=== PATIENT | female | born 1965 | race Two or more races ===

== ENCOUNTER → 2016-12-06 | Outpatient (REF) | payer MEDICARE | LOC: M SFHCWAGY 14:06 | PROVIDERS: ATTEND Family Medicine | DX: Z11.3 Encounter for screening for infections with a predominantly sexual mode of transmission (principal); Z12.4 Encounter for screening for malignant neoplasm of cervix; N95.2 Postmenopausal atrophic vaginitis; Z72.51 High risk heterosexual behavior | CPT/HCPCS: 87491; 87591; G0101; G0123 ==

== ENCOUNTER → 2017-01-07 | Outpatient (REF) | payer MEDICARE ==
[2017-01-07 13:41] LABS: BASO % 0.8 % (0.0-1.0); EOS # 0.1 K/mm3 (0.0-0.50); EOS % 1.8 % (0.0-3.0); LARGE UNSTAINED CELL # 0.1 K/mm3 (0.0-0.4); LARGE UNSTAINED CELL % 1.4 % (0.0-4.0); LYMPH # 2.5 K/mm3 (1.5-4.5); LYMPH % 32.9 % (24.0-44.0); MEAN CORPUSCULAR HEMOGLOBIN 32.2 pg (27.0-33.0); MEAN CORPUSCULAR HGB CONC 34.1 g/dl (32.0-36.5); MEAN CORPUSCULAR VOLUME 94.6 fl (80.0-96.0); MONO # 0.3 K/mm3 (0.0-0.8); NEUTROPHILS # 4.3 K/mm3 (1.8-7.7); NEUTROPHILS % 59.2 % (36.0-66.0); PLATELET COUNT, AUTOMATED 247 k/mm3 (150-450); RED CELL DISTRIBUTION WIDTH 12.6 % (11.5-14.5); WHITE BLOOD COUNT 7.2 K/mm3 (4.0-10.0)
[2017-01-07 14:07] LABS: ALBUMIN 3.6 GM/DL (3.2-5.2); ALBUMIN/GLOBULIN RATIO 1.06 (1.00-1.93); ALKALINE PHOSPHATASE 184 U/L (45-117); ALT/SGPT 26 U/L (12-78); ANION GAP 5 MEQ/L (8-16); AST/SGOT 14 U/L (15-37); BILIRUBIN,TOTAL 0.8 MG/DL (0.2-1.0); BLOOD UREA NITROGEN 21 MG/DL (7-18); CALCIUM LEVEL 9.4 MG/DL (8.5-10.1); CARBON DIOXIDE LEVEL 31 MEQ/L (21-32); CHLORIDE LEVEL 106 MEQ/L (98-107); CREATININE FOR GFR 0.89 MG/DL (0.55-1.02); GLOMERULAR FILTRATION RATE > 60.0 (>51); GLUCOSE, FASTING 102 MG/DL (70-105); POTASSIUM SERUM 4.2 MEQ/L (3.5-5.1); SODIUM LEVEL 142 MEQ/L (136-145)
== END ==
LOC: M LABNEURO 13:34
PROVIDERS: ATTEND Psychiatry & Neurology Neurology
DX: G40.909 Epilepsy, unspecified, not intractable, without status epilepticus (principal)

== ENCOUNTER → 2017-02-10 | Outpatient (REF) | payer MEDICARE, MEDICAID ==
[~2017-02-10] MED LIST: CELE1CAP7 PO; ESCI20TA PO; KEPP1TAB PO; LEVO25TA5 PO; VALT500T PO; VENL150C43 PO
[2017-02-10 16:25] LABS: FREE T4 1.16 NG/DL (0.76-1.46)
== END ==
LOC: M SFHCPLAZ 13:50
PROVIDERS: ATTEND Family Medicine
DX: E04.9 Nontoxic goiter, unspecified (principal)
CPT/HCPCS: 36415; 84439; 84443; G0463

== ENCOUNTER 2017-03-06 16:42 | Emergency (ER) | payer MEDICARE, MEDICAID ==
[~2017-03-06] VITALS: Ht 160 cm; Wt 85.5 kg
[2017-03-06] MEDS ORDERED: KEPP1TAB PO (16:54)
[2017-03-06] MEDS ORDERED: ESCI20TA PO (16:54)
[2017-03-06] MEDS ORDERED: CELE1CAP7 PO (16:54)
[2017-03-06] MEDS ORDERED: LEVO25TA5 PO (16:54)
[2017-03-06] MEDS ORDERED: VENL150C43 PO (16:54)
[2017-03-06] MEDS ORDERED: VALT500T PO (16:54)
[2017-03-06 18:10] LABS: BASO # 0.1 K/mm3 (0.0-0.2); BASO % 1.2 % (0.0-1.0); EOS # 0.2 K/mm3 (0.0-0.50); EOS % 2.4 % (0.0-3.0); LARGE UNSTAINED CELL # 0.1 K/mm3 (0.0-0.4); LARGE UNSTAINED CELL % 1.4 % (0.0-4.0); LYMPH # 2.6 K/mm3 (1.5-4.5); LYMPH % 34.1 % (24.0-44.0); MEAN CORPUSCULAR HEMOGLOBIN 32.9 pg (27.0-33.0); MEAN CORPUSCULAR HGB CONC 35.1 g/dl (32.0-36.5); MEAN CORPUSCULAR VOLUME 93.7 fl (80.0-96.0); MONO # 0.3 K/mm3 (0.0-0.8); MONO % 4.3 % (0.0-5.0); NEUTROPHILS # 4.1 K/mm3 (1.8-7.7); NEUTROPHILS % 56.5 % (36.0-66.0); PLATELET COUNT, AUTOMATED 233 k/mm3 (150-450); RED CELL DISTRIBUTION WIDTH 12.4 % (11.5-14.5); WHITE BLOOD COUNT 7.2 K/mm3 (4.0-10.0)
[2017-03-06 18:31] LABS: ALBUMIN 3.5 GM/DL (3.2-5.2); ALBUMIN/GLOBULIN RATIO 1.03 (1.00-1.93); ALKALINE PHOSPHATASE 223 U/L (45-117); ALT/SGPT 23 U/L (12-78); ANION GAP 9 MEQ/L (8-16); AST/SGOT 16 U/L (15-37); BILIRUBIN,DIRECT < 0.1 MG/DL (0.0-0.2); BILIRUBIN,TOTAL 0.4 MG/DL (0.2-1.0); BLOOD UREA NITROGEN 18 MG/DL (7-18); CARBON DIOXIDE LEVEL 28 MEQ/L (21-32); CHLORIDE LEVEL 108 MEQ/L (98-107); CREATININE FOR GFR 0.98 MG/DL (0.55-1.02); GLOMERULAR FILTRATION RATE > 60.0 (>51); GLUCOSE, FASTING 90 MG/DL (70-105); SODIUM LEVEL 145 MEQ/L (136-145); TOTAL PROTEIN 6.9 GM/DL (6.4-8.2)
[2017-03-06 18:45] VITALS: BP 148/107
== END 2017-03-06 19:01 | disposition home or self-care (01) ==
LOC: M ED 16:42
DX: R53.1 Weakness (principal); R19.7 Diarrhea, unspecified; Z88.8 Allergy status to other drugs, medicaments and biological substances; Z79.899 Other long term (current) drug therapy

== ENCOUNTER → 2017-03-07 | Outpatient (CLI) | payer MEDICARE, MEDICAID ==
--- NOTE | 2017-03-07 16:52 | REP ---
Chest two views HISTORY: Cough Comparison: None There is elevation of the right hemidiaphragm. The lungs are clear. The heart is normal in size. The pulmonary vasculature is normal in appearance. There are old right rib fractures. The bony structure is intact. IMPRESSION: No acute disease. Signed by Freddy Armendariz MD 03/07/2017 04:44 P
== END ==
LOC: M RAD 15:09
PROVIDERS: ATTEND Family Medicine
DX: R05 Cough (principal)
CPT/HCPCS: 71020; 94010; G0463

== ENCOUNTER → 2017-04-08 | Outpatient (CLI) | payer MEDICARE ==
--- NOTE | 2017-04-10 15:51 | REPMRS ---
Patient History The patient states she had a clinical breast exam in 12/18 Patient is postmenopausal. Family history of colorectal cancer in father under age 50, prostate cancer in father under age 50, breast cancer in mother at age 50 or over, and breast cancer in maternal cousin under age 50. Digital Woman Screen Mammo: April 08, 2017 - Exam #: [id number] Bilateral CC and MLO view(s) were taken. Technologist: Vero Ambriz, Technologist Prior study comparison: 2015, bilateral digital mammo screening bilat, performed at [facility] [place]. January 18, 2015, digital bilateral screening mammo, performed at [facility]. FINDINGS: There are scattered fibroglandular densities. There has been no change in the appearance of the mammogram from the prior studies. There is a mild amount of scattered fibroglandular density which is fairly symmetric. There is no interval development of dominant mass, architectural distortion, or clustered microcalcification suggestive of malignancy. ASSESSMENT: BI-RADS/ACR category 1 mammogram. Negative. Recommendation Routine screening mammogram in 1 year (for women over age 40). This mammogram was interpreted with the aid of an FDA-approved computer-aided dectection system. Electronically Signed By: Cory Gann MD 04/10/17 2624
== END ==
LOC: M WHC 13:35
PROVIDERS: ATTEND Family Medicine
DX: Z12.31 Encounter for screening mammogram for malignant neoplasm of breast (principal)

== ENCOUNTER → 2017-04-24 | Outpatient (CLI) | payer MEDICARE, MEDICAID ==
--- NOTE | 2017-04-24 19:31 | REP ---
RIGHT KNEE SERIES: Five views of the right knee are performed. There is no acute fracture or dislocation. There is mild medial joint spaces narrowing and subchondral sclerosis. There is mild spurring of the lateral patellar facet with slight patellofemoral compartment narrowing and subchondral sclerosis. IMPRESSION: Mild degenerative changes. Signed by Korey Hernandez MD 04/25/2017 02:20 P
== END ==
LOC: M RAD 16:02
PROVIDERS: ATTEND Nurse Practitioner Family
DX: M25.561 Pain in right knee (principal); M17.11 Unilateral primary osteoarthritis, right knee
CPT/HCPCS: 73564; G0463

== ENCOUNTER → 2017-06-30 | Outpatient (CLI) | payer MEDICARE ==
[2017-06-30 14:10] LABS: BLOOD UREA NITROGEN 13 MG/DL (7-18); CREATININE FOR GFR 0.82 MG/DL (0.55-1.02); GLOMERULAR FILTRATION RATE > 60.0 (>51)
== END ==
LOC: M LAB 12:52
PROVIDERS: ATTEND Nurse Practitioner Adult Health
DX: R05 Cough (principal)

== ENCOUNTER → 2017-07-02 | Outpatient (CLI) | payer MEDICARE ==
[~2017-07-02] MED LIST changes: +ISOVUE-370 76% 100ML VIAL (Q9967) As Ordered ONE
== END ==
LOC: M RAD 14:34
PROVIDERS: ATTEND Nurse Practitioner Adult Health
DX: R05 Cough (principal)
CPT/HCPCS: 71260; Q9967

== ENCOUNTER → 2017-09-25 | Outpatient (CLI) | payer MEDICARE | LOC: M SLEEP 12:51 | DX: G47.30 Sleep apnea, unspecified (principal) | CPT/HCPCS: G0399 ==

== ENCOUNTER → 2017-12-12 | Outpatient (REF) | payer MEDICARE | LOC: M SFHCWAGY 13:31 | DX: Z01.419 Encounter for gynecological examination (general) (routine) without abnormal findings (principal); N95.2 Postmenopausal atrophic vaginitis | CPT/HCPCS: G0123 ==

== ENCOUNTER → 2017-12-12 | Outpatient (REF) | payer MEDICARE ==
[2017-12-12 17:31] LABS: CHLAMYDIA DNA AMPLIFICATION NEGATIVE (NEGATIVE); GC DNA AMPLIFICATION NEGATIVE (NEGATIVE)
== END ==
LOC: M SFHCWAGY 15:40
DX: Z01.419 Encounter for gynecological examination (general) (routine) without abnormal findings (principal); A64 Unspecified sexually transmitted disease; B37.89 Other sites of candidiasis
CPT/HCPCS: 87591

== ENCOUNTER → 2018-01-05 | Outpatient (REF) | payer MEDICARE ==
[2018-01-05 16:12] LABS: TOTAL 25(OH) VITAMIN D 14.3 NG/ML (30.0-100.0)
[2018-01-05 16:16] LABS: FREE T4 1.18 NG/DL (0.76-1.46)
== END ==
LOC: M SFHCPLAZ 13:52
DX: R53.82 Chronic fatigue, unspecified (principal); F41.8 Other specified anxiety disorders; Z68.34 Body mass index [BMI] 34.0-34.9, adult
CPT/HCPCS: 84443

== ENCOUNTER → 2018-02-03 | Outpatient (REF) | LOC: M SMT 15:05 | DX: Z00.00 Encounter for general adult medical examination without abnormal findings (principal) ==

== ENCOUNTER → 2018-02-11 | Outpatient (REF) | payer MEDICARE, MEDICAID ==
[2018-02-11 15:45] LABS: ANION GAP 8 MEQ/L (8-16); BLOOD UREA NITROGEN 24 MG/DL (7-18); C REACTIVE PROTEIN QUANTITATIV 1.41 MG/DL (0.00-0.30); CALCIUM LEVEL 8.7 MG/DL (8.5-10.1); CARBON DIOXIDE LEVEL 24 MEQ/L (21-32); CHLORIDE LEVEL 111 MEQ/L (98-107); CREATININE FOR GFR 0.79 MG/DL (0.55-1.30); GLOMERULAR FILTRATION RATE > 60.0 (>51); GLUCOSE, FASTING 99 MG/DL (70-100); MAGNESIUM LEVEL 1.8 MG/DL (1.8-2.4); POTASSIUM SERUM 4.1 MEQ/L (3.5-5.1); SODIUM LEVEL 143 MEQ/L (136-145)
== END ==
LOC: M SFHCPLAZ 13:47
DX: R53.82 Chronic fatigue, unspecified (principal)
CPT/HCPCS: 83735

== ENCOUNTER → 2018-02-25 | Outpatient (CLI) | payer MEDICARE, MEDICAID ==
[2018-02-27 09:34] LABS: RUBELLA IgG QUALITATIVE IMMUNE (IMMUNE)
[2018-02-27 09:39] LABS: MUMPS VIRUS IgG ANTIBODY >300.0 AU/mL (Immune >10.9)
[2018-02-27 09:39] LABS: RUBEOLA IgG ANTIBODY 49.1 AU/mL (Immune >29.9)
== END ==
LOC: M WUC 13:53
DX: Z02.1 Encounter for pre-employment examination (principal)
CPT/HCPCS: 86762

== ENCOUNTER → 2018-06-16 | Outpatient (CLI) | payer MEDICARE, MEDICAID ==
[~2018-06-16] MED LIST changes: -CELE1CAP7 PO; -ESCI20TA PO; -ISOVUE-370 76% 100ML VIAL (Q9967) As Ordered ONE; -KEPP1TAB PO; -LEVO25TA5 PO; +METHACHOLINE KIT (J7674) INH; -VALT500T PO; -VENL150C43 PO
== END ==
LOC: M CARPUL 13:40
DX: R05 Cough (principal)
CPT/HCPCS: J7674

== ENCOUNTER → 2018-12-18 | Outpatient (CLI) | payer MEDICARE, MEDICAID ==
[~2018-12-18] MED LIST changes: +CELE1CAP7 PO; +ESCI20TA PO; +KEPP1TAB PO; +LEVO25TA5 PO; -METHACHOLINE KIT (J7674) INH; +VALT500T PO; +VENL150C43 PO
--- NOTE | 2018-12-18 16:34 | REPMRS ---
Patient History The patient states she has not had a clinical breast exam in over a year. Patient is postmenopausal. Family history of colorectal cancer under age 50 and prostate cancer under age 50 in father, breast cancer under age 50 in maternal cousin, breast cancer at age 50 or over in mother. No Hormone Replacement Therapy Digital Woman Screen Mammo: December 18, 2018 - Exam #: [id number] Bilateral CC and MLO view(s) were taken. Technologist: Bree Lane, Technologist Prior study comparison: April 08, 2017, digital woman screen mammo performed at [facility]. 2015, bilateral digital mammo screening bilat, performed at [facility], [facility] [place]. January 18, 2015, digital bilateral screening mammo, performed at [facility]. FINDINGS: There are scattered fibroglandular densities. The needle biopsy marker clip again noted in the right breast. There has been no change in the appearance of the mammogram from the prior studies. There is a mild amount of scattered fibroglandular density which is fairly symmetric. There is no interval development of dominant mass, architectural distortion, or clustered microcalcification suggestive of malignancy. 3-D tomosynthesis shows no additional findings. Assessment: BI-RADS/ACR category 2 mammogram. Benign Findings. Recommendation Routine screening mammogram of both breasts in 1 year (for women over age 40). This patient's Lifetime Breast Cancer RIsk is estimated at 11.9 %. This mammogram was interpreted with the aid of an FDA-approved computer-aided dectection system. Electronically Signed By: Cory Gann MD 12/18/18 0735
== END ==
LOC: M WHC 13:12
PROVIDERS: ATTEND Family Medicine
DX: Z01.411 Encounter for gynecological examination (general) (routine) with abnormal findings (principal); Z12.31 Encounter for screening mammogram for malignant neoplasm of breast; Z78.0 Asymptomatic menopausal state; Z80.3 Family history of malignant neoplasm of breast
CPT/HCPCS: 77063; 77067; G0123; G0463

== ENCOUNTER → 2018-12-18 | Outpatient (REF) | payer MEDICARE, MEDICAID | LOC: M SFHCWAGY 14:33 | PROVIDERS: ATTEND Family Medicine | DX: Z12.4 Encounter for screening for malignant neoplasm of cervix (principal) ==

== ENCOUNTER 2019-06-01 14:27 | Outpatient (RCR) | payer MEDICARE, MEDICAID | END 2019-06-03 | LOC: M PT 14:27 | PROVIDERS: ATTEND Family Medicine | DX: M72.2 Plantar fascial fibromatosis (principal) ==

== ENCOUNTER 2019-06-24 13:43 | Outpatient (RCR) | payer MEDICARE, MEDICAID | END 2019-07-03 | LOC: M PT 13:43 | PROVIDERS: ATTEND Family Medicine | DX: M72.2 Plantar fascial fibromatosis (principal); Z47.89 Encounter for other orthopedic aftercare ==

== ENCOUNTER 2019-07-22 14:23 | Outpatient (RCR) | payer MEDICARE, MEDICAID ==
[2019-07-26] MEDS ORDERED: SUMA50TA2 PO (14:20)
[2019-07-26] MEDS ORDERED: NAPR-885 PO (14:20)
[2019-07-26] MEDS ORDERED: LEVO50TA5 PO (14:20)
[2019-07-26] MEDS ORDERED: LEVE10003 PO (14:20)
[2019-07-26] MEDS ORDERED: SERT-138 PO (14:20)
== END 2019-08-03 ==
LOC: M PT 14:23
PROVIDERS: ATTEND Family Medicine
DX: S29.012D Strain of muscle and tendon of back wall of thorax, subsequent encounter (principal); X58.XXXD Exposure to other specified factors, subsequent encounter; M72.2 Plantar fascial fibromatosis

== ENCOUNTER 2019-08-30 13:25 | Outpatient (RCR) | payer OTHER, MEDICAID ==
[~2019-08-30 13:25] MED LIST changes: +LEVE10003 PO; +LEVO50TA5 PO; +NAPR-885 PO; +SERT-138 PO; +SUMA50TA2 PO
== END 2019-09-03 ==
LOC: M PT 13:25
PROVIDERS: ATTEND Family Medicine
DX: S29.012D Strain of muscle and tendon of back wall of thorax, subsequent encounter (principal); X58.XXXD Exposure to other specified factors, subsequent encounter

== ENCOUNTER 2019-09-16 14:14 | Outpatient (RCR) | payer OTHER, MEDICAID ==
[2019-10-07] MEDS ORDERED: INDE80CA9 PO (13:09)
== END 2019-10-02 ==
LOC: M PT 14:14
PROVIDERS: ATTEND Family Medicine
DX: S29.012D Strain of muscle and tendon of back wall of thorax, subsequent encounter (principal); X58.XXXD Exposure to other specified factors, subsequent encounter

== ENCOUNTER → 2019-09-21 | Outpatient (REF) | payer OTHER, MEDICAID ==
[2019-09-21 18:35] LABS: APPEARANCE, URINE HAZY (CLEAR); BACTERIA, URINE AUTO NEGATIVE (NEGATIVE); BILIRUBIN, URINE AUTO NEGATIVE (NEGATIVE); BLOOD, URINE BLOOD NEGATIVE (NEGATIVE); COLOR, URINE YELLOW (YELLOW); GLUCOSE, URINE (UA) AUTO NEGATIVE (NEGATIVE); KETONE, URINE AUTO NEGATIVE (NEGATIVE); LEUKOCYTE ESTERASE, URINE AUTO NEGATIVE (NEGATIVE); MUCUS, URINE SMALL (NEGATIVE); NITRITE, URINE AUTO NEGATIVE (NEGATIVE); PROTEIN, URINE AUTO NEGATIVE (NEGATIVE); RBC, URINE AUTO 1 /HPF (0-3); SPECIFIC GRAVITY URINE AUTO 1.027 (1.002-1.035); SQUAMOUS EPITHELIAL CELL UR AU 2 /HPF (0-6); UROBILINOGEN, URINE AUTO 0.2 mg/dL (0.0-2.0); WBC, URINE AUTO 2 /HPF (0-3)
== END ==
LOC: M SFHCPLAZ 16:43
PROVIDERS: ATTEND Physician Assistant
DX: R39.11 Hesitancy of micturition (principal)

== ENCOUNTER 2019-09-23 20:22 | Emergency (ER) | payer OTHER, MEDICAID ==
[~2019-09-23] VITALS: Ht 160 cm; Wt 113.6 kg
[2019-09-23 22:54] VITALS: BP 160/86
== END 2019-09-23 22:56 | disposition home or self-care (01) ==
LOC: M ED 20:22
DX: G89.29 Other chronic pain (principal); R51 Headache; R56.9 Unspecified convulsions; F33.9 Major depressive disorder, recurrent, unspecified; F41.9 Anxiety disorder, unspecified; Z88.8 Allergy status to other drugs, medicaments and biological substances; Z79.1 Long term (current) use of non-steroidal anti-inflammatories (NSAID); Z79.899 Other long term (current) drug therapy

== ENCOUNTER 2019-10-12 06:42 | Day surgery (SDC) | payer OTHER, MEDICAID ==
[~2019-10-12] VITALS: Ht 160 cm; Wt 95.7 kg
[~2019-10-12 06:42] MED LIST changes: +INDE80CA9 PO
[2019-10-12] MEDS ORDERED: NS 1,000 ML IV ONE (07:00)
[2019-10-12] MEDS ORDERED: LIDOCAINE 2% INJ 100 MG/5 ML SDV (FOR ANES.) As Ordered ONE (07:08)
[2019-10-12] MEDS ORDERED: propofoL 200 MG/20 ML VIAL As Ordered ONE (07:08)
--- NOTE | 2019-10-12 08:30 | ROOR ---
Patient Name: Francy Dempsey Procedure Date: 10/12/2019 7:51 AM Date of : 1965 Age: 54 Room: [facility] Gender: Female Note Status: Finalized Procedure: Colonoscopy Indications: Screening in patient at increased risk: Family history of 1st-degree relative with colorectal cancer before age 60 years Providers: Jonnie Keita MD Referring MD: Charlee Sullivan Requesting Provider: Medicines: Monitored Anesthesia Care Complications: No immediate complications. Procedure: Pre-Anesthesia Assessment: - Prior to the procedure, a History and Physical was performed, and patient medications and allergies were reviewed. The patient is competent. The risks and benefits of the procedure and the sedation options and risks were discussed with the patient. All questions were answered and informed consent was obtained. Patient identification and proposed procedure were verified by the physician, the nurse and the anesthesiologist in the procedure room. Mental Status Examination: alert and oriented. Airway Examination: normal oropharyngeal airway and neck mobility. Respiratory Examination: clear to auscultation. CV Examination: normal. Prophylactic Antibiotics: The patient does not require prophylactic antibiotics. Prior Anticoagulants: The patient has taken no previous anticoagulant or antiplatelet agents. ASA Grade Assessment: II - A patient with mild systemic disease. After reviewing the risks and benefits, the patient was deemed in satisfactory condition to undergo the procedure. The anesthesia plan was to use monitored anesthesia care (MAC). Immediately prior to administration of medications, the patient was re-assessed for adequacy to receive sedatives. The heart rate, respiratory rate, oxygen saturations, blood pressure, adequacy of pulmonary ventilation, and response to care were monitored throughout the procedure. The physical status of the patient was re-assessed after the procedure. The Colonoscope was introduced through the anus and advanced to the terminal ileum, with identification of the appendiceal orifice and IC valve. The colonoscopy was performed without difficulty. The patient tolerated the procedure well. The quality of the bowel preparation was good. The terminal ileum, ileocecal valve, appendiceal orifice, and rectum were photographed. Scope insertion time was 2 minutes. Scope withdrawal time was 10 minutes. The total duration of the procedure was 12 minutes. Findings: The perianal and digital rectal examinations were normal. The terminal ileum appeared normal. Non-bleeding external and internal hemorrhoids were found during retroflexion. The hemorrhoids were small. The exam was otherwise normal throughout the examined colon. Impression: - The examined portion of the ileum was normal. - Non-bleeding external and internal hemorrhoids. - No specimens collected. Recommendation: - Patient has a contact number available for emergencies. The signs and symptoms of potential delayed complications were discussed with the patient. Return to normal activities tomorrow. Written discharge instructions were provided to the patient. - High fiber diet. - Continue present medications. - Repeat colonoscopy in 5 years for screening purposes and due to family history of colon cancer. - Return to GI clinic in 5 years. - Return to primary care physician. Jonnie Keita MD Jonnie Keita MD 10/12/2019 8:30:46 AM Electronically signed by Jonnie Keita MD Number of Addenda: 0 Note Initiated On: 10/12/2019 7:51 AM Estimated Blood Loss: Estimated blood loss: none.
[2019-10-12 08:40] VITALS: BP 125/66
== END 2019-10-12 08:52 | disposition home or self-care (01) ==
LOC: M OPP 06:42
PROVIDERS: ATTEND Internal Medicine Gastroenterology
DX: Z12.11 Encounter for screening for malignant neoplasm of colon (principal); Z80.0 Family history of malignant neoplasm of digestive organs; K64.8 Other hemorrhoids; G47.30 Sleep apnea, unspecified; Z79.899 Other long term (current) drug therapy; Z88.8 Allergy status to other drugs, medicaments and biological substances; Z91.040 Latex allergy status; Z91.048 Other nonmedicinal substance allergy status

== ENCOUNTER 2019-11-01 13:48 | Emergency (ER) | payer OTHER, MEDICAID ==
[~2019-11-01] VITALS: Ht 157.5 cm; Wt 97.0 kg
[2019-11-01] MEDS ORDERED: PROA1AER2 (13:58)
[2019-11-01] MEDS ORDERED: ARNU1INH (13:58)
[2019-11-01] MEDS ORDERED: ALBU8.5H (13:58)
[2019-11-01] MEDS ORDERED: ARIP1TAB4 PO (14:21)
[2019-11-01 15:13] VITALS: BP 138/60
--- NOTE | 2019-11-01 16:31 | REP ---
Left foot: Four views. History: Fourth and fifth toe pain. Findings: Four views of the left foot demonstrate overall normal mineralization. There is an intra-articular fracture of the base of the proximal phalanx of the fifth toe. The fracture fragment appears to be rotated. The fifth DIP joint is developmentally fused. No fourth toe fracture is appreciated. No other fracture is seen. Impression: Fifth proximal phalangeal fracture, intra-articular with rotated fragment. Electronically Signed by Freddy Gann MD 11/01/2019 05:00 P
== END 2019-11-01 15:34 | disposition home or self-care (01) ==
LOC: M ED 13:48
DX: S92.512A Displaced fracture of proximal phalanx of left lesser toe(s), initial encounter for closed fracture (principal); X58.XXXA Exposure to other specified factors, initial encounter; Y92.099 Unspecified place in other non-institutional residence as the place of occurrence of the external cause; Y93.9 Activity, unspecified; Y99.9 Unspecified external cause status; Z79.899 Other long term (current) drug therapy; Z88.8 Allergy status to other drugs, medicaments and biological substances; Z91.040 Latex allergy status; Z91.89 Other specified personal risk factors, not elsewhere classified

== ENCOUNTER 2019-11-03 14:23 | Outpatient (RCR) | payer OTHER, MEDICAID ==
[~2019-11-03 14:23] MED LIST changes: +ALBU8.5H; +ARIP1TAB4 PO; +ARNU1INH; +PROA1AER2
== END 2019-12-02 ==
LOC: M PT 14:23
PROVIDERS: ATTEND Orthopaedic Surgery
DX: M72.2 Plantar fascial fibromatosis (principal)

== ENCOUNTER → 2019-11-04 | Outpatient (REF) | payer OTHER, MEDICAID ==
[2019-11-04 14:52] LABS: HEMATOCRIT 45.8 % (36.0-47.0); MEAN CORPUSCULAR HEMOGLOBIN 30.8 pg (27.0-33.0); MEAN CORPUSCULAR HGB CONC 32.8 g/dl (32.0-36.5); PLATELET COUNT, AUTOMATED 280 10^3/uL (150-450); RED BLOOD COUNT 4.87 10^6/uL (4.00-5.40); WHITE BLOOD COUNT 6.9 10^3/uL (4.0-10.0)
[2019-11-04 15:02] LABS: ALBUMIN 3.6 GM/DL (3.2-5.2); ALT/SGPT 27 U/L (12-78); BILIRUBIN,TOTAL 0.6 MG/DL (0.2-1.0); BLOOD UREA NITROGEN 22 MG/DL (7-18); CALCIUM LEVEL 9.1 MG/DL (8.5-10.1); CARBON DIOXIDE LEVEL 30 MEQ/L (21-32); CHLORIDE LEVEL 108 MEQ/L (98-107); CHOLESTEROL LEVEL 221 MG/DL (<200); CHOLESTEROL RISK RATIO 6.696 (<5); CREATININE FOR GFR 0.91 MG/DL (0.55-1.30); FREE T4 1.12 NG/DL (0.76-1.46); GLOMERULAR FILTRATION RATE > 60.0 (>51); GLUCOSE, FASTING 103 MG/DL (70-100); HDL CHOLESTEROL 33 MG/DL (>40); NON-HDL-C 188 MG/DL; POTASSIUM SERUM 4.6 MEQ/L (3.5-5.1); SODIUM LEVEL 140 MEQ/L (136-145); TOTAL PROTEIN 7.2 GM/DL (6.4-8.2); TRIGLYCERIDES LEVEL 403 MG/DL (<150)
[2019-11-04 15:05] LABS: TOTAL 25(OH) VITAMIN D 22.5 NG/ML (30.0-100.0)
[2019-11-04 15:20] LABS: HEMOGLOBIN A1c 6.2 %
== END ==
LOC: M SFHCPLAZ 09:40
PROVIDERS: ATTEND Physician Assistant
DX: G47.33 Obstructive sleep apnea (adult) (pediatric) (principal); E04.9 Nontoxic goiter, unspecified; E55.9 Vitamin D deficiency, unspecified; Z13.1 Encounter for screening for diabetes mellitus; Z13.220 Encounter for screening for lipoid disorders; Z79.899 Other long term (current) drug therapy

== ENCOUNTER → 2020-03-09 | Outpatient (CLI) | payer OTHER, MEDICAID ==
--- NOTE | 2020-03-29 10:46 | REPMRS ---
Patient History The patient states she had a clinical breast exam in March 2020.Patient is postmenopausal. Family history of colorectal cancer under age 50 and prostate cancer under age 50 in father, breast cancer under age 50 in maternal cousin, breast cancer at age 50 or over in mother. No Hormone Replacement Therapy Digital Woman Screen Mammo: March 09, 2020 - Exam #: [id number] Bilateral CC and MLO view(s) were taken. Technologist: Beba Magallanes, Technologist Prior study comparison: December 18, 2018, bilateral digital woman screen mammo performed at [facility]. April 08, 2017, digital woman screen mammo performed at [facility]. 2015, bilateral digital mammo screening bilat, performed at [facility], [facility]. FINDINGS: The breast tissue is almost entirely fat. The Volpara volumetric breast density category is: A. There is a needle biopsy marker clip in the right breast. There has been no change in the appearance of the mammogram from the prior studies. There is no interval development of dominant mass, architectural distortion, or grouped microcalcification typical of malignancy. 3-D tomosynthesis shows no additional findings. Report was delayed due to a protracted computer network disruption experienced by this facility. Assessment: BI-RADS/ACR category 2 mammogram. Benign Findings. Recommendation Routine screening mammogram of both breasts in 1 year (for women over age 40). This patient's Lifetime Breast Cancer RIsk is estimated at 11.7 %. This mammogram was interpreted with the aid of an FDA-approved computer-aided dectection system. Electronically Signed By: Cory Gann MD 03/29/20 2295
== END ==
LOC: M WHC 15:01
PROVIDERS: ATTEND Nurse Practitioner Women's Health
DX: Z01.419 Encounter for gynecological examination (general) (routine) without abnormal findings (principal); Z12.31 Encounter for screening mammogram for malignant neoplasm of breast; Z78.0 Asymptomatic menopausal state; Z80.0 Family history of malignant neoplasm of digestive organs; Z80.42 Family history of malignant neoplasm of prostate; Z80.3 Family history of malignant neoplasm of breast
CPT/HCPCS: 77063; 77067; G0123; G0463

== ENCOUNTER → 2020-03-09 | Outpatient (REF) | payer OTHER, MEDICAID | LOC: M SFHCWAGY 10:47 | PROVIDERS: ATTEND Nurse Practitioner Women's Health | DX: Z12.4 Encounter for screening for malignant neoplasm of cervix (principal); N85.8 Other specified noninflammatory disorders of uterus ==

== ENCOUNTER → 2020-04-19 | Outpatient (REF) | payer OTHER, MEDICAID ==
[2020-05-01 14:08] LABS: CALPROTECTIN STOOL 39 ug/g (0-120); FATS NEUTRAL Normal (.); FATS TOTAL Normal (.); PANCREATIC ELASTASE STOOL 243 (>200)
== END ==
LOC: M LAB REF 15:10
PROVIDERS: ATTEND Physician Assistant Medical
DX: R19.7 Diarrhea, unspecified (principal)

== ENCOUNTER → 2020-05-24 | Outpatient (CLI) | payer SELFPAY | LOC: M LABSMTC 13:37 | PROVIDERS: ATTEND Pediatrics | DX: Z20.828 Contact with and (suspected) exposure to other viral communicable diseases (principal) ==

== ENCOUNTER → 2020-06-17 | Outpatient (CLI) | payer SELFPAY | LOC: M LABSMTC 11:00 | PROVIDERS: ATTEND Pediatrics | DX: Z20.828 Contact with and (suspected) exposure to other viral communicable diseases (principal) ==

== ENCOUNTER → 2020-07-07 | Outpatient (CLI) | payer OTHER, MEDICAID ==
--- NOTE | 2020-07-07 14:54 | REP ---
INDICATION: [facility]. COMPARISON: None. FINDINGS: Supine and upright views of the abdomen show the intestinal gas pattern to be nonspecific. Gas and stool is seen throughout the colon within the rectosigmoid region. The organ silhouettes insofar as delineated appear unremarkable. No abdominal calcific densities are seen within the abdomen or pelvis. The accompanying single frontal view of the chest shows no free subdiaphragmatic air, cardiomegaly, infiltrates or effusions. IMPRESSION: Nonspecific intestinal gas pattern. <Electronically signed by Sukhwinder Welch > 07/07/20 1897
[2020-07-07 15:31] LABS: FREE T4 1.2 NG/DL (0.76-1.46); THYROID STIMULATING HORMONE 2.13 uIU/ML (0.358-3.740)
== END ==
LOC: M LAB 14:03
PROVIDERS: ATTEND Physician Assistant Medical
DX: R19.7 Diarrhea, unspecified (principal)

== ENCOUNTER → 2021-04-25 | Outpatient (CLI) | payer OTHER, MEDICAID ==
[~2021-04-25] MED LIST changes: +AIMO70IN2 SQ; -ESCI20TA PO; +ESCI20TA16 PO; +SERT-141 PO
== END ==
LOC: M LABSMTC 10:50
PROVIDERS: ATTEND Anesthesiology
DX: Z01.812 Encounter for preprocedural laboratory examination (principal); Z20.822 Contact with and (suspected) exposure to COVID-19

== ENCOUNTER 2021-04-27 11:27 | Day surgery (SDC) | payer OTHER, MEDICAID ==
[~2021-04-27] VITALS: Ht 160 cm; Wt 110.2 kg
[~2021-04-27 11:27] MED LIST changes: +NS 1,000 ML IV ONE
[2021-04-27] MEDS ORDERED: propofoL 200 MG/20 ML VIAL As Ordered ONE (12:17)
[2021-04-27] MEDS ORDERED: LIDOCAINE 2% 100MG/5ML SDV (FOR ANES.) As Ordered ONE (12:17)
--- NOTE | 2021-04-27 14:41 | ROOR ---
Patient Name: Francy Dempsey Procedure Date: 04/27/2021 2:12 PM Date of : 1965 Age: 55 Room: [facility] Gender: Female Note Status: Finalized Procedure: Upper GI endoscopy Indications: Positive celiac serologies Providers: Jonnie Keita MD Referring MD: Charlee Sullivan Requesting Provider: Medicines: Monitored Anesthesia Care Complications: No immediate complications. Procedure: Pre-Anesthesia Assessment: - Prior to the procedure, a History and Physical was performed, and patient medications and allergies were reviewed. The patient is competent. The risks and benefits of the procedure and the sedation options and risks were discussed with the patient. All questions were answered and informed consent was obtained. Patient identification and proposed procedure were verified by the physician, the nurse and the anesthesiologist in the procedure room. Mental Status Examination: alert and oriented. Airway Examination: normal oropharyngeal airway and neck mobility. Respiratory Examination: clear to auscultation. CV Examination: normal. Prophylactic Antibiotics: The patient does not require prophylactic antibiotics. Prior Anticoagulants: The patient has taken no previous anticoagulant or antiplatelet agents. ASA Grade Assessment: II - A patient with mild systemic disease. After reviewing the risks and benefits, the patient was deemed in satisfactory condition to undergo the procedure. The anesthesia plan was to use monitored anesthesia care (MAC). Immediately prior to administration of medications, the patient was re-assessed for adequacy to receive sedatives. The heart rate, respiratory rate, oxygen saturations, blood pressure, adequacy of pulmonary ventilation, and response to care were monitored throughout the procedure. The physical status of the patient was re-assessed after the procedure. The Endoscope was introduced through the mouth, and advanced to the second part of duodenum. The upper GI endoscopy was accomplished without difficulty. The patient tolerated the procedure well. Findings: LA Grade A (one or more mucosal breaks less than 5 mm, not extending between tops of 2 mucosal folds) esophagitis with no bleeding was found in the distal esophagus. The Z-line was regular and was found 38 cm from the incisors. Patchy mild inflammation characterized by erosions, friability and granularity was found in the gastric body and in the gastric antrum. Biopsies were taken with a cold forceps for Helicobacter pylori testing. Verification of patient identification for the specimen was done by the physician and nurse using the patient's name, date and medical record number. Estimated blood loss was minimal. Thickened folds were found in the first portion of the duodenum. Biopsies for histology were taken with a cold forceps for evaluation of celiac disease. Impression: - LA Grade A reflux esophagitis. - Z-line regular, 38 cm from the incisors. - Gastritis. Biopsied. - Duodenal mucosal changes seen, suspicious for celiac disease. Biopsied. Recommendation: - Patient has a contact number available for emergencies. The signs and symptoms of potential delayed complications were discussed with the patient. Return to normal activities tomorrow. Written discharge instructions were provided to the patient. - High fiber diet and gluten free diet. - Continue present medications. - Await pathology results. - Telephone GI clinic for pathology results in 2 weeks. - Return to GI clinic if persistent symptoms or new symptoms. - Return to primary care physician. Procedure Code(s): --- Professional --- 96935, Esophagogastroduodenoscopy, flexible, transoral; with biopsy, single or multiple Diagnosis Code(s): --- Professional --- K21.0, Gastro-esophageal reflux disease with esophagitis K29.70, Gastritis, unspecified, without bleeding K31.89, Other diseases of stomach and duodenum R76.8, Other specified abnormal immunological findings in serum CPT copyright 2019 [employer]. All rights reserved. The codes documented in this report are preliminary and upon radio aerial installer review may be revised to meet current compliance requirements. Jonnie Keita MD Jonnie Keita MD 04/27/2021 2:40:41 PM Electronically signed by Jonnie Keita MD Number of Addenda: 0 Note Initiated On: 04/27/2021 2:12 PM Estimated Blood Loss: Estimated blood loss was minimal.
[2021-04-27 14:53] VITALS: BP 135/69
== END 2021-04-27 18:33 | disposition home or self-care (01) ==
LOC: M OPP 11:27
PROVIDERS: ATTEND Internal Medicine Gastroenterology
DX: K21.00 Gastro-esophageal reflux disease with esophagitis, without bleeding (principal); K29.70 Gastritis, unspecified, without bleeding; K31.89 Other diseases of stomach and duodenum; Z80.0 Family history of malignant neoplasm of digestive organs; G47.30 Sleep apnea, unspecified; R19.7 Diarrhea, unspecified; Z79.899 Other long term (current) drug therapy; Z88.8 Allergy status to other drugs, medicaments and biological substances; Z91.040 Latex allergy status; Z91.048 Other nonmedicinal substance allergy status

== ENCOUNTER 2021-05-13 22:34 | Emergency (ER) | payer OTHER, MEDICAID ==
[~2021-05-13 22:34] MED LIST changes: -NS 1,000 ML IV ONE
[2021-05-13 23:55] LABS: VENOUS HCO3 28.1 MEQ/L (23.0-27.0); VENOUS O2 SATURATION 78.9 % (60.0-80.0); VENOUS PARTIAL PRESSURE CO2 44.9 mmHg (38.0-50.0); VENOUS PARTIAL PRESSURE O2 39.4 mmHg (30.0-50.0); VENOUS PH 7.415 UNITS (7.330-7.430); VENOUS STANDARD HCO3 26.6 MEQ/L; VENOUS TOTAL CO2 29.5 MEQ/L (24.0-28.0)
[2021-05-14 00:17] LABS: BASO # 0.1 10^3/uL (0.0-0.2); BASO % 0.7 % (0.0-1.0); EOS # 0.1 10^3/uL (0.0-0.5); HEMATOCRIT 46.2 % (36.0-47.0); HEMOGLOBIN 15.1 g/dl (12.0-15.5); MEAN CORPUSCULAR HEMOGLOBIN 30.2 pg (27.0-33.0); MEAN CORPUSCULAR HGB CONC 32.7 g/dl (32.0-36.5); MEAN CORPUSCULAR VOLUME 92.4 fl (80.0-96.0); MONO # 0.7 10^3/uL (0.0-0.8); MONO % 7.7 % (2.0-8.0); NEUTROPHILS # 7.7 10^3/uL (1.5-8.5); NEUTROPHILS % 80.2 % (36.0-66.0); PLATELET COUNT, AUTOMATED 210 10^3/uL (150-450); WHITE BLOOD COUNT 9.6 10^3/uL (4.0-10.0)
[2021-05-14 00:32] LABS: ALBUMIN 3.3 GM/DL (3.2-5.2); ALT/SGPT 28 U/L (12-78); BILIRUBIN,DIRECT 0.3 MG/DL (0.0-0.2); BILIRUBIN,TOTAL 1.8 MG/DL (0.2-1.0); BLOOD UREA NITROGEN 12 MG/DL (7-18); CALCIUM LEVEL 8.2 MG/DL (8.5-10.1); CARBON DIOXIDE LEVEL 29 MEQ/L (21-32); CHLORIDE LEVEL 104 MEQ/L (98-107); CK-MB VALUE MASS < 1.0 NG/ML (<3.6); CPK CREATINE PHOSPHOKINASE 84 U/L (26-192); CREATININE FOR GFR 1.12 MG/DL (0.55-1.30); GLOMERULAR FILTRATION RATE 53.6 (>51); GLUCOSE, FASTING 124 MG/DL (70-100); MB/CK RELATIVE INDEX 1.19 (< OR =4); POTASSIUM SERUM 4.1 MEQ/L (3.5-5.1); SODIUM LEVEL 139 MEQ/L (136-145); TOTAL PROTEIN 7.4 GM/DL (6.4-8.2); TROPONIN I < 0.02 NG/ML (< 0.10)
[2021-05-14] MEDS ORDERED: ONDANSETRON 4MG/2ML VIAL IV ONE (01:20)
--- NOTE | 2021-05-14 02:00 | REPVR ---
PROCEDURE INFORMATION: Exam: XR Chest Exam date and time: 05/13/2021 11:31 PM Age: 55 years old Clinical indication: Cough and dyspnea; Additional info: Dyspnea/cough TECHNIQUE: Imaging protocol: XR of the chest. Views: 1 view. COMPARISON: CR Abdomen,Flat Upright,PA CHEST 07/07/2020 2:36 PM FINDINGS: Lungs: Clear. No consolidation. Pleural spaces: No pleural effusion. No pneumothorax. Heart/Mediastinum: Unremarkable. No cardiomegaly. Bones/joints: Unremarkable. IMPRESSION: No acute findings. Electronically signed by: Terence Arroyo On 05/14/2021 01:59:41 AM
[2021-05-14] MEDS ORDERED: IPRATROPIUM 0.5MG/ALBUTEROL 2.5MG INH SOL UD 3ML (DUONEB) NEB ONE (02:10)
[2021-05-14] MEDS ORDERED: IBUPROFEN 800 MG TAB PO ONE (03:35)
[2021-05-14] MEDS ORDERED: ACETAMINOPHEN TAB 650MG DOSE (2X325MG) PO ONE (03:35)
[2021-05-14] MEDS ORDERED: PRED20TA PO (03:47)
[2021-05-14 04:50] VITALS: BP 166/88
--- NOTE | 2021-05-14 19:15 | ECGEPIP ---
[facility] - ED Test Date: 2021-05-14 Pat Name: CHARY JEROME Department: Room: - Gender: Female Digital Campaign Specialist: ROMA : 1965 Requested By: WILLIS ONOFRE Order Number: [id number] Reading MD: Marbin Steward Measurements Intervals [place] Rate: 92 P: 66 MS: 140 QRS: 68 QRSD: 74 T: 46 QT: 336 QTc: 415 Interpretive Statements Normal sinus rhythm Nonspecific ST T wave changes No prior ECG for comparison Electronically Signed on 05-14-2021 19:14:30 EDT by Marbin Steward
== END 2021-05-14 04:50 | disposition home or self-care (01) ==
LOC: M ED 22:34
DX: J21.0 Acute bronchiolitis due to respiratory syncytial virus (principal); J45.909 Unspecified asthma, uncomplicated; E03.9 Hypothyroidism, unspecified; R56.9 Unspecified convulsions; F32.9 Major depressive disorder, single episode, unspecified; F41.9 Anxiety disorder, unspecified; Z91.040 Latex allergy status; Z91.048 Other nonmedicinal substance allergy status; Z79.899 Other long term (current) drug therapy; Z79.890 Hormone replacement therapy
CPT/HCPCS: 71045; 80048; 80076; 82550; 82553; 82803; 83605; 84484; 85025; 87040; 87798; 93005; 93041; 94640; 94760; 96374; 99285; J2405

== ENCOUNTER 2021-05-16 21:15 | Inpatient (IN) | payer OTHER, MEDICAID ==
[~2021-05-16] VITALS: Ht 162.6 cm; Wt 110.0 kg
[~2021-05-16 21:15] MED LIST changes: +PRED20TA PO
--- OUTSIDE RECORDS SUMMARY | 2021-05-16 21:19 | CCD | Continuity of Care Document ---
Author Author Francy BEAUCHAMP Organization Unknown Address [address] [address] Phone [phone] Care Team Providers Care V/[place] Signal Officer Name Role Phone Charlee Sullivan P.A.-C AUTM [phone] Problems Active Problems Provider Date Obstructive sleep apnea syndrome MEÑO Yanez Onset: 06/21/2020 Uncomplicated moderate persistent asthma MEÑO Yanez Onset: 06/21/2020 Mild persistent asthma MEÑO Yanez Onset: 09/20/2020 Social History Type Date Description Comments Sex Unknown ETOH Use Denies alcohol use Tobacco Use Start: Unknown Non Smoker Tobacco Use Start: Unknown Patient has never smoked Smoking Status Reviewed: 09/20/20 Patient has never smoked Allergies, Adverse Reactions, Alerts Active Allergies Criticality Reaction | Severity Comments Date Antihistamines Unable to assess criticality 05/27/2019 Latex Unable to assess criticality 09/02/2019 Medications Active Medications SIG Qnty Indications Ordering Provide r Date Aerochamber Plus Chriss-Vu Misc use with inhaler as needed 1units MEÑO Yanez 06/21/2020 Autopap Device 4-20cm lcw MEÑO Yanez 03/13/2020 Arnuity Ellipta 100mcg/Act Aerosol 1 puff every day 30units MEÑO Yanez 02/16/2020 Ventolin HFA 108(90Base) mcg/Act A erosol 2 puffs four times a day as needed 18gm MEÑO Yanez 02/16/2020 Levothyroxine Sodium 50mcg Tablets 1 by mouth daily, first thing in the morning Unknown Levetiracetam 1000mg Tablets 1 by mouth daily Unknown Sumatriptan Succinate 50mg Tablets 1 by mouth as needed Unknown Zoloft 100mg Tablets 1 by angela th daily Unknown Propranolol HCL 80mg Tablets take 1 by mouth twice a day Unknown Aripiprazole 2mg Tablets Unknown Buspirone HCL 7.5mg Tablets Charlee Sullivan A, P.A.-C Nystatin 235023Nagf/GM Cream Beba Cates A.R.NRashadPRashad Immunizations CPT Code Status Date Vaccine Lot # 75061 Given 06/07/2020 Afluria, Quadrivalent, 0.5ml , [facility]# 43792-404-84 Vital Signs Date Vital Result Comment 03/21/2021 1:03pm BP Systolic 130 mmHg BP Diastolic 68 mmHg Heart Rate 58 /min O2 % BldC Oximetry 96 % Height 63 inches 5'3" Weight 243.00 lb BMI (Body Mass Index) 43.0 kg/m2 [place] Body Weight 115 lb Weight 110.225 kg BSA (Body Surface Area) 2.10 m2 11/29/2020 2:40pm BP Systolic 128 mmHg BP Diastolic 76 mmHg Height 63 inches 5'3" Weight 236.00 lb BMI (Body Mass Index) 41.8 kg/m2 [place] Body Weight 115 lb Weight 107.050 kg BSA (Body Surface Area) 2.07 m2 Results Test Acquired Date Facility Test Result H/L Range Note FVL/[place] 03/21/2021 [facility] SEE IMAGE FVC-Pred 3.29 L FVC-Pre 2.01 L FVC-%Pred-Pre 61 L FVC-LLN 2.61 L Fev1-Pred 2.57 L Fev1-Pre 1.71 L Fev1-%Pred-Pre 66 L Fev1-LLN 2.00 L Fev6-Pred 3.18 L Fev6-Pre 1.99 L Fev6-%Pred-Pre 62 L Fev6-LLN 2.52 L Eaj6dsy-Kbxt 79 % Ktl6cjd-Gvw 85 % Ynd2yhc-%Pred-Pre 107 % Fuw3ybx-MYZ 69 % Ade7rrz-Fxgu 97 % Upt5xcg-Bnf 99 % Glp4vou-%Pred-Pre 102 % FEFMax-Pred 6.34 L/E/sec FEFMax-Pre 3.50 L/E/sec FEFMax-%Pred-Pre 55 L/E/sec FEFMax-LLN 4.68 L/E/sec Ktz4448-Bhsq 2.46 L/E/sec Nbe0006-Ljo 2.25 L/E/sec Hsj7267-%Pred-Pre 91 L/E/sec Atc7315-EKI 1.26 L/E/sec ExpTime-Pre 8.41 sec Pug9dgq8-Mkei 81 % Jgm3pyd4-Quh 86 % Fzj9mig1-%Pred-Pre 105 % Gnv8uqw9-UFS 73 % Laboratory test finding 11/29/2020 [facility] [address] [place] [address] [phone] Tissue Transglutaminase IgA 4 U/mL High 0-3 1, 2 CBC With Differential 11/29/2020 [facility] [address] [place] [address] [phone] White Blood Count 7.8 10 Normal 4.0-10.0 Red Blood Count 4.88 10 Normal 4.00-5.40 Hemoglobin 14.8 g/dL Normal 12.0-15.5 Hematocrit 46.5 % Normal 36.0-47.0 Mean Corpuscular Volume 95.3 fl Normal 80.0-96.0 Mean Corpuscular Hemoglobin 30.3 pg Normal 27.0-33.0 Mean Corpuscular HGB Conc 31.8 g/dL Low 32.0-36.5 Red Cell Distribution Width 12.5 % Normal 11.5-14.5 Platelet Count, Automated 245 10 Normal 150-450 Neutrophils % 53.0 % Normal 36.0-66.0 Lymph % 35.0 % Normal 24.0-44.0 [place] % 7.8 % Normal 2.0-8.0 Eos % 2.7 % Normal 0.0-3.0 Baso % 1.1 % High 0.0-1.0 Immature Granulocyte % 0.4 % Normal 0-3.0 Nucleated Red Blood Cell % 0.0 % Normal 0-0 Neutrophils # 4.2 10 Normal 1.5-8.5 Lymph # 2.7 10 Normal 1.5-5.0 [place] # 0.6 10 Normal 0.0-0.8 Eos # 0.2 10 Normal 0.0-0.5 Baso # 0.1 10 Normal 0.0-0.2 3 1 Negative 0 - 3 Weak Positive 4 - 10 Positive >10 . Tissue Transglutaminase (tTG) has been identified as the endomysial antigen. Studies have demonstr- ated that endomysial IgA antibodies have over 99% specificity for gluten sensitive enteropathy. Performed at: RN - [facility] [address] [id number] [employer] Administrator: Caryn Frank MD, Phone: [phone] 2 12/21/20 (December 21) 08:57 AM BIJU CHARLAURABOIS Still mildly elevated. Will inform patient. See triage. 3 12/21/20 (December 21) 08:57 AM BIJUMARISA TRIPATHIBOIS No significant abnormalities. Procedures Date Code Description Status 03/21/2021 58358 Office/Outpatient Established Lo w MDM 20-29 Min Completed 03/21/2021 90749 Spirometry Completed 11/29/2020 51620 Office/Outpatient Established Lo w MDM 20-29 Min Completed Medical Devices Description No Information Available Encounters Type Date Location Provider Dx Diagnosis Office Visit 03/21/2021 1:00p [facility] Pulmonary/Thoracic MEÑO Maguire G47.33 Obstructive sleep apnea (adult) (pediatr ic) J45.30 Mild persistent asthma, unco mplicated Office Visit 11/29/2020 2:30p [facility] NAHEED Dozier R19.7 Diarrhea, unspecified Assessments Date Code Description Provider 03/21/2021 G47.33 Obstructive sleep apnea (adult) (pediatric) MEÑO Yanez 03/21/2021 J45.30 Mild persistent asthma, uncompli cated MEÑO Yanez 11/29/2020 R19.7 Diarrhea, unspecified NAHEED Dozier Plan of Treatment Future Appointment(s):* 09/24/2021 1:00 pm - MEÑO Yanez at [facility] Pulmonary/Thoracic * 04/27/2021 2:00 am - Jonnie Keita M.D. at [facility] 03/21/2021 - MEÑO Yanez* G47.33 Obstructive sleep apnea (adult) (pediatric) * J45.30 Mild persistent asthma, uncomplicated * * Follow up:* 1. Follow up visit in 6 months with fvl/spirometry and DL Functional Status Description No Information Available Mental Status Description No Information Available Referrals Description No Information Available
--- OUTSIDE RECORDS SUMMARY | 2021-05-16 21:19 | CCD ---
Author Author [facility] Organization [facility] Address Unknown Phone Unavailable Care Team Providers Care Professional Development Director Name Role Phone Chalree Sullivan Unavailable PROBLEMS Type Condition ICD9-CM Code FQJ79-LY Code Onset Dates Condition S tatus W/U Status Risk SNOMED Code Notes Problem Multinodular goiter E04.2 Active confirmed 562593906 Problem Mild intermittent asthma without complication J45. 20 Active confirmed 992237747 Problem Moderate episode of recurrent major depressive disorder F33.1 Active confirmed 82716803 Problem Depression with anxiety F41.8 Active confirmed 776678625 Problem Goiter E04.9 Active confirmed 1525065 Problem Seizure disorder G40.909 Active confirmed 12 7216184 Problem Psychophysiological insomnia F51.04 Active confirme d 749246357 Problem Daytime somnolence R40.0 Active confirmed 1 00409914750 Problem Vitamin D deficiency E55.9 Active confirmed 68604991 Problem Dependence on other enabling machines and devices Z99.89 Active confirmed 843449243 Problem Obstructive sleep apnea (adult) (pediatric) G47.33 Active confirmed 54284420 Problem Intractable migraine without aura and without st atus migrainosus G43.019 Active confirmed 405878539 Problem Chronic fatigue R53.82 Active confirmed 8422 9001 Problem Mixed hyperlipidemia E78.2 Active confirmed 119175612 Problem Chronic allergic rhinitis, unspecified s easonality, unspecified trigger J30.9 Active confirmed 65016480 Problem Adjustment disorder with mixed anxiety and depressed mood F43.23 Active confirmed 08209393 Problem Major depressive disorder, single episode, mild F3 2.0 Active confirmed 79284732 Problem Generalized anxiety disorder F41.1 Active confirme d 17006943 Problem Urinary hesitancy R39.11 Active confirmed 59 27207 ALLERGIES Allergen (clinical drug ingredient) Drug/Non Drug Allergy do cumented on EMR Reaction Allergy Type Onset Date Status Sulfa (for allergy use only) medication interaction Drug A llergy Active Effexor Red itchy eyes Drug Allergy Active Adhesive Bandages itching Drug Allergy Activ e diphenhydramine Antihistamine medication interaction Drug Allergy Active Latex (for allergy use only) itching Drug Allergy Active ENCOUNTERS from 1965 to 2021-04-27 Encounter Location Date Provider Diagnosis [facility] Arlin [address] [facility] [phone] [place] [address] Mar, Charlee Nate Skin rash R21 and Left foot pain M79.672 IMMUNIZATIONS Vaccine Route Administration Date Status COVID-19 dose #1 given elsewhere Unspecified Unknown Apr 2020 Administered Influenza 18 yrs & older Flublok IM Intramuscular May 14, 2018 Administered Influenza 6mo & up Fluzone IM Intramuscular Apr 14, 2017 Admi nistered SOCIAL HISTORY Tobacco Use: Social History Observation Description Date Details (start date - stop date) Never Smoker Sex Assigned At : Social History Observation Description Sex Assigned At Unknown Education: Question Answer Notes Level of Education: High School Audit Question Answer Notes Total Score: 0 Interpretation: Alcohol Education Language: Question Answer Notes Languages spoken: Bangladeshi Jain: Question Answer Notes Jain No scientology beliefs that would impact health care. Sexual Hx: Question Answer Notes Had sex in the last 12 months (vaginal, oral, or anal)? Yes LMP: 11/02/2010 Have you ever had an STD? No Prevention Strategies discussed: Other with Men only Use protection? No Drug and Alcohol Question Answer Notes Total Score: 0 Interpretation: No problems reported Alcohol Screening: Question Answer Notes Did you have a drink containing alcohol in the past year? No Points 0 Interpretation Negative BMI Care Goal Follow-Up Question Answer Notes Above Normal BMI Follow-Up Lifestyle education regarding t Tobacco Use: Question Answer Notes Are you a: never smoker never smoker REASON FOR REFERRAL from 1965 to 2021-04-27 Reason 55y/o female with aging skin spots, she is requesting a dermatologic eval and a full body skin exam|patient would like to be seen at the [facility] office if possible Diagnosis 1 Skin rash (R21) Referral Organization [facility] rAlin Referring Provider First Name Charlee Referring Provider Last Name Nate Referring Provider Specialty Family Medicine Referred Provider Stephen Adkins Referred Provider Specialty Dermatology Referral Priority Routine General Notes Starr Isaacs 04/23/2021 1:20:11 PM > referral faxed Reason 55y/o female with calcaneal pain with walking, ? calcaneus spur vs plantar fasciitis. please eval and treat Diagnosis 1 Left foot pain (M79.672) Referral Organization [facility] Arlin Referring Provider First Name Charlee Referring Provider Last Name Nate Referring Provider Specialty Family Medicine Referred Provider Slick Cano Referred Provider Specialty Podiatry Referral Priority Routine General Notes Starr Isaacs 04/23/2021 1:19:51 PM > referral faxed VITAL SIGNS Weight 242 lbs Mar, Weight-kg 109.77 kg Mar, Height 64 in Mar, BMI 41.53 kg/m2 Mar, Heart Rate 73 /min Mar, Respiratory Rate 18 /min Mar, Temperature 97.1 degrees Fahrenheit Mar, Oximetry 97 Mar, Blood pressure systolic 124 mm Hg Mar, Blood pressure diastolic 80 mm Hg Mar, MEDICATIONS Medication SIG (Take, Route, Frequency, Duration) Notes Start Da te End Date Status Valtrex 500 2 tablet Orally Daily for 5 Not-Taking Azelastine HCl 137 MCG/SPRAY 1 puff in each nostril Na loni Twice a day for 30 days May, Active Valtrex 500 MG 2 tablet Orally Daily for 5 Active Flunisolide 25 MCG/ACT (0.025%) 2 sprays in each nostr il Nasally Daily at bedtime for 30 days May, Active Nortriptyline HCl 10 MG 1 capsule Orally Once a day at bedtime f or 30 day(s) May, Not-Taking Vitamin B12 1000 MCG 2 tablet Orally Once a day for 30 days Active Drisdol 08544 UNIT 1 capsule Orally weekly for 90 Active Albuterol Sulfate HFA 108 (90 Base) MCG/ACT 2 puffs as needed Inhalation every 6 hrs for 30 days May, Active Clotrimazole-Betamethasone 1-0.05 % 1 application to a ffected area Externally Twice a day for 28 days December, Active Cranberry 1000 MG 4 capsules Orally once aday with 200mg capsule for 30 days Active traZODone HCl 50 MG 1 tablet at bedtime as needed Orally Onc e a day for 30 days Not-Taking Zoloft 100 MG 1 tablet Orally twice daily for 30 Days Active busPIRone HCl 5 MG 1 tablet Orally Twice a day for 30 Days Feb, Active Propranolol HCl 40 MG 1 tablet Orally twice a day for 7 day(s) Sep, Not-Taking May Have - please dispense plantar fasc ia brace for r foot Use nightly for 9999 days May, Active Levothyroxine Sodium 50 MCG take 1 tablet by mouth onc e daily Orally Daily for 30 Active AeroChamber Plus Chriss-Vu - as directed Use with albuter ol inhaler As directed on medication for 99 months Please dispense any aerochamber/spacer a s covered by insurance May, Active Levocetirizine Dihydrochloride 5 MG 1 tablet in the ev ening Orally Once a day for 30 Not-Taking Sertraline HCl 50 MG 1 tablet Orally Once a day for 30 day(s ) Start with 1/2 tab for 7 days, then increase to a whole tab. Surrender nortriptyline to your pharmacy, as these medications cannot be combined. Jun, Not-Taking Propranolol HCl 80 MG 1 tablet twice a day Orally 28 Orally Twice a day for 30 Days Active CeleBREX 100 MG 1 capsule with food Orally twice a day Not-Taking busPIRone HCl 7.5 MG Take 1 tablet By Mouth twice a day for 28 Active Keppra 1000 MG 1/2 tablet in the morning, 1 tablet at night Orally twice daily for 90 day(s) Active Naproxen 500 MG 1 tablet with food or milk a s needed Orally every 12 hrs for 14 day(s) May, Active Excedrin Migraine 250-250-65 MG 2 tablets Orally Once a day for 30 da y(s) Active SUMAtriptan Succinate 50 MG 1 tablet as needed mdd 2 O rally 1 tab at onset and one tab in 30 min if headache persists. MDD 2 , MWD 2 , MMD 8 for 30 days Active Biotin Maximum Strength 66865 MCG 1 tablet Orally Once a day for 30 d ays Active PROCEDURES No Information RESULTS No Results REASON FOR VISIT follow up, referral to derm MEDICAL (GENERAL) HISTORY Type Description Date Medical History Seizure disorder, referred to Dr. Zavaleta to establish Medical History Depression with anxiety Medical History hypothyroidism Medical History Herpes labialis, recurrent, on valtrex Surgical History L knee arthroscopy 1999 Surgical History for 3rd trimester loss 1984 Surgical History R ankle ORIF 2006 Surgical History cholecystectomy ?? Surgical History Colonoscopy 2010 Surgical History tubal ligation Surgical History colposcopy 04/04/16 Hospitalization History Hospitalization for above surgeries Hospitalization History Hospitalization for seizures 2006 Goals Section No Information Health Concerns No Information MEDICAL EQUIPMENT No Information MENTAL STATUS No Information FUNCTIONAL STATUS No Information ASSESSMENTS Encounter Date Diagnosis Assessment Notes Treatment Notes Treatm ent Clinical Notes Mar, Skin rash (ICD-10 - R21) likely dry skin and sun spots to to prolonged exposure to the sun, patient requesting an evaluation by a revenue investigator Mar, Left foot pain (ICD-10 - M79.672) I recommended patient start stretching the foot prior to getting out of bed in the morning, we went over some basic stretches she could do will also refer her to a security sergeant for an evaluation Mar, Other Total time spen t with the patient on the day of the encounter: 20 minutes PLAN OF TREATMENT Treatment Notes Assessment Notes Clinical Notes Skin rash likely dry skin and sun spots to to prolonged exposure to the sun, patient requesting an evaluation by a revenue investigator Left foot pain I recommended patien t start stretching the foot prior to getting out of bed in the morning, we went over some basic stretches she could dowill also refer her to a security sergeant for an evaluation Referrals Referral Date Details 55y/o female with aging skin spots, she is requesting a dermatologic eval and a full body skin exam|patient would like to be seen at the [facility] office if possible, Stephen Adkins 55y/o female with calcaneal pain with walking, ? calcaneus spur vs plantar fasciitis. please eval and treat, Slick Cano Next Appt Details 3 Months Reason: Provider Name:Raven Boss, 2021-07-03 01:0 0:00 PM, [address] [facility], , [place], [address], Insurance Providers Payer Name Payer Address Payer Phone Insured Name Patient Relati onship to Insured Coverage Start Date Coverage End Date MEDICAID [employer] [address] [facility] [id number] CHARY JEROME self [facility] [address] [address] [facility] [id number] CHARY RING self"
--- OUTSIDE RECORDS SUMMARY | 2021-05-16 21:19 | CCD | Continuity of Care Document ---
Author Francy Reyes M.D. Organization Unknown Address [address] [place] [address], [address] [place] [address] Phone [phone] Care Team Providers Care Continuous Still Operator Name Role Phone Charlee Sullivan P.A.-C AUTM [phone] Problems Active Problems Provider Date Obstructive sleep [...] 2mg Tablets Unknown Buspirone HCL 7.5mg Tablets NateJohannaoe A, P.A.-C Nystatin 292148Mqzu/GM Cream Beba Cates A.R.N.PRashad Immunizations CPT Code Status Date Vaccine Lot # [id number] Given 06/07/2020 Flublock, Quadrivalent Vital Signs Date Vital Result Comment 03/21/2021 1:03pm BP Systolic 130 mmHg BP Diastolic 68 mmHg Heart Rate 58 /min O2 % BldC Oximetry 96 % Height 63 inches 5'3" Weight 243.00 lb BMI (Body Mass Index) 43.0 kg/m2 [place] Body Weight 115 lb Weight 110.225 kg BSA (Body Surface Area) 2.10 m2 11/29/2020 2:40pm BP Systolic 128 mmHg BP Diastolic 76 mmHg Height 63 inches 5'3" Weight 236.00 lb BMI (Body Mass Index) 41.8 kg/m2 [place] Body Weight 115 lb Weight 107.050 kg BSA (Body Surface Area) 2.07 m2 Results Test Acquired Date Facility Test Result H/L Range Note Laboratory test finding 04/27/2021 [facility] Main Lab [address] [place] [address] [phone] Pathology Request For Service (SEE NOTE) 1 FVL/[place] 03/21/2021 [employer] PDFReport SEE IMAGE FVC-Pred 3.29 L FVC-Pre 2.01 L FVC-%Pred-Pre 61 L FVC-LLN 2.61 L Fev1-Pred 2.57 L Fev1-Pre 1.71 L Fev1-%Pred-Pre 66 L Fev1-LLN 2.00 L Fev6-Pred 3.18 L Fev6-Pre 1.99 L Fev6-%Pred-Pre 62 L Fev6-LLN 2.52 L Uzz3bvs-Ekwk 79 % Ksk2uqp-Hef 85 % Iht2dnm-%Pred-Pre 107 % Mhp9als-GSC 69 % Xib6wfx-Kaae 97 % Fph7jos-Ojk 99 % Lqy4qst-%Pred-Pre 102 % FEFMax-Pred 6.34 L/E/sec FEFMax-Pre 3.50 L/E/sec FEFMax-%Pred-Pre 55 L/E/sec FEFMax-LLN 4.68 L/E/sec Uak9455-Frko 2.46 L/E/sec Wzl2592-Ezc 2.25 L/E/sec Mak4550-%Pred-Pre 91 L/E/sec Ztp8323-JMW 1.26 L/E/sec ExpTime-Pre 8.41 sec Bpf9fph2-Xozj 81 % Nce2sbl5-Hav 86 % Fno0nig4-%Pred-Pre 105 % Ltv7xdz7-ERD 73 % Laboratory test finding 11/29/2020 [facility] Main Lab [address] [place] [address] [phone] Tissue Transglutaminase IgA 4 U/mL High 0-3 2, 3 CBC With Differential 11/29/2020 [facility] Main Lab [address] [place] [address] [id number] [phone] White Blood Count 7.8 10 Normal 4.0-10.0 [...] 36.0-66.0 Lymph % 35.0 % Normal 24.0-44.0 [place] % 7.8 % Normal 2.0-8.0 Eos % 2.7 % Normal 0.0-3.0 Baso % 1.1 % High 0.0-1.0 Immature Granulocyte % 0.4 % Normal 0-3.0 Nucleated Red Blood Cell % 0.0 % Normal 0-0 Neutrophils # 4.2 10 Normal 1.5-8.5 Lymph # 2.7 10 Normal 1.5-5.0 [place] # 0.6 10 Normal 0.0-0.8 Eos # 0.2 10 Normal 0.0-0.5 Baso # 0.1 10 Normal 0.0-0.2 4 1 FINAL DIAGNOSIS A-Small bowel, biopsy: Scant bowel mucosa, insufficient for definitive diagnosis. B-Gastric biopsy: Gastric mucosa with mild chronic inflammation and reactive changes. No H.pylori is identified. 05/01/2021 - 1104 CLINICAL DIAGNOSIS Diarrhea, positive celiac markers 04/30/2021 - 1355 GROSS DIAGNOSIS A - Received in formalin labeled "small bowel biopsy R/O celiac" and consists of a fragment of tissue 0.1 x 0.1 x 0.1 cm. All in one. B - Received in formalin labeled "gastric biopsy R/O H. pylori" and consists of a fragment of tissue 0.1 x 0.1 x 0.1 cm. All in one. -OA 04/30/2021 - 1355 Signed SEVERIANO CHEN MD 05/01/2021 1105 2 Negative 0 - 3 Weak Positive 4 - 10 Positive >10 . Tissue Transglutaminase (tTG) has been identified as the endomysial antigen. Studies have demonstr- ated that endomysial IgA antibodies have over 99% specificity for gluten sensitive enteropathy. Performed at: RN - [facility] [address] [id number] Cattle Driver: Caryn Frank MD, Phone: [phone] 12/21/20 (December 21) 08:57 AM BIJU CHARLEBOIS Still mildly elevated. Will inform patient. See triage. 4 12/21/20 (December 21) 08:57 AM BIJU CHARLEBOIS No significant abnormalities. Procedures Date Code Description Status 04/27/2021 70819 Endoscopy Upper GI Biopsy Comple manoj 03/21/2021 84076 Office/Outpatient Established Lo w MDM 20-29 Min Completed 03/21/2021 40461 Spirometry Completed 11/29/2020 45670 Office/Outpatient Established Lo w MDM 20-29 Min Completed Medical Devices Description No Information Available Encounters Type Date Location Provider Dx Diagnosis Office Visit 03/21/2021 1:00p [facility] Pulmonary/Thoracic MEÑO Maguire G47.33 Obstructive sleep apnea (adult) (pediatr ic) J45.30 Mild persistent asthma, unco mplicated Office Visit 11/29/2020 2:30p [facility] Gastroenterology [facility] ctice NAHEED Dozier R19.7 Diarrhea, unspecified Assessments Date Code Description Provider 04/27/2021 R76.8 Other specified abnormal immunol ogical findings in serum Jonnie Keita M.D. 04/27/2021 K21.00 Gastro-esophageal re flux disease with esophagitis, without bleeding Jonnie Keita M.D. 04/27/2021 K29.70 Gastritis, unspecified, without bleeding Jonnie Keita M.D. 04/27/2021 K31.89 Other diseases of stomach and du odenum Jonnie Keita M.D. 03/21/2021 G47.33 Obstructive sleep apnea (adult) (pediatric) MEÑO Yanez 03/21/2021 J45.30 Mild persistent asthma, uncompli cated MEÑO Yanez 11/29/2020 R19.7 Diarrhea, unspecified NAHEED Dozier Plan of Treatment Future Appointment(s):* 05/11/2021 10:30 am - NAHEED Dozier at [facility] Gastroenterology Practice * 09/24/2021 1:00 pm - MEÑO Yanez at [facility] Pulmonary/Thoracic 03/21/2021 - MEÑO Yanez* G47.33 Obstructive sleep apnea (adult) (pediatric) * J45.30 Mild persistent asthma, uncomplicated * * Follow up:* 1. Follow up visit in 6 months with fvl/spirometry and DL Functional Status Description No Information Available Mental Status Description No Information Available Referrals Description No Information Available
--- OUTSIDE RECORDS SUMMARY | 2021-05-16 21:19 | CCD | Continuity of Care Document ---
Author Author [facility]ancy [facility] Organization Unknown Address [address] [place] [address], [address] [place] [address] Phone [phone] Care Team Providers Care Stamping Operator Name Role Phone NateCharlee P.A.-C AUTM [phone] Problems Active Problems Provider Date Obstructive sleep apnea syndrome MEÑO Yanez Onset: 06/21/2020 Uncomplicated moderate persistent asthma MEÑO Yanez Onset: 06/21/2020 Mild persistent asthma MEÑO Yanez Onset: 09/20/2020 Social History Type Date Description Comments Sex Unknown ETOH Use Denies alcohol use Tobacco Use Start: Unknown Non Smoker Tobacco Use Start: Unknown Patient has never smoked Smoking Status Reviewed: 09/20/20 Patient has never smoked Allergies and adverse reactions Active Allergies Criticality Reaction | Severity Comments [...] twice a day Unknown Aripiprazole 2mg Tablets Lotus y Unknown Buspirone HCL 7.5mg Tablets D Charlee Seaman A, P.A.-C Nystatin 028817Ozgi/GM Cream Beba Cates A.R.NRashadPRashad Immunizations CPT Code Status Date Vaccine Lot # [id number] Given 06/07/2020 Flublock, Quadrivalent Vital Signs Date Vital Result Comment 05/11/2021 10:32am BP Systolic 122 mmHg BP Diastolic 84 mmHg Height 63 inches 5'3" Weight 249.00 lb BMI (Body Mass Index) 44.1 kg/m2 [place] Body Weight 115 lb Weight 112.946 kg BSA (Body Surface Area) 2.12 m2 03/21/2021 1:03pm BP Systolic 130 mmHg BP Diastolic 68 mmHg Heart Rate 58 /min O2 % BldC Oximetry 96 % Height 63 inches 5'3" Weight 243.00 lb BMI (Body Mass Index) 43.0 kg/m2 [place] Body Weight 115 lb Weight 110.225 kg BSA (Body Surface Area) 2.10 m2 Results Test Acquired Date Facility Test Result H/L Range Note Laboratory test finding 04/27/2021 [facility] Main Lab [address] [place] [address] [phone] Pathology Request For Service (SEE NOTE) 1 FVL/[place] 03/21/2021 Medgraphics PDFReport SEE IMAGE FVC-Pred 3.29 L FVC-Pre 2.01 L FVC-%Pred-Pre 61 L FVC-LLN 2.61 L Fev1-Pred 2.57 L Fev1-Pre 1.71 L Fev1-%Pred-Pre 66 L Fev1-LLN 2.00 L Fev6-Pred 3.18 L Fev6-Pre 1.99 L Fev6-%Pred-Pre 62 L Fev6-LLN 2.52 L Kbz2fty-Vmbw 79 % Klq8xie-Yul 85 % Kke1lwn-%Pred-Pre 107 % Rjt1usi-DSM 69 % Plp1abq-Gghc 97 % Xsc9nuz-Kpj 99 % Oha1rwd-%Pred-Pre 102 % FEFMax-Pred 6.34 L/E/sec FEFMax-Pre 3.50 L/E/sec FEFMax-%Pred-Pre 55 L/E/sec FEFMax-LLN 4.68 L/E/sec Zrw4712-Oyhh 2.46 L/E/sec Crd1520-Nfx 2.25 L/E/sec Kwz9361-%Pred-Pre 91 L/E/sec Bhk2668-CZL 1.26 L/E/sec ExpTime-Pre 8.41 sec Vtp9tdr7-Kfon 81 % Exm0yti8-Ubq 86 % Mbv7gdu4-%Pred-Pre 105 % Hjy3fwk3-SKW 73 % Laboratory test finding 11/29/2020 [facility] Main Lab [address] [place] [address] [phone] Tissue Transglutaminase IgA 4 U/mL High 0-3 2, 3 CBC With Differential 11/29/2020 [facility] Main Lab [address] [place] [address] [phone] White Blood Count 7.8 10 Normal 4.0-10.0 [...] 36.0-66.0 Lymph % 35.0 % Normal 24.0-44.0 [place] % 7.8 % Normal 2.0-8.0 Eos % 2.7 % Normal 0.0-3.0 Baso % 1.1 % High 0.0-1.0 Immature Granulocyte % 0.4 % Normal 0-3.0 Nucleated Red Blood Cell % 0.0 % Normal 0-0 Neutrophils # 4.2 10 Normal 1.5-8.5 Lymph # 2.7 10 Normal 1.5-5.0 [place] # 0.6 10 Normal 0.0-0.8 Eos # [...] sensitive enteropathy. Performed at: RN - [facility] [address] [id number] Toby Maker: Caryn Frank MD, Phone: [phone] 3 12/21/20 (December 21) 08:57 AM BIJU CHARLEBOIS Still mildly elevated. Will inform patient. See triage. 4 12/21/20 (Thr December 21) 08:57 AM BIJU CHARLEBOIS No significant abnormalities. Procedures Date Code Description Status 04/27/2021 65208 Endoscopy Upper GI Biopsy Comple manoj 03/21/2021 43359 Office/Outpatient Established Lo w MDM 20-29 Min Completed 03/21/2021 20634 Spirometry Completed 11/29/2020 80425 Office/Outpatient Established Lo w MDM 20-29 Min Completed Medical Devices Description No Information Available Encounters Type Date Location Provider Dx Diagnosis Office Visit 03/21/2021 1:00p [facility] Pulmonary/Thoracic MEÑO Maguire G47.33 Obstructive sleep apnea (adult) (pediatr ic) J45.30 Mild persistent asthma, unco mplicated Office Visit 11/29/2020 2:30p [facility] Gastroenterology Pra ctice NAHEED Dozier R19.7 Diarrhea, unspecified Assessments Date Code Description Provider 05/11/2021 R19.7 Diarrhea, unspecified NAHEED Dozier 04/27/2021 R76.8 Other specified abnormal immunol ogical [...] 09/24/2021 1:00 pm - MEÑO Yanez at [facility] Pulmonary/Thoracic 05/11/2021 - NAHEED Dozier* R19.7 Diarrhea, unspecified * * Follow up:* Will call patient after response from Dr. Keita. Remove lactose from diet. Functional Status Description No Information Available Mental Status Description No Information Available Referrals Description No Information Available
--- OUTSIDE RECORDS SUMMARY | 2021-05-16 21:19 | CCD ---
Author Author [facility] Organization [facility] Address Unknown Phone Unavailable Care Team Providers [facility] Former Name Role Phone Charlee Sullivan Unavailable PROBLEMS Type Condition ICD9-CM Code [id number] Code Onset Dates Condition S tatus W/U Status Risk SNOMED Code Notes Problem Multinodular goiter E04.2 Active confirmed 018568614 Problem Mild intermittent asthma without complication J45. 20 Active confirmed 198672826 Problem Moderate episode of recurrent major depressive disorder F33.1 Active confirmed 02416642 Problem Depression with anxiety F41.8 Active confirmed 375292046 Problem Goiter E04.9 Active confirmed 6931199 Problem Seizure disorder G40.909 Active confirmed 12 4130956 Problem Psychophysiological insomnia F51.04 Active confirme d 624208466 Problem Daytime somnolence R40.0 Active confirmed 1 76412299793 Problem Vitamin D deficiency E55.9 Active confirmed 15296332 Problem Dependence on other enabling machines and devices Z99.89 Active confirmed 359554046 Problem Obstructive sleep apnea (adult) (pediatric) G47.33 Active confirmed 65765079 Problem Intractable migraine without aura and without st atus migrainosus G43.019 Active confirmed 216241600 Problem Chronic fatigue R53.82 Active confirmed 8422 9001 Problem Mixed hyperlipidemia E78.2 Active confirmed 676425209 Problem Chronic allergic rhinitis, unspecified s easonality, unspecified trigger J30.9 Active confirmed 87381354 Problem Adjustment disorder with mixed anxiety and depressed mood F43.23 Active confirmed 54510700 Problem Major depressive disorder, single episode, mild F3 2.0 Active confirmed 04987052 Problem Generalized anxiety disorder F41.1 Active confirme d 49368838 Problem Urinary hesitancy R39.11 Active confirmed 59 69148 ALLERGIES Allergen (clinical drug ingredient) Drug/Non Drug Allergy do cumented on EMR Reaction Allergy Type Onset Date Status Sulfa (for allergy use only) medication interaction Drug A llergy Active Effexor Red itchy eyes Drug Allergy Active Adhesive Bandages itching Drug Allergy Activ e diphenhydramine Antihistamine medication interaction Drug Allergy Active Latex (for allergy use only) itching Drug Allergy Active ENCOUNTERS from 1965 to 2021-03-21 Encounter Location Date Provider Diagnosis [facility] [phone] [place] [address] Mar, Charlee Nate IMMUNIZATIONS Vaccine Route Administration Date Status COVID-19 dose #1 given elsewhere Unspecified Unknown Nov Administered Influenza 18 yrs & older Flublok [...] Education Language: Question Answer Notes Languages spoken: Syriac Baptism: Question Answer Notes Baptism No sikhism beliefs that would impact health care. Sexual [...] never smoker never smoker REASON FOR REFERRAL No Information VITAL SIGNS No information MEDICATIONS Medication SIG (Take, Route, Frequency, Duration) Notes Start Da te End Date Status Biotin Maximum Strength 66996 MCG 1 tablet Orally Once a day for 30 d ays Active Azelastine HCl 137 MCG/SPRAY 1 puff in each nostril Na loni Twice a day for 30 days May, Active Excedrin Migraine 250-250-65 MG 2 tablets Orally Once a day for 30 da y(s) Active Flunisolide 25 MCG/ACT (0.025%) 2 sprays in each nostr il Nasally Daily at bedtime for 30 days May, Active Levothyroxine Sodium 50 MCG take 1 tablet by mouth onc e daily Orally Daily for 30 Active Sertraline HCl 50 MG 1 tablet Orally Once a day for 30 day(s ) Start with 1/2 tab for 7 days, then increase to a whole tab. Surrender nortriptyline to your pharmacy, as these medications cannot be combined. Jun, Not-Taking SUMAtriptan Succinate 50 MG 1 tablet as needed mdd 2 O rally 1 tab at onset and one tab in 30 min if headache persists. MDD 2 , MWD 2 , MMD 8 for 30 days Active Clotrimazole-Betamethasone 1-0.05 % 1 application to a ffected area Externally Twice a day for 28 days December, Active busPIRone HCl 7.5 MG Take 1 tablet By Mouth twice a day for 28 Active December Have - please dispense plantar fasc ia brace for r foot Use nightly for 9999 days May, Active traZODone HCl 50 MG 1 tablet at bedtime as needed Orally Onc e a day for 30 days Not-Taking Propranolol HCl 80 MG 1 tablet twice a day Orally 28 Orally Twice a day for 30 Days Active Zoloft 100 MG 1 tablet Orally twice daily Active busPIRone HCl 5 MG 1 tablet Orally Twice a day for 30 Days Feb, Active Albuterol Sulfate HFA 108 (90 Base) MCG/ACT 2 puffs as needed Inhalation every 6 hrs for 30 days May, Active Propranolol HCl 40 MG 1 tablet Orally twice a day for 7 day(s) Sep, Not-Taking Keppra 1000 MG 1/2 tablet in the morning, 1 tablet at night Orally twice daily for 90 day(s) Active Cranberry 1000 MG 4 capsules Orally once aday with 200mg capsule for 30 days Active Vitamin B12 1000 MCG 2 tablet Orally Once a day for 30 days Active Valtrex 500 2 tablet Orally Daily for 5 Not-Taking Naproxen 500 MG 1 tablet with food or milk a s needed Orally every 12 hrs for 14 day(s) May, Active AeroChamber Plus Chriss-Vu - as directed Use with albuter ol inhaler As directed on medication for 99 months Please dispense any aerochamber/spacer a s covered by insurance May, Active CeleBREX 100 MG 1 capsule with food Orally twice a day Not-Taking Drisdol 98727 UNIT 1 capsule Orally weekly for 90 Active Levocetirizine Dihydrochloride 5 MG 1 tablet in the ev ening Orally Once a day for 30 Not-Taking Nortriptyline HCl 10 MG 1 capsule Orally Once a day at bedtime f or 30 day(s) May, Not-Taking Valtrex 500 MG 2 tablet Orally Daily for 5 Active PROCEDURES No Information RESULTS No Results REASON FOR VISIT referral to derm MEDICAL (GENERAL) HISTORY Type [...] No Information FUNCTIONAL STATUS No Information ASSESSMENTS No Information PLAN OF TREATMENT Medication Medication Name Sig Start Date Stop Date busPIRone HCl 7.5 MG Take 1 tablet By Mouth twice a day for 28 Levothyroxine Sodium 50 MCG take 1 tablet by mouth onc e daily Orally Daily for 30 Next Appt Details Provider Name:Charlee Sullivan, 2021-03-30 01 :00:00 PM, [address], , [place], [address], Insurance Providers Payer Name Payer Address Payer Phone Insured Name Patient Relati onship to Insured Coverage Start Date Coverage End Date [employer] [address] [address] [facility] [address] CHARY RING self MEDICAID [employer] [address] [facility] [id number] CHARY JEROME self
--- OUTSIDE RECORDS SUMMARY | 2021-05-16 21:19 | CCD | Summary of Care ---
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, without status epilepticus P rocedures EEG Routine Study Electronically signed by Alis Daniel MD at * Diagnostic Radiology (Routine) Referred By Contact Referred To Contact Status Reason Specialty Diagnoses / Procedures Alis Daniel MD [address] [place] [phone] Email: [email or web address] Open Radiology Diagnoses 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, without status epilepticus P rocedures MR Brain with and without Contrast Electronically signed by Alis Daniel MD at * Medication Prior Authorization Referred By Contact Referred To Contact Status Reason Specialty Diagnoses / Procedures Alis Daniel MD [address] [place] [phone] Email: [email or web address] Pending Review Electronically signed by Alis Daniel MD at * Medication Prior Authorization Referred By Contact Referred To Contact Status Reason Specialty Diagnoses / Procedures Alis Daniel MD [address] [place] [address] [place] [phone] Email: [email or web address] Pending Review Electronically signed by Alis Daniel MD at Reason for Visit * Reason Comments New Patient * Consultation (Routine) Referred By Contact Referred To Contact Status Reason Specialty Diagnoses / Procedures Charlee Sullivan PA [address] [address] Neurology Provider-Based [address], [address] [place] [phone] Authorized Neurology Diagnoses Migraine without aura, intractable, without status migrainosus P rocedures REFERRAL TO [facility] Encounter Details Care Team Description Date Type Department Alis Daniel MD [address] [place] [address] [place] [phone] Migraine aura without headache (Primary Dx); 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, without status epilepticus; Ataxia 03/22/2021 Office Visit [address], [address] [place] [phone] Allergies Comments Active Allergy Reactions Severity Noted Date redness Adhesive Tape Itching, 05/01/2016 Other (See Comments) Brings the level of her medication down Antihistamines, 04/08/2014 Chlorpheniramine-Type Red itchy eyes Venlafaxine Itching 06/23/2019 Latex Rash Low 04/08/2014 Sulfa Antibiotics 06/23/2019 documented as of this encounter (statuses as of 03/22/2021) Medications End Date Status Medication Sig Dispensed Refills Start Date Active vitamin B-12 Take 2,500 0 (CYANOCOBALAMIN) 100 MCG mcg by mouth tablet daily Active melatonin 3 MG TABS Take 3 mg by 0 mouth nightly. Active levothyroxine (SYNTHROID, Take 50 mcg 0 LEVOTHROID) 50 MCG tablet by mouth daily. Active Cholecalciferol (VITAMIN Take 1,000 0 04/06 D) 1000 UNITS capsule Units by 3 mouth daily. Active CRANBERRY PO Take 4,200 mg 0 by mouth daily Active KEPPRA 1000 MG tablet Take by mouth 0 04/12/20 1 Two Times 5 Daily Takes 500 mg in AM and 1000 mg in PM Active valacyclovir (VALTREX) Take 1,000 mg 0 01/25/ 01 1000 MG tablet by mouth 5 daily As needed Active ALPRAZolam (XANAX PO) Take 0.25 mg 0 by mouth nightly as needed. Active celecoxib (CELEBREX) 100 Take 100 mg 0 01/30 MG capsule by mouth Two 6 Times Daily Active Acetaminophen (TYLENOL Take 325 mg 0 PO) by mouth every 6 (six) hours as needed. Active traZODone HCl 50 MG Oral Take 50 mg by 0 Tablet (DESYREL) mouth nightly as needed for Sleep Active Flunisolide 25 MCG/ACT Inhale 2 0 (0.025%) Nasal Solution sprays into (NASALIDE) the lungs nightly Active Azelastine HCl 137 1 spray by 0 MCG/SPRAY Nasal Solution Nasal route Two times daily as needed Active Albuterol Sulfate HFA 108 Inhale 2 0 (90 Base) MCG/ACT puffs into Inhalation Aerosol the lungs as Solution (PROVENTIL needed for HFA;VENTOLIN HFA) Wheezing Active Sertraline HCl 100 MG Take 100 mg 0 Oral Tablet (ZOLOFT) by mouth Two Times Daily Active Biotin 24305 MCG Oral Take 1 tablet 0 Tablet by mouth daily Active Naproxen 500 MG Oral TAKE 1 TABLET 0 Tablet (NAPROSYN) EVERY 12 3 HOURS. Active busPIRone HCl 7.5 MG Oral TAKE ONE 0 02/01 Tablet (BUSPAR) TABLET BY 1 MOUTH @8AM and TAKE ONE TABLET BY MOUTH @8PM Active Propranolol HCl 80 MG TAKE ONE 0 02/20/20 2 Oral Tablet (INDERAL) TABLET BY 1 MOUTH @8AM and TAKE ONE TABLET BY MOUTH @8PM Active Erenumab-aooe 140 MG/ML Inject 1 mL 1 mL Subcutaneous Solution into the skin 1 Auto-injector (AIMOVIG) every 30 (thirty) days Active Ubrelvy 100 MG Oral Take 100 mg 10 tablet Tablet (Ubrogepant) by mouth Two 1 times daily as needed 03/22/2021 Discontinued (No longer need ed) Ascorbic Acid (VITAMIN C) daily. 0 500 MG CAPS 3 03/22/2021 Discontinued (No longer need ed) erythromycin (ROMYCIN) Place into 0 ophthalmic ointment the left eye 5 Three times daily as needed. 03/22/2021 Discontinued (No longer need ed) Venlafaxine HCl 225 MG daily. 0 TB24 6 03/22/2021 Discontinued (No longer need ed) SUMATRIPTAN SUCCINATE PO Take 50 mg by 0 mouth as needed 03/22/2021 Discontinued (No longer need ed) Ergocalciferol 77522 UNIT Take 50,000 0 Oral Capsule (DRISDOL) Units by mouth once a week 03/22/2021 Discontinued (No longer need ed) Nortriptyline HCl 10 MG Take 10 mg by 0 Oral Capsule (PAMELOR) mouth nightly 03/22/2021 Discontinued (No longer need ed) Levocetirizine Take 5 mg by 0 Dihydrochloride 5 MG Oral mouth every Tablet (XYZAL) evening 03/22/2021 Discontinued (No longer need ed) busPIRone HCl 5 MG Oral Take 5 mg by 0 Tablet (BUSPAR) mouth Two Times Daily 03/22/2021 Discontinued (No longer need ed) Excedrin Migraine Take 1 tablet 0 250-250-65 MG Oral Tablet by mouth (fqrrvue-[id number] every 6 (six) ffeine) hours as needed for Pain documented as of this encounter (statuses as of 03/22/2021) Active Problems Problem Noted Date Intractable migraine without aura and without status migrainosus 03/19/2021 Herpes labialis 06/23/2019 Condylomata brant of vulva 05/03/2016 Seizures Overview: Formatting of this note might be differ ent from the original. history intractable partial seizures Hypothyroid Breast cancer Overview: Formatting of this note might be differ ent from the original. right breast, precancerous lesion per Luis Romeo's note History of abnormal cervical Pap smear Overview: Formatting of this note might be differ ent from the original. CIN1 Cerebral palsy Hypertension documented as of this encounter (statuses as of 03/22/2021) Immunizations Name Administration Dates Next Due documented as of this encounter Social History Date Tobacco Use Types Packs/Day Years Used Never Smoker Smokeless Tobacco: Never Used Comments Alcohol Use Standard Drinks/Week No 0 (1 standard drink = 0.6 o z pure alcohol) Sex Assigned at Date Recorded Not on file Date Recorded COVID-19 Exposure Response 03/22/2021 2:19 PM EDT In the last month, have you been in contact with No / Unsure someone who was confirmed or suspected to have Coronavirus / COVID-19? documented as of this encounter Last Filed Vital Signs Reading Time Taken Comments Vital Sign 116/76 03/22/2021 2:42 PM EDT Blood Pressure 59 03/22/2021 2:42 PM EDT Pulse - - Temperature - - Respiratory Rate - - Oxygen Saturation - - Inhaled Oxygen Concentration 110.1 kg (242 lb 12.8 oz) 03/22/2021 2:42 PM EDT Weight 160 cm (5' 3") 03/22/2021 2:42 PM EDT Height 43.01 03/22/2021 2:42 PM EDT Body Mass Index documented in this encounter Patient Instructions * Patient Instructions* Alis Daniel MD - 03/22/2021 2:30 PM EDT Today we discussed that your headaches are migraine and for prevention we can st art Aimovig, I have put information about the medication. For as needed treatmen t I prefer to not use sumatriptan as this can increase risk of stroke or heart a ttack, and I have prescribed Ubrelvy 100mg which you can use up to twice daily, repeat at 2h. For the gait instability/ataxia this may be due to age, but we will do MRI given the headaches also, and some blood work to rule out metabolic causes with B12, TSH and HgbA1C. For the history of epilepsy, we will repeat EEG to rule out ongoing seizure acti vity. Gepants: Ubrelvy (ubrogepant) Nausea, sleepiness, dry mouth Do not drink grapefruit juice or pomegranate juice while taking. Do not eat grap efruit, pomegranate nor starfruit. There are several supplements that interfere. Do not use these supplements: Turm charley, Licorice, Feverfew, Evening primrose, dong quai, Echinacea, goldenseal, cu rcumin, and Abdulaziz's Wart. Savings card websites (if eligible): b3 bio https://Quantivo/savings NurteZinMobi https://www.NeuralStem/savings-support CGRP Monoclonal Antibodies: Aimovig (Erenumab), Emgality (Galcanezumab), Ajovy (Fremanezumab) Injection site pain, Injection site redness, Injection site reaction, Constipati on, Allergic reaction Rare chance of hair thinning and new or worsening high blood pressure. Injection videos: Aimovig https://www.Huafeng BiotechoviDigital Media Broadcast.GotVoice/aimovig-dosing/ AJOVY https://www.ajovFull Circle CRM/faq/wwkpzumgpcmvuo-nt-cntwg Emgality https://www.Navetas Energy Managementality.GotVoice/taking-emgality/injection-video AJOVY autoinjector: https://www.J-Kan/autoinjector documented in this encounter Progress Notes * Alis Daniel MD - 03/22/2021 2:30 PM EDT MONOCLONAL ANTIBODY Note [facility] Patient name: Francy Dempsey Date of : 1965 Patient Dx: [] G43.7 chronic migraine without aura [x] G43.9 episodic migraine without aura [] G43.0 migraine with aura Medication being requested: [x] Aimovig [] AJOVY [] Emgality Francy Dempsey has had a lack of success with each of the three most effective an ti-migraine prevention categories: antidepressants-nortriptyline in 2019, anti-e pilepsy drugs-levatiracetam, and antihypertensives -propranolol. The FDA has approved the use of Aimovig for the prevention of Chronic and Episo dic Migraine. Does the patient have a latex allergy? Yes - rash, should be safe to use as gen erally the latex part of injection pen does not touch skin Allergies Allergen Reactions Adhesive Tape Itching and Other (See Comments) redness Antihistamines, Chlorpheniramine-Type Brings the level of her medication down Effexor [Venlafaxine] Itching Red itchy eyes Sulfa Antibiotics Latex Rash For EPISODIC Migraine Patients: Does the patient have 2-8 migraine days per month? [] YES [x] NO How many migraine days on average? 8-12/mo How long do the migraines last? >4h, up to a few days How long has the patient had this diagnosis? Life long Will patient be receiving both Aimovig and another monoclonal antibody? [] YES [x] NO Patient Reported: No flowsheet data found. * Alis Daniel MD - 03/22/2021 2:30 PM EDT This is an Initial Letter Dear Sir fred Daniel: I am writing on behalf of my patient Francy Dempsey to justify the medical necess ity for the use of the following medication(s): ubrogepant for the acute treatment of migraine. Francy Dempsey has a diagnosis of migraine without aura Francy Dempsey has tried and failed the following triptan medications: Sumatriptan Triptans are contraindicated in Francy Dempsey because of their history of the fo llowing vascular comorbid illnesses or associated risk factors: hypertension, dyslipidemia, age Francy Dempsey has tried and failed the following non-steroidal anti-inflammatori es (NSAIDs): Ibuprofen Naproxen Acetominophen NSAIDs are contraindicated in Francy Dempsey because of their history of: hypertension, dyslipidemia, age, Effective and safe acute treatment of migraine is an essential part of Francy espinal's care. Based on the above it is my expert medical opinion that ubrogepant should be us ed for the acute treatment of migraine in Francy Dempsey . Overall, I believe it to be the best medication from a medical and financial perspective. Limited or no access to effective acute treatments often leads patients to seek treatment in emergency departments, which is less than ideal. I respectfully request that you approve ubrogepant for Francy Dempsey Sincerely, Alis Daniel MD, MSc Neurologist, Headache Specialist [facility] Software Packaging Engineer * Alis Daniel MD - 03/22/2021 2:30 PM EDT Headache Clinic Consultation Thank you for your referral on Francy Dempsey for assessment of headaches. Patient's primary care provider: Charlee Sullivan PA It was my pleasure to evaluate Francy Dempsey in my capacity as a Headache Medici ne Specialist. Francy Dempsey is a 55 y.o., right handed female , from: [address] [place] [address]. They were seen in the outpatient Neurology Clinic on 03/22/2021. They presented for today's assessment accompanied by her . History of Presenting Illness: Francy Dempsey has had recurrent roughly stereotyped headaches since childhood.Sh e thinks theses were happening as early as 4 years of age. These have become mor e frequent over time slowly. Recently she gets headaches that come on quicker th an they used to. With her seizures she stares blankly, and does not twitch/fall down nor lose con sciousness for longer than a few seconds, her speech can stop mid-sentence with these and she does slur her words. She tells me that a headache can come on afte r the seizure, but she has not had them for 10 years. She tells me these started when she was born as the cord was wrapped around her neck a few times. Headache Description: Headache Days per month: 8-08/02 Mild 0/30 Moderate 0/30 Severe 04/02 Headache free days per month: Location of pain:right >left uatsdin area Radiation of pain none Quality: [x] Throbbing [] Pulsating [] Sharp [] Shooting [] Knife-like [] Pressure [] Dul l [] Ache [] Exploding [] Imploding [] Burning [] Tingling/numbness Severity: Baseline 10/10, Time to Peak: 1h Duration untreated: few days Time of day predilection: variable but lately more in the afternoon Hormone relationship: none Current form of contraception: post menopausal Associated Features: Headache that is: [x] Moderate to severe [] Pulsatile [x] Aggravated or causing avoidance of routi ne physical activity (walking/climbing stairs) [x] Unilateral alternating Headache accompanied by: [x] Nausea [] Vomiting [x] Photophobia [x] Sonophobia [] Osmophobia (*not ICHD but some studies note this is predictive of migraine if present) Other exacerbating factors: None Other associated features: None Cranial Autonomic Symptoms: None Aura: none Caffeine intake: pepsi - 4 cans/day Precipitated by neck movement/positioning: no History of: Head injury: no Neck injury: no 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 infections: no Seizure: yes, last seizure has been very remote, she can stare in space, she has not had one for a long - she tells me likely has been 10 years since she has hopkins d these Anxiety: ongoing Depression: ongoing Stressors: none Sleeps well: 2h -4h of sleep, has trouble falling asleep and wakes up often Obstructive Sleep Apnea: has CPAP, used it in the past, has not been wearing as she is worried about safety in her area Tempro-Mandibular Joint Disorder: no FibromyaIgia, Interstitial Cystitis, IBS: no Other Pain Disorder: no The patient has the following vascular risk factors: DLP, HTN The patient has the following vascular co morbidities: None Denies history of: asthma, Raynaud's, nephrolithiasis, constipation Family History of Headaches: none, father of cancer - stomach Other Pertinent Details: Systemic or constitutional or infectious symptoms, Secondary risk factors, cance r history, Jaw claudication or other GCA symptoms: none, 15 lbs weight gain Focal Neurologic Symptoms: no Thunderclap Headache: no Older age of onset: no Change in Headache History: no New headache: no Postural or Positional component to headache: no Headache precipitated by cough, sneeze, bending, lifting, or Valsalva: no History compatible with Papilloedema (worse in AM, double vision, TVO, tinnitus, projectile vomitting): no or Radha partem: N/A Assessment by other Physicians: Neurologist Investigations to Date: MRI: tells me she has never had CT: unclear when last one was done Lumbar Puncture: None Last eye exam: none recent Blood work No results found for: CBCDIF, TSH, ESR, CRP, METABOLICPAN Acute Treatment: It is unclear, she does not look at the names she tells me but takes them all ev emeli day she tells me. When I asked if she takes sumatriptan by name she told me that was for depression. She eventually tells me that with the sumatriptan she w as using this 2/day, and she does not have any more so she is not using this at all. She does not use Excedrin migraine as it does not work. Other OTC like Advil nor Aleeve do not work. Current Reduction Treatment: Propranolol Never tried: MAB Patient has tried and failed: Medications Tried ([x] checked have been tried in the past) Acetaminophen, buspirone, celecoxib, Excedrin Migraine, Keppra,Naproxen, nortrip tyline, propranolol, sertraline, sumatriptan, venlafaxine Anti-seizure: [] Acetazolamide (Diamox) [] Carbamazepine (Tegretol) [] Clonazepam [] Gabapentin (Neurontin) [] Lamotragine (Lamictal) [x] Levetiracetam (Keppra) [] Oxcarbazepine (Trileptal) [] Phenobarbital [] Phenytoin (Dilantin) [] Pregabalin (Lyrica) [] Primidone [] Sodium Valproate (Depakote) [] Topiramate (Topamax) [] Zonisamide (Zonegran) Anti-Depressants: SSRI: [] Citalopram (Celexa) [] Escitalopram (Lexapro) [] Fluvoxamine (Luvox) [] Fluoxetine (Prozac) [] Paroxetine (Paxil) [x] Sertraline (Zoloft) SNRI: [] Desvenlafaxine (Pristiq/Khedezla) [] Duloxetine (Cymbalta) [] Levomilnacipran (Fetzima) [] Milnacipran (Savella) [x] Venlafaxine (Effexor) TCA: [] Amitriptyline (Elavil) [] Amoxapine [] Clomipramine (Anafranil) [] Desipramine (Norpramin) [] Doxepin (Sinequan) [] Imipramine (Tofranil) [] Maprotiline (Ludiomil) [x] Nortriptiline (Pamelor) [] Protriptyline (Vivactil) [] Trimipramine (Surmontil) MAOI: [] Phenelzine (Nardil) [] Selegiline (Emsam) [] Tranylcypromine (Parnate) Atypicals: [] Bupropion (Wellbutrin) [] Mirtazapine (Remeron) [] Nefazodone (Serzone) [] Trazodone [] Vilazodone (Viibryd) [] Vortioxetine (Trintellix) Anti-Hypertensives: SAIMA Inhibitors: [] Benazepril (Lotensin) [] Captopril [] Enalapril (Vasotec) [] Fosinopril [] Lisinopril (Prinivil) [] Moexipril [] Perindopril (Aceon) [] Quinapril (Accupril) [] Ramipril (Altace) [] Trandolapril (Mavik) Alpha-1 Blockers [] Doxazosin [] Prazosin [] Tetrazosin Angiotensin II Receptor Blockers: [] Azilsartan (Edarbi) [] Candesartan (Atacand) [] Eprosartan [] Irbesartan (Avapro) [] Losartan (Cozaar) [] Olmesartan (Benicar) [] Telmisartan (Misardis) [] Valsartan (Diovan) Beta Blockers [] Acebutolol (Sectral) [] Atenolol (Tenormin) [] Bisoprolol (Zebeta) [] Metoprolol (Lopressor) [] Nadolol (Cogard) [] Nebivolol (Bystolic) [x] Propranolol (Inderal) [] Timolol Calcium Channel Blockers: [] Amlodipine (Norvasc) [] Bepridil (Vascor) [] Diltiazem (Cardiazem) [] Felodipine (Plendil) [] Nicardipine (Cardene) [] Nifedipine (Procardia) [] Nisoldipine (Sular) [] Verapamil Diuretics: [] Acetazolamide (Diamox) [] Furosemide (Lasix) [] Hydrochlorothiazide (Microzide) [] Methazolamide [] Spironolactone (Aldactone) Monoclonal Antibodies: [] Aimovig [] Ajovy [] Emgality GEPANTS Prevention: [] rimagepant (Nurtec) [] atogepant () Toxins: [] OnabotulinumtoxinA (Botox) Supplements: [] Butterbur [] Coenzyme Q10 [] Feverfew [] Magnesium [] Melatonin [] Migrelief (riboflavin, magnesium, feverfew) [] Vitamin B2 (riboflavin) Other: [] Doxycycline [] Lidocaine patch (Lidoderm) [] Milnor [] Memantine (Namenda) [] Montelukast (Singulair) [] Oxygen Triptans oral: [] Almotriptan (Axert) [] Eletriptan (Relpax) [] Frovatriptan (Frova) [] Naratriptan (Amerge) [] Rizatriptan (Maxalt) [x] Sumatriptan (Imitrex) [] Sumatriptan/Naproxen (Treximet) [] Zolmitriptan (Zomig) Triptans nasal: [] Sumatriptan (Onzetra) nasal powder [] Sumatriptan (Imitrex) nasal spray [] Zomig nasal spray Triptans injectable: [] Sumatriptan (Imitrex) solution 3 mg, 4 mg, 6 mg Ergotamines oral: [] Ergotamine/caffeine tab (Cafergot) [] Methergine [] Methylsergide (Sansert) Ergotamines nasal: [] Dihydroergotamine nasal spray (Migranal) Ergotamine Injectable: [] Dihydroergotamine solution for injection (DHE-45) Ergotamine suppository: [] Ergotamine/caffeine suppository (Migergot) GEPANTS Acute: [] rimagepant (Nurtec) [] ubrogepant (Ubrelvy) NSAIDS: [] Aspirin [] Celecoxib (Celebrex) [] Diclofenac potassium [] Flurbiprofen [] Ibuprofen (Advil) [] Indomethacin [] Ketoprofen [] Ketorolac (Toradol) [] Meloxicam (Mobic) [] Nabumetone [x] Naproxen sodium (Aleve) Anti-Histamines: [] Cyproheptadine (Periactin) [] Diphenhydramine (Benadryl) [] Hydroxyzine (Vistaril/Atarax) Anti-emetics: [] Aprepitant (Emend) [] Granisetron [] Metoclopramide (Reglan) [x] Ondansetron (Zofran) [] Meclizine (Bonine) [] Prochlorperazine (compazine) [] Promethazine (Phenergan) [] Chlorpromazine (thorazine) Muscle relaxers: [] Baclofen (lioresal) [] Cyclobenzaprine (flexeril) [] Metaxalone (skelaxin) [] Methocarbamol (robaxin) [] Tizanidine (zanaflex) Steroids: [x] Dexamethasone (Decadron) PO, IM [] Methylprednisolone (Medrol), PO, IV [] Prednisone PO [] Triamcinolone (Kenalog) IM Procedures: [] Auriculotemporal blocks [] Lumbar puncture [] Occipital nerve blocks [] Sphenopalatine ganglion blocks [] Supraorbital blocks [] Trigger point injections Neuromodulation: [] Cefaly [] gammaCore [] nVNS/Gammacore [] Spring TMS [] Nerivio Non-pharmacologic Tx [] Acupuncture [] Acupressure [] Biofeedback [] Credit Operations Processor [] Cognitive Behavioral Therapy [] Craniosacral therapy [] Massage therapy [] Physical therapy Benzodiazepines: [] Alprazolam (Xanax) [] Chlordiazepoxide (Librium) [] Clonazepam (Klonopin) [] Diazepam (Valium) [] Lorazepam (Ativan) [] Temazepam (Restoril) Combination/Other Analgesics: [x] Acetaminophen (tylenol) [x] Acetaminophen/aspirin/caffeine (Excedrin/Pamprin) [] Acetaminophen/caffeine/pyrilamine maleate (Midol) [] Acetaminophen/dichloralphenazone/isometheptene (Midrin) [] Butalbital/aspirin/caffeine/codeine (Fiorinal with codeine) [] Butalbital/Aspirin/Caffeine (Fiorinal) [] Butalbital/acetaminophen/caffeine (Fioricet) Opioids/Narcotics/Controlled Substances: [] Acetaminophen/Codeine (Tylenol #3) [] Acetaminophen/Hydrocodone ([place]/Vicodin) [] Acetaminophen/Oxycodone (Percocet) [] Butorphanol (Ketamine/Stadol) [] Carisoprodol (Soma) [] Fentanyl [] Hydrocodone [] Hydromorphone (Dilaudid) [] Marijuana [] Morphine (MS Contin) [] Oxycodone [] Tramadol (Ultram) [] Zolpidem (Ambien) The patient's current medications, allergies, past medical history, past surgica l history, family history, and social history were reviewed in the electronic nd dical record and with the patient during the encounter. Information from electronic medical record Current Outpatient Medications on File Prior to Visit Medication Sig Dispense Refill Acetaminophen (TYLENOL PO) Take 325 mg by mouth every 6 (six) hours as ne eded. Albuterol Sulfate HFA 108 (90 Base) MCG/ACT Inhalation Aerosol Solution ( PROVENTIL HFA;VENTOLIN HFA) Inhale 2 puffs into the lungs as needed for Wheezin g ALPRAZolam (XANAX PO) Take 0.25 mg by mouth nightly as needed. Azelastine HCl 137 MCG/SPRAY Nasal Solution 1 spray by Nasal route Two ti mes daily as needed Biotin 87950 MCG Oral Tablet Take 1 tablet by mouth daily busPIRone HCl 7.5 MG Oral Tablet (BUSPAR) TAKE ONE TABLET BY MOUTH @8AM a nd TAKE ONE TABLET BY MOUTH @8PM celecoxib (CELEBREX) 100 MG capsule Take 100 mg by mouth Two Times Daily Cholecalciferol (VITAMIN D) 1000 UNITS capsule Take 1,000 Units by mouth daily. CRANBERRY PO Take 4,200 mg by mouth daily Flunisolide 25 MCG/ACT (0.025%) Nasal Solution (NASALIDE) Inhale 2 sprays into the lungs nightly KEPPRA 1000 MG tablet Take by mouth Two Times Daily Takes 500 mg in AM an d 1000 mg in PM levothyroxine (SYNTHROID, LEVOTHROID) 50 MCG tablet Take 50 mcg by mouth daily. melatonin 3 MG TABS Take 3 mg by mouth nightly. Naproxen 500 MG Oral Tablet (NAPROSYN) TAKE 1 TABLET EVERY 12 HOURS. Propranolol HCl 80 MG Oral Tablet (INDERAL) TAKE ONE TABLET BY MOUTH @8AM and TAKE ONE TABLET BY MOUTH @8PM Sertraline HCl 100 MG Oral Tablet (ZOLOFT) Take 100 mg by mouth Two Times Daily valacyclovir (VALTREX) 1000 MG tablet Take 1,000 mg by mouth daily As nee ded vitamin B-12 (CYANOCOBALAMIN) 100 MCG tablet Take 2,500 mcg by mouth myra y [DISCONTINUED] SUMATRIPTAN SUCCINATE PO Take 50 mg by mouth as needed traZODone HCl 50 MG Oral Tablet (DESYREL) Take 50 mg by mouth nightly as needed for Sleep (Patient not taking: Reported on 03/22/2021) [DISCONTINUED] Ascorbic Acid (VITAMIN C) 500 MG CAPS daily. (Patient not taking: Reported on 03/22/2021) [DISCONTINUED] busPIRone HCl 5 MG Oral Tablet (BUSPAR) Take 5 mg by mouth Two Times Daily (Patient not taking: Reported on 03/22/2021) [DISCONTINUED] Ergocalciferol 93002 UNIT Oral Capsule (DRISDOL) Take 50,0 00 Units by mouth once a week (Patient not taking: Reported on 03/22/2021) [DISCONTINUED] erythromycin (ROMYCIN) ophthalmic ointment Place into the left eye Three times daily as needed. (Patient not taking: Reported on ) [DISCONTINUED] Excedrin Migraine 250-250-65 MG Oral Tablet (aspirin-aceta minophen-caffeine) Take 1 tablet by mouth every 6 (six) hours as needed for Mike n (Patient not taking: Reported on 03/22/2021) [DISCONTINUED] Levocetirizine Dihydrochloride 5 MG Oral Tablet (XYZAL) Ta ke 5 mg by mouth every evening (Patient not taking: Reported on 03/22/2021) [DISCONTINUED] Nortriptyline HCl 10 MG Oral Capsule (PAMELOR) Take 10 mg by mouth nightly (Patient not taking: Reported on 03/22/2021) [DISCONTINUED] Venlafaxine HCl 225 MG TB24 daily. (Patient not taking: Re ported on 03/22/2021) No current facility-administered medications on file prior to visit. Allergies Allergen Reactions Adhesive Tape Itching and Other (See Comments) redness Antihistamines, Chlorpheniramine-Type Brings the level of her medication down Effexor [Venlafaxine] Itching Red itchy eyes Sulfa Antibiotics Latex Rash Patient Active Problem List Diagnosis Seizures Hypothyroid Breast cancer History of abnormal cervical Pap smear Cerebral palsy Hypertension Condylomata brant of vulva Herpes labialis Intractable migraine without aura and without status migrainosus Past Medical History: No date: Anxiety No date: Arrhythmia 2005: Breast cancer Comment: right breast, precancerous lesion per Dr. Romeo's note No date: Cerebral palsy No date: Depression No date: History of abnormal cervical Pap smear Comment: CIN1 No date: Hypertension No date: Hypothyroid No date: Intractable migraine without aura and without status migrainosus No date: Low back pain No date: PONV (postoperative nausea and vomiting) No date: Seizures Comment: history intractable partial seizures; > 10 years ago, petit mal Past Surgical History: Procedure Laterality Date ANKLE SURGERY Bilateral SECTION 1984 CHOLECYSTECTOMY 08/16 COLONOSCOPY DEXA 04/06/13 osteopenia KNEE ARTHROSCOPY Right FL CONIZATION CERVIX,KNIFE/LASER N/A 05/03/2016 Procedure: Laser Vaporization Vulva/removal of condyloma ; Surgeon: Tati Leal MD; Location: OR ; Service: Gynecology; Laterality: N/A; TUBAL LIGATION Family History Problem Relation Age of Onset Cancer Father prostate Colon cancer Father Breast cancer Mother Hypertension Mother Blood Clots Mother Ovarian cancer Neg Hx Diabetes Neg Hx Endometrial cancer Neg Hx Uterine cancer Neg Hx High cholesterol Neg Hx Dementia Neg Hx Social History Tobacco Use Smoking status: Never Smoker Smokeless tobacco: Never Used Substance Use Topics Alcohol use: No Alcohol/week: 0.0 standard drinks Drug use: No REVIEW OF SYSTEMS: Constitutional: No fever or chills Eyes: No vision changes, no diplopia, no blurry vision, no missing spots of visi on. ENT: No rhinorrhea or pharyngitis, no meningismus. CV: No chest pain or palpitations. Respiratory: No cough, shortness of breath. GI: No nausea, vomiting, diarrhea, constipation. : No dysuria, no incontinence Heme: no bleeding or bruising Endo: No diabetes or thyroid disease Neuro: See HPI Psych: No depression, normal sleep. Review of systems otherwise negative. VITALS: Vitals: 03/22/21 1442 BP: 116/76 Pulse: (!) 59 Body mass index is 43.01 kg/m. General: On general physical examination, the patient looked well and was in no apparent distress. Dressed appropriately. Affect was congruent and reactive. HEENT: Normocephalic, atraumatic. There was normal range of motion of the cervical spine in all directions. Neurological: Mental status, speech, and language were normal in ordinary conversation. Cranial Nerves: Pupils were equal and reactive to light. There was no RAPD. Visual mosqueda were intact to confrontation. On fundoscopic examination the optic nerves appeared normal. There was no disc edema. Extraocular movements including saccadic eye movements were normal. There was no nystagmus. There was no facial sensory loss. There was no facial asymmetry or weakness. Uvula was midline, and the soft palate moved symmetrically. Sternocleidomastoid and trapezii were strong bilaterally. Tongue was midline and moved normally. Motor Exam: There was normal tone and bulk in the upper and lower extremities. Pronator drift was absent. Power testing on nerve root screen did not reveal any focal weakness. Reflexes: Deep tendon reflexes were symmetrical and normal in the upper and lower extremit ies. Plantar reflexes were flexor bilaterally. Sensory Exam: Pinprick: normal in the distal extremities. light touch: normal in the distal extremities. A Romberg sign was absent. Coordination: Fine finger movements: Normal Rapid alternating movements: Normal Zjqnov-rh-tmfg: Normal Cedc-qp-aedu: Normal Gait: Regular gait: Normal Toe-walking: Normal Heel-walking: Normal Tandem gait: Unsteady with frequent stepping out Laboratory and Investigations: as discussed in the History of Presenting Illnes s. SUMMARY AND IMPRESSIONS: This 55 y.o. year old female with a past medical history of seizures, cerebral p alsy, migraine, hypothyroid, breast cancer remote and is being followed, hyperte nsion, JONNY, depression/anxiety, mixed hyperlipidemia, herpes labialis presents f or assessment of headaches. 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 The risks and benefits of this treatment plan were discussed with the patient in great detail. Individual side effect profiles for each medication were discussed in detail. Instructions on how to properly take each medication was discussed in detail. Dennis camargo instructions were provided to the patient. The patient was given an opportunity to ask questions. All questions were answe red and the patient was satisfied with the explanations. It was a pleasure seeing Francy Dempsey in consultation and I am pleased to be in volved in their care. If there are any questions or concerns please do not hesi jacques to contact me. Sincerely, Alis Daniel MD Neurologist, Headache Specialist Total time spent on care in the 24h period was 81 minutes. Initial chart and mary ging review chart on the day of the encounter was 9 minutes, 56 minutes were spe nt in counseling patient on treatment options, and 17 minutes outlining my asses sment, summary, impressions, plan, and coordinating care. Please note that this consultative letter was completed with the assistance of [employer] recognition software. As result unintentional table games supervisor errors and/or typographical mistakes are possible. If you notice errors please bring them to my attention. If any area requires explanation or clarification please do not h esitate to contact me. documented in this encounter Plan of Treatment Care Team Description Date Type Specialty Alis Daniel MD [address] [place] [address] [address] [place] [address] 04/23/2021 Appointment Neurology Alis Daniel MD [address] [place] [address] 06/22/2021 Office Visit Neurology Date/Time Name Type Priority Associated Diag noses 03/22/2021 3:59 PM EDT Vitamin B12 Lab Routine Ataxia 03/22/2021 3:59 PM EDT TSH Lab Routine Ataxia 03/22/2021 3:59 PM EDT Hemoglobin A1c Lab Routine Ataxia 03/22/2021 3:59 PM EDT CBC and differential Lab Routine Ataxia 03/22/2021 3:59 PM EDT Comprehensive Metabolic Lab Routine Ataxia Panel Order Schedule Name Type Priority Associated Diag noses Expected: 03/22/2021, Expires: 2 MR Brain with and without Imaging Routine Charlotte ntractable epilepsy Contrast due to external causes, without status epilepticus Expected: 04/22/2021, Expires: 2 EEG Routine Study Neurology Routine Nonintractab le epilepsy due to external causes, without status epilepticus 1 Occurrences starting 03/22/2021 until 09/22/2021 Vitamin B12 Lab Routine Ataxia 1 Occurrences starting 03/22/2021 until 09/22/2021 TSH Lab Routine Ataxia 1 Occurrences starting 03/22/2021 until 09/22/2021 Hemoglobin A1c Lab Routine Ataxia 1 Occurrences starting 03/22/2021 until 09/22/2021 CBC and differential Lab Routine Ataxia 1 Occurrences starting 03/22/2021 until 09/22/2021 Comprehensive Metabolic Lab Routine Ataxia Panel Health Maintenance Due Date Last Done Comments MMR Vaccines (1 of 1 - 1965 Standard series) Pneumococcal Vaccine: 65+ 1970 Years (1 of 4 - PCV13) Pneumococcal Vaccine: 1970 Pediatrics (0 to 5 Years) and At-Risk Patients (6 to 64 Years) (1 of 4 - PCV13) DTaP,Tdap,and Td Vaccines 1971 (1 - Tdap) Colon Cancer Screening 10 2014 yrs Breast Cancer Screening 2 03/11/2018 03/11/2016, years 01/18/2015, 11/29/2014, Additional history exists Varicella Vaccines (1 of 10/30/2019 09/04/2019, 2 - 2-dose childhood 05/05/2019 series) Cervical Cancer Screening 03/11/2021 03/11/2016 5 years Influenza Vaccine 05/04/2021 05/07/2020, 05/05/2019, 05/14/2018, Additional history exists Hepatitis C Screening (B. Completed 04/08/2014 [id number]) HIV Screening Completed 03/11/2016, 08/15/2015, 04/08/2014 COVID-19 Vaccine Completed 11/09/2020 HIB Vaccines Aged Out No longer eligible based on patient's age to complete this topic Hepatitis A Vaccines Aged Out No longer eligibl e based on patient's age to complete this topic Hepatitis B Vaccines Aged Out No longer eligibl e based on patient's age to complete this topic IPV Vaccines Aged Out No longer eligible based on patient's age to complete this topic documented as of this encounter Results Not on filedocumented in this encounter Visit Diagnoses Diagnosis Migraine aura without headache - Primar y Migraine with aura, without mention of intractable migraine without mention of status migrainosus 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, without status epilepticus Ataxia Lack of coordination documented in this encounter
--- OUTSIDE RECORDS SUMMARY | 2021-05-16 21:19 | CCD ---
Author Author [facility] Organization [facility] Address Unknown Phone Unavailable Care Team Providers Care [employer] Name Role Phone Charlee Sullivan Unavailable PROBLEMS Type Condition ICD9-CM Code ENC09-BZ Code Onset Dates Condition S tatus W/U Status Risk SNOMED Code Notes Problem Multinodular goiter E04.2 Active confirmed 777471533 Problem Mild intermittent asthma without complication J45. 20 Active confirmed 358992591 Problem Moderate episode of recurrent major depressive disorder F33.1 Active confirmed 34489871 Problem Depression with anxiety F41.8 Active confirmed 451611629 Problem Goiter E04.9 Active confirmed 6175725 Problem Seizure disorder G40.909 Active confirmed 12 0062375 Problem Psychophysiological insomnia F51.04 Active confirme d 131536093 Problem Daytime somnolence R40.0 Active confirmed 1 87779522197 Problem Vitamin D deficiency E55.9 Active confirmed 16184178 Problem Dependence on other enabling machines and devices Z99.89 Active confirmed 227981279 Problem Obstructive sleep apnea (adult) (pediatric) G47.33 Active confirmed 51904720 Problem Intractable migraine without aura and without st atus migrainosus G43.019 Active confirmed 287005337 Problem Chronic fatigue R53.82 Active confirmed 8422 9001 Problem Mixed hyperlipidemia E78.2 Active confirmed 328237670 Problem Chronic allergic rhinitis, unspecified s easonality, unspecified trigger J30.9 Active confirmed 63508731 Problem Adjustment disorder with mixed anxiety and depressed mood F43.23 Active confirmed 48321062 Problem Major depressive disorder, single episode, mild F3 2.0 Active confirmed 89742201 Problem Generalized anxiety disorder F41.1 Active confirme d 71337138 Problem Urinary hesitancy R39.11 Active confirmed 59 23128 ALLERGIES Allergen (clinical drug ingredient) Drug/Non Drug Allergy do cumented on EMR Reaction Allergy Type Onset Date Status Sulfa (for allergy use only) medication interaction Drug A llergy Active Effexor Red itchy eyes Drug Allergy Active Adhesive Bandages itching Drug Allergy Activ e diphenhydramine Antihistamine medication interaction Drug Allergy Active Latex (for allergy use only) itching Drug Allergy Active ENCOUNTERS from 1965 to 2021-03-27 Encounter Location Date Provider Diagnosis [facility] [address] [facility] [phone] [place] [address] Mar, Charlee Nate IMMUNIZATIONS Vaccine Route Administration [...] Education Language: Question Answer Notes Languages spoken: Luxembourgish Yazdanism: Question Answer Notes Yazdanism No samaritan beliefs that would impact health care. Sexual [...] Notes Start Da te End Date Status SUMAtriptan Succinate 50 MG 1 tablet as needed mdd 2 O rally 1 tab at onset and one tab in 30 min if headache persists. MDD 2 , MWD 2 , MMD 8 for 30 days Active Azelastine HCl 137 MCG/SPRAY 1 puff in each nostril Na loni Twice a day for 30 days May, Active Biotin Maximum Strength 10451 MCG 1 tablet Orally Once a day for 30 d ays Active Flunisolide 25 MCG/ACT (0.025%) 2 sprays in each nostr il Nasally Daily at bedtime for 30 days May, Active busPIRone HCl 7.5 MG Take 1 tablet By Mouth twice a day for 28 Active Sertraline HCl 50 MG 1 tablet Orally Once a day for 30 day(s ) Start with 1/2 tab for 7 days, then increase to a whole tab. Surrender nortriptyline to your pharmacy, as these medications cannot be combined. Jun, Not-Taking Levothyroxine Sodium 50 MCG take 1 tablet by mouth onc e daily Orally Daily for 30 Active Clotrimazole-Betamethasone 1-0.05 % 1 application to a ffected area Externally Twice a day for 28 days December, Active Zoloft 100 MG 1 tablet Orally twice daily for 30 Days Active December - please dispense plantar fasc ia brace for r foot Use nightly for 9999 days May, Active Keppra 1000 MG 1/2 tablet in the morning, 1 tablet at night Orally twice daily for 90 day(s) Active traZODone HCl 50 MG 1 tablet at bedtime as needed Orally Onc e a day for 30 days Not-Taking Valtrex 500 2 tablet Orally Daily for 5 Not-Taking Naproxen 500 MG 1 tablet with food or milk a s needed Orally every 12 hrs for 14 day(s) May, Active Albuterol Sulfate HFA 108 (90 Base) MCG/ACT 2 puffs as needed Inhalation every 6 hrs for 30 days May, Active AeroChamber Plus Chriss-Vu - as directed Use with albuter ol inhaler As directed on medication for 99 months Please dispense any aerochamber/spacer a s covered by insurance May, Active busPIRone HCl 5 MG 1 tablet Orally Twice a day for 30 Days Feb, Active Cranberry 1000 MG 4 capsules Orally once aday with 200mg capsule for 30 days Active Vitamin B12 1000 MCG 2 tablet Orally Once a day for 30 days Active Propranolol HCl 40 MG 1 tablet Orally twice a day for 7 day(s) Sep, Not-Taking Excedrin Migraine 250-250-65 MG 2 tablets Orally Once a day for 30 da y(s) Active Propranolol HCl 80 MG 1 tablet twice a day Orally 28 Orally Twice a day for 30 Days Active CeleBREX 100 MG 1 capsule with food Orally twice a day Not-Taking Drisdol 85365 UNIT 1 capsule Orally weekly for 90 Active Levocetirizine Dihydrochloride 5 MG 1 tablet in the ev ening Orally Once a day for 30 Not-Taking Nortriptyline HCl 10 MG 1 capsule Orally Once a day at bedtime f or 30 day(s) May, Not-Taking Valtrex 500 MG 2 tablet Orally Daily for 5 Active PROCEDURES No Information RESULTS No Results REASON FOR VISIT Zoloft MEDICAL (GENERAL) HISTORY Type Description Date Medical [...] onc e daily Orally Daily for 30 Zoloft 100 MG 1 tablet Orally twice daily for 30 Days Next Appt Details Provider Name:Charlee Sullivan, 2021-03-30 01 :00:00 PM, [address], , [place], [address], Insurance Providers Payer Name Payer Address Payer Phone Insured Name Patient Relati onship to Insured Coverage Start Date Coverage End Date [employer] GOLD [address] [address] [facility] [id number] CHARY RING MEDICAID [employer] [address] [facility] [id number] CHARY JEROME self
--- OUTSIDE RECORDS SUMMARY | 2021-05-16 21:20 | CCD ---
Author Author [facility] Organization [facility] Address Unknown Phone Unavailable Care Team Providers Care Heating Repair Technician Name Role Phone Aguila, L Tatiana TRAFFIC TECHNICIAN Unavailable Unavailable Aguila, L Tatiana TRAFFIC TECHNICIAN Unavailable Unavailable Aguila, L Tatiana TRAFFIC TECHNICIAN Unavailable Unavailable Aguila, L Tatiana TRAFFIC TECHNICIAN Unavailable Unavailable Aguila, L Tatiana TRAFFIC TECHNICIAN Unavailable Unavailable Aguila, L Tatiana TRAFFIC TECHNICIAN Unavailable Unavailable Aguila, L Tatiana TRAFFIC TECHNICIAN Unavailable Unavailable Aguila, L Tatiana TRAFFIC TECHNICIAN Unavailable Unavailable Aguila, L Tatiana TRAFFIC TECHNICIAN Unavailable Unavailable Aguila, L Tatiana TRAFFIC TECHNICIAN Unavailable Unavailable Aguila, L Tatiana TRAFFIC TECHNICIAN Unavailable Unavailable Aguila, L Tatiana TRAFFIC TECHNICIAN Unavailable Unavailable Aguila, L Tatiana TRAFFIC TECHNICIAN Unavailable Unavailable Aguila, L Tatiana TRAFFIC TECHNICIAN Unavailable Unavailable Aguila, L Tatiana TRAFFIC TECHNICIAN Unavailable Unavailable Aguila, L Tatiana TRAFFIC TECHNICIAN Unavailable Unavailable Aguila, L Tatiana TRAFFIC TECHNICIAN Unavailable Unavailable Aguila, L Tatiana TRAFFIC TECHNICIAN Unavailable Unavailable Aguila, L Tatiana TRAFFIC TECHNICIAN Unavailable Unavailable Aguila, L Tatiana TRAFFIC TECHNICIAN Unavailable Unavailable Aguila, L Tatiana TRAFFIC TECHNICIAN Unavailable Unavailable Aguila, L Tatiana TRAFFIC TECHNICIAN Unavailable Unavailable Aguila, L Tatiana TRAFFIC TECHNICIAN Unavailable Unavailable Aguila, L Tatiana TRAFFIC TECHNICIAN Unavailable Unavailable Aguila, L Tatiana TRAFFIC TECHNICIAN Unavailable Unavailable Charlebois, A Biju RPA C Unavailable Unavailable Charlebois, A Biju RPA C Unavailable Unavailable Charlebois, A Biju RPA C Unavailable Unavailable Charlebois, A Biju RPA C Unavailable Unavailable Charlebois, A Biju RPA C Unavailable Unavailable Charlebois, A Biju RPA C Unavailable Unavailable Charlebois, A Biju RPA C Unavailable Unavailable Charlebois, A Biju RPA C Unavailable Unavailable Charlebois, A Biju RPA C Unavailable Unavailable Charlebois, A Biju RPA C Unavailable Unavailable Charlebois, A Biju RPA C Unavailable Unavailable Charlebois, A Biju RPA C Unavailable Unavailable Charlebois, A Biju RPA C Unavailable Unavailable Charlebois, A Biju RPA C Unavailable Unavailable Charlebois, A Biju RPA C Unavailable Unavailable Charlebois, A Biju RPA C Unavailable Unavailable Charlebois, A Biju RPA C Unavailable Unavailable Charlebois, A Biju RPA C Unavailable Unavailable Charlebois, A Biju RPA C Unavailable Unavailable Charlebois, A Biju RPA C Unavailable Unavailable Charlebois, A Biju RPA C Unavailable Unavailable Charlebois, A Biju RPA C Unavailable Unavailable Charlebois, A Biju RPA C Unavailable Unavailable Charlebois, A Biju RPA C Unavailable Unavailable Charlebois, A Biju RPA C Unavailable Unavailable Charlebois, A Biju RPA C Unavailable Unavailable Charlebois, A Biju RPA C Unavailable Unavailable Charlebois, A Biju RPA C Unavailable Unavailable Charlebois, A Biju RPA C Unavailable Unavailable Charlebois, A Biju RPA C Unavailable Unavailable Charlebois, A Biju RPA C Unavailable Unavailable Charlebois, A Biju RPA C Unavailable Unavailable Medrea, Alis Unavailable Medrea, Alis Unavailable MEDREA, ALIS Unavailable Unavailable THUAN PA-C, [phone] PA HCRISTIN PA Unavailable Unava ilable THUAN PA-C, [phone] PA CHRISTIN PA Unavailable Unava ilable THUAN PA-C, [phone] PA CHRISTIN PA Unavailable Unava ilable THUAN PA-C, [phone] PA CHRISTIN PA Unavailable Unava ilable THUAN PA-C, [id number] PA CHRISTIN PA Unavailable Unava ilable THUAN PA-C, [phone] PA CHRISTIN PA Unavailable Unava ilable THUAN PA-C, [phone] PA CHRISTIN PA Unavailable Unava ilable Re-disclosure Warning The records that you are about to access may contain information from federally-assisted alcohol or drug abuse programs. If such information is present, then the following federally mandated warning applies: This information has been disclosed to you from records protected by federal confidentiality rules (42 CFR part 2). The federal rules prohibit you from making any further disclosure of this information unless further disclosure is expressly permitted by the written consent of the person to whom it pertains or as otherwise permitted by 42 CFR part 2. A general authorization for the release of medical or other information is NOT sufficient for this purpose. The Federal rules restrict any use of the information to criminally investigate or prosecute any alcohol or drug abuse patient.The records that you are about to access may contain highly sensitive health information, the redisclosure of which is protected by Article 27-F of the [facility] Public Health law. If you continue you may have access to information: Regarding HIV / AIDS; Provided by facilities licensed or operated by the [facility] Office of Mental Health; or Provided by the [facility] Office for People With Developmental Disabilities. If such information is present, then the following [facility] mandated warning applies: This information has been disclosed to you from confidential records which are protected by state law. State law prohibits you from making any further disclosure of this information without the specific written consent of the person to whom it pertains, or as otherwise permitted by law. Any unauthorized further disclosure in violation of state law may result in a fine or custodial sentence or both. A general authorization for the release of medical or other information is NOT sufficient authorization for further disc losure. Family History Family Member Name Family Member Gender Family Member Status Date o f Status Description Data Source(s) Unknown Male Problem MEDENT ([facility] () Unknown Male Problem MEDENT ([facility] Encounters Encounter Providers Location Date Indications Data Source(s ) Outpatient Attender: ALIS SHIAAttender: Alis Medrea 06/22/2021 12:00:00 AM [facility] Outpatient Referrer: ALIS MEDREA 06/05/2021 12:00:00 AM [facility] [place] [address] [address] 05/15/2021 12:00:00 AM EDT eCW1 ([facility]) Outpatient Attender: ALIS Changder: Alis Godinez rrer: ALIS MOODY 04/23/2021 12:00:00 AM [facility] Outpatient [address] [place] [address] 03/30/2021 12:00:00 AM EDT eCW1 ([facility]) Outpatient Attender: Alis Everett er: ALIS SHIAReferrer: [id number] CHRISTIN LAROSE PA-C [id number] 03/22/2021 12:00:00 AM EDT - 03/22/2021 03:54:21 PM [facility] Outpatient Attender: Tatiana Torres/Maritza/Abner/Dae 03/21/2021 01:00:00 PM EDT MEDENT ([facility] [place] [address] [address] 03/21/2021 12:00:00 AM EDT eCW1 ([facility]) Unknown [address] [place] [address] 03/12/2021 12:00:00 AM EDT eCW1 ([facility]) Unknown [address] [place] [address] 01/22/2021 12:00:00 AM EDT eCW1 ([facility]) Outpatient [address] [facility] [place] [address] 01/19/2021 12:00:00 AM EDT [facility]) [place] [address] [address] 12/28/2020 12:00:00 AM EDT [facility] [place] [address] [address] 12/28/2020 12:00:00 AM EDT [facility]CW1 [facility]) Outpatient Attender: Biju Shea RPA C Brian/[place]ad[place]/A ngel/Reindl 11/29/2020 02:30:00 PM EDT MEDENT ([facility]) [place] [address] [address] 10/24/2020 12:00:00 AM EDT [facility] Outpatient Attender: Tatiana Sheehan NP Brian/[place]ad[place]/Abner/Reindl 09/20/2020 12:00:00 PM EST MEDENT ([facility]) Outpatient Attender: Biju Shea RPA C Brian/[place]/A ngel/Reindl 07/06/2020 12:30:00 PM EST MEDENT ([facility]) Outpatient Attender: Tatiana Sheehan NP Brian/[place]ad[place]/Abner/Reindl 06/21/2020 02:30:00 PM EST MED[facility] ([facility]) [place] [address] [facility] [address] 06/14/2020 12:00:00 AM EST [facility]CW1 ([facility]) [place] [address] [address] 05/22/2020 12:00:00 AM EDT [facility] [place] [address] [address] 05/18/2020 12:00:00 AM EDT [facility]CW1 ([facility]) [place] [address] [address] 05/04/2020 12:00:00 AM EDT eCW1 ([facility]) Outpatient Attender: Biju Torres/Maritza/Moisés balderrama/Dae 04/19/2020 01:00:00 PM EDT MEDENT ([facility]) Immunizations Vaccine Date Status Description Data Source(s) COVID-19 dose #1 given elsewhere Unspecified 11/09/2020 02:4 8:00 PM EDT completed eCW1 ([facility]) COVID-19 dose #1 given elsewhere Unspecified 11/09/2020 02:4 8:00 PM EDT completed eCW1 ([facility]) COVID-19 dose #1 given elsewhere Unspecified 11/09/2020 02:4 8:00 PM EDT completed eCW1 ([facility]) COVID-19 dose #1 given elsewhere Unspecified 11/09/2020 02:4 8:00 PM EDT completed eCW1 ([facility]) COVID-19 dose #1 given elsewhere Unspecified 11/09/2020 02:4 8:00 PM EDT completed eCW1 ([facility]) COVID-19 dose #1 given elsewhere Unspecified 11/09/2020 02:4 8:00 PM EDT completed eCW1 ([facility]) COVID-19 VACCINE Zena 11/09/2020 12:00:00 AM EDT completed [facility]SIIS Vaccine Series Complete: YESThis Data wa s Submitted to [facility] Via [employer]. New in 2011. IIV4 06/07/2020 02:45:00 PM EST completed MEDENT ([facility]) Medications Medication Brand Name Start Date Product Form Dose Route Admi nistrative Instructions Pharmacy Instructions Status Indications Reaction Description Data Source(s) Erenumab-aooe 140 MG/ML Subcutaneous Solution Auto-injector (AIMOVIG) [id number] 03/22/2021 12:00:00 AM EDT 140 mg Subcutaneous active Inject 1 mL into the skin every 30 (thirty) days [facility] Ubrelvy 100 MG Oral Tablet (Ubrogepant) 2048-5115-67 03/22/20 12:00:00 AM EDT 100 mg Oral active Take 100 mg by m outh Two times daily as needed [facility] buspirone hydrochloride 7.5 MG Oral Tabl et busPIRone HCl 7.5 MG Oral Tablet (BUSPAR) busPIRone HCl 7.5 MG Oral Tablet (BUSPAR) 02/19/2021 12:00:00 AM EDT active TAKE ONE T ABLET BY MOUTH @8AM and TAKE ONE TABLET BY MOUTH @8PM [facility] Propranolol Hydrochloride 80 MG Oral Tab let Propranolol HCl 80 MG Oral Tablet (INDERAL) Propranolol HCl 80 MG Oral Tablet (INDERAL) 02/19/2021 12:00:00 AM EDT active TAKE ONE TABLET BY MOUTH @8AM and TAKE ONE TABLET BY MOUTH @8PM [facility] Aerochamber Plus Chriss-Vu 06/21/2020 12:00:00 AM EST active MEDENT ([facility], ) POLYETHYLENE GLYCOL 3350 142 MG/ML Oral Solution [Miralax] M iralax 05/19/2020 12:00:00 AM EDT ORAL completed MEDENT ([facility], ) 14 ACTUAT fluticasone furoate 0.1 MG/ACTUAT Dry Powder Inhaler [Arnuity] Arnuity Ellipta 02/16/2020 12:00:00 AM EDT RESPIRATORY active MEDENT ([facility], ) 200 ACTUAT Albuterol 0.09 MG/ACTUAT Metered Dose Inhal er [Ventolin] Ventolin HFA 02/16/2020 12:00:00 AM EDT RESPIRATORY active MEDENT ([facility], ) 24 HR venlafaxine 225 MG Extended Releas e Oral Tablet Venlafaxine HCl 225 MG TB24 Venlafaxine HCl 225 MG TB24 03/08/2016 12:00:00 AM EDT aborted daily. [facility] Erythromycin 0.005 MG/MG Ophthalmic Oint ment erythromycin (ROMYCIN) ophthalmic ointment erythromycin (ROMYCIN) ophthalmic ointment 04/18/2015 12:00: 00 AM EDT Left Eye aborted Place into the left eye Three times daily as needed. [facility] Ascorbic Acid 500 MG Oral Capsule Ascorbic Acid (VITAM IN C) 500 MG CAPS Ascorbic Acid (VITAMIN C) 500 MG CAPS 04/06/2013 12:00:00 AM EDT aborted daily. [facility] Acetaminophen 250 MG / Aspirin 250 MG / Caffeine 65 MG Oral Tablet [Excedrin] Excedrin Migraine 250-250-65 MG Oral Tablet (hswdsnd-egoyptemzeyyx-rdvbanqs) Excedrin Migraine 250-250-65 MG Oral Tablet (grzpimw-innyawxignvjz-jxxbjipz) 1 {tbl} Oral aborted Take 1 tablet by mouth every 6 (six) hours as needed for Pain [facility] Nortriptyline 10 MG Oral Capsule Nortriptyline HCl 10 MG Oral Capsule (PAMELOR) Nortriptyline HCl 10 MG Oral Capsule (PAMELOR) 10 mg Oral aborted Take 10 mg by mouth nightly [facility] Ergocalciferol 54794 UNT Oral Capsule Er gocalciferol 67518 UNIT Oral Capsule (DRISDOL) Ergocalciferol 21545 UNIT Oral Capsule (DRISDOL) 47808 U Oral aborted Take 50,000 Units by mouth once a week [facility] levocetirizine dihydrochloride 5 MG Oral Tablet Levocetirizine Dihydrochloride 5 MG Oral Tablet (XYZAL) Levocetirizine Dihydrochloride 5 MG Oral Tablet (XYZAL ) 5 mg Oral aborted Take 5 mg by angela th every evening [facility] buspirone hydrochloride 5 MG Oral Tablet busPIRone HCl 5 MG Oral Tablet (BUSPAR) busPIRone HCl 5 MG Oral Tablet (BUSPAR) 5 mg Oral aborted Take 5 mg by mouth Two Times Daily [facility] SUMATRIPTAN SUCCINATE PO 50 mg Oral aborted Take 50 mg by mouth as needed [facility] Insurance Providers Payer name Policy type / Coverage type Policy ID Covered democrat ID Covered democrat's relationship to churchill Policy [place] Plan Information MEDICARE [id number] Francine [id number] MEDICARE A [id number] Self [id number] MEDICARE 4 [id number] Medicare - NGS Medicare Primary [id number] Self 1 [id number] Medicare - NGS Medicare Primary [id number] Self 1 [id number] Medicare - NGS Medicare Primary [id number] Self [id number] Medicare - NGS Medicare Primary [id number] Self 1 [id number] Medicare - NGS Medicare Primary [id number] Self 1 [id number] Medicare - NGS Medicare Primary [id number] Self 1 [id number] Medicare - NGS Medicare Primary [id number] Self 1 [id number] MEDICARE [id number] SP [id number] Medicare Medicare Primary [id number] Self [id number] Self [id number] Self [id number] Self [id number] MEDICAID M [id number] Self [id number] [employer] Medicare Commercial [id number] Self [id number] [employer] Medicare Commercial [id number] Self [id number] [facility] [id number] SP [id number] [facility] [id number] SP [id number] [employer] MEDICARE ADVANTAGE G [id number] Self [id number] MEDICAID M [id number] Self [id number] ANSI-Not a Secondary Insurance [id number] ANSI-Medicare Part B [id number] ANSI-Medicaid [id number] ANSI-Not a Secondary Insurance [id number] ANSI-Medicare Part B [id number] ANSI-Not a Secondary Insurance [id number] ANSI-Medicaid [id number] ANSI-Not a Secondary Insurance [id number] ANSI-Medicare Part B [id number] ANSI-Medicaid [id number] Medicaid [facility] Part B [id number] [id number] Self [id number] ANSI-Medicaid [id number] ANSI-Not a Secondary Insurance [id number] ANSI-Medicare Part B [id number] ANSI-Not a Secondary Insurance [id number] ANSI-Medicaid [id number] ANSI-Medicare Part B [id number] ANSI-Not a Secondary Insurance [id number] ANSI-Medicare Part B [id number] ANSI-Medicaid [id number] ANSI-Not a Secondary Insurance [id number] ANSI-Medicaid [id number] ANSI-Medicare Part B [id number] MEDICARE COMPLETE [id number] SP [id number] ANSI-Not a Secondary Insurance [id number] ANSI-Medicare Part B [id number] ANSI-Medicaid [id number] ANSI-Not a Secondary Insurance [id number] ANSI-Medicare Part B [id number] ANSI-Medicaid [id number] Medicaid [facility] Part B [id number] [id number] Self [id number] [facility] [id number] SP [id number] MEDICARE COMPLETE [id number] SP [id number] ANSI-Medicaid [id number] ANSI-Medicare Part B [id number] ANSI-Medicaid [id number] ANSI-Medicaid [id number] ANSI-Medicaid [id number] ANSI-Medicare Part B [id number] ANSI-Medicaid [id number] [place] [id number] SP [id number] ANSI-Medicare Part B [id number] ANSI-Medicaid [id number] ANSI-Medicaid [id number] ANSI-Medicare Part B [id number] ANSI-Medicare Part B [id number] ANSI-Medicaid [id number] ANSI-Medicaid [id number] ANSI-Medicaid [id number] ANSI-Medicare Part B [id number] ANSI-Medicare Part B [id number] ANSI-Medicaid [id number] ANSI-Medicaid [id number] ANSI-Medicare Part B [id number] ANSI-Medicare Part B [id number] ANSI-Medicaid [id number] ANSI-Medicare Part B [id number] ANSI-Medicaid [id number] ANSI-Medicare Part B [id number] ANSI-Medicaid [id number] ANSI-Medicaid [id number] ANSI-Medicare Part B [id number] ANSI-Medicare Part B [id number] ANSI-Medicaid [id number] MEDICARE C [id number] C [id number] MEDICAID UNAVAILABLE UNAVAILA BLE MEDICARE [id number] SP [id number] SELFPAY 5 UNAVAILABLE 1 UNAVAILA BLE SELF PAY 5 UNAVAILABLE 1 UNAVAILA BLE ANSI-Medicaid [id number] HU[employer]NA GOLD [id number] SP [id number] HUMANA GOLD [id number] SP [id number] HUMANA HMO [id number] SP [id number] [place] [id number] SP [id number] SELF PAY ONLY SP [id number] MEDICAID [id number] SP [id number] HU[employer]NA GOLD [id number] SP [id number] HUMANA HMO [id number] SP [id number] [facility] HMO [id number] SP [id number] [facility] [id number] SP [id number] HUMANA HMO [id number] SP [id number] ANSI-Medicaid [id number] ANSI-Medicare Part B [id number] ANSI-Not a Secondary Insurance [id number] Medicaid [place] Medigap Part B [id number] Self [id number] Medicare Community Plan Commercial [id number] Self [id number] ANSI-Not a Secondary Insurance [id number] ANSI-Medicare Part B [id number] ANSI-Medicaid [id number] ANS-Medicaid [id number] ANS-Medicare Part B [id number] Problems, Conditions, and Diagnoses Code Display Name Description Problem Type Effective Dates Data Source(s) G43.019 [id number] Intractable migraine without aura and without status migrainosus Problem 02/11/2021 12:00:00 AM EDT eCW1 ([facility]) E78.2 Mixed hyperlipidemia Mixed hyperlipidemia Problem 01/19/2021 12:00:00 AM EDT eCW1 ([facility]) J45.30 Mild persistent asthma Mild persistent asthma Problem 09/20/2020 12:00:00 AM EST MEDENT ([facility]) J45.40 Uncomplicated moderate persistent asthma Uncomplicated moderate persistent asthma Problem 06/21/2020 12:00:00 AM EST MEDENT ([facility]) G47.33 Obstructive sleep apnea syndrome Obstructive sle ep apnea syndrome Problem 06/21/2020 12:00:00 AM EST [facility] ([facility]) Surgeries/Procedures Procedure Description Date Indications Data Source(s) Endoscopy Upper GI Biopsy 04/27/2021 12:00:00 AM EDT [facility] ([facility]) Spirometry 03/21/2021 12:00:00 AM EDT M EDENT ([facility]) OFFICE OUTPATIENT VISIT 15 MINUTES 03/21/2021 12:00:00 AM EDT [facility] [facility] OFF[facility] OUTPATIENT VISIT 15 MINUTES 11/29/2020 12:00:00 AM EDT [facility] ([facility]) Spirometry 09/20/2020 12:00:00 AM EST M [facility] ([facility]) Spirometry 06/21/2020 12:00:00 AM EST [facility], ) Results ID Date Data Source [id number] 05/13/2021 11:35:00 PM EDT [facility] Name Value Range Interpretation Code Description Data Keira rce(s) Supporting Document(s) SARS-CoV-2 (COVID 19) NEGATIVE - SARS-CoV-2 (COVID19) [facility] This lab was ordered by [facility] a nd reported by [facility]. ID Date Data Source [id number] 04/27/2021 02:44:00 PM EDT [facility] Name Value Range Interpretation Code Description Data Keira rce(s) Supporting Document(s) Surgical pathology study Laboratory test result [facility] ([facility]) FINAL DIAGNOSIS A-Small bowel, biopsy: Scant bowel mucosa, insufficient for definitive diagnosis. B-Gastric biopsy: Gastric mucosa with mild chronic inflammation and reactive changes. No H.pylori is identified. 05/01/2021 - 110 CLINICAL DIAGNOSIS Diarrhea, positive celiac markers 04/30/2021 - 1356 GROSS DIAGNOSIS A - Received in formalin labeled "small bowel biopsy R/O celiac" and consists of a fragment of tissue 0.1 x 0.1 x 0.1 cm. All in one. B - Received in formalin labeled "gastric biopsy R/O H. pylori" and consists of a fragment of tissue 0.1 x 0.1 x 0.1 cm. All in one. -OA 04/30/2021 - 1356 Signed SEVERIANO CHEN MD 05/01/2021 1105 ID Date Data Source [id number] 04/25/2021 10:45:00 AM EDT [facility] Name Value Range Interpretation Code Description Data Keira rce(s) Supporting Document(s) SARS coronavirus 2 RNA [Presence] in Res piratory specimen by SAMY with probe detection NEGATIVE [facility] This lab was ordered by [facility] a nd reported by [facility]. ID Date Data Source [id number] 03/22/2021 04:10:08 PM EDT [facility] Name Value Range Interpretation Code Description Data Keira rce(s) Supporting Document(s) Progress Note [facility] MTOLYb1jIiKFPeOe16/RNIsoNOBrx4EmHWahGHm6HXmsQVKsP8BnSYC0jF4xJRE3YJsSEiGlIsYnHTT6 lbm [file] YaN5RBs0VVVuDkQzQCGmCcOzZO6MFy7VXvM8ZNL6nRCrPb8SPrI1VYhYUpPjEY7WHIk= ID Date Data Source [id number] 03/22/2021 04:08:58 PM EDT [facility] Name Value Range Interpretation Code Description Data Keira rce(s) Supporting Document(s) Progress Note [facility] BRCTTc1dOsQVUuYg69/VNQneGDRuy8LoFDwpHFl6FTlhRLLxB7NtAII3xA0gUGM2JOaJJlXwJeCfEMX0 lbm OxVikTIqWiLUApYmbFSvCpJHweYpjfzDXpMX7IaZJ7JUUmN32zXJSyXYTrY7AaKXE7Scq+Uh1MVDEfuI AjEZ5SUxaZ7Vxwz0k7Yu3+hT5BOezcxdcPPhk03OKYO5ubNWvGNt8NwSD/yZRfy4dMGjiN8z/+qDfLw9 TuuTAm3bJDNkgFcuVyLh8rKkvDRg50FWwsMbrc+e/2 qxdwMlmSH/8Raqmolg7u+yg8RUaq8cSa4VQ/Wuz7Dq/C0ECFIJWsLZ/GatpyVPjxX3Vw0+nRnViFX1+R 6zDdkPcJ+Yp9yMsamMV+RT//9BMZ/57xlsLQA7QKyrpzRo5JU5HEOO5Ph86US0TFvarHopEBBmzbQQ9d xOrLo2CmaJK2aWTJSuev93szpaZXTnSjuMRBmIkwcB a0pHAKDFv9llVgbQ+Wi929w+Jl/RBSpCTzJuxNJR9M26fuIdlLLdgAD8xEemw81ElkE21ArQ3DD+uJUS g6IvjCIJgXTdltstM2nqy4Ja+mxvejSw26flyiynP9GcfjK0wTou7QbL+BJevz6AL8rdzn9fpwG846xD 3RfqGyB3IUKF4lzCaH+7eAvRm7unsV4EUi0QJ7KuOk CDYB7Chb+VSWNIdsZr0ggZNrGEeoDnAMVo/3CqtMd/OpLNpl40kCD/we4Cbfp5X8cn6WPYbzNxH8BwtS fmm7IGrMFnj+c+RyXEZ410H3ETrWCe7VzBiKdeEz9Gk3nZVPRugZMRsw7C36t5hZpkAj+kSyDz9tZn2o o0ZK/DjQHoJMFvNyCZqitGJIrUEE24lTcTdTMBWkz5 CKSzacl+LJ1QcXjzSxUd+mthEwJKSqFSYTwSYE80enqg/Jacquelin/K2jjFkwuMJTLTXRDMuoFmyq4hzocwW9N [file] OyLiKjQyRI8YVc0UKtT6TXD5gEEvMz8WPyBvHlURDqNnCL9DPLw= ID Date Data Source [id number] 03/22/2021 04:08:23 PM EDT [facility] Name Value Range Interpretation Code Description Data Keira rce(s) Supporting Document(s) Progress Note [facility] VPVVFj5qHjEQEiBa29/LFPodCNUun7ZqGKtsGXo3RNghGPWuS1GaFIT5oI9rMVM4JBjMFmYfBaEhCMK5 lbm [file] PHARMACIST AIDE+Lt3LFTNoXCa3L4W3BXOdMVv3N9OCL8RAGAQoIGsdLNtyCJXfRMi5E6B6ZJZjP0OCQ9Alsfraoi8+ RL1WE07SAAQjYNh8Q1J9oMZrS4S4bMzDpXX7DO8LRB0QjPe1tDHkqA6+PB4PM1NHJvOxKRc2H8P4bDXl H8W3fBgVuHJ4CI6YBA1MdYTfJMExfoTrPa1xO4UCXF pVVxFKXUY0TL3PzWDuMF6RvUVGV1VjeDZdCy7ySBabgFFbvM9yGn1rQBxgMV3WSaISZWjYKHJ4WH4ZsY RpYJ2SiBSWL5QqxOUrBn4kCSwtdTWrjg5+JB8YDCVrVf2EKr3+AWhgvgWsIxuTCeZoOKPar8LxNVo0UR 6KGF8ltJmfDFK9Dz9SbFZ2iSEiM4eBRZ4DbUIpG28r rHXtYUQiRf3PDdI8iqFopG7KQP27wCGjz4A9CPNiC7fdHXean84bGOwgNXoYUY4sAJWQPTxpINdtLHO4 LoXxwtedSPJsOm5SRxRbPMo9uL9clJU5FXX0ZjessMCsIJfoHzHwBkGdQxN3lSgelhw3CCkjLE5rYCim czptZXRhLyc+EJcfMTSwKGNxNuvXEIGyzU4tcxS6pe XwCKdphGEeKf6al2a2MwktJq6fXm1xDFj4FmRbSqQsZLMnSt4qhQ91ETauvxUtBm8HBaRtASL2F1IkVz pSREY+MGrfNXcwkOk0lVCdZUQlFg7PBNPcOGUsHXIsCXNmEVZuVTJvYIHqWWVlIPByXLVfWKIvNAUgMN AgICAgICAgICAgICAgICAgICAgICAgICAgICAgICAg YSMuQKCaNHWcZCBnAPIyPNLcPJPnDWVtWKLkCVPmWB5GZTQwVGGzCTMwHUCgCONnVDOpYHYvUKJsQXNl ICAgICAgICAgICAgICAgICAgICAgICAgICAgICAgICAgICAgICAgICAgICAgICAgICAgICAgICAgICAg ZBZpFPSfMEOsAOOrVQ4DZRNqLUMxEWWqTHXhYYZsGW AgICAgICAgICAgICAgICAgICAgICAgICAgICAgICAgICAgICAgICAgICAgICAgICAgICAgICAgICAgIC CiSHDhJEZsOSFwWEUcEMJeBSRkXFRfNA9KIBFeWTFkHXYaPRWcZRTlZQDsVWWpJGQjXNIwJVWtDRVbMP AgICAgICAgICAgICAgICAgICAgICAgICAgICAgICAg PWAaAUHnQUHfYKZnBCGtFBFfHRYeEZXsFEYoEMVnGJGdYM6IHRIkCHJmSKNnBXNiMSZpTVTbUEPeKMOl ICAgICAgICAgICAgICAgICAgICAgICAgICAgICAgICAgICAgICAgICAgICAgICAgICAgICAgICAgICAg YROyUOHcMRMaZOVfSKZnMY3HKRKhWTUiFVOpOADnPK AgICAgICAgICAgICAgICAgICAgICAgICAgICAgICAgICAgICAgICAgICAgICAgICAgICAgICAgICAgIC DfEOYeLCQdYBHqLFVmJDHkGELsFFAoKPDqGZ0UXEWwDHYnSYGqJNKsKJTaXMTqXNSiHTJbKEGaQUErFY AgICAgICAgICAgICAgICAgICAgICAgICAgICAgICAg ETAdMGZsSNGtXXHePGSyFWNdCUMzGOOvHPIoRWHsRDCaVUCyHA2TXSNiATGiXVObOTTuVOYuXMIxMCPr ICAgICAgICAgICAgICAgICAgICAgICAgICAgICAgICAgICAgICAgICAgICAgICAgICAgICAgICAgICAg EQPrZRVkIXEbNUEpXVDyTEVkZE8WXALgMDCqXLAtLA AgICAgICAgICAgICAgICAgICAgICAgICAgICAgICAgICAgICAgICAgICAgICAgICAgICAgICAgICAgIC TsARFdAYLxWHIuTORmKRBbQNBkMAYeMPEkFNSfGQ9FUJIlCVPyEWAkGJGdVYJhLQTaTJXcVXAkVBPpGH AgICAgICAgICAgICAgICAgICAgICAgICAgICAgICAg GXPnJNHsLGUgRVVoBAAyJPSqGLIoLNNhCQHmYZTmIZDpCXUpRBJkRD0KTL05iNDpy9Y8FVJnEI6hzno/ Gs1TXUctgfRzvELaOM2IKeGgZN3qbt6ITaHiTZ7lmv2FSMfDHbVaW3C8eDRjSSLmFZYQOcLeK97vWLfx Of81OAzoLZWyKhPbPSx1Qj5EIrKjP3qxGDYvGpW8TW OwAiN7DHFdWpN4YUJwIkDjWTBuJRDrTJLlSNTRMBY0BNPiClNrWpDhUJAuVDupIXGWLPDsCQNaMxOxTo EhMSLsLtMhXAOSALK0FIWdFkLiXBIbNDLiWvXyLNYXRL1IOtDnS8RflD51GFY1GJe+Lm6WAA9qv0MtDT h6SGXkAV8zya0DUHhDSeFsS0MxbkD5ASAbVRAzZe7I PJIpESVbfPS0LrDaZGMCRcAuG2LphV81FWKGWb8+EJppduOnPxvKZjKgHIHsz2PoBCq6NK6GTFAcPCy3 fRJhWIIwT7Ahx0IzCq88NBRsGrtnKW7uohUlJJZlxmDnHPCJVCVkuTP3FnL3BkMbAcQdEDC8SdFuBZ9s JQzjDV5EVAL7GZgfXOMeVFNzI0oAMnBhRCEbSGCxnP tbAW0JAjGkI1WicqQavYT5DJMaWUAZLl8+MBqrtcZwFfpWCvYcSOLil8EbNGj7PO6PEKCrKYuxLL4NZP MrtO1uJTacVB1SBrQ6DQUzMDTKXqIrX69mrQWcXVy0V2XxJjJcPQWkGcceNQMmCBzqJxTcZRDoUdIjQI ogID4+ID4+FBctBN9BRPvueiZtGAIlTp4MMBGoVMSg QZ0mROVcEOWfA6A0rVpsIPURAyGtS0pqitahLE0bEDIyW255kMxgsbYkIYOoDWSaQh5SBYUuMPP4ZQTp rRKnSDKaLVFJLNicZY6EzCJkZFY5cQ3zSEdiAUQuVMIsM1cXRgLxmAayUB24dNvccfNmcWOnLBq+Pg0K FB1dy2IdADv1luAfNElnVSH6SEhuTSHxDKRzRUQzOJ G9JHJ3KPZRBzRcOYMkTBWmPYysAVEbNRIkev1UYCBpJCF9MWKqFnMmRUXbOSWgOLywNYLaQQImXTt7IP IaYTUiVL3ABaMoDZKvKHBkOJjcIAKzFZVjgu1JNRYtWTOrUsNmVsGqACMcYQPzMDnoDJAiNXFdZmAyOG TzBUDmEX5FUuLfQEFpQYhxQlhgFLTcUVXsjw2JNHPe JXGtUbK1UxKmNGFbBDUaIYygGVAtWUHuDdCiRAFgJUViMA4FFfEsDVCkYTG5SkruBXEgWCYami9VUAFe QSPgHkT2QWGgLNVmLMPpPBinXWIxDWUbGKP4UWIvUCZaKM9EBiLvGBCdTRWbXRQxIFRxKRAeza3YOLJb ZTTkUEVcMqRbDAEcGVLcWGskTPKkIJV7GuU7ATXyAA HcNT0NUfXsFENhWSf3GmZzXMFvTPVcjg1UAXCkWQJrIOS9UaQzLJXaOGBoQNpmJCUmTYUsYvq0PGYgMA NiYM6CDhXwNMKqYrM0SpnlGTHoWOVfep5SVVAgBBZpOqn8CHZxBVCpDPInOXfuVLYnZMN3QcShRUPaYR KbGS6NGdHmEZGcOqE0DRvhJONlKSWlfz5BOETuTHCb WNRcOpRaMMYvFWYyNDknQVRuNTM8TUE6JKTjAZLyTS4KYtJxRUFfMbY2UBBhPPBiXJDwan1AOZZoHSXi QkHqOmOqKJBlOJXgWFbbYBMmHXY3PhW3IUEiMKByKO4XNfDoHUWtBrX2VqNhXQUrQXCtuz3UQFOjLJVq Pme1LxQpPRZjZFLpCSnvXFLgRMK7PJV5UNDrKRRyYO 9BBwMeNXXrVVB0UbJbVWEoADTmnb4NCFFwWWS9WIOaQtKyEBYoJCQbPXphIIOhWZGxRGq8OUDlPGXiSO 4HZiOeWMDyKLF1OOXcYXOsZJAnoj6FAKRxENX2LCj0LlOmSCWsNVFqFSipTJBgDSYkZHQ1FTZgAZYiQK 2EErFyDXHhZKKfRartZXMcVGQhzt8GZMYrJPX1OmVw MwRgHDXjOWZdBMteRDCgSKU2FeN1LRHdPXPlBD7LUhFrFNCuRXNlUfQoZKYnBGOhlv3RYODvDJZ7ETB3 BGYrQXSzUIUlXMsyCCYqJGA7FAJeEUEjJBNrYN6NIeTuWQGyFDM8ZwMmJQHyERLybp3IVULnXXU5OjSa MEMzXEKsOXXcSQuzRNRaJWC0CQJ5VVNdNEIgVP4KOc GdEYIbKPO9PVXwTRMnHVZffw7XMXNjNGT4DkuqEDKuQMRzRVIvMYpnASMwNLL2NGTzWPJgHOZbWO1EGy WeLYLfYZbrBZYsZLIgSSTepk7VQIUlAOF9RLjoTGKaRKAyQAIcAJxoWNStBFOhOpD0FZFvQHHhHL5OZg NmSMVeFlSxCuytQGJpTIDgsp6NCNNiEZZ6WQN6UGRm VRXeWJKvPJy3gvVqoVQlWVc4VR0RZ2HjbpJjMNZYZq1Bu392IRDqVOWdBt8QE8axRf9aDXOtRFSCXc8U XTc5UPK4N0D9LRRkPyooLJL9KaJ5A7Q0M9Y0L1FvMWlvAap+GPbdUUcpYal0EEB3UMGuCidvLCt2SYz5 MQrqMqB7ZnMlRF0mHKYEIp9+PWnieUMuqQzmMQSLIcNtWtV3SXpiHQJSPq3G ID Date Data Source [id number] 03/22/2021 06:03:39 PM [facility] Name Value Range Interpretation Code Description Data Keira rce(s) Supporting Document(s) Hemoglobin A1c/Hemoglobin.total in Blood by HPLC 6.3 % 4.0-6.0 [facility] (NOTE)<5.7% Average risk of diabetes (ADA)5.7-6.4% Increased risk of diabetes(ADA)>/= 6.5% Diagnostic for diabetes(ADA) Glucose mean value [Mass/volume] in Blood Estimated fr om glycated hemoglobin 134 mg/dL <126 [facility] ID Date Data Source [id number] 03/22/2021 05:55:55 PM [facility] Name Value Range Interpretation Code Description Data Keira rce(s) Supporting Document(s) Leukocytes [#/volume] in Blood by Automated count 7.4 10*3/uL 4-10 [facility] Erythrocytes [#/volume] in Blood by Automated count 4.78 10*6/uL 4.1- 5.3 [facility] Hemoglobin [Mass/volume] in Blood 14.3 g/dL 11.5-15.5 [facility] Hematocrit [Volume Fraction] of Blood by Automated count 43.1 % 3 6-45 [facility] Erythrocyte mean corpuscular volume [Entitic volume] by Auto mated count 90.3 fL 80-96 [facility] Erythrocyte mean corpuscular hemoglobin [Entitic mass] by Automated count 29.9 pg 27-33 [facility] Erythrocyte mean corpuscular hemoglobin concentration [Mass/volume] by Automated count 33.1 g/dL 32.0-36.0 [facility] E[facility]th[facility] distribution width [Ratio] by Automated count 13.0 % 11.5-14.5 [facility] Platelets [#/volume] in Blood by Automated count 242 10*3/uL 150-400 [facility] Differential cell count method - Blood [facility] Neutrophils/100 leukocytes in Blood by Automated count 55 % [facility] Lymphocytes/100 leukocytes in Blood by Automated count 34 % [facility] Monocytes/100 leukocytes in Blood by Automated count 8 % [facility] Eosinophils/100 leukocytes in Blood by Automated count 2 % [facility] Basophils/100 leukocytes in Blood by Automated count 1 % [facility] Neutrophils [#/volume] in Blood by Automated count 4.05 10*3/uL 1.8-7 .0 [facility] Lymphocytes [#/volume] in Blood by Automated count 2.55 10*3/uL 1.2-4 .0 [facility] Monocytes [#/volume] in Blood by Automated count 0.58 10*3/uL 0-0.8 [facility] Eosinophils [#/volume] in Blood by Automated count 0.17 10*3/uL 0-0.5 [facility] Basophils [#/volume] in Blood by Automated count 0.07 10*3/uL 0-0.2 [facility] Nucleated erythrocytes/100 leukocytes [Ratio] in Blood by Automated count 0 /100{WBCs} 0-0 [facility] ID Date Data Source [id number] 03/22/2021 06:17:10 PM [facility] Name Value Range Interpretation Code Description Data Keira rce(s) Supporting Document(s) Cobalamin (Vitamin B12) [Mass/volume] in Serum or Plasma 526 pg/ml 2 11-946 [facility] ID Date Data Source [id number] 03/22/2021 06:17:10 PM [facility] Name Value Range Interpretation Code Description Data Keira rce(s) Supporting Document(s) Albumin [Mass/volume] in Serum or Plasma by Bromocresol green (BCG) dye binding method 3.9 g/dL 3.5-5.2 [facility] Bilirubin.total [Mass/volume] in Serum or Plasma 0.7 mg/dL <1.2 [facility] Calcium [Mass/volume] in Serum or Plasma 9.4 mg/dL 8.6-10.0 [facility] Chloride [Moles/volume] in Serum or Plasma 100 mmol/L 98-107 [facility] Creatinine [Mass/volume] in Serum or Plasma 0.98 mg/dL 0.50-0.90 [facility] Glucose [Mass/volume] in Serum or Plasma 120 mg/dL 70-140 [facility] Alkaline phosphatase [Enzymatic activity/volume] in Serum or Plasma 164 U/L 35-104 [facility] Potassium [Moles/volume] in Serum or Plasma 4.0 mmol/L 3.4-5.1 [facility] Protein [Mass/volume] in Serum or Plasma 7.2 g/dL 6.4-8.3 [facility] Sodium [Moles/volume] in Serum or Plasma 137 mmol/L 136-145 [facility] Aspartate aminotransferase [Enzymatic activity/volume] in Serum or Plasma 14 U/L <32 [facility] Urea nitrogen [Mass/volume] in Serum or Plasma 16 mg/dL 6-20 [facility] Osmolality of Serum or Plasma by calculation 286 mosm/kg 275-300 [facility] Creatinine/Urea nitrogen [Mass Ratio] in Serum or Plasma 17 [facility] Bicarbonate [Moles/volume] in Serum 27 mmol/L 22-29 [facility] Alanine aminotransferase [Enzymatic activity/volume] in Seru m or Plasma 19 U/L <33 [facility] Anion gap 3 in Serum or Plasma 10 mmol/L 8-15 [facility] Glomerular filtration rate/1.73 sq M pre dicted among non-blacks [Volume Rate/Area] in Serum or Plasma by Creatinine-based formula (MDRD) 64 mL/min/1.73m2 >60 [facility] Glomerular filtration rate/1.73 sq M pre dicted among blacks [Volume Rate/Area] in Serum or Plasma by Creatinine-based formula (MDRD) 74 mL/min/1.73m2 >60 [facility] ID Date Data Source [id number] 03/22/2021 06:17:10 PM EDT [facility] Name Value Range Interpretation Code Description Data Keira rce(s) Supporting Document(s) Thyrotropin [Units/volume] in Serum or Plasma 1.860 u[IU]/mL 0.270-4. 200 [facility] ID Date Data Source [id number] 03/21/2021 12:57:00 PM EDT [facility] ([facility], ) Name Value Range Interpretation Code Description Data Keira rce(s) Supporting Document(s) PDFReport Laboratory test result [facility] ([facility], ) FVC-Pred 3.29 L [facility] ([facility], ) FVC-Pre 2.01 L [facility] ([facility]) FVC-%Pred-Pre 61 L [facility] ([facility]) FVC-LLN 2.61 L [facility] ([facility]) Fev1-%Pred-Pre 66 L [facility] ([facility], ) Fev1-Pre 1.71 L [facility] ([facility]) Fev1-Pred 2.57 L [facility] ([facility]) Fev6-Pred 3.18 L [facility] ([facility]) Fev1-LLN 2.00 L [facility] ([facility]) Fev6-%Pred-Pre 62 L [facility] ([facility]) Fev6-LLN 2.52 L [facility] ([facility], ) Fev6-Pre 1.99 L [facility] ([facility]) Fhb8aro-Kiss 79 % [facility] ([facility]) Oue2pwm-Ygb 85 % [facility] ([facility]) Iph1dup-%Pred-Pre 107 % [facility] ([facility]) Ssm7yeb-BHC 69 % [facility] ([facility]) Hzl5ozv-Vic 99 % [facility] ([facility], ) Oqt7mhy-Uxcy 97 % [facility] ([facility]) Bjk7jlj-%Pred-Pre 102 % [facility] ([facility]) FEFMax-Pred 6.34 L/E/sec [facility] ([facility]) FEFMax-Pre 3.50 L/E/sec [facility] ([facility]) FEFMax-LLN 4.68 L/E/sec [facility] ([facility]) FEFMax-%Pred-Pre 55 L/E/sec [facility] ([facility]) Grw4711-Firz 2.46 L/E/sec [facility] ([facility]) Jrp9743-Tcg 2.25 L/E/sec [facility] ([facility]) Zxy9891-%Pred-Pre 91 L/E/sec [facility] ([facility]) ExpTime-Pre 8.41 sec [facility] ([facility]) Cgl8990-PWK 1.26 L/E/sec [facility] ([facility]) Vwg8kba8-Hji 86 % [facility] ([facility]) Pfd0ksq7-%Pred-Pre 105 % [facility] ([facility]) Wug7ekl4-Fhuu 81 % [facility] ([facility]) Nnd8xjp9-YFE 73 % [facility] ([facility]) ID Date Data Source [id number] 11/29/2020 03:38:00 PM EDT [facility] ([facility]) Name Value Range Interpretation Code Description Data Keira rce(s) Supporting Document(s) Red Blood Count 4.88 10 4.00-5.40 Normal (applies to non-numeric results) [facility] ([facility]) White Blood Count 7.8 10 4.0-10.0 Normal (applies to non-numeri c results) [facility] ([facility]) Hemoglobin 14.8 g/dL 12.0-15.5 Normal (applies to non-numeric resul ts) [facility] ([facility]) Mean Corpuscular Volume 95.3 fl 80.0-96.0 Normal ( applies to non-numeric results) [facility], ) Hematocrit 46.5 % 36.0-47.0 Normal (applies to non-numeric resul ts) [facility]) Mean Corpuscular HGB Conc 31.8 g/dL 32.0-36.5 Below low normal [facility] ([facility]) Mean Corpuscular Hemoglobin 30.3 pg 27.0-33.0 Norm al (applies to non-numeric results) [facility] ([facility]) Red Cell Distribution Width 12.5 % 11.5-14.5 Norm al (applies to non-numeric results) [facility] ([facility]) Platelet Count, Automated 245 10 150-450 Normal (applies to non-numeric results) [facility]) Neutrophils % 53.0 % 36.0-66.0 Normal (applies to non-numeric re sults) [facility]) Lymph % 35.0 % 24.0-44.0 Normal (applies to non-numeric resul ts) [facility], ) [place] % 7.8 % 2.0-8.0 Normal (applies to non-numeric resul ts) [facility]) Eos % 2.7 % 0.0-3.0 Normal (applies to non-numeric resul ts) [facility]) Baso % 1.1 % 0.0-1.0 Above high normal [facility] ([facility]) Immature Granulocyte % 0.4 % 0-3.0 Normal (applies to non-n umeric results) [facility] ([facility]) Nucleated Red Blood Cell % 0.0 % 0-0 Normal (applies to n on-numeric results) [facility]) Neutrophils # 4.2 10 1.5-8.5 Normal (applies to non-numeric re sults) [facility]) Lymph # 2.7 10 1.5-5.0 Normal (applies to non-numeric resul ts) [facility] [place] # 0.6 10 0.0-0.8 Normal (applies to non-numeric resul ts) [facility] ([facility]) Baso # 0.1 10 0.0-0.2 Normal (applies to non-numeric resul ts) [facility]) 12/21/20 (Thr December 21) 08:57 AM BIJU SHEA No significant abnormalities. Eos # 0.2 10 0.0-0.5 Normal (applies to non-numeric resul ts) [facility]) ID Date Data Source [id number] 11/29/2020 03:38:00 PM EDT [facility] Name Value Range Interpretation Code Description Data Keira rce(s) Supporting Document(s) Tissue transglutaminase IgA Ab [Units/volume] in Serum 4 U/mL 0-3 Above high normal [facility] ([facility]) Negative 0 - 3 Weak Positive 4 - 10 Positive >10 . Tissue Transglutaminase (tTG) has been identified as the endomysial antigen. Studies have demonstr- ated that endomysial IgA antibodies have over 99% specificity for gluten sensitive enteropathy. Performed at: [facility] [id number] Supervisor Braiding: Caryn Frank MD, Phone: [phone] ID Date Data Source [id number] 07/07/2020 02:31:00 PM EST [facility] Name Value Range Interpretation Code Description Data Keira rce(s) Supporting Document(s) IgA [Mass/volume] in Serum or Plasma 540.0 mg/dL 70-400 Above hig h normal [facility] ([facility]) Tissue transglutaminase IgA Ab [Units/volume] in Serum 4 U/mL 0-3 Above high normal [facility] ([facility]) Negative 0 - 3 Weak Positive 4 - 10 Positive >10 . Tissue Transglutaminase (tTG) has been identified as the endomysial antigen. Studies have demonstr- ated that endomysial IgA antibodies have over 99% specificity for gluten sensitive enteropathy. Performed at: [facility] [employer] [id number] Supervisor Braiding: Caryn Frank MD, Phone: [phone] ID Date Data Source [id number] 07/07/2020 02:31:00 PM EST [facility] ([facility]) Name Value Range Interpretation Code Description Data Keira rce(s) Supporting Document(s) Free T4 1.20 ng/dL 0.76-1.46 Normal (applies to non-numeric resul ts) [facility] ([facility]) 07/12/20 (FriJul 12) 04:20 PM BIJU MÉNDEZ Thyroid function is normal. Thyroid Stimulating Hormone 2.130 uIU/ML 0.358-3.740 Norm al (applies to non- numeric results) [facility] ([facility]) ID Date Data Source [id number] 06/17/2020 12:00:00 AM EST [facility] Name Value Range Interpretation Code Description Data Keira rce(s) Supporting Document(s) 2019-nCoV RNA XXX SAMY+probe-Imp [facility] This lab was ordered by [facility] and reported by [employer]. ID Date Data Source [id number] 06/15/2020 07:38:00 AM EST [facility] ([facility]) Name Value Range Interpretation Code Description Data Keira rce(s) Supporting Document(s) PDFReport Laboratory test result [facility] ([facility], ) FVC-Pred 3.29 L [facility] ([facility]) FVC-Pre 2.14 L [facility] ([facility]) FVC-LLN 2.61 L [facility] ([facility]) FVC-%Pred-Pre 64 L [facility] ([facility]) Fev1-Pred 2.57 L [facility] ([facility]) Fev1-Pre 1.85 L [facility] ([facility]) Fev1-%Pred-Pre 71 L [facility] ([facility]) Fev6-Pred 3.18 L [facility] ([facility]) Fev1-LLN 2.00 L [facility] ([facility]) Fev6-Pre 2.14 L [facility] ([facility], ) Fev6-LLN 2.52 L [facility] ([facility]) Fev6-%Pred-Pre 67 L [facility] ([facility]) Uoe6rec-Ibw 86 % [facility] ([facility]) Tda6rzn-%Pred-Pre 109 % [facility] ([facility]) Xdv4pqb-Wxge 79 % [facility] ([facility]) Eun2ynb-Nivr 97 % [facility] ([facility]) Jav0din-OSK 69 % [facility] ([facility]) Xbb5njy-Mdu 100 % [facility] ([facility]) Jjw5vrp-%Pred-Pre 103 % [facility] ([facility]) FEFMax-Pre 5.09 L/E/sec [facility] ([facility]) FEFMax-Pred 6.34 L/E/sec [facility] ([facility]) FEFMax-LLN 4.68 L/E/sec [facility] ([facility]) FEFMax-%Pred-Pre 80 L/E/sec [facility] ([facility]) [id number] 2.46 L/E/sec [facility] ([facility]) Zkv1531-Tby 2.31 L/E/sec [facility] ([facility]) Xen0678-%Pred-Pre 93 L/E/sec [facility] ([facility]) Fmn3457-EUZ 1.26 L/E/sec [facility] ([facility]) ExpTime-Pre 6.59 sec [facility] ([facility]) Zpv2ksc1-%Pred-Pre 106 % [facility] ([facility]) Nrv7npz8-Oqtl 81 % [facility] ([facility]) Gsn1yux4-Vkd 86 % [facility] ([facility]) Ppa3bla5-GZJ 73 % [facility] ([facility]) ID Date Data Source [id number] 05/24/2020 12:00:00 AM EDT [facility] Name Value Range Interpretation Code Description Data Keira rce(s) Supporting Document(s) 2019-nCoV RNA XXX SAMY+probe-Imp [facility] This lab was ordered by [facility] and reported by [employer]. ID Date Data Source [id number] 04/19/2020 07:00:00 PM EDT [facility] Name Value Range Interpretation Code Description Data Keira rce(s) Supporting Document(s) Fats Neutral Laboratory test result Normal (applies to non -numeric results) [facility] ([facility]) <content>Normal (<60 Droplets/HPF)</cont ent>
<content></content> Fats Total Laboratory test result Normal (applies to non-n umeric results) [facility] ([facility]) <content>Normal (<100 Droplets/HPF)</con tent>
<content></content> ID Date Data Source [id number] 04/19/2020 07:00:00 PM EDT [facility] ([facility]) Name Value Range Interpretation Code Description Data Keira rce(s) Supporting Document(s) Calprotectin [Mass/mass] in Stool 39 ug/g 0-120 Normal (applies to non-numeric results) [facility] ([facility]) <content>Concentration Interpretatio n Follow-Up</content>
<content><16 - 50 ug/g Normal None</content>
<content>>50 -120 ug/g Borderline Re-evaluate in 4-6 weeks</content>
<content>>120 ug/g Abnormal Repeat as clinically</content>
<content>indicated</content>
<content>Performed at: [facility]</content>
<content>[address], [place] [id number]</content>
<content>Supervisor Braiding: Caryn Frank MD, Phone: [phone]</content>
<content>Performed at: [facility]</content>
<content>[address], [place] [id number]</content>
<content>Supervisor Braiding: Geovany Shipley MD, Phone: [phone]</content>
<content></content> Elastase.pancreatic [Mass/mass] in Stool 243 Normal (applies to non-numeric results) [facility] ([facility], ) <content>Result Units: ug Elast./g</cont ent>
<content>Severe Pancreatic Insufficiency: <100</content>
<content>Moderate Pancreatic Insufficiency: 100 - 200</content>
<content>Normal: >200</content>
<content></content> ID Date Data Source [id number] 04/19/2020 07:00:00 PM EDT [facility] ([facility]) Name Value Range Interpretation Code Description Data Keira rce(s) Supporting Document(s) Gastrointestinal (GI) Panel Laboratory test result [facility] ([facility], ) This Gastrointestinal PCR Panel detects the following bacteria, parasites and viruses: Campylobacter (jejuni, coli and upsaliensis), Clostridium difficile (toxin A/B), Plesiomonas shigelloides, Salmonella, Yersinia enterocolitica, Vibrio (parahaemolyticus, vulnificus and cholerae), Vibrio clolerae, Enteroaggregative E. coli (EAEC), Enteropathogenis E. coli (EPEC), Enterotoxigenic E. coli (ETEC) it/st, Shiga-like producing E. coli (STEC) stx1/stc2, E.coli O157, Shigella/Enteroinvasive E. coli (EIEC), Cryptosporidium, Cyclospora cayetanensis, Entamoeba histolytica, Giardia lamblia, Adenovirus F 40/41, Astrovirus, Norovirus GI/GII, Rotavirus A and Sapovirus (I, II, IV, V). NEGATIVE by MULTIPLEXED NUCLEIC ACID PCR Procedure Social History Code Duration Value Status Description Data Source(s ) Smoking 03/30/2021 12:00:00 AM EDT Never Smoker completed Never S moker eCW1 ([facility]) Smoking 03/30/2021 12:00:00 AM EDT Never Smoker completed Never S moker eCW1 ([facility]) Alcohol intake 03/22/2021 12:00:00 AM EDT Current non-d jose of alcohol (finding) completed Current non-drinker of alcohol (finding) [facility] Tobacco use and exposure 03/22/2021 12:00:00 AM EDT Never used co mpleted Never used [facility] Smoking 03/22/2021 12:00:00 AM EDT Never smoker completed Never s ksker [facility] Smoking 01/19/2021 12:00:00 AM EDT Never Smoker completed Never S moker eCW1 ([facility]) Smoking 01/19/2021 12:00:00 AM EDT Never Smoker completed Never S moker eCW1 ([facility]) Smoking 01/19/2021 12:00:00 AM EDT Never Smoker completed Never S moker eCW1 ([facility]) Smoking 01/19/2021 12:00:00 AM EDT Never Smoker completed Never S moker eCW1 ([facility]) Smoking 09/20/2020 12:00:00 AM EST Patient has never smoked co mpleted Patient has never smoked [facility] ([facility], ) Smoking 06/21/2020 12:00:00 AM EST Non Smoker completed Non Smoke r [facility] ([facility]) Vital Signs ID Date Data Source UNK Name Value Range Interpretation Code Description Data Source(s) Body mass index (BMI) [Ratio] 44.1 kg/m2 44.1 k g/m2 [facility] ([facility]) [place] body weight 115 [lb_av] 115 [lb_av] [facility] ([facility]) Body weight 112.946 kg 112.946 kg [facility] ([facility]) Body surface area Derived from formula 2.12 m2 2.12 m2 [facility] ([facility]) Systolic blood pressure 122 mm[Hg] 122 mm[Hg] M [facility] ([facility]) Diastolic blood pressure 84 mm[Hg] 84 mm[Hg] [facility] ([facility]) Body height 63 [in_i] 63 [in_i] [facility] ([facility]) 5'3" Body weight 249.00 [lb_av] 249.00 [lb_av] [facility] T ([facility]) Body weight 242 [lb_av] 242 [lb_av] eCW1 ([facility]) Body weight 109.77 kg 109.77 kg eCW1 ([facility]) Body height 64 [in_i] 64 [in_i] eCW1 ([facility]) Body mass index (BMI) [Ratio] 41.53 kg/m2 41.53 kg/m2 eCW1 ([facility]) Heart rate 73 /min 73 /min eCW1 ([facility]) Respiratory rate 18 /min 18 /min eCW1 (Count includes the [facility]) Body temperature 97.1 [degF] 97.1 [degF] eCW1 ( [facility]) Systolic blood pressure 124 mm[Hg] 124 mm[Hg] e CW1 ([facility]) Diastolic blood pressure 80 mm[Hg] 80 mm[Hg] eCW1 ([facility]) Systolic blood pressure 130 mm[Hg] 130 mm[Hg] M [facility] ([facility], ) Heart rate 58 /min 58 /min [facility] ([facility]) Oxygen saturation in Arterial blood by Pulse oximetry 96 % 96 % [facility] ([facility]) Body height 63 [in_i] 63 [in_i] [facility] ([facility]) 5'3" Body surface area Derived from formula 2.10 m2 2.10 m2 [facility] ([facility]) Diastolic blood pressure 68 mm[Hg] 68 mm[Hg] [facility] ([facility]) Body weight 243.00 [lb_av] 243.00 [lb_av] [facility] ([facility]) Body mass index (BMI) [Ratio] 43.0 kg/m2 43.0 k g/m2 [facility] ([facility]) Body weight 110.225 kg 110.225 kg [facility] ([facility]) [place] body weight 115 [lb_av] 115 [lb_av] [facility] ([facility]) Body weight 233.8 [lb_av] 233.8 [lb_av] eCW1 ([facility]) Body height 64 [in_i] 64 [in_i] eCW1 ([facility]) Body mass index (BMI) [Ratio] 40.13 kg/m2 40.13 kg/m2 eCW1 ([facility]) Heart rate 71 /min 71 /min eCW1 ([facility]) Respiratory rate 18 /min 18 /min eCW1 (Count includes the [facility]) Body temperature 97.8 [degF] 97.8 [degF] eCW1 ( [facility]) Systolic blood pressure 124 mm[Hg] 124 mm[Hg] e CW1 ([facility]) Diastolic blood pressure 80 mm[Hg] 80 mm[Hg] eCW1 ([facility]) Body height 63 [in_i] 63 [in_i] [facility] ([facility], ) 5'3" Body weight 236.00 [lb_av] 236.00 [lb_av] [facility] ([facility]) Body mass index (BMI) [Ratio] 41.8 kg/m2 41.8 k g/m2 [facility] ([facility], ) [place] body weight 115 [lb_av] 115 [lb_av] [facility] T ([facility], ) Body weight 107.050 kg 107.050 kg [facility] ([facility]) Body surface area Derived from formula 2.07 m2 2.07 m2 [facility] ([facility], ) Systolic blood pressure 128 mm[Hg] 128 mm[Hg] M [facility] ([facility], ) Diastolic blood pressure 76 mm[Hg] 76 mm[Hg] [facility] ([facility], ) Body height 63 [in_i] 63 [in_i] [facility] ([facility], ) 5'3" Body weight 236.00 [lb_av] 236.00 [lb_av] [facility] T ([facility]) Body mass index (BMI) [Ratio] 41.8 kg/m2 41.8 k g/m2 [facility] ([facility]) [place] body weight 115 [lb_av] 115 [lb_av] [facility] ([facility]) Body weight 107.050 kg 107.050 kg [facility] ([facility]) Body surface area Derived from formula 2.07 m2 2.07 m2 [facility] ([facility]) Systolic blood pressure 124 mm[Hg] 124 mm[Hg] [facility] Diastolic blood pressure 84 mm[Hg] 84 mm[Hg] [facility] ([facility]) Heart rate 70 /min 70 /min [facility] ([facility]) Oxygen saturation in Arterial blood by Pulse oximetry 95 % 95 % [facility] ([facility]) Body temperature 97.3 [degF] 97.3 [degF] [facility] ([facility]) Body height 63 [in_i] 63 [in_i] [facility] ([facility]) 5'3" Body weight 234.00 [lb_av] 234.00 [lb_av] [facility] ([facility]) Body mass index (BMI) [Ratio] 41.4 kg/m2 41.4 k g/m2 [facility] ([facility]) [place] body weight 115 [lb_av] 115 [lb_av] [facility] ([facility]) Body weight 106.142 kg 106.142 kg [facility] ([facility]) Body surface area Derived from formula 2.07 m2 2.07 m2 [facility] ([facility]) Systolic blood pressure 118 mm[Hg] 118 mm[Hg] M [facility] ([facility]) Diastolic blood pressure 84 mm[Hg] 84 mm[Hg] [facility] ([facility]) Body height 63 [in_i] 63 [in_i] [facility] ([facility]) 5'3" Body weight 235.00 [lb_av] 235.00 [lb_av] [facility] ([facility]) Body mass index (BMI) [Ratio] 41.6 kg/m2 41.6 k g/m2 [facility] ([facility]) [place] body weight 115 [lb_av] 115 [lb_av] [facility] ([facility]) Body weight 106.596 kg 106.596 kg [facility] ([facility]) Body surface area Derived from formula 2.07 m2 2.07 m2 [facility] ([facility]) Systolic blood pressure 120 mm[Hg] 120 mm[Hg] [facility] ([facility]) Diastolic blood pressure 80 mm[Hg] 80 mm[Hg] [facility] ([facility]) Heart rate 64 /min 64 /min [facility] ([facility]) Oxygen saturation in Arterial blood by Pulse oximetry 98 % 98 % [facility] ([facility]) Body height 63 [in_i] 63 [in_i] [facility] ([facility]) 5'3" Body weight 231.00 [lb_av] 231.00 [lb_av] [facility] ([facility]) Body mass index (BMI) [Ratio] 40.9 kg/m2 40.9 k g/m2 [facility] ([facility]) [place] body weight 115 [lb_av] 115 [lb_av] [facility] ([facility]) Body weight 104.782 kg 104.782 kg [facility] ([facility]) Body surface area Derived from formula 2.06 m2 2.06 m2 [facility] ([facility]) Body weight 229.00 [lb_av] 229.00 [lb_av] [facility] ([facility]) Body mass index (BMI) [Ratio] 40.6 kg/m2 40.6 k g/m2 [facility] ([facility]) [place] body weight 115 [lb_av] 115 [lb_av] [facility] ([facility]) Systolic blood pressure 124 mm[Hg] 124 mm[Hg] [facility] Diastolic blood pressure 68 mm[Hg] 68 mm[Hg] [facility] ([facility]) Body height 63 [in_i] 63 [in_i] [facility] ([facility], ) 5'3" Body weight 103.874 kg 103.874 kg [facility] ([facility], ) Patient Treatment Plan of Care Planned Activity Planned Date Details Description Data Source (s) Ubrelvy 100 MG Oral Tablet (Ubrogepant) 03/22/2021 12:00:00 AM [facility] Erenumab-aooe 140 MG/ML Subcutaneous Solution Auto-inj chichi (AIMOVIG) 03/22/2021 12:00:00 AM [facility] Propranolol Hydrochloride 80 MG Oral Tablet 02/19/2021 12:00:00 AM [facility] buspirone hydrochloride 7.5 MG Oral Tablet 02/19/2021 12:00:00 AM [facility] 24 HR venlafaxine 225 MG Extended Release Oral Tablet 03/08/2016 12:00:00 AM [facility] ospital Erythromycin 0.005 MG/MG Ophthalmic Ointment 04/18/2015 12:00:00 AM [facility] Ascorbic Acid 500 MG Oral Capsule 04/06/2013 12:00:00 AM [facility] Acetaminophen 250 MG / Aspirin 250 MG / Caffeine 65 MG Oral Tablet [Excedrin] [facility] buspirone hydrochloride 5 MG Oral Tablet [facility] levocetirizine dihydrochloride 5 MG Oral Tablet [facility] Nortriptyline 10 MG Oral Capsule [facility] Ergocalciferol 84310 UNT Oral Capsule [facility] SUMATRIPTAN SUCCINATE PO Ups [facility]
[2021-05-16] MEDS ORDERED: levETIRAcetam INJection 1,000 MG in D5W 100 ML IV ONE (22:10)
--- OUTSIDE RECORDS SUMMARY | 2021-05-16 22:21 | CCD ---
Author Author [facility] Organization [facility] Address Unknown Phone Unavailable Care Team Providers Care Bank Secrecy Act Officer Name Role Phone Aguila, L Tatiana PRESCHOOL LEAD TEACHER Unavailable Unavailable Aguila, L Tatiana PRESCHOOL LEAD TEACHER Unavailable Unavailable Aguila, L Tatiana PRESCHOOL LEAD TEACHER Unavailable Unavailable Aguila, L Tatiana PRESCHOOL LEAD TEACHER Unavailable Unavailable Aguila, L Tatiana PRESCHOOL LEAD TEACHER Unavailable Unavailable Aguila, L Tatiana PRESCHOOL LEAD TEACHER Unavailable Unavailable Aguila, L Tatiana PRESCHOOL LEAD TEACHER Unavailable Unavailable Aguila, L Tatiana PRESCHOOL LEAD TEACHER Unavailable Unavailable Aguila, L Tatiana PRESCHOOL LEAD TEACHER Unavailable Unavailable Aguila, L Tatiana PRESCHOOL LEAD TEACHER Unavailable Unavailable Aguila, L Tatiana PRESCHOOL LEAD TEACHER Unavailable Unavailable Aguila, L Tatiana PRESCHOOL LEAD TEACHER Unavailable Unavailable Aguila, L Ttaiana PRESCHOOL LEAD TEACHER Unavailable Unavailable Aguila, L Tatiana PRESCHOOL LEAD TEACHER Unavailable Unavailable Aguila, L Tatiana PRESCHOOL LEAD TEACHER Unavailable Unavailable Aguila, L Tatiana PRESCHOOL LEAD TEACHER Unavailable Unavailable Aguila, L Tatiana PRESCHOOL LEAD TEACHER Unavailable Unavailable Aguila, L Tatiana PRESCHOOL LEAD TEACHER Unavailable Unavailable Aguila, L Tatiana PRESCHOOL LEAD TEACHER Unavailable Unavailable Aguila, L Tatiana PRESCHOOL LEAD TEACHER Unavailable Unavailable Aguila, L Tatiana PRESCHOOL LEAD TEACHER Unavailable Unavailable Aguila, L Tatiana PRESCHOOL LEAD TEACHER Unavailable Unavailable Aguila, L Tatiana PRESCHOOL LEAD TEACHER Unavailable Unavailable Aguila, L Tatiana PRESCHOOL LEAD TEACHER Unavailable Unavailable Aguila, L Tatiana PRESCHOOL LEAD TEACHER Unavailable Unavailable Charlebois, A Biju RPA C [...] Unavailable MEDREA, ALIS Unavailable Unavailable THUAN PA-C, [phone] PA CHRISTIN PA Unavailable Unava ilable THUAN PA-C, [id number] PA CHRISTIN PA Unavailable Unava ilable THUAN PA-C, [id number] PA CHRISTIN PA Unavailable Unava ilable THUAN PA-C, [id number] PA CHRISTIN PA Unavailable Unava ilable THUAN PA-C, [phone] PA CHRISTIN PA Unavailable Unava ilable THUAN PA-C, [id number] PA CHRISTIN PA Unavailable Unava ilable THUAN PA-C, [id number] PA CHRISTIN PA Unavailable Unava ilable Re-disclosure [...] is protected by Article 27-F of the [facility] Public Health law. If you continue you may have access to information: Regarding HIV / AIDS; Provided by facilities licensed or operated by the [facility] Office of Mental Health; or Provided by the [facility] Office for People With Developmental Disabilities. If such information is present, then the following [facility] mandated warning applies: This information has [...] law may result in a fine or usp sentence or both. A general authorization for [...] ALIS SHIAAttender: Alis Medrea 06/22/2021 12:00:00 AM [facility] Outpatient Referrer: ALIS MEDREA 06/05/2021 12:00:00 AM [facility] Unknown [address] [facility] [address] 05/15/2021 12:00:00 AM EDT eCW1 (Formerly [facility]) Outpatient Attender: AILS Changder: Alis Godinez rrer: ALIS MOODY 04/23/2021 12:00:00 AM [facility] Outpatient [address] [facility] [place] [address] 03/30/2021 12:00:00 AM EDT eCW1 ([facility]ly [facility]) Outpatient Attender: Alis Everett er: ALIS SHIAReferrer: [id number] CHRISTIN LAROSE PA-C [id number] 03/22/2021 12:00:00 AM EDT - 03/22/2021 03:54:21 PM [facility] Outpatient Attender: Tatiana Torres/Maritza/Abner/Dae 03/21/2021 01:00:00 PM EDT MEDENT ([facility] [place] [address] [facility] [address] 03/21/2021 12:00:00 AM EDT eCW1 ([facility]ly [facility]) Unknown [address] [facility] [place] [address] 03/12/2021 12:00:00 AM EDT eCW1 ([facility]) Unknown [address] [facility] [place] [address] 01/22/2021 12:00:00 AM EDT eCW1 ([facility]ly [facility]) Outpatient [address] [facility] [place] [address] 01/19/2021 12:00:00 AM EDT eCW1 ([facility]) Unknown [address] [facility] [address] 12/28/2020 12:00:00 AM EDT [facility] [place] [address] [facility] [address] 12/28/2020 12:00:00 AM EDT eCW1 ([facility]) Outpatient Attender: Biju Shea RPA C [place]/A ngel/Reindl 11/29/2020 02:30:00 PM EDT [facility] ([facility]) [place] [address] [facility] [address] 10/24/2020 12:00:00 AM EDT eCW1 ([facility]) Outpatient Attender: Tatiana Sheehan NP Brian/[place]/Abner/Reindl 09/20/2020 12:00:00 PM EST MED[facility] ([facility]) Outpatient Attender: Biju Shea RPA C Brian/[place]/A ngel/Reindl 07/06/2020 12:30:00 PM EST MEDENT ([facility]) Outpatient Attender: Tatiana Sheehan NP Brian/[place]/Abner/Reindl 06/21/2020 02:30:00 PM EST [facility] ([facility] [place] [address] [facility] [address] 06/14/2020 12:00:00 AM EST [facility]CW1 ([facility]) [place] [address] [facility] [address] 05/22/2020 12:00:00 AM EDT [facility]CW[facility] [place] [address] [facility] [address] 05/18/2020 12:00:00 AM EDT eCW1 ([facility]) Unknown [address] [facility] [place] [address] 05/04/2020 12:00:00 AM EDT eCW1 ([facility]ly [facility]) Outpatient Attender: Biju Torres/Maritza/Moisés balderrama/Dae 04/19/2020 01:00:00 PM EDT MEDENT ([facility]) Immunizations Vaccine Date Status Description Data Source(s) COVID-19 dose #1 given elsewhere Unspecified 11/09/2020 02:4 8:00 PM EDT completed eCW1 ([facility]) COVID-19 dose #1 given elsewhere Unspecified 11/09/2020 02:4 8:00 PM EDT completed eCW1 ([facility]) COVID-19 dose #1 given elsewhere Unspecified 11/09/2020 02:4 8:00 PM EDT completed eCW1 ([facility]) COVID-19 dose #1 given elsewhere Unspecified 11/09/2020 02:4 8:00 PM EDT completed eCW1 ([facility]) COVID-19 dose #1 given elsewhere Unspecified 11/09/2020 02:4 8:00 PM EDT completed eCW1 ([facility]) COVID-19 dose #1 given elsewhere Unspecified 11/09/2020 02:4 8:00 PM EDT completed eCW1 ([facility]) COVID-19 VACCINE Zena 11/09/2020 12:00:00 AM EDT completed NYSIIS Vaccine Series Complete: YESThis Data wa s Submitted to [facility] Via [employer]. New in 2011. IIV4 06/07/2020 02:45:00 PM EST completed MEDENT ([facility]) Medications Medication Brand Name Start Date Product Form Dose Route Admi nistrative Instructions Pharmacy Instructions Status Indications Reaction Description Data Source(s) Erenumab-aooe 140 MG/ML Subcutaneous Solution Auto-injector (AIMOVIG) 108238 03/22/2021 12:00:00 AM EDT 140 mg Subcutaneous active Inject 1 mL into the skin every 30 (thirty) days [facility] Ubrelvy 100 MG Oral Tablet (Ubrogepant) 4692-6534-90 03/22/20 12:00:00 AM EDT 100 mg Oral active Take 100 mg by m outh Two times daily as needed [facility] buspirone hydrochloride 7.5 MG Oral Tabl et busPIRone HCl 7.5 MG Oral Tablet (BUSPAR) busPIRone HCl 7.5 MG Oral Tablet (BUSPAR) 02/19/2021 12:00:00 AM EDT active TAKE ONE T ABLET BY MOUTH @8AM and TAKE ONE TABLET BY MOUTH @8PM [facility] Propranolol Hydrochloride 80 MG Oral Tab let Propranolol HCl 80 MG Oral Tablet (INDERAL) Propranolol HCl 80 MG Oral Tablet (INDERAL) 02/19/2021 12:00:00 AM EDT active TAKE ONE TABLET BY MOUTH @8AM and TAKE ONE TABLET BY MOUTH @8PM [facility] Aerochamber Plus Chriss-Vu 06/21/2020 12:00:00 AM EST active [facility] ([facility], ) POLYETHYLENE GLYCOL 3350 142 MG/ML Oral Solution [Miralax] M iralax 05/19/2020 12:00:00 AM EDT ORAL completed [facility] ([facility], ) 14 ACTUAT fluticasone furoate 0.1 MG/ACTUAT Dry Powder Inhaler [Arnuity] Arnuity Ellipta 02/16/2020 12:00:00 AM EDT RESPIRATORY active [facility] ([facility], ) 200 ACTUAT Albuterol 0.09 MG/ACTUAT Metered Dose Inhal er [Ventolin] Ventolin HFA 02/16/2020 12:00:00 AM EDT RESPIRATORY active [facility] ([facility], ) 24 HR venlafaxine 225 MG Extended Releas e Oral Tablet Venlafaxine HCl 225 MG TB24 Venlafaxine HCl 225 MG TB24 03/08/2016 12:00:00 AM EDT aborted daily. [facility] Erythromycin 0.005 MG/MG Ophthalmic Oint ment erythromycin (ROMYCIN) ophthalmic ointment erythromycin (ROMYCIN) ophthalmic ointment 04/18/2015 12:00: 00 AM EDT Left Eye aborted Place into the left eye Three times daily as needed. [facility] Ascorbic Acid 500 MG Oral Capsule Ascorbic Acid (VITAM IN C) 500 MG CAPS Ascorbic Acid (VITAMIN C) 500 MG CAPS 04/06/2013 12:00:00 AM EDT aborted daily. [facility] Acetaminophen 250 MG / Aspirin 250 MG / Caffeine 65 MG Oral Tablet [Excedrin] Excedrin Migraine 250-250-65 MG Oral Tablet (nqxrlch-dupioejcabtlf-ypeljcyc) Excedrin Migraine 250-250-65 MG Oral Tablet (ilkzezy-oydqassiraziu-dvimzbfv) 1 {tbl} Oral aborted Take 1 tablet by mouth every 6 (six) hours as needed for Pain [facility] Nortriptyline 10 MG Oral Capsule Nortriptyline HCl 10 MG Oral Capsule (PAMELOR) Nortriptyline HCl 10 MG Oral Capsule (PAMELOR) 10 mg Oral aborted Take 10 mg by mouth nightly [facility] Ergocalciferol 93418 UNT Oral Capsule Er gocalciferol 31537 UNIT Oral Capsule (DRISDOL) Ergocalciferol 94207 UNIT Oral Capsule (DRISDOL) 55337 U Oral aborted Take 50,000 Units by mouth once a week [facility] levocetirizine dihydrochloride 5 MG Oral Tablet Levocetirizine Dihydrochloride 5 MG Oral Tablet (XYZAL) Levocetirizine Dihydrochloride 5 MG Oral Tablet (XYZAL ) 5 mg Oral aborted Take 5 mg by angela th every evening [facility] buspirone hydrochloride 5 MG Oral Tablet busPIRone HCl 5 MG Oral Tablet (BUSPAR) busPIRone HCl 5 MG Oral Tablet (BUSPAR) 5 mg Oral aborted Take 5 mg by mouth Two Times Daily [facility] SUMATRIPTAN SUCCINATE PO 50 mg Oral aborted Take 50 mg by mouth as needed [facility] Insurance Providers Payer name Policy type / Coverage type Policy ID Covered green party ID Covered green party's relationship to churchill Policy Churchill Plan Information MEDICARE [id number] Francine [id number] MEDICARE A [id number] Self [id number] MEDICARE 4 [id number] 1 [id number] Medicare - NGS Medicare Primary [id number] Self 1 [id number] Medicare - NGS Medicare Primary [id number] Self 1 [id number] Medicare - NGS Medicare Primary [id number] Self [id number] Medicare - NGS Medicare Primary [id number] Self 1 [id number] Medicare - NGS Medicare Primary [id number] Self 1 [id number] Medicare - NGS Medicare Primary [id number] Self 1 [id number] Medicare - NGS Medicare Primary [id number] Self 1 [id number] MEDICARE [id number] SP [id number] Medicare Medicare Primary [id number] Self [id number] Self [id number] Self [id number] Self [id number] MEDICAID M [id number] Self [id number] [employer] Medicare Commercial [id number] Self [id number] United[employer] Medicare Commercial [id number] Self [id number] [facility] [id number] SP [id number] [facility] [id number] SP [id number] [employer] MEDICARE ADVANTAGE G [id number] Self [id number] MEDICAID M [id number] Self [id number] ANSI-Not a Secondary Insurance [id number] ANSI-Medicare Part B [id number] ANSI-Medicaid [id number] ANSI-Not a Secondary Insurance [id number] ANSI-Medicare Part B [id number] ANSI-Not a Secondary Insurance [id number] ANSI-Medicaid [id number] ANSI-Not a Secondary Insurance [id number] ANSI-Medicare Part B [id number] ANSI-Medicaid [id number] Medicaid [facility] Part B [id number] [id number] Self [id number] ANSI-Medicaid [id number] ANSI-Not a Secondary Insurance [id number] ANSI-Medicare Part B [id number] ANSI-Not a Secondary Insurance [id number] ANSI-Medicaid [id number] ANSI-Medicare Part B [id number] ANSI-Not a Secondary Insurance [id number] ANSI-Medicare Part B [id number] ANSI-Medicaid [id number] ANSI-Not a Secondary Insurance [id number] ANSI-Medicaid [id number] ANSI-Medicare Part B [id number] MEDICARE COMPLETE [id number] SP [id number] ANSI-Not a Secondary Insurance [id number] ANSI-Medicare Part B [id number] ANSI-Medicaid [id number] ANSI-Not a Secondary Insurance [id number] ANSI-Medicare Part B [id number] ANSI-Medicaid [id number] Medicaid [facility] Part B [id number] [id number] Self [id number] [facility] COMMUNITY PLAN [facility] [id number] SP [id number] MEDICARE COMPLETE [id number] SP [id number] ANSI-Medicaid [id number] ANSI-Medicare Part B [id number] ANSI-Medicaid [id number] ANSI-Medicaid [id number] ANSI-Medicaid [id number] ANSI-Medicare Part B [id number] ANSI-Medicaid [id number] [place] [id number] SP [id number] ANSI-Medicare Part B [id number] ANSI-Medicaid [id number] ANSI-Medicaid [id number] ANSI-Medicare Part B [id number] ANSI-Medicare Part B [id number] ANSI-Medicaid [id number] ANSI-Medicaid [id number] ANSI-Medicaid [id number] ANSI-Medicare Part B [id number] ANSI-Medicare Part B [id number] ANSI-Medicaid [id number] ANSI-Medicaid [id number] ANSI-Medicare Part B [id number] ANSI-Medicare Part B [id number] ANSI-Medicaid [id number] ANSI-Medicare Part B [id number] ANSI-Medicaid [id number] ANSI-Medicare Part B [id number] ANSI-Medicaid [id number] ANSI-Medicaid [id number] ANSI-Medicare Part B [id number] ANSI-Medicare Part B [id number] ANSI-Medicaid [id number] MEDICARE C [id number] C [id number] MEDICAID UNAVAILABLE UNAVAILA BLE MEDICARE [id number] SP [id number] SELFPAY 5 UNAVAILABLE 1 UNAVAILA BLE SELF PAY 5 UNAVAILABLE 1 UNAVAILA BLE ANSI-Medicaid [id number] HUMANA GOLD [id number] SP [id number] HUMANA GOLD [id number] SP [id number] HUMANA HMO [id number] SP [id number] [place] [id number] SP [id number] SELF PAY ONLY SP [id number] MEDICAID [id number] SP [id number] HUMANA GOLD [id number] SP [id number] HUMANA HMO [id number] SP [id number] [facility] H[facility] [id number] SP [id number] [facility] [id number] SP [id number] HUMANA HMO [id number] SP [id number] ANSI-Medicaid [id number] ANSI-Medicare Part B [id number] ANSI-Not a Secondary Insurance [id number] Medicaid [place] Med[place] Part B [id number] Self [id number] Medicare Community Plan Commercial [id number] Self [id number] ANSI-Not a Secondary Insurance [id number] ANSI-Medicare Part B [id number] ANSI-Medicaid [id number] ANS-Medicaid [id number] ANS-Medicare Part B [id number] Problems, Conditions, and Diagnoses Code Display Name Description Problem Type Effective Dates Data Source(s) G43.019 401800407 Intractable migraine without aura and without status migrainosus Problem 02/11/2021 12:00:00 AM EDT eCW1 ([facility]) E78.2 Mixed hyperlipidemia Mixed hyperlipidemia Problem 01/19/2021 12:00:00 AM EDT eCW1 ([facility]) J45.30 Mild persistent asthma Mild persistent asthma Problem 09/20/2020 12:00:00 AM EST MEDENT ([facility]) J45.40 Uncomplicated moderate persistent asthma Uncomplicated moderate persistent asthma Problem 06/21/2020 12:00:00 AM EST [facility] ([facility]) G47.33 Obstructive sleep apnea syndrome Obstructive sle ep apnea syndrome Problem 06/21/2020 12:00:00 AM EST [facility] ([facility]) Surgeries/Procedures Procedure Description Date Indications Data Source(s) Endoscopy Upper GI Biopsy 04/27/2021 12:00:00 AM EDT [facility] ([facility]) Spirometry 03/21/2021 12:00:00 AM EDT M EDENT ([facility]) OFFICE OUTPATIENT VISIT 15 MINUTES 03/21/2021 12:00:00 AM EDT [facility] ([facility]) OFFICE OUTPATIENT VISIT 15 MINUTES 11/29/2020 12:00:00 AM EDT [facility] ([facility]) Spirometry 09/20/2020 12:00:00 AM EST M EDENT ([facility]) Spirometry 06/21/2020 12:00:00 AM EST [facility] Results ID Date Data Source [id number] 05/13/2021 11:35:00 PM EDT [facility] Name Value Range Interpretation Code Description Data Keira rce(s) Supporting Document(s) SARS-CoV-2 (COVID 19) NEGATIVE - SARS-CoV-2 (COVID19) [facility] This lab was ordered by [facility] a nd reported by [email or web address]. ID Date Data Source [id number] 04/27/2021 02:44:00 PM EDT [facility] Name Value Range Interpretation Code Description Data Keira rce(s) Supporting Document(s) Surgical pathology study Laboratory test result [facility] ([facility]) FINAL DIAGNOSIS A-Small bowel, biopsy: Scant [...] MD 05/01/2021 1105 ID Date Data Source [id number] 04/25/2021 10:45:00 AM EDT [facility] Name Value Range Interpretation Code Description Data Keira rce(s) Supporting Document(s) SARS coronavirus 2 RNA [Presence] in Res piratory specimen by SAMY with probe detection NEGATIVE [facility] This lab was ordered by [facility] a nd reported by [facility]. ID Date Data Source [id number] 03/22/2021 04:10:08 PM EDT [facility] Name Value Range Interpretation Code Description Data Keira rce(s) Supporting Document(s) Progress Note [facility] PKQCBm9bBwXSZiKo37/AQVowQJFfz1NbPFjjNJw9AWrtAIJyU2OsPFV8pX6jVQI0OGwPHxKlTnQmQRP6 lbm [file] TaZ9NHr9FIAbFuYsDFVnJoBwMJ9USq5FObC3GNS4hBRhDb9SPlR2WIaNEsHeYT3NYSf= ID Date Data Source [id number] 03/22/2021 04:08:58 PM EDT [facility] Name Value Range Interpretation Code Description Data Keira rce(s) Supporting Document(s) Progress Note [facility] NFNYEz0cCjFMKmNy23/HEZjlIVJte8GxOArpABj7IPklGRVoD0HqWFB7tF7lDUO9EOjGRvYwJuDqSXX0 lbm WyMkmNOoYlUMFwAkbTOpTtSMupOzwchTPmMY5AfZZ1PQDiB65vTDRrWZTlV2DkAKC0Jhw+Vu0IYOFcwB CkJN1WHvwA2Bxtt2m8Ef4+mD1XJfemmtfHYsk99VRQG8axOBpTPm9KvJY/fPZec6oEKcjR4g/+qDfLw9 DwhWRm6aCWOwnIuzDpTg1dKqwPCc58BOnwNohu+e/2 qxdwMlmSH/6Nvvxkfq2a+ug9SEtx8kMn2ZV/Wuz7Dq/J0QOWFSQwRT/TjhrrLHdqW3As2+nRnViFX1+R 6zDdkPcJ+Gc5vZxxuXX+RT//9BMZ/82kogYHJ0ZTdwsiUk5JL9SSTM1Dv39JL8WRwutBxlEKNumdJU3s wXvFu9GmgVS2qFSKNsnj12qyusZDApKpdKRVeLnjoU v4yDXNSJs3jgCcoX+Lx235b+Jl/MGOtXVrUzaXED1Z74noEzlHMxgRH9bOxzn42XxnP14BuY0ND+uJUS u0QjnGMXzPEgowbaA2cyh6Le+lwriaZg47aeoamyA0CpxsB2pDtn9KxW+FJhyh9QN6gnxz3wddN905hZ 7PadKoI3QSVP6mpEvQ+4wUgOf2ighM0VEq5WO6MdOc FJWH7Jqa+GERWWtfBk2siNRiRFhmUyKJBx/3CqtMd/BqEOee61iSI/nb4Vtos7V3mn3IFUduAfV3VcdW bcs6UEyXIfc+c+RqIWX961Q3EOzFTi8WgNvOskIf5Wt4oCLHGivEWVng2L69s5iNnnKz+cMnJm2tRp7x o0ZK/IrGMgMPQdVtYDjxeGCGoPFW55uVdBaOSPBkg7 CKSzacl+MZ2MjTesJkSc+nipJfSJShLYZCiXPX67zunx/Jacquelin/D8nnFasxUAFJNYMMSuvXhfe7bzcpoE7J [file] KpCdPoPoBU6UUt4ZNeX6USL6dTQjGe8BLcWpZlGADdJxIK1DUHi= ID Date Data Source [id number] 03/22/2021 04:08:23 PM EDT [facility] Name Value Range Interpretation Code Description Data Keira rce(s) Supporting Document(s) Progress Note [facility] CAINZn9lRiBAVtVg16/CVJaePTGow5FkOGquOZl5OXxbQASgH5UdLLA4xC9gREN5YHlIWlYzQaNyBPS8 lbm [file] SWATCH CUTTER+Lw4SCHBpGCg7Y1O2DZVrPRw6E0EIQ6TUKPSuWVtkCWldCPHnQHv2N8I2MDZnW7AHW5Tbfgodms9+ ZQ9YM22DQXDrBAb2L5S4wTSdM8Q1hDhSoDG2QN5VDC4NoQx0rGEezO6+BB6TH1VWTrEeEOn4O4U1mMTt S6N5jCeVfVK6ET9MJC9HcBPbGBPzwjPzOo9vP4XFAE qFSuMOQVS7FG7EmLAgPP7FoJAWM0YzyYGiDr8gKByxcWPbmH1fRf3kNIurHZ0NMjYWSHoKHAB4HL7AqO DwZF2PaVYWA2LnpEWiVa9gMAvgcIYvqi4+CQ0IPIYfFc1COd1+ISglzsYpNsjPKcSjHBMps2HaSQa8JZ 4YKS5wnLkzNCH8Kq3MxML4hNIgI4kXCE2JqMNfS74g qTMkIYHgLr4XXyD0lyFynP7ZGQ14pFHmx5K0JHQtU5fvOMyak24pRAtkAJhJEC6rJWSMKCrcLLlaRCK5 IsLgmvibGVIiNk9XSrTtWUh1dC4ocQB7FSX5KtuxjNXmZDhzXrMmDhAxDqI5qIsucsb2YYnbOZ8iEEtm czptZXRhLyc+PZcpMMWhJMWlRkgBYTGpdT5kgxR4ry CnCIyenSDiNw2dj7q1TgzhTw3vOb4fKFg4CmJlUcLfRGGcAb3cuR16ZWbjvuBxPd4HXaFtARO2D8DkBw pSREY+XLeoZHdkeCb5qQVjUGZeMx8NRFDvVGOyNJNbRTCnTWPkTWAbKHWiENEeNXHmBZVzITFhLMOtDM AgICAgICAgICAgICAgICAgICAgICAgICAgICAgICAg DPAaKGRmPXFaVQAxWHCgHGVpMKKdCMWxTVSyLJHrDU6UFXNyBRUzQWQmIURfSHQiYROaGROrGWCoBSYp ICAgICAgICAgICAgICAgICAgICAgICAgICAgICAgICAgICAgICAgICAgICAgICAgICAgICAgICAgICAg LDKgTXGjBDZhYXPmIS4RRKDzNFAnFGTrSBBkPTYpYU AgICAgICAgICAgICAgICAgICAgICAgICAgICAgICAgICAgICAgICAgICAgICAgICAgICAgICAgICAgIC ZjRIWpGYXcOXGbSLPcGKUyTFWaUGTyDO1YDATtRLEaIAZhAHTuJMCaZPPkPQZhRTImKLKyBCRqZXLsHE AgICAgICAgICAgICAgICAgICAgICAgICAgICAgICAg BLMsMEQtTIPwYIOuCWSaKNSfCFRwXYZiQBUaTDPkACQcFQ6XETDfQDWjQSVcDQNoKRJiLECrLQPaMIVn ICAgICAgICAgICAgICAgICAgICAgICAgICAgICAgICAgICAgICAgICAgICAgICAgICAgICAgICAgICAg RPGdBWWeOAGmLLNuDLIuPH8RNZKzGXXtIVSiMDEqHA AgICAgICAgICAgICAgICAgICAgICAgICAgICAgICAgICAgICAgICAgICAgICAgICAgICAgICAgICAgIC MgKWJxMMZiLAFdMWGdQCMrLADjQOAbNLOnKQ2SNXElBHUkLIHmVRFpOZQiHFMbHVUxXQGqEKSiYSWeNT AgICAgICAgICAgICAgICAgICAgICAgICAgICAgICAg OZArQLKwPZAwYLIhGKJhMAYzYYMeEVEuYSXtSJImDDLaSHMtRS7FZTVkIFEpYUSsEBTuEUXmIXWmANTg ICAgICAgICAgICAgICAgICAgICAgICAgICAgICAgICAgICAgICAgICAgICAgICAgICAgICAgICAgICAg BPXsVXVnPOAmBBBmNMPuOTTbMA6VZOEyEORgLPLkWL AgICAgICAgICAgICAgICAgICAgICAgICAgICAgICAgICAgICAgICAgICAgICAgICAgICAgICAgICAgIC SfEMFuHXBcEEGiZVXoCDBzGTMnTDJoRLBgIIJaTU3XOGZeZQKjXZGuJHWhCGReOOFhHHYnWANvILDbRL AgICAgICAgICAgICAgICAgICAgICAgICAgICAgICAg ETNjGWYcEJHsWCZiRTIfOGMqMLFxUXDzKZVyUFHsXXLiTYNzYLHcPE4ANN23uUKzi4L5CEVkDO5hxcs/ Zp5ESRdmlcCamGMhJV1YGtXbRD0oki7OVtBlLK5dzx5TMPcSTnRzU1E5vJDtKNWyBMMQBkOwX41mQJhi Da24TBjgRBYlUkQzYRn4Gc6NUkZlW5bdLBMqKnI9MZ BaVrX0EYRkMfY3BNJxKeLsUUGfNODlQXWcTQABUJP5HWInLqXtVyXtSUAvZPuqUSDZIYRiXWHcZiZsFj XhIRVxYcDiZICCFTI5EFJmGwXvUTLxKEObRrWcFNJUCW0KEwNmP0JsrE86QXI0YGk+We4LTK9tj1SeOO o5WUDhDW6mrg8GEPyYCxGmR3HpzvR4UJGjUGTrMn1L YDQqSUKgkWF7LmCmGBFLQxUlN3JqzG22CLISKj5+KWtzzyYqRdxVIfGuIFIfk0CgMYw3UA4IQVJnBRg7 lEIyWMVqI6Tpw5MsSo49BDTmVfmaCL5lkjOhGTMwpcMzUSCRPINqpZV4GbQ8GeSkKeDyAZX8AqTfNW3a YFcpIW6PKYK0EBmkVCNdYGMhE3oFKrPcIJAlIMJhxU qxVS1TUdUrQ9DzptZdcIX2KWGvKPGDAw0+RBixytQeZtxFYsYxDVKfc4BcCOj5XH8OXZZkKQquIA4WIM EntA3jMKvbVK9DTdQ7URRxUWFIDfDyC82uqMOgMWj2T6IhIxSiEQKtAlzvRWUyUMctXiJdXVPlZlKiON ogID4+ID4+HPnlZJ9HYNadhiDxIOPmWd9VNIOrIWAs MJ0mFYYoHCDsZ4X7uTisUHYGDdSwT3pnzzdxWZ5ySVOvR206aOijnwNrMZNbHAXlOf5NGYUjZVI5PGCd oPIgFWXxGHKJZUleIW3JdSSdHNU6zM2vJCruUEPoQZWnC6mNYrMejDkpJR37aRdbzsHoqABzDGk+Pg0K QP4ea4RqDBq9wjSzWDwxXIU4BXenKTWnGRRaZITdYX W2ASX0SOPXXvYdRISgYQCpZPnhFKYpLDBnso1QNHLtSIV2WOXdOcIdLRUjVFHkDNkqQRMjOGPyFNj6WA AnPUOpPP8XRcQaZKYnVHJvGDciUQZpAJPjcg7RDDKmNXClSzVxNvOsUFHdBFFxTMqsMNDuVDVcEfVuVO WaREUjWA9JJyIjFRCfKIhsMxlyUIKzSADqdy8XBMTr WWPyUtJ4WjRfYCHuDZYsCNgyBVKjYRClJaNiGWUhXXMbFG7RWqEnEFXtFZZ3WywzBTQkHVQhgo3WWHZe WIEhUuY7SULvNQVaYVKfIIycMRCrJFJqKCQ5PPGdUJSrTY9IFbGsKBSgASQtIPIqVNLqRKIxhn3DXPEl YNDqHEPeHbHgPEAuGTFwCZntUSXwHSZ5CvT1VHYbJZ KnSD6UVlOzRRZeCAv3XcDlJLVzQPNygq1XQDSxOZCnHCH9YaXtMPVoTWLeYRlhSEMvKMJjTby5UEUcME MvYE6YIhThXYGiZdZ1SlajACKaVXIakz2QMDCvFQVlBnf9OIZqOJFrDOYvPEidRHMiVZR5HcReIQShJC OsZJ8SKpDhPSXwPrZ5MLoiLCXoOSRbug0NKZTqICYy SNOpCsSfEFPfDHEmKKrcISQxSUN9NRM2QMXgWKGlFU4SBxWfBLUfRmW6IPGmJTKlJRXvfk8ZTKWeXOWz SiKtKvFsOIWrPBMwVWdjFVHmSTG3VqF7PUBgRTTdPJ9FIgCjAAKxIeG9MvYkJYXxIUMbkb3YGHRmKUWv Tjk3ThVsEFFdAXUlVBzmBSEhTFD4TFV4MALmHLWrUW 9ZQdFhXZRjKAM8EbPqMGXzDMMvbf9FWQRjCBF5DSFyBaPlNOIgFYCbHTabHQAzQSQzUDz5IOVjWRPaWY 7KLmNhLTQcBJY1UPAgQBFwLETnbc8UYKNrPEF5NQb4WnQbYPDlRGOmOZawWPIjLULyMNN0OSXnEMXvMK 8ZDwAuZWRcDQSnEbnoTDIbZQFfxh0OJPObNMA4FyXt RyQoNEOhETNbKDyuLZVrGWH6XsY2MCWbIVYvRA4GEwCyPIQfMAGhZbArRUNjXOUulo9NEMMuKOK9KCI7 KHYlIJHfLKNdGGhmHVBtKFT2IVVxMIIcQUSaGQ6EIeXoJTRsYKE1JiCxDHEmGDSkfd2XGUShOZO1PjKv ORCjQJFsKEXfSWogYDVjICI1NGK0SWVhNUDmLP4ZIp HaHYKrVON4XHJnFVPqBJKipb0ILFPcXPV0NpzkYDZnNGEhWMZuYQxcVATlEWF0KOLuXZBbHGBcJL6ZLh KoPRLgWWquBTFzNWGbHXOsmm8OYTZpNRN3MXqxGGPcSCLwHRTuTWqhFMYsFBAxNwI3UCNjRUZvXX2XNz CiKYUhHtFeQqfkYRXsHFFxja1ZZAUtSSI5DXC1NOBt FXPgYPCuUDi0gvIpfOYeGKe3LH5HT0CeduZcWGPIIm6Mz831CHUlPXFsVg8SD4iaQt6pYPAoBMJPZz7A ZMn2CXQ8Q0S7OJBqZgqjAOB9ZdZ7I9P7I7U8V6VvYAqyWgl+PTreUCrvLqd3DJO9UJXaDqecPGk4TYp0 DEezErN7NqUwTC7cPFKGTi8+VEuroNRpcCjzNGMLWkIgQiE7HOurIGJFSy8M ID Date Data Source [id number] 03/22/2021 06:03:[address] [facility] Name Value Range Interpretation Code Description Data Keira rce(s) Supporting Document(s) Hemoglobin A1c/Hemoglobin.total in Blood by HPLC 6.3 % 4.0-6.0 [facility] (NOTE)<5.7% Average risk of diabetes (ADA)5.7-6.4% Increased risk of diabetes(ADA)>/= 6.5% Diagnostic for diabetes(ADA) Glucose mean value [Mass/volume] in Blood Estimated fr om glycated hemoglobin 134 mg/dL <126 [facility] ID Date Data Source [id number] 03/22/2021 05:55:[address] [facility] Name Value Range Interpretation Code Description Data Keira rce(s) Supporting Document(s) Leukocytes [#/volume] in Blood by Automated count 7.4 10*3/uL 4-10 [facility] Erythrocytes [#/volume] in Blood by Automated count 4.78 10*6/uL 4.1- 5.3 [facility] Hemoglobin [Mass/volume] in Blood 14.3 g/dL 11.5-15.5 [facility] Hematocrit [Volume Fraction] of Blood by Automated count 43.1 % 3 6-45 [facility] Erythrocyte mean corpuscular volume [Entitic volume] by Auto mated count 90.3 fL 80-96 [facility] Erythrocyte mean corpuscular hemoglobin [Entitic mass] by Automated count 29.9 pg 27-33 [facility] Erythrocyte mean corpuscular hemoglobin concentration [Mass/volume] by Automated count 33.1 g/dL 32.0-36.0 [facility] Erythrocyte distribution width [Ratio] by Automated count 13.0 % 11.5-14.5 [facility] Platelets [#/volume] in Blood by Automated count 242 10*3/uL 150-400 [facility] Differential cell count method - Blood [facility] Neutrophils/100 leukocytes in Blood by Automated count 55 % [facility] Lymphocytes/100 leukocytes in Blood by Automated count 34 % [facility] Monocytes/100 leukocytes in Blood by Automated count 8 % [facility] Eosinophils/100 leukocytes in Blood by Automated count 2 % [facility] Basophils/100 leukocytes in Blood by Automated count 1 % [facility] Neutrophils [#/volume] in Blood by Automated count 4.05 10*3/uL 1.8-7 .0 [facility] Lymphocytes [#/volume] in Blood by Automated count 2.55 10*3/uL 1.2-4 .0 [facility] Monocytes [#/volume] in Blood by Automated count 0.58 10*3/uL 0-0.8 [facility] Eosinophils [#/volume] in Blood by Automated count 0.17 10*3/uL 0-0.5 [facility] Basophils [#/volume] in Blood by Automated count 0.07 10*3/uL 0-0.2 [facility] Nucleated erythrocytes/100 leukocytes [Ratio] in Blood by Automated count 0 /100{WBCs} 0-0 [facility] ID Date Data Source [id number] 03/22/2021 06:17:[address] [facility] Name Value Range Interpretation Code Description Data Keira rce(s) Supporting Document(s) Cobalamin (Vitamin B12) [Mass/volume] in Serum or Plasma 526 pg/ml 2 11-946 [facility] ID Date Data Source [id number] 03/22/2021 06:17:[address] [facility] Name Value Range Interpretation Code Description Data Keira rce(s) Supporting Document(s) Albumin [Mass/volume] in Serum or Plasma by Bromocresol green (BCG) dye binding method 3.9 g/dL 3.5-5.2 [facility] Bilirubin.total [Mass/volume] in Serum or Plasma 0.7 mg/dL <1.2 [facility] Calcium [Mass/volume] in Serum or Plasma 9.4 mg/dL 8.6-10.0 [facility] Chloride [Moles/volume] in Serum or Plasma 100 mmol/L 98-107 [facility] Creatinine [Mass/volume] in Serum or Plasma 0.98 mg/dL 0.50-0.90 [facility] Glucose [Mass/volume] in Serum or Plasma 120 mg/dL 70-140 [facility] Alkaline phosphatase [Enzymatic activity/volume] in Serum or Plasma 164 U/L 35-104 [facility] Potassium [Moles/volume] in Serum or Plasma 4.0 mmol/L 3.4-5.1 [facility] Protein [Mass/volume] in Serum or Plasma 7.2 g/dL 6.4-8.3 [facility] Sodium [Moles/volume] in Serum or Plasma 137 mmol/L 136-145 [facility] Aspartate aminotransferase [Enzymatic activity/volume] in Serum or Plasma 14 U/L <32 [facility] Urea nitrogen [Mass/volume] in Serum or Plasma 16 mg/dL 6-20 [facility] Osmolality of Serum or Plasma by calculation 286 mosm/kg 275-300 [facility] Creatinine/Urea nitrogen [Mass Ratio] in Serum or Plasma 17 [facility] Bicarbonate [Moles/volume] in Serum 27 mmol/L 22-29 [facility] Alanine aminotransferase [Enzymatic activity/volume] in Seru m or Plasma 19 U/L <33 [facility] Anion gap 3 in Serum or Plasma 10 mmol/L 8-15 [facility] Glomerular filtration rate/1.73 sq M pre dicted among non-blacks [Volume Rate/Area] in Serum or Plasma by Creatinine-based formula (MDRD) 64 mL/min/1.73m2 >60 [facility] Glomerular filtration rate/1.73 sq M pre dicted among blacks [Volume Rate/Area] in Serum or Plasma by Creatinine-based formula (MDRD) 74 mL/min/1.73m2 >60 [facility] ID Date Data Source [id number] 03/22/2021 06:17:10 PM EDT [facility] Name Value Range Interpretation Code Description Data Keira rce(s) Supporting Document(s) Thyrotropin [Units/volume] in Serum or Plasma 1.860 u[IU]/mL 0.270-4. 200 [facility] ID Date Data Source [id number] 03/21/2021 12:57:00 PM EDT [facility] ([facility], ) Name Value Range Interpretation Code Description Data Keira rce(s) Supporting Document(s) PDFReport Laboratory test result [facility] ([facility], ) FVC-Pred 3.29 L [facility] ([facility], ) FVC-Pre 2.01 L [facility] ([facility]) FVC-%Pred-Pre 61 L [facility] ([facility]) FVC-LLN 2.61 L [facility] ([facility]) Fev1-%Pred-Pre 66 L [facility] ([facility], ) Fev1-Pre 1.71 L [facility] ([facility]) Fev1-Pred 2.57 L [facility] ([facility]) Fev6-Pred 3.18 L [facility] ([facility]) Fev1-LLN 2.00 L [facility] ([facility]) Fev6-%Pred-Pre 62 L [facility] ([facility]) Fev6-LLN 2.52 L [facility] ([facility], ) Fev6-Pre 1.99 L [facility] ([facility]) Qhd6zte-Vyem 79 % [facility] ([facility]) Xrx2gig-Hon 85 % [facility] ([facility]) Tmi3iaw-%Pred-Pre 107 % [facility] ([facility]) Kwd9uvm-GAP 69 % [facility] ([facility]) Rva0sgn-Sgb 99 % [facility] ([facility], ) Lfy4qsi-Pqkf 97 % [facility] ([facility]) Uxp4qna-%Pred-Pre 102 % [facility] ([facility]) FEFMax-Pred 6.34 L/E/sec [facility] ([facility]) FEFMax-Pre 3.50 L/E/sec [facility] ([facility]) FEFMax-LLN 4.68 L/E/sec [facility] ([facility]) FEFMax-%Pred-Pre 55 L/E/sec [facility] ([facility]) [id number]-Uwme 2.46 L/E/sec [facility] ([facility]) Erk1587-Ady 2.25 L/E/sec [facility] ([facility]) Uwj2302-%Pred-Pre 91 L/E/sec [facility] ([facility]) ExpTime-Pre 8.41 sec [facility] ([facility]) [id number]-CZP 1.26 L/E/sec [facility] ([facility]) Ahx3wno8-Qwe 86 % [facility] ([facility]) Iou1qmf5-%Pred-Pre 105 % [facility] ([facility]) Goj1wti4-Tzgy 81 % [facility] ([facility]) Grs7zga0-AHE 73 % [facility] ([facility]) ID Date Data Source [id number] 11/29/2020 03:38:00 PM EDT [facility] ([facility]) Name Value Range Interpretation Code Description Data Keira rce(s) Supporting Document(s) Red Blood Count 4.88 10 4.00-5.40 Normal (applies to non-numeric results) [facility] ([facility]) White Blood Count 7.8 10 4.0-10.0 Normal (applies to non-numeri c results) [facility] ([facility]) Hemoglobin 14.8 g/dL 12.0-15.5 Normal (applies to non-numeric resul ts) [facility] ([facility]) Mean Corpuscular Volume 95.3 fl 80.0-96.0 Normal ( applies to non-numeric results) [facility], ) Hematocrit 46.5 % 36.0-47.0 Normal (applies to non-numeric resul ts) [facility]) Mean Corpuscular HGB Conc 31.8 g/dL 32.0-36.5 Below low normal [facility] ([facility]) Mean Corpuscular Hemoglobin 30.3 pg 27.0-33.0 Norm al (applies to non-numeric results) [facility] ([facility]) Red Cell Distribution Width 12.5 % 11.5-14.5 Norm al (applies to non-numeric results) [facility] ([facility]) Platelet Count, Automated 245 10 150-450 Normal (applies to non-numeric results) [facility]) Neutrophils % 53.0 % 36.0-66.0 Normal (applies to non-numeric re sults) [facility]) Lymph % 35.0 % 24.0-44.0 Normal (applies to non-numeric resul ts) [facility] ([facility], ) [place] % 7.8 % 2.0-8.0 Normal (applies to non-numeric resul ts) [facility] ([facility]) Eos % 2.7 % 0.0-3.0 Normal (applies to non-numeric resul ts) [facility]) Baso % 1.1 % 0.0-1.0 Above high normal [facility] ([facility]) Immature Granulocyte % 0.4 % 0-3.0 Normal (applies to non-n umeric results) [facility] ([facility]) Nucleated Red Blood Cell % 0.0 % 0-0 Normal (applies to n on-numeric results) [facility]) Neutrophils # 4.2 10 1.5-8.5 Normal (applies to non-numeric re sults) [facility]) Lymph # 2.7 10 1.5-5.0 Normal (applies to non-numeric resul ts) [facility] [place] # 0.6 10 0.0-0.8 Normal (applies to non-numeric resul ts) [facility] ([facility]) Baso # 0.1 10 0.0-0.2 Normal (applies to non-numeric resul ts) [facility] ([facility]) 12/21/20 (Thr December 21) 08:57 AM BIJU SHEA No significant abnormalities. Eos # 0.2 10 0.0-0.5 Normal (applies to non-numeric resul ts) [facility] ([facility]) ID Date Data Source [id number] 11/29/2020 03:38:00 PM EDT [facility] ([facility]) Name Value Range Interpretation Code Description Data Keira rce(s) Supporting Document(s) Tissue transglutaminase IgA Ab [Units/volume] in Serum 4 U/mL 0-3 Above high normal [facility] ([facility]) Negative 0 - 3 Weak Positive 4 - 10 Positive >10 . Tissue Transglutaminase (tTG) has been identified as the endomysial antigen. Studies have demonstr- ated that endomysial IgA antibodies have over 99% specificity for gluten sensitive enteropathy. Performed at: [facility] [employer] [id number] Restaurant Greeter: Caryn Frank MD, Phone: [phone] ID Date Data Source [id number] 07/07/2020 02:31:00 PM EST [facility] ([facility]) Name Value Range Interpretation Code Description Data Keira rce(s) Supporting Document(s) IgA [Mass/volume] in Serum or Plasma 540.0 mg/dL 70-400 Above hig h normal [facility] ([facility]) Tissue transglutaminase IgA Ab [Units/volume] in Serum 4 U/mL 0-3 Above high normal [facility] ([facility]) Negative 0 - 3 Weak Positive 4 - 10 Positive >10 . Tissue Transglutaminase (tTG) has been identified as the endomysial antigen. Studies have demonstr- ated that endomysial IgA antibodies have over 99% specificity for gluten sensitive enteropathy. Performed at: [facility] [employer] [id number] Restaurant [employer]eter: Caryn Frank MD, Phone: [phone] ID Date Data Source [id number] 07/07/2020 02:31:00 PM EST [facility] ([facility]) Name Value Range Interpretation Code Description Data Keira rce(s) Supporting Document(s) Free T4 1.20 ng/dL 0.76-1.46 Normal (applies to non-numeric resul ts) [facility] ([facility]) 07/12/20 (FriJul 12) 04:20 PM BJIU MÉNDEZ Thyroid function is normal. Thyroid Stimulating Hormone 2.130 uIU/ML 0.358-3.740 Norm al (applies to non- numeric results) [facility] ([facility]) ID Date Data Source [id number] 06/17/2020 12:00:00 AM EST [facility] Name Value Range Interpretation Code Description Data Keira rce(s) Supporting Document(s) 2019-nCoV RNA XXX SAMY+probe-Imp [facility] This lab was ordered by [facility] and reported by [facility]. ID Date Data Source [id number] 06/15/2020 07:38:00 AM EST [facility] ([facility]) Name Value Range Interpretation Code Description Data Keira rce(s) Supporting Document(s) PDFReport Laboratory test result [facility] ([facility], ) FVC-Pred 3.29 L [facility] ([facility]) FVC-Pre 2.14 L [facility] ([facility]) FVC-LLN 2.61 L [facility] ([facility]) FVC-%Pred-Pre 64 L [facility] ([facility]) Fev1-Pred 2.57 L [facility] ([facility]) Fev1-Pre 1.85 L [facility] ([facility]) Fev1-%Pred-Pre 71 L [facility] ([facility]) Fev6-Pred 3.18 L [facility] ([facility]) Fev1-LLN 2.00 L [facility] ([facility]) Fev6-Pre 2.14 L [facility] ([facility], ) Fev6-LLN 2.52 L [facility] ([facility]) Fev6-%Pred-Pre 67 L [facility] ([facility]) Puk1mfp-Rxp 86 % [facility] ([facility]) Fkt3lwa-%Pred-Pre 109 % [facility] ([facility]) Fjz7nlm-Ynuy 79 % [facility] ([facility]) Mfv3rln-Dfsv 97 % [facility] ([facility]) Xes1zxa-MWW 69 % [facility] ([facility]) Svg2aqi-Jfz 100 % [facility] ([facility]) Cad5kbj-%Pred-Pre 103 % [facility] ([facility]) FEFMax-Pre 5.09 L/E/sec [facility] ([facility]) FEFMax-Pred 6.34 L/E/sec [facility] ([facility]) FEFMax-LLN 4.68 L/E/sec [facility] ([facility]) FEFMax-%Pred-Pre 80 L/E/sec [facility] ([facility]) Rgd4825-Zjsr 2.46 L/E/sec [facility] ([facility]) Dzn2252-Cqp 2.31 L/E/sec [facility] ([facility]) Fgm2469-%Pred-Pre 93 L/E/sec [facility] ([facility]) Trr2531-OZP 1.26 L/E/sec [facility] ([facility]) ExpTime-Pre 6.59 sec [facility] ([facility]) Pbt3ycf5-%Pred-Pre 106 % [facility] ([facility]) Ysz3xdj1-Wlvf 81 % [facility] ([facility]) Yna5qvv5-Bhe 86 % [facility] ([facility]) Qwe7jbm5-YNC 73 % [facility] ([facility]) ID Date Data Source [id number] 05/24/2020 12:00:00 AM EDT [facility] Name Value Range Interpretation Code Description Data Keira rce(s) Supporting Document(s) 2019-nCoV RNA XXX SAMY+probe-Imp [facility] This lab was ordered by [facility] and reported by [facility]. ID Date Data Source [id number] 04/19/2020 07:00:00 PM EDT [facility] ([facility], ) Name Value Range Interpretation Code Description Data Keira rce(s) Supporting Document(s) Fats Neutral Laboratory test result Normal (applies to non -numeric results) [facility] ([facility]) <content>Normal (<60 Droplets/HPF)</cont ent>
<content></content> Fats Total Laboratory test result Normal (applies to non-n umeric results) [facility] ([facility]) <content>Normal (<100 Droplets/HPF)</con tent>
<content></content> ID Date Data Source [id number] 04/19/2020 07:00:00 PM EDT [facility] ([facility]) Name Value Range Interpretation Code Description Data Keira rce(s) Supporting Document(s) Calprotectin [Mass/mass] in Stool 39 ug/g 0-120 Normal (applies to non-numeric results) [facility] ([facility]) <content>Concentration Interpretatio n Follow-Up</content>
<content><16 - 50 ug/g Normal None</content>
<content>>50 -120 ug/g Borderline Re-evaluate in 4-6 weeks</content>
<content>>120 ug/g Abnormal Repeat as clinically</content>
<content>indicated</content>
<content>Performed at: [facility]</content>
<content>[address], [place] [id number]</content>
<content>Restaurant Greeter: Caryn Frank MD, Phone: [phone]</content>
<content>Performed at: [facility]</content>
<content>[address], [place] [id number]</content>
<content>Restaurant Greeter: Geovany Shipley MD, Phone: [phone]</content>
<content></content> Elastase.pancreatic [Mass/mass] in Stool 243 Normal (applies to non-numeric results) [facility] ([facility], ) <content>Result Units: ug Elast./g</cont ent>
<content>Severe Pancreatic Insufficiency: <100</content>
<content>Moderate Pancreatic Insufficiency: 100 - 200</content>
<content>Normal: >200</content>
<content></content> ID Date Data Source [id number] 04/19/2020 07:00:00 PM EDT [facility] ([facility]) Name Value Range Interpretation Code Description Data Keira rce(s) Supporting Document(s) Gastrointestinal (GI) Panel Laboratory test result [facility] ([facility], ) This Gastrointestinal PCR Panel detects [...] Never Smoker completed Never S moker eCW1 ([facility]) Smoking 03/30/2021 12:00:00 AM EDT Never Smoker completed Never S moker eCW1 ([facility]) Alcohol intake 03/22/2021 12:00:00 AM EDT Current non-d jose of alcohol (finding) completed Current non-drinker of alcohol (finding) [facility] Tobacco use and exposure 03/22/2021 12:00:00 AM EDT Never used co mpleted Never used [facility] Smoking 03/22/2021 12:00:00 AM EDT Never smoker completed Never s wvker [facility] Smoking 01/19/2021 12:00:00 AM EDT Never Smoker completed Never S moker eCW1 ([facility]) Smoking 01/19/2021 12:00:00 AM EDT Never Smoker completed Never S moker eCW1 ([facility]) Smoking 01/19/2021 12:00:00 AM EDT Never Smoker completed Never S moker eCW1 ([facility]) Smoking 01/19/2021 12:00:00 AM EDT Never Smoker completed Never S moker eCW1 ([facility]) Smoking 09/20/2020 12:00:00 AM EST Patient has never smoked co mpleted Patient has never smoked [facility] ([facility]) Smoking 06/21/2020 12:00:00 AM EST Non Smoker completed Non Smoke r [facility] ([facility]) Vital Signs ID Date Data Source UNK Name Value Range Interpretation Code Description Data Source(s) Dale body weight 115 [lb_av] 115 [lb_av] [facility] ([facility]) Body [facility] 112.946 kg 112.946 [facility] Body surface area Derived from formula 2.12 m2 2.12 m2 [facility] ([facility]) Body mass index (BMI) [Ratio] 44.1 kg/m2 44.1 k g/m2 [facility] [facility] Systolic blood pressure 122 mm[Hg] 122 mm[Hg] M EDENT ([facility]) Diastolic blood pressure 84 mm[Hg] 84 mm[Hg] [facility] ([facility]) Body height 63 [in_i] 63 [in_i] MEDENT ([facility]) 5'3" Body weight 249.00 [lb_av] 249.00 [lb_av] MEDEN T ([facility]) Body weight 242 [lb_av] 242 [lb_av] eCW1 ([facility]) Body weight 109.77 kg 109.77 kg eCW1 ([facility]) Body height 64 [in_i] 64 [in_i] eCW1 ([facility]) Body mass index (BMI) [Ratio] 41.53 kg/m2 41.53 kg/m2 eCW1 ([facility]) Heart rate 73 /min 73 /min eCW1 ([facility]) Respiratory rate 18 /min 18 /min eCW1 ([facility]) Body temperature 97.1 [degF] 97.1 [degF] eCW1 ( [facility]) Systolic blood pressure 124 mm[Hg] 124 mm[Hg] e CW1 ([facility]) Diastolic blood pressure 80 mm[Hg] 80 mm[Hg] eCW1 ([facility]) Systolic blood pressure 130 mm[Hg] 130 mm[Hg] M EDENT ([facility], ) Heart rate 58 /min 58 /min [facility] ([facility]) Oxygen saturation in Arterial blood by Pulse oximetry 96 % 96 % [facility] ([facility]) Body height 63 [in_i] 63 [in_i] [facility] ([facility]) 5'3" Body surface area Derived from formula 2.10 m2 2.10 m2 [facility] ([facility]) Diastolic blood pressure 68 mm[Hg] 68 mm[Hg] [facility] ([facility]) Body weight 243.00 [lb_av] 243.00 [lb_av] MEDEN T ([facility]) Body mass index (BMI) [Ratio] 43.0 kg/m2 43.0 k g/m2 [facility] ([facility]) Body weight 110.225 kg 110.225 kg [facility] ([facility]) [place] body weight 115 [lb_av] 115 [lb_av] MEDEN T ([facility]) Body weight 233.8 [lb_av] 233.8 [lb_av] eCW1 ([facility]) Body height 64 [in_i] 64 [in_i] eCW1 ([facility]) Body mass index (BMI) [Ratio] 40.13 kg/m2 40.13 kg/m2 eCW1 ([facility]) Heart rate 71 /min 71 /min eCW1 ([facility]) Respiratory rate 18 /min 18 /min eCW1 ([facility]) Body temperature 97.8 [degF] 97.8 [degF] eCW1 ( [facility]) Systolic blood pressure 124 mm[Hg] 124 mm[Hg] e CW1 ([facility]) Diastolic blood pressure 80 mm[Hg] 80 mm[Hg] eCW1 ([facility]) Body height 63 [in_i] 63 [in_i] [facility] ([facility], ) 5'3" Body mass index (BMI) [Ratio] 41.8 kg/m2 41.8 k g/m2 [facility] ([facility]) [place] body weight 115 [lb_av] 115 [lb_av] MEDEN T ([facility]) Body weight 107.050 kg 107.050 kg [facility] ([facility], ) Body weight 236.00 [lb_av] 236.00 [lb_av] MEDEN T ([facility]) Body surface area Derived from formula 2.07 m2 2.07 m2 [facility] ([facility]) Systolic blood pressure 128 mm[Hg] 128 mm[Hg] M EDENT ([facility]) Diastolic blood pressure 76 mm[Hg] 76 mm[Hg] [facility] ([facility]) Body height 63 [in_i] 63 [in_i] [facility] ([facility], ) 5'3" Body weight 236.00 [lb_av] 236.00 [lb_av] MEDEN T ([facility]) Body mass index (BMI) [Ratio] 41.8 kg/m2 41.8 k g/m2 [facility] ([facility]) [place] body weight 115 [lb_av] 115 [lb_av] MEDEN T ([facility]) Body weight 107.050 kg 107.050 kg [facility] ([facility]) Body surface area Derived from formula 2.07 m2 2.07 m2 [facility] ([facility]) Diastolic blood pressure 84 mm[Hg] 84 mm[Hg] [facility] ([facility]) Oxygen saturation in Arterial blood by Pulse oximetry 95 % 95 % [facility] ([facility]) Body temperature 97.3 [degF] 97.3 [degF] [facility] ([facility]) Body height 63 [in_i] 63 [in_i] [facility] ([facility]) 5'3" Systolic blood pressure 124 mm[Hg] 124 mm[Hg] M [facility] ([facility]) Heart rate 70 /min 70 /min [facility] ([facility]) Body weight 234.00 [lb_av] 234.00 [lb_av] [facility] Body mass index (BMI) [Ratio] 41.4 kg/m2 41.4 k g/m2 [facility] ([facility]) [place] body weight 115 [lb_av] 115 [lb_av] MEDEN T ([facility]) Body weight 106.142 kg 106.142 kg [facility] ([facility]) Body surface area Derived from formula 2.07 m2 2.07 m2 [facility] ([facility]) Systolic blood pressure 118 mm[Hg] 118 mm[Hg] M EDENT ([facility]) Diastolic blood pressure 84 mm[Hg] 84 mm[Hg] [facility] ([facility]) Body height 63 [in_i] 63 [in_i] [facility] ([facility]) 5'3" Body weight 235.00 [lb_av] 235.00 [lb_av] MEDEN T ([facility]) Body mass index (BMI) [Ratio] 41.6 kg/m2 41.6 k g/m2 [facility] ([facility]) [place] body weight 115 [lb_av] 115 [lb_av] MEDEN T ([facility]) Body weight 106.596 kg 106.596 kg [facility] ([facility]) Body surface area Derived from formula 2.07 m2 2.07 m2 [facility] ([facility]) Heart rate 64 /min 64 /min [facility] ([facility]) Oxygen saturation in Arterial blood by Pulse oximetry 98 % 98 % [facility] ([facility]) Body height 63 [in_i] 63 [in_i] [facility] ([facility]) 5'3" Body weight 231.00 [lb_av] 231.00 [lb_av] [facility] Body mass index (BMI) [Ratio] 40.9 kg/m2 40.9 k g/m2 [facility] ([facility]) [place] body weight 115 [lb_av] 115 [lb_av] MEDEN T ([facility]) Systolic blood pressure 120 mm[Hg] 120 mm[Hg] [facility] ([facility]) Diastolic blood pressure 80 mm[Hg] 80 mm[Hg] [facility] ([facility]) Body weight 104.782 kg 104.782 kg [facility] ([facility]) Body surface area Derived from formula 2.06 m2 2.06 m2 [facility] ([facility]) Body weight 229.00 [lb_av] 229.00 [lb_av] MEDEN T ([facility]) Body mass index (BMI) [Ratio] 40.6 kg/m2 40.6 k g/m2 [facility] ([facility]) [place] body weight 115 [lb_av] 115 [lb_av] MEDEN T ([facility]) Systolic blood pressure 124 mm[Hg] 124 mm[Hg] [facility] ([facility] ) Diastolic blood pressure 68 mm[Hg] 68 mm[Hg] [facility] ([facility]) Body height 63 [in_i] 63 [in_i] [facility] ([facility], ) 5'3" Body weight 103.874 kg 103.874 kg [facility] ([facility], ) Patient Treatment Plan of Care Planned Activity Planned Date Details Description Data Source (s) Ubrelvy 100 MG Oral Tablet (Ubrogepant) 03/22/2021 12:00:00 AM [facility] Erenumab-aooe 140 MG/ML Subcutaneous Solution Auto-inj chichi (AIMOVIG) 03/22/2021 12:00:00 AM [facility] Propranolol Hydrochloride 80 MG Oral Tablet 02/19/2021 12:00:00 AM [facility] buspirone hydrochloride 7.5 MG Oral Tablet 02/19/2021 12:00:00 AM E [facility] 24 HR venlafaxine 225 MG Extended Release Oral Tablet 03/08/2016 12:00:00 AM [facility] Erythromycin 0.005 MG/MG Ophthalmic Ointment 04/18/2015 12:00:00 AM [facility] Ascorbic Acid 500 MG Oral Capsule 04/06/2013 12:00:00 AM [facility] Acetaminophen 250 MG / Aspirin 250 MG / Caffeine 65 MG Oral Tablet [Excedrin] [facility] buspirone hydrochloride 5 MG Oral Tablet [facility] levocetirizine dihydrochloride 5 MG Oral Tablet [facility] Nortriptyline 10 MG Oral Capsule [facility] Ergocalciferol 08064 UNT Oral Capsule [facility] SUMATRIPTAN SUCCINATE PO Ups [facility]
[2021-05-16] MEDS ORDERED: methylPREDNISolone 125MG 2ML VIAL IV ONE (22:45)
[2021-05-16] MEDS ORDERED: IPRATROPIUM 0.5MG/ALBUTEROL 2.5MG INH SOL UD 3ML (DUONEB) NEB ONE (22:45)
--- NOTE | 2021-05-16 22:51 | REPVR ---
PROCEDURE INFORMATION: Exam: CT Head Without Contrast Exam date and time: 05/16/2021 10:23 PM Age: 55 years old Clinical indication: Altered mental status/memory loss; Additional info: AMS TECHNIQUE: Imaging protocol: Computed tomography of the head without contrast. Radiation optimization: All CT scans at this facility use at least one of these dose optimization techniques: automated exposure control; mA and/or kV adjustment per patient size (includes targeted exams where dose is matched to clinical indication); or iterative reconstruction. COMPARISON: No relevant prior studies available. FINDINGS: Brain: There is no evidence of intracranial bleed. Hernandez-white differentiation appears preserved. Cerebral ventricles: Normal ventricles. Paranasal sinuses: There is mucosal thickening in the ethmoid sinuses. Mastoid air cells: Clear mastoid air cells. Clear mastoid air cells. Orbital cavity: Symmetric orbits. Symmetric orbits. Bones/joints: There is no evidence of fracture. Soft tissues: Unremarkable. IMPRESSION: Normal appearing CT scan of the brain. Electronically signed by: Juan Ovalles On 05/16/2021 22:50:45 PM
--- NOTE | 2021-05-16 22:54 | REPVR ---
PROCEDURE INFORMATION: Exam: XR Chest Exam date and time: 05/16/2021 9:58 PM Age: 55 years old Clinical indication: Other: Dyspnea; Additional info: Dyspnea/cough TECHNIQUE: Imaging protocol: XR of the chest. Views: 1 view. COMPARISON: CR PORTABLE CHEST X-RAY 05/13/2021 11:15 PM FINDINGS: Lungs: There is prominence of the vascular markings in the parahilar regions which may be accentuated by a shallow depth of inspiration. Mild congestive change or early streaky infiltrate a possibility. The patient should have a PA and lateral view of the chest for further evaluation. Pleural spaces: There is no evidence of pneumothorax or pleural effusion. Heart/Mediastinum: The heart is normal in size. Bones/joints: Unremarkable. IMPRESSION: Prominent markings. The patient should have a PA and lateral view of the chest clarification. Electronically signed by: Juan Ovalles On 05/16/2021 22:53:52 PM
[2021-05-16 22:59] LABS: BASO # 0.1 10^3/uL (0.0-0.2); BASO % 0.6 % (0.0-1.0); EOS # 0.1 10^3/uL (0.0-0.5); EOS % 0.5 % (0.0-3.0); HEMATOCRIT 45.7 % (36.0-47.0); HEMOGLOBIN 14.9 g/dl (12.0-15.5); LYMPH # 1.2 10^3/uL (1.5-5.0); LYMPH % 7.4 % (24.0-44.0); MEAN CORPUSCULAR HEMOGLOBIN 30.3 pg (27.0-33.0); MEAN CORPUSCULAR HGB CONC 32.6 g/dl (32.0-36.5); MEAN CORPUSCULAR VOLUME 92.9 fl (80.0-96.0); MONO # 1.4 10^3/uL (0.0-0.8); MONO % 8.6 % (2.0-8.0); NEUTROPHILS # 13.3 10^3/uL (1.5-8.5); NEUTROPHILS % 81.8 % (36.0-66.0); PLATELET COUNT, AUTOMATED 201 10^3/uL (150-450); RED BLOOD COUNT 4.92 10^6/uL (4.00-5.40); WHITE BLOOD COUNT 16.3 10^3/uL (4.0-10.0)
[2021-05-16 23:30] LABS: BILIRUBIN,DIRECT 0.2 MG/DL (0.0-0.2); BILIRUBIN,TOTAL 1.1 MG/DL (0.2-1.0); CALCIUM LEVEL 8.5 MG/DL (8.5-10.1); CREATININE FOR GFR 1.14 MG/DL (0.55-1.30); GLOMERULAR FILTRATION RATE 52.5 (>51); THYROID STIMULATING HORMONE 0.981 uIU/ML (0.358-3.740); TOTAL PROTEIN 7.3 GM/DL (6.4-8.2)
[2021-05-16] MEDS ORDERED: FUROSEMIDE 40MG/4ML VIAL (J1940) IV ONE (23:40)
[2021-05-17] MEDS ORDERED: MAALOX 30 ML SUSP *UDC PO PRN (00:10)
[2021-05-17] MEDS ORDERED: MOM 30ML SUSPENSION UDC PO PRN (00:10)
[2021-05-17] MEDS ORDERED: MAG SULF 1GM/100ML (MAG RUN) 1 GM in IV 1 EA IV ONE ×2 (00:10→03:05)
--- OUTSIDE RECORDS SUMMARY | 2021-05-17 00:24 | CCD ---
Author Author [facility] Organization [facility] Address Unknown Phone Unavailable Care Team Providers Care Computer Installer Name Role Phone Prema Carmichael Unavailable PROBLEMS Type Condition ICD9-CM Code [id number] Code Onset Dates Condition S tatus W/U Status Risk SNOMED Code Notes Problem Multinodular goiter E04.2 Active confirmed 388227715 Problem Mild intermittent asthma without complication J45. 20 Active confirmed 974714345 Problem Moderate episode of recurrent major depressive disorder F33.1 Active confirmed 19844847 Problem Depression with anxiety F41.8 Active confirmed 743380519 Problem Goiter E04.9 Active confirmed 8630032 Problem Seizure disorder G40.909 Active confirmed 12 4396064 Problem Psychophysiological insomnia F51.04 Active confirme d 526876416 Problem Daytime somnolence R40.0 Active confirmed 1 92113105878 Problem Vitamin D deficiency E55.9 Active confirmed 48890922 Problem Dependence on other enabling machines and devices Z99.89 Active confirmed 047713224 Problem Obstructive sleep apnea (adult) (pediatric) G47.33 Active confirmed 37606522 Problem Intractable migraine without aura and without st atus migrainosus G43.019 Active confirmed 451135427 Problem Chronic fatigue R53.82 Active confirmed 8422 9001 Problem Mixed hyperlipidemia E78.2 Active confirmed 037928834 Problem Chronic allergic rhinitis, unspecified s easonality, unspecified trigger J30.9 Active confirmed 54927593 Problem Adjustment disorder with mixed anxiety and depressed mood F43.23 Active confirmed 03002702 Problem Major depressive disorder, single episode, mild F3 2.0 Active confirmed 69403133 Problem Generalized anxiety disorder F41.1 Active confirme d 14421048 Problem Urinary hesitancy R39.11 Active confirmed 59 22409 ALLERGIES Allergen (clinical drug ingredient) Drug/Non Drug Allergy do cumented on EMR Reaction Allergy Type Onset Date Status Sulfa (for allergy use only) medication interaction Drug A llergy Active Effexor Red itchy eyes Drug Allergy Active Adhesive Bandages itching Drug Allergy Activ e diphenhydramine Antihistamine medication interaction Drug Allergy Active Latex (for allergy use only) itching Drug Allergy Active ENCOUNTERS from 1965 to 2021-05-16 Encounter Location Date Provider Diagnosis [facility] [address] [phone] [place] [address] May, Prema Soosairaj Frequent headaches R51 IMMUNIZATIONS Vaccine Route Administration Date Status COVID-19 [...] Education Language: Question Answer Notes Languages spoken: Divehi Nondenominational: Question Answer Notes Nondenominational No rastafarian beliefs that would impact health care. Sexual [...] a day for 30 days Active Drisdol 32538 UNIT 1 capsule Orally weekly for 90 Active Albuterol Sulfate HFA 108 (90 Base) MCG/ACT 2 puffs as needed Inhalation every 6 hrs for 30 days May, Active Clotrimazole-Betamethasone 1-0.05 % 1 application to a ffected area Externally Twice a day for 28 days December, Active Cranberry 1000 MG 4 capsules Orally once aday with 200mg capsule for 30 days Active Zoloft 100 MG 1 tablet Orally twice daily for 30 Days Active AeroChamber Plus Chriss-Vu - as directed [...] Use nightly for 9999 days May, Active busPIRone HCl 7.5 MG Take 1 tablet By Mouth twice a day for 28 Active Propranolol HCl 80 MG 1 tablet twice a day Orally 28 Orally Twice a day for 30 Days Active Levocetirizine Dihydrochloride 5 MG 1 tablet [...] e daily Orally Daily for 30 Active CeleBREX 100 MG 1 capsule with food Orally twice a day Not-Taking traZODone HCl 50 MG 1 tablet at bedtime as needed Orally Onc e a day for 30 days Not-Taking Keppra 1000 MG 1/2 tablet in [...] for 30 days Active Biotin Maximum Strength 31165 MCG 1 tablet Orally Once a day for 30 d ays Active PROCEDURES No Information RESULTS No Results REASON FOR VISIT refill MEDICAL (GENERAL) HISTORY Type Description Date Medical [...] Notes Treatment Notes Treatm ent Clinical Notes May, Frequent headaches (ICD-10 - R51) PLAN OF TREATMENT Medication Medication Name Sig Start Date Stop Date Propranolol HCl 80 MG 1 tablet twice a day Orally 28 Orally Twice a day for 30 Days Zoloft 100 MG 1 tablet Orally twice daily for 30 Days Next Appt Details Provider Name:Raven Boss, 2021-07-03 01:0 0:00 PM, [address] [facility] [facility], , [place], [address], Insurance Providers Payer Name Payer Address Payer Phone Insured Name Patient Relati onship to Insured Coverage Start Date Coverage End Date MEDICAID [employer] [address] [employer] [id number] [place] [employer] [address] [address] [facility] [id number] CHARY RING
--- OUTSIDE RECORDS SUMMARY | 2021-05-17 00:25 | CCD ---
Author Author [facility] Organization [facility] Address Unknown Phone Unavailable Care Team Providers Care Clay Worker Name Role Phone Aguila, L Tatiana POULTRY PINNER Unavailable Unavailable Aguila, L Tatiana POULTRY PINNER Unavailable Unavailable Aguila, L Tatiana POULTRY PINNER Unavailable Unavailable Aguila, L Tatiana POULTRY PINNER Unavailable Unavailable Aguila, L Tatiana POULTRY PINNER Unavailable Unavailable Aguila, L Tatiana POULTRY PINNER Unavailable Unavailable Aguila, L Tatiana POULTRY PINNER Unavailable Unavailable Aguila, L Tatiana POULTRY PINNER Unavailable Unavailable Aguila, L Tatiana POULTRY PINNER Unavailable Unavailable Aguila, L Tatiana POULTRY PINNER Unavailable Unavailable Aguila, L Tatiana POULTRY PINNER Unavailable Unavailable Aguila, L Tatiana POULTRY PINNER Unavailable Unavailable Aguila, L Tatiana POULTRY PINNER Unavailable Unavailable Aguila, L Tatiana POULTRY PINNER Unavailable Unavailable Aguila, L Tatiana POULTRY PINNER Unavailable Unavailable Aguila, L Tatiana POULTRY PINNER Unavailable Unavailable Aguila, L Tatiana POULTRY PINNER Unavailable Unavailable Aguila, L Tatiana POULTRY PINNER Unavailable Unavailable Aguila, L Tatiana POULTRY PINNER Unavailable Unavailable Aguila, L Tatiana POULTRY PINNER Unavailable Unavailable Aguila, L Tatiana POULTRY PINNER Unavailable Unavailable Aguila, L Tatiana POULTRY PINNER Unavailable Unavailable Aguila, L Tatiana POULTRY PINNER Unavailable Unavailable Aguila, L Tatiana POULTRY PINNER Unavailable Unavailable Aguila, L Tatiana POULTRY PINNER Unavailable Unavailable Charlebois, A Biju RPA C [...] Unavailable MEDREA, ALIS Unavailable Unavailable THUAN PA-C, [id number] A. CHRISTIN PA Unavailable Unava ilable THUAN PA-C, [id number] A. CHRISTIN PA Unavailable Unava ilable THUAN PA-C, [id number] A. CHRISTIN PA Unavailable Unava ilable THUAN PA-C, [id number] A. CHRISTIN PA Unavailable Unava ilable THUAN PA-C, [id number] A. CHRISTIN PA Unavailable Unava ilable THUAN PA-C, [id number] A. CHRISTIN PA Unavailable Unava ilable THUAN PA-C, [id number] A. CHRISTIN PA Unavailable Unava ilable Re-disclosure Warning [...] is protected by Article 27-F of the [facility] Public Health law. If you continue you may have access to information: Regarding HIV / AIDS; Provided by facilities licensed or operated by the [facility] Office of Mental Health; or Provided by the [facility] Office for People With Developmental Disabilities. If such information is present, then the following [facility] mandated warning applies: This information has [...] law may result in a fine or half-way sentence or both. A general authorization for the release of medical or other information is NOT sufficient authorization for further disc losure. Family History Family Member Name Family Member Gender Family Member Status Date o f Status Description Data Source(s) Unknown Male Problem [facility] ([facility] () Unknown Male Problem MEDENT ([facility]) Encounters Encounter Providers Location Date Indications Data Source(s ) Outpatient Attender: ALIS SHIAAttender: Alis Medrejeffery 06/22/2021 12:00:00 AM [facility] Outpatient Referrer: ALIS MEDREA 06/05/2021 12:00:00 AM [facility] [place] [address] [address] 05/15/2021 12:00:00 AM EDT eCW1 ([facility]) Outpatient Attender: ALIS Prasadtender: Alis Godinez rrer: ALIS MOODY 04/23/2021 12:00:00 AM [facility] [address] [address] 03/30/2021 12:00:00 AM EDT eCW1 ([facility]) Outpatient Attender: Alis Everett er: ALIS SHIAReferrer: [id number] CHRISTIN LAROSE PA-C [id number] 03/22/2021 12:00:00 AM EDT - 03/22/2021 03:54:21 PM [facility] Outpatient Attender: Tatiana Torres/Maritza/Abner/Dae 03/21/2021 01:00:00 PM EDT MED[facility] ([facility] [place] [address] [address] 03/21/2021 12:00:00 AM EDT eCW1 ([facility]) [place] [address] [address] 03/12/2021 12:00:00 AM EDT eCW1 ([facility]) [place] [address] [address] 01/22/2021 12:00:00 AM EDT eCW1 ([facility]) [place] [address] [facility] [address] 01/19/2021 12:00:00 AM EDT [facility] [place] [address] [address] 12/28/2020 12:00:00 AM EDT [facility] [place] [address] [address] 12/28/2020 12:00:00 AM EDT [facility]CW1 [facility] Outpatient Attender: Biju Shea RPA C Brian/[place]/A ngel/Reindl 11/29/2020 02:30:00 PM EDT MEDENT ([facility]) Unknown [address] [address] 10/24/2020 12:00:00 AM EDT [facility]CW1 [facility]) Outpatient Attender: Tatiana Sheehan NP Brian/[place]/Abner/Reindl 09/20/2020 12:00:00 PM EST MEDENT ([facility]) Outpatient Attender: Biju Shea RPA C Brian/[place]/A ngel/Reindl 07/06/2020 12:30:00 PM EST MEDENT ([facility]) Outpatient Attender: Tatiana Sheehan NP Brian/[place]/Abner/Reindl 06/21/2020 02:30:00 PM EST MED[facility] ([facility]) [place] [address] [address] 06/14/2020 12:00:00 AM EST [facility]CW1 [facility] Unknown [address] [facility] [place] [address] 05/22/2020 12:00:00 AM EDT [facility]CW[facility] Unknown [address] [facility] [place] [address] 05/18/2020 12:00:00 AM EDT [facility] [place] [place] [address] [facility] [place] [address] 05/04/2020 12:00:00 AM EDT eCW1 ([facility]) Outpatient Attender: Biju Torres/Maritza/Jeffery balderrama/Dae 04/19/2020 01:00:00 PM EDT MEDENT ([facility] geovanna, [place]) Immunizations Vaccine Date Status Description Data Source(s) COVID-19 dose #1 given elsewhere Unspecified 11/09/2020 02:4 8:00 PM EDT completed eCW1 ([facility]) COVID-19 dose #1 given elsewhere Unspecified 11/09/2020 02:4 8:00 PM EDT completed eCW1 ([facility]) COVID-19 dose #1 given elsewhere Unspecified 11/09/2020 02:4 8:00 PM EDT completed eCW1 ([facility]) COVID-19 dose #1 given elsewhere Unspecified 11/09/2020 02:4 8:00 PM EDT completed eCW1 ([facility]) COVID-19 dose #1 given elsewhere Unspecified 11/09/2020 02:4 8:00 PM EDT completed eCW1 ([facility]) COVID-19 dose #1 given elsewhere Unspecified 11/09/2020 02:4 8:00 PM EDT completed eCW1 ([facility]) COVID-19 VACCINE Zena 11/09/2020 12:00:00 AM EDT completed [employer] Vaccine Series Complete: YESThis Data wa s Submitted to [facility] Via [facility]. New in 2011. IIV4 06/07/2020 02:45:00 PM EST completed MEDENT ([facility]) Medications Medication Brand Name Start Date Product Form Dose Route Admi nistrative Instructions Pharmacy Instructions Status Indications Reaction Description Data Source(s) Erenumab-aooe 140 MG/ML Subcutaneous Solution Auto-injector (AIMOVIG) [id number] 03/22/2021 12:00:00 AM EDT 140 mg Subcutaneous active Inject 1 mL into the skin every 30 (thirty) days [facility] Ubrelvy 100 MG Oral Tablet (Ubrogepant) 7972-4246-35 03/22/20 12:00:00 AM EDT 100 mg Oral active Take 100 mg by m outh Two times daily as needed [facility] buspirone hydrochloride 7.5 MG Oral Tabl et busPIRone HCl 7.5 MG Oral Tablet (BUSPAR) busPIRone HCl 7.5 MG Oral Tablet (BUSPAR) 02/19/2021 12:00:00 AM EDT active TAKE ONE T ABLET BY MOUTH @8AM and TAKE ONE TABLET BY MOUTH @8PM [facility] Propranolol Hydrochloride 80 MG Oral Tab let Propranolol HCl 80 MG Oral Tablet (INDERAL) Propranolol HCl 80 MG Oral Tablet (INDERAL) 02/19/2021 12:00:00 AM EDT active TAKE ONE TABLET BY MOUTH @8AM and TAKE ONE TABLET BY MOUTH @8PM [facility] Aerochamber Plus Chriss-Vu 06/21/2020 12:00:00 AM EST active MEDENT ([facility], ) POLYETHYLENE GLYCOL 3350 142 MG/ML Oral Solution [Miralax] M iralax 05/19/2020 12:00:00 AM EDT ORAL completed MEDENT ([facility], ) 14 ACTUAT fluticasone furoate 0.1 MG/ACTUAT Dry Powder Inhaler [Arnuity] Arnuity Ellipta 02/16/2020 12:00:00 AM EDT RESPIRATORY active MEDENT ([facility], ) 200 ACTUAT Albuterol 0.09 MG/ACTUAT Metered Dose Inhal er [Ventolin] Ventolin HFA 02/16/2020 12:00:00 AM EDT RESPIRATORY active MEDENT ([facility], ) 24 HR venlafaxine 225 MG Extended Releas e Oral Tablet Venlafaxine HCl 225 MG TB24 Venlafaxine HCl 225 MG TB24 03/08/2016 12:00:00 AM EDT aborted daily. [facility] Erythromycin 0.005 MG/MG Ophthalmic Oint ment erythromycin (ROMYCIN) ophthalmic ointment erythromycin (ROMYCIN) ophthalmic ointment 04/18/2015 12:00: 00 AM EDT Left Eye aborted Place into the left eye Three times daily as needed. [facility] Ascorbic Acid 500 MG Oral Capsule Ascorbic Acid (VITAM IN C) 500 MG CAPS Ascorbic Acid (VITAMIN C) 500 MG CAPS 04/06/2013 12:00:00 AM EDT aborted daily. [facility] Acetaminophen 250 MG / Aspirin 250 MG / Caffeine 65 MG Oral Tablet [Excedrin] Excedrin Migraine 250-250-65 MG Oral Tablet (dvzqjmw-muxfolxlrahwz-idkvonlk) Excedrin Migraine 250-250-65 MG Oral Tablet (jjhbhgi-dacrqngopoauq-wwpzyvxg) 1 {tbl} Oral aborted Take 1 tablet by mouth every 6 (six) hours as needed for Pain [facility] Nortriptyline 10 MG Oral Capsule Nortriptyline HCl 10 MG Oral Capsule (PAMELOR) Nortriptyline HCl 10 MG Oral Capsule (PAMELOR) 10 mg Oral aborted Take 10 mg by mouth nightly [facility] Ergocalciferol 80321 UNT Oral Capsule Er gocalciferol 63821 UNIT Oral Capsule (DRISDOL) Ergocalciferol 26883 UNIT Oral Capsule (DRISDOL) 32345 U Oral aborted Take 50,000 Units by mouth once a week [facility] levocetirizine dihydrochloride 5 MG Oral Tablet Levocetirizine Dihydrochloride 5 MG Oral Tablet (XYZAL) Levocetirizine Dihydrochloride 5 MG Oral Tablet (XYZAL ) 5 mg Oral aborted Take 5 mg by angela th every evening [facility] buspirone hydrochloride 5 MG Oral Tablet busPIRone HCl 5 MG Oral Tablet (BUSPAR) busPIRone HCl 5 MG Oral Tablet (BUSPAR) 5 mg Oral aborted Take 5 mg by mouth Two Times Daily [facility] SUMATRIPTAN SUCCINATE PO 50 mg Oral aborted Take 50 mg by mouth as needed [facility] Insurance Providers Payer name Policy type / Coverage type Policy ID Covered green party ID Covered green party's relationship to churchill Policy [place] Plan Information MEDICARE [id number] Francine [id number] MEDICARE A [id number] Self [id number] MEDICARE 4 [id number] 1 [id number] Medicare - NGS Medicare Primary [id number] Self 1 [id number] Medicare - NGS Medicare Primary [id number] Self 1 [id number] Medicare - NGS Medicare Primary [id number] Self [id number] Medicare - NGS Medicare Primary [id number] Self 1 [id number] Medicare - NGS Medicare Primary [id number] Self 1 [id number] Medicare - NGS Medicare Primary [id number] Self 1 [id number] Medicare - NGS Medicare Primary [id number] Self 1 [id number] MEDICARE [id number] SP [id number] Medicare Medicare Primary [id number] Self [id number] Self [id number] Self [id number] Self [id number] MEDICAID M [id number] Self [id number] [employer] Medicare Commercial [id number] Self [id number] [employer] Medicare Commercial [id number] Self [id number] [facility] [id number] SP [id number] [facility] [id number] SP [id number] [employer] MEDICARE ADVANTAGE G [id number] Self [id number] MEDICAID M [id number] Self [id number] ANSI-Not a Secondary Insurance [id number] ANSI-Medicare Part B [id number] ANSI-Medicaid [id number] ANSI-Not a Secondary Insurance [id number] ANSI-Medicare Part B [id number] ANSI-Not a Secondary Insurance [id number] ANSI-Medicaid [id number] ANSI-Not a Secondary Insurance [id number] ANSI-Medicare Part B [id number] ANSI-Medicaid [id number] Medicaid [facility] Part B [id number] [id number] Self [id number] ANSI-Medicaid [id number] ANSI-Not a Secondary Insurance [id number] ANSI-Medicare Part B [id number] ANSI-Not a Secondary Insurance [id number] ANSI-Medicaid [id number] ANSI-Medicare Part B [id number] ANSI-Not a Secondary Insurance [id number] ANSI-Medicare Part B [id number] ANSI-Medicaid [id number] ANSI-Not a Secondary Insurance [id number] ANSI-Medicaid [id number] ANSI-Medicare Part B [id number] MEDICARE COMPLETE [id number] SP [id number] ANSI-Not a Secondary Insurance [id number] ANSI-Medicare Part B [id number] ANSI-Medicaid [id number] ANSI-Not a Secondary Insurance [id number] ANSI-Medicare Part B [id number] ANSI-Medicaid [id number] Medicaid [facility] Part B [id number] [id number] Self [id number] [facility] [employer]O [id number] SP [id number] MEDICARE COMPLETE [id number] SP [id number] ANSI-Medicaid [id number] ANSI-Medicare Part B [id number] ANSI-Medicaid [id number] ANSI-Medicaid [id number] ANSI-Medicaid [id number] ANSI-Medicare Part B [id number] ANSI-Medicaid [id number] [place] [id number] SP [id number] ANSI-Medicare Part B [id number] ANSI-Medicaid [id number] ANSI-Medicaid [id number] ANSI-Medicare Part B [id number] ANSI-Medicare Part B [id number] ANSI-Medicaid [id number] ANSI-Medicaid [id number] ANSI-Medicaid [id number] ANSI-Medicare Part B [id number] ANSI-Medicare Part B [id number] ANSI-Medicaid [id number] ANSI-Medicaid [id number] ANSI-Medicare Part B [id number] ANSI-Medicare Part B [id number] ANSI-Medicaid [id number] ANSI-Medicare Part B [id number] ANSI-Medicaid [id number] ANSI-Medicare Part B [id number] ANSI-Medicaid [id number] ANSI-Medicaid [id number] ANSI-Medicare Part B [id number] ANSI-Medicare Part B [id number] ANSI-Medicaid [id number] MEDICARE C [id number] C [id number] MEDICAID UNAVAILABLE UNAVAILA BLE MEDICARE [id number] SP [id number] SELFPAY 5 UNAVAILABLE 1 UNAVAILA BLE SELF PAY 5 UNAVAILABLE 1 UNAVAILA BLE ANSI-Medicaid [id number] HUMANA GOLD [id number] SP [id number] HUMANA GOLD [id number] SP [id number] HUMANA HMO [id number] SP [id number] [place] [id number] SP [id number] SELF PAY ONLY SP [id number] MEDICAID [id number] SP [id number] HUMANA GOLD [id number] SP [id number] HUMANA HMO [id number] SP [id number] [facility] HMO [id number] [id number] [id number] SP [id number] HUMANA HMO [id number] SP [id number] ANSI-Medicaid [id number] ANSI-Medicare Part B [id number] ANSI-Not a Secondary Insurance [id number] Medicaid [facility] Part B [id number] Self [id number] Medicare Community Plan Commercial [id number] Self [id number] ANSI-Not a Secondary Insurance [id number] ANSI-Medicare Part B [id number] ANSI-Medicaid [id number] [facility]-Medicaid [id number] [facility]-Medicare Part B [id number] Problems, Conditions, and Diagnoses Code Display Name Description Problem Type Effective Dates Data Source(s) G43.019 [id number] Intractable migraine without aura and without status migrainosus Problem 02/11/2021 12:00:00 AM EDT eCW1 ([facility]) E78.2 Mixed hyperlipidemia Mixed hyperlipidemia Problem 01/19/2021 12:00:00 AM EDT eCW1 ([facility]) J45.30 Mild persistent asthma Mild persistent asthma Problem 09/20/2020 12:00:00 AM EST MEDENT ([facility]) J45.40 Uncomplicated moderate persistent asthma Uncomplicated moderate persistent asthma Problem 06/21/2020 12:00:00 AM EST [facility] ([facility]) G47.33 Obstructive sleep apnea syndrome Obstructive sle ep apnea syndrome Problem 06/21/2020 12:00:00 AM EST [facility] ([facility]) Surgeries/Procedures Procedure Description Date Indications Data Source(s) Endoscopy Upper GI Biopsy 04/27/2021 12:00:00 AM EDT [facility] ([facility]) Spirometry 03/21/2021 12:00:00 AM EDT M EDENT ([facility]) OFFICE OUTPATIENT VISIT 15 MINUTES 03/21/2021 12:00:00 AM EDT [facility] ([facility]) OFFICE OUTPATIENT VISIT 15 MINUTES 11/29/2020 12:00:00 AM EDT [facility] ([facility]) Spirometry 09/20/2020 12:00:00 AM EST M EDENT ([facility]) Spirometry 06/21/2020 12:00:00 AM EST M EDDIONE ([facility]) Results ID Date Data Source [id number] 05/13/2021 11:35:00 PM EDT [facility] Name Value Range Interpretation Code Description Data Keira rce(s) Supporting Document(s) SARS-CoV-2 (COVID 19) NEGATIVE - SARS-CoV-2 (COVID19) [facility] This lab was ordered by [facility] a nd reported by [facility]. ID Date Data Source [id number] 04/27/2021 02:44:00 PM EDT [facility] ([facility]) Name Value Range Interpretation Code Description Data Keira rce(s) Supporting Document(s) Surgical pathology study Laboratory test result [facility] ([facility]) FINAL DIAGNOSIS A-Small bowel, biopsy: Scant [...] MD 05/01/2021 1105 ID Date Data Source [id number] 04/25/2021 10:45:00 AM EDT [facility] Name Value Range Interpretation Code Description Data Keira rce(s) Supporting Document(s) SARS coronavirus 2 RNA [Presence] in Res piratory specimen by SAMY with probe detection NEGATIVE [facility] This lab was ordered by [facility] a nd reported by [facility]. ID Date Data Source [id number] 03/22/2021 04:10:08 PM EDT [facility] Name Value Range Interpretation Code Description Data Keira rce(s) Supporting Document(s) Progress Note [facility] GSIMAf4iOuVWXdAr84/UZSbnUEZnt1VfAQgqEOh8TFcgJXUxG9XsKCZ3lC4pBKH4YZdTMsSwMySfDNV1 lbm [file] UiS2BOi9QRGxBxKwTKTgIqGvQH4OXf1LHtQ1TNX9qJHrCd3PGhL4FGjDVdKoSI1JZEm= ID Date Data Source [id number] 03/22/2021 04:08:58 PM EDT [facility] Name Value Range Interpretation Code Description Data Keira rce(s) Supporting Document(s) Progress Note [facility] IAFUMf2nLqRYAqRq37/PVIyfIWBta7FiMVfrEJh3IPtfBLZwD5JiMWH2oL0zMHQ1AMbDBhSeOaUmQIY0 lbm WvArmDVwGhLLMhSdqYHmYaNAbeCftpdDKdUR8QlOU4IIVfN65rQPOwNKBaM6UgNDH2Ghc+Vt8UCIJceZ VvIF3RBefE4Scbl6t2Ex4+hH1QImpydxhSXwy61GOIZ9yzHWcRUa7BpOM/pWSwf7lQHtyD5v/+qDfLw9 XuiAPy1mHMKzsXndVqXq3uHtzAFr10YZukYtdp+e/2 qxdwMlmSH/9Pqdvdxv5r+lo0FHnf7bWl6IO/Wuz7Dq/X2DBRBNFhZG/LixkpYNkoG0Pq0+nRnViFX1+R 6zDdkPcJ+Tx1qNyfpZY+RT//9BMZ/76uzqSOS1MGjsveLt4NK1WSUT2Pq48PU0SLqkvYgtZHMxsaMX9o kKbLg9XyxAU1yOSITyzf76mwvoHVLhRrbSSOfUowhT n0dCEIBLr8oxBbnZ+Ck220m+Jl/QWVsZMnNyiKUY3R92umAyhTWaxMC0fPxcq00YuqO53AdN2IZ+uJUS c6HwlKNXaNQcmnasH0wrn1Ot+fjemtMv71qwhxpbK4VkljW9mPqc0UdG+GNqhl4VA1cnlo2kupO499iJ 9AoaMaE7EXXY6srTrS+3fBbQi2nwcN9GQz3XT9AoKt DIOC1Ygf+AWUAVloKi8fpLIpWTojTtKKZq/3CqtMd/EgTOsr16nPS/qc7Sfcw0K6rv3MPLbeAlY7JzyG quf9NZhSOms+c+CkAJW545E3BNdIBc0UuBaScmCe7Lh7jOZIGjnIQJiq7N62o9bDzmSc+dDiHq3uUa2t o0ZK/DdZRvYSAgHrFScztAXIiGAS73mDyYkXQMOjx8 CKSzacl+EO2KaHwaXaLq+ewtCtANYkOPPCiSRP11oenm/Jacquelin/M9bzPkooHOMNXGLCOksCizz9nxrjgH8U [file] NzCbHiBhDP0NCz3RHgI7OLB9dUPeGp0VYoJaHrNJJtFjSI1ZVKk= ID Date Data Source [id number] 03/22/2021 04:08:23 PM EDT [facility] Name Value Range Interpretation Code Description Data Keira rce(s) Supporting Document(s) Progress Note [facility] QFDRMx4oEkSEUwRw80/LQYpkKPYpz3ZbGQqvDVe6WTdmEOLgP5YmMXR6xI5wZWK2HSxYBwMtYgHwCOY8 lbm [file] RESOLUTION SPECIALIST+Ge5AKDDeTCz6A7H3EHXwEHi7E1JYX7EAZSCkZDdiTQxxZIAzDCc4G6A4FDIvJ2CWS5Ngxfhybg1+ YE1MA37XFFDcSBi6B8V0iMWfV2F6fPmTcQP5UZ3LIQ6EkMz0qYTatC8+YB5EI7FLIyFkQNr4X4U2jLWr E8I5vJoVuJP3TL4BKH6PrWAfYWWbncOoOw5iS5PLMO yCBxGJHOP2PX8SzJFaYI5LpYSGB9QxiZOxLz3rTLgtzWKrsL1mHb5hYEbjYI6FDoNVGSvWIBW3GW0AiT JrCH3WiGASM5RtyQLyQd8fIThtnKHnka4+FJ9CTERyAe3CXa9+JTkowkDiZcgFUvDiQBTsg3IzYZp0DE 3OAG8sqRskJUB0Xp7QtYA1fJNvQ9zMLR0HkYFyE03x lLZfTKQjZp1TRrD8amZfhL7FKA12cRKhp2T7WWDgT4uvIKwlx79pQYsjUKrQRQ4fNJVMKKmiBRtuHIN3 XnYotrgcLCNxNe7ZDgTwKJb5jR5hpIR0XNJ9EqajkQStNJcsPvJqItTnHrA7vStrpgk8JNuaLA0xDPge czptZXRhLyc+OPtiFCDmUXQgOdvLXKOnuW5zjfF8ly LpNMvdyJXfAf1vz7i7HgwtKr5rOs0iPMe7HlUwAbOdYVZtRc6qmE29JIbjibNnLs3QRxPzSSN9T2KmRh pSREY+NRjxSZuubOw0cSXsNJFzAp0FWWHkDOSeOYGvKFLhBNFvERRgCZRkTYYmKKCaPJRaXMRxLJCmWW AgICAgICAgICAgICAgICAgICAgICAgICAgICAgICAg IUZdGHTyTLKsVRWwRCViNRNbXOWnIJJuHJIeFGJtNI5UHTWpWIPtEHAxWZNmPZSsXSWxRBQjWXKcBNMe ICAgICAgICAgICAgICAgICAgICAgICAgICAgICAgICAgICAgICAgICAgICAgICAgICAgICAgICAgICAg PSEhQSSvMWGsYREbIS9SFDPmQZYaONVlEBThLXXkEH AgICAgICAgICAgICAgICAgICAgICAgICAgICAgICAgICAgICAgICAgICAgICAgICAgICAgICAgICAgIC PvPZSeQPYoPNMlJFCgRNArCECaWHNmHW8XFOTbAKIbWLFsHTAgKPUxXKZdRYVgKGFuAELeSOCcAPFkKI AgICAgICAgICAgICAgICAgICAgICAgICAgICAgICAg RYZnSBLdSWQsWOJbFMGlPMCgVEBnOAEiPZXiMDUuPZCcPN7YAPXgXITlRUUkTTXnVHUtKLPtVCEmYCXk ICAgICAgICAgICAgICAgICAgICAgICAgICAgICAgICAgICAgICAgICAgICAgICAgICAgICAgICAgICAg JDSdJUTkPWNoSGVeOKTpWX5UXVIcKCPbRVSzVPWeKI AgICAgICAgICAgICAgICAgICAgICAgICAgICAgICAgICAgICAgICAgICAgICAgICAgICAgICAgICAgIC OhFEIvWEAyPYGkWEVeHIGvLRYhXYBgDVEnCG0WGSOkZQIoSBNcSDAkRIMgYEYxKAOiYBDyXJFaRNYyXW AgICAgICAgICAgICAgICAgICAgICAgICAgICAgICAg VCNlFGDiMRZyHFTsNZFdKARvSQEeVRPzWBLjDGVdAGZxRYZsRQ4AXZFkQLKjUOIcEVVmJPJwVXUfJIUa ICAgICAgICAgICAgICAgICAgICAgICAgICAgICAgICAgICAgICAgICAgICAgICAgICAgICAgICAgICAg WYIqKGNiDYLpZOHfDHXjFLHfUF7CZDSvQJDzEUViTA AgICAgICAgICAgICAgICAgICAgICAgICAgICAgICAgICAgICAgICAgICAgICAgICAgICAgICAgICAgIC SdGKJoMTGiJLDlBYPoVKWdDKRzHGRrGIZyIZZrSS7QCSQiIFZbIRThYRCkGDEtYFBmSDKyLFIxOQOtVH AgICAgICAgICAgICAgICAgICAgICAgICAgICAgICAg MEJpJXWxNENoMQDwXYQuPLDmFLXhLQVnEDPzCUVuKUDdYNNqHFRpRY0YGQ25hSHef7C9NMDoSN9nnxe/ Ru6PWJfmwsMhwRDpMU9BDcOoJF0eij2EStQhXL7koc8AVUkEFeJnV3W7eJEzJAXkXEDSQjQdR67dXTvq Ma98PHlmCZPsVdKeQZe3Ks7FFzEiD1azVSRvWmB6MX OuMnV4SQUuZgK5CMNhVhMmWPCnOCPcSIIsPZTXEKH9LWPmPyLtOrQoXTRaSIrdFVEMCKJnJIOwFnBuRo JeBYQsRsCxXSOZNCB4QZBzWtEkTPJuXFJfExMyDQKBVA4DQuDyA1KbhJ36CFI3FGq+Iz1PDW2qr4JsJT n2KURkJO0pzu3UEArFGfJmX4FpgqD3OPMcURCaFh9Y QOQlEWJtbXH9CkUiYFARFwAaU1SdoB90DLIUEp1+FDkegnXsEprZSuLcRYPel6MgPYj6TF3XVIJwJAf6 qEOoRZSfK3Nmu0WxGl49NPKjEjwzAN0finCzOOZotrOrGZXFAPGtiAG6EfH6JgMcDbEvGTT8RzUrTV2t RJtnWH1QTYB5KAadTTOoYDZgN8iCLyUxDJPcGQXlfM zgEO9MFnVhP7HauuUgqVF3XCUxMIGAMx9+WOrkbsRcZsiUFsMmKOVvm9DxVYx4SZ2DSXOwUKsoUK7HWG QhiE9wFEplJK2GOtG3IRMbGKXYWfHyB31uxCQlJYb4R4GeBqFxWWDxCwqgVHLiQTbuHzGfSAUrUzCkBA ogID4+ID4+WJtlPU3QGUhdsuRcAAFyUs4SPCRbOCXv VR0wTRFiJPGvT2Z2aCguBRFCUiCpC0wnbvmoVO5tNHZqA568jYpakzEpJGUsBDZsPk5MZXHtOFW5QIUg yYIpTPDbDSXVRYyoHQ9HgDGtZPN1uV8zTZtnKXNdJEQsO4oSGnGlqAgwUN00sJkitaQuuNDbMNa+Pg0K NJ5ze0VrSHa7ucSlIQmkQVZ8ZPcnCCRyJTSnJPQbNZ B4SYC0PGERWwFzFTQxKSYnGAwfWNAvPSDugj4NSOVmCIK0VKKyVgCcZXRdEYNyTHreZFQqLVTpQNc7UI FjADYmAH0GKlAvHRChLRQbIHtbUAEuXHTcuu1JLVOwMWUaSiRlKlRqCQExTNOaKQdtGTIxMQRdNmJrCJ DnULXyQK9MMdYcMDUmHGoiEavjKLQnWOIijc9NDOTj NFPwDeO2OaFvKBTvIUGzBTgvVNXoHIHoWkKlXVKxFGBvAP5ZWkEhLAZnENV4LqdiQQQmYMKrty5HGCLb NWVwVkY2BXWlFIRvBGHfJQmxYLYhSHPsYFX0KINcKLIcAK3ACjPfCAPyRHDfENMiUQUhMRNtsp9QUJVf SQRdPZCaKqZgFQKnXQOvDDzgZXItXZI3JtO2PXMsUP MwSP9KEoJlJETyEUo5HsPvXEXhZODxpu2KOTDcBHAsNCW0PoJeCPBaWSQmCQlrMXXdUCSwEgv1FGFrRT KnVW8FDuEnAMVuRfZ3EnptFMRdOBRxkz6LFWCaHWKlDia4HVUvUBWrUHLjKBheLSKnIOR0XjWvGIEmML JxSG0DEjMqRPSdWcV3LZkhSVJmORHryl8YVSFoDQNr IFGdUfSdUUThYQNdWDhrCWVjCOS1LHQ1AZNzFILaEB7GJfUxXHVhUtO7LKFtAPIfKRVflq6XNPUlUOLq NvGoUkCyDKSbAOHtJIuwWFMxFZB0WyG6YXDzMDWtIV6DFzUdZAKpUwW0JbIqTSPpARYmae0DWNHfXGAa Txx3UnWoXMIcQFSbVPyjTUReMVS9ECF7GTTsLEQlOA 1IQcCfDQThXVH6VyDnQQXrZMNcjy0KRAUtKKA0JJNbHsVlUMFhMEYfPVeaOEIiOEQlKYf7BCVtWECmLR 9SXwPjZGWaAMY2SBKjXCMlGDVjag9PKOVdNDO7LCi9TmRhVPCkDTRiVPsxMOZqDASpNXS7RNYgEXRtDE 3SArAeSSIxZKZkZywsVDKbSBUviv5ELWDeVUP9NlJc RwVhPHRnQQKtYKdmLKIyNJX3MgO8VHWoYEPiBI4RCjPmVTEkNIJyOdKxDRSiDTWxqh5HUXHlEKE5KEM6 WZEgSXXpFHRpBDtoEKClCNS5BDPjCPYxRQRbJW6FBiHbTEPvQUH7QuIbBFMnVVBfvg2FHWBqGMN0VdJa DOTeWYUpRRYvXQbmOIAsVLN3UVV0FDWaPHVjBL8UTv MmNZKlWSU7WZCkZAWxXROprv2QWVPgJBT6FjpaFBCvXOXoCMQqYTkaDKKlKLN0ZRZbQZMgTQKqRK6BMd IiYOVcUAnfEFKoHOHlSVDvsc6YCMTjKAP0PYjfZHXeHAGxEZKlEZdcYPRtRCVaEkP7IVXnMOUvBZ4RZe QdGSXqZdNmMebbTGPxIFBcgb5WYRTfCPL0VPO4QCYz WHIeZFSpEGq3aoThmZQoINa5VE5PZ6TdhgSxIQXDDn3Sc519ZKMhZGChTw2VC2bmCr6jMPJjSHCWGj0R QFt9LAM5D5N2FJYzUnubUEW4MpZ1U0Q9S1U7G2WhGMduKrl+ROdvZQnpNrq5WPU4YUSkSoriNEz2QNg5 ZNqhIeK6XpBqCD7yPNKTZp0+CTfgfFVzdMzqVDRPNbHmIgA2MMiqBJKQHl0M ID Date Data Source [id number] 03/22/2021 06:03:39 PM [facility] Name Value Range Interpretation Code Description Data Keira rce(s) Supporting Document(s) Hemoglobin A1c/Hemoglobin.total in Blood by HPLC 6.3 % 4.0-6.0 [facility] (NOTE)<5.7% Average risk of diabetes (ADA)5.7-6.4% Increased risk of diabetes(ADA)>/= 6.5% Diagnostic for diabetes(ADA) Glucose mean value [Mass/volume] in Blood Estimated fr om glycated hemoglobin 134 mg/dL <126 [facility] ID Date Data Source [id number] 03/22/2021 05:55:55 PM [facility] Name Value Range Interpretation Code Description Data Keira rce(s) Supporting Document(s) Leukocytes [#/volume] in Blood by Automated count 7.4 10*3/uL 4-10 [facility] Erythrocytes [#/volume] in Blood by Automated count 4.78 10*6/uL 4.1- 5.3 [facility] Hemoglobin [Mass/volume] in Blood 14.3 g/dL 11.5-15.5 [facility] Hematocrit [Volume Fraction] of Blood by Automated count 43.1 % 3 6-45 [facility] Erythrocyte mean corpuscular volume [Entitic volume] by Auto mated count 90.3 fL 80-96 [facility] Erythrocyte mean corpuscular hemoglobin [Entitic mass] by Automated count 29.9 pg 27-33 [facility] Erythrocyte mean corpuscular hemoglobin concentration [Mass/volume] by Automated count 33.1 g/dL 32.0-36.0 [facility] Erythrocyte distribution width [Ratio] by Automated count 13.0 % 11.5-14.5 [facility] Platelets [#/volume] in Blood by Automated count 242 10*3/uL 150-400 [facility] Differential cell count method - Blood [facility] Neutrophils/100 leukocytes in Blood by Automated count 55 % [facility] Lymphocytes/100 leukocytes in Blood by Automated count 34 % [facility] Monocytes/100 leukocytes in Blood by Automated count 8 % [facility] Eosinophils/100 leukocytes in Blood by Automated count 2 % [facility] Basophils/100 leukocytes in Blood by Automated count 1 % [facility] Neutrophils [#/volume] in Blood by Automated count 4.05 10*3/uL 1.8-7 .0 [facility] Lymphocytes [#/volume] in Blood by Automated count 2.55 10*3/uL 1.2-4 .0 [facility] Monocytes [#/volume] in Blood by Automated count 0.58 10*3/uL 0-0.8 [facility] Eosinophils [#/volume] in Blood by Automated count 0.17 10*3/uL 0-0.5 [facility] Basophils [#/volume] in Blood by Automated count 0.07 10*3/uL 0-0.2 [facility] Nucleated erythrocytes/100 leukocytes [Ratio] in Blood by Automated count 0 /100{WBCs} 0-0 [facility] ID Date Data Source [id number] 03/22/2021 06:17:10 PM [facility] Name Value Range Interpretation Code Description Data Keira rce(s) Supporting Document(s) Cobalamin (Vitamin B12) [Mass/volume] in Serum or Plasma 526 pg/ml 2 11-946 [facility] ID Date Data Source [id number] 03/22/2021 06:17:10 PM [facility] Name Value Range Interpretation Code Description Data Keira rce(s) Supporting Document(s) Albumin [Mass/volume] in Serum or Plasma by Bromocresol green (BCG) dye binding method 3.9 g/dL 3.5-5.2 [facility] Bilirubin.total [Mass/volume] in Serum or Plasma 0.7 mg/dL <1.2 [facility] Calcium [Mass/volume] in Serum or Plasma 9.4 mg/dL 8.6-10.0 [facility] Chloride [Moles/volume] in Serum or Plasma 100 mmol/L 98-107 [facility] Creatinine [Mass/volume] in Serum or Plasma 0.98 mg/dL 0.50-0.90 [facility] Glucose [Mass/volume] in Serum or Plasma 120 mg/dL 70-140 [facility] Alkaline phosphatase [Enzymatic activity/volume] in Serum or Plasma 164 U/L 35-104 [facility] Potassium [Moles/volume] in Serum or Plasma 4.0 mmol/L 3.4-5.1 [facility] Protein [Mass/volume] in Serum or Plasma 7.2 g/dL 6.4-8.3 [facility] Sodium [Moles/volume] in Serum or Plasma 137 mmol/L 136-145 [facility] Aspartate aminotransferase [Enzymatic activity/volume] in Serum or Plasma 14 U/L <32 [facility] Urea nitrogen [Mass/volume] in Serum or Plasma 16 mg/dL 6-20 [facility] Osmolality of Serum or Plasma by calculation 286 mosm/kg 275-300 [facility] Creatinine/Urea nitrogen [Mass Ratio] in Serum or Plasma 17 [facility] Bicarbonate [Moles/volume] in Serum 27 mmol/L 22-29 [facility] Alanine aminotransferase [Enzymatic activity/volume] in Seru m or Plasma 19 U/L <33 [facility] Anion gap 3 in Serum or Plasma 10 mmol/L 8-15 [facility] Glomerular filtration rate/1.73 sq M pre dicted among non-blacks [Volume Rate/Area] in Serum or Plasma by Creatinine-based formula (MDRD) 64 mL/min/1.73m2 >60 [facility] Glomerular filtration rate/1.73 sq M pre dicted among blacks [Volume Rate/Area] in Serum or Plasma by Creatinine-based formula (MDRD) 74 mL/min/1.73m2 >60 [facility] ID Date Data Source [id number] 03/22/2021 06:17:10 PM EDT [facility] Name Value Range Interpretation Code Description Data Keira rce(s) Supporting Document(s) Thyrotropin [Units/volume] in Serum or Plasma 1.860 u[IU]/mL 0.270-4. 200 [facility] ID Date Data Source [id number] 03/21/2021 12:57:00 PM EDT [facility] ([facility], ) Name Value Range Interpretation Code Description Data Keira rce(s) Supporting Document(s) PDFReport Laboratory test result [facility] ([facility], ) FVC-Pred 3.29 L [facility] ([facility], ) FVC-Pre 2.01 L [facility] ([facility]) FVC-%Pred-Pre 61 L [facility] ([facility]) FVC-LLN 2.61 L [facility] ([facility]) Fev1-%Pred-Pre 66 L [facility] ([facility], ) Fev1-Pre 1.71 L [facility] ([facility]) Fev1-Pred 2.57 L [facility] ([facility]) Fev6-Pred 3.18 L [facility] ([facility]) Fev1-LLN 2.00 L [facility] ([facility]) Fev6-%Pred-Pre 62 L [facility] ([facility], ) Fev6-LLN 2.52 L [facility] ([facility]) Fev6-Pre 1.99 L [facility] ([facility]) Kcm0lva-Mldq 79 % [facility] ([facility]) Oyc8aza-Bsr 85 % [facility] ([facility]) Dwj5ppb-%Pred-Pre 107 % [facility] ([facility]) Mhq5soa-SKX 69 % [facility] ([facility]) Zop6qqw-Zle 99 % [facility] ([facility], ) Zto3yiq-Uoiq 97 % [facility] ([facility]) Kpq2pko-%Pred-Pre 102 % [facility] ([facility]) FEFMax-Pred 6.34 L/E/sec [facility] ([facility]) FEFMax-Pre 3.50 L/E/sec [facility] ([facility]) FEFMax-LLN 4.68 L/E/sec [facility] ([facility]) FEFMax-%Pred-Pre 55 L/E/sec [facility] ([facility]) Euj9686-Ofev 2.46 L/E/sec [facility] ([facility]) Oat0933-Maj 2.25 L/E/sec [facility] ([facility]) Wfr3313-%Pred-Pre 91 L/E/sec [facility] ([facility]) ExpTime-Pre 8.41 sec [facility] ([facility]) Ivu9203-BXU 1.26 L/E/sec [facility] ([facility]) Xqs9ato9-Kfi 86 % [facility] ([facility]) Oek6com5-%Pred-Pre 105 % [facility] ([facility]) Ioe8car1-Msdt 81 % [facility] ([facility]) Lsp1ecy9-THF 73 % [facility] ([facility]) ID Date Data Source [id number] 11/29/2020 03:38:00 PM EDT [facility] ([facility]) Name Value Range Interpretation Code Description Data Keira rce(s) Supporting Document(s) Red Blood Count 4.88 10 4.00-5.40 Normal (applies to non-numeric results) [facility]) White Blood Count 7.8 10 4.0-10.0 Normal (applies to non-numeri c results) [facility] ([facility]) Hemoglobin 14.8 g/dL 12.0-15.5 Normal (applies to non-numeric resul ts) [facility] ([facility]) Mean Corpuscular Volume 95.3 fl 80.0-96.0 Normal ( applies to non-numeric results) [facility] ([facility], ) Hematocrit 46.5 % 36.0-47.0 Normal (applies to non-numeric resul ts) [facility]) Mean Corpuscular HGB Conc 31.8 g/dL 32.0-36.5 Below low normal [facility] ([facility]) Mean Corpuscular Hemoglobin 30.3 pg 27.0-33.0 Norm al (applies to non-numeric results) [facility] ([facility]) Red Cell Distribution Width 12.5 % 11.5-14.5 Norm al (applies to non-numeric results) [facility] ([facility]) Platelet Count, Automated 245 10 150-450 Normal (applies to non-numeric results) [facility]) Neutrophils % 53.0 % 36.0-66.0 Normal (applies to non-numeric re sults) [facility] ([facility], ) Lymph % 35.0 % 24.0-44.0 Normal (applies to non-numeric resul ts) [facility] At[place] % 7.8 % 2.0-8.0 Normal (applies to non-numeric resul ts) [facility]) Eos % 2.7 % 0.0-3.0 Normal (applies to non-numeric resul ts) [facility]) Baso % 1.1 % 0.0-1.0 Above high normal [facility] ([facility]) Immature Granulocyte % 0.4 % 0-3.0 Normal (applies to non-n umeric results) [facility]) Nucleated Red Blood Cell % 0.0 % 0-0 Normal (applies to n on-numeric results) [facility]) Neutrophils # 4.2 10 1.5-8.5 Normal (applies to non-numeric re sults) [facility]) Lymph # 2.7 10 1.5-5.0 Normal (applies to non-numeric resul ts) [facility]) Atkinson # 0.6 10 0.0-0.8 Normal (applies to non-numeric resul ts) [facility] ([facility]) Baso # 0.1 10 0.0-0.2 Normal (applies to non-numeric resul ts) [facility] ([facility]) 12/21/20 (Thr December 21) 08:57 AM BIJU SHEA No significant abnormalities. Eos # 0.2 10 0.0-0.5 Normal (applies to non-numeric resul ts) [facility]) ID Date Data Source [id number] 11/29/2020 03:38:00 PM EDT [facility] ([facility]) Name Value Range Interpretation Code Description Data Keira rce(s) Supporting Document(s) Tissue transglutaminase IgA Ab [Units/volume] in Serum 4 U/mL 0-3 Above high normal [facility] ([facility]) Negative 0 - 3 Weak Positive 4 - 10 Positive >10 . Tissue Transglutaminase (tTG) has been identified as the endomysial antigen. Studies have demonstr- ated that endomysial IgA antibodies have over 99% specificity for gluten sensitive enteropathy. Performed at: [facility] [employer] [id number] Mattress Inspector: Caryn Frank MD, Phone: [phone] ID Date Data Source [id number] 07/07/2020 02:31:00 PM EST [facility] Name Value Range Interpretation Code Description Data Keira rce(s) Supporting Document(s) IgA [Mass/volume] in Serum or Plasma 540.0 mg/dL 70-400 Above hig h normal [facility] ([facility]) Tissue transglutaminase IgA Ab [Units/volume] in Serum 4 U/mL 0-3 Above high normal [facility] ([facility]) Negative 0 - 3 Weak Positive 4 - 10 Positive >10 . Tissue Transglutaminase (tTG) has been identified as the endomysial antigen. Studies have demonstr- ated that endomysial IgA antibodies have over 99% specificity for gluten sensitive enteropathy. Performed at: [facility] [employer] [id number] Mattress Inspector: Caryn Frank MD, Phone: [phone] ID Date Data Source [id number] 07/07/2020 02:31:00 PM EST [facility] ([facility]) Name Value Range Interpretation Code Description Data Keira rce(s) Supporting Document(s) Free T4 1.20 ng/dL 0.76-1.46 Normal (applies to non-numeric resul ts) [facility] ([facility]) 07/12/20 (FriJul 12) 04:20 PM BIJU MÉNDEZ Thyroid function is normal. Thyroid Stimulating Hormone 2.130 uIU/ML 0.358-3.740 Norm al (applies to non- numeric results) [facility] ([facility]) ID Date Data Source [id number] 06/17/2020 12:00:00 AM EST [facility] Name Value Range Interpretation Code Description Data Keira rce(s) Supporting Document(s) 2019-nCoV RNA XXX SAMY+probe-Imp [facility] This lab was ordered by [facility] and reported by [employer]. ID Date Data Source [id number] 06/15/2020 07:38:00 AM EST [facility] ([facility]) Name Value Range Interpretation Code Description Data Keira rce(s) Supporting Document(s) PDFReport Laboratory test result [facility] ([facility]) FVC-Pred 3.29 L [facility] ([facility]) FVC-Pre 2.14 L [facility] ([facility]) FVC-LLN 2.61 L [facility] ([facility]) FVC-%Pred-Pre 64 L [facility] ([facility]) Fev1-Pred 2.57 L [facility] ([facility]) Fev1-Pre 1.85 L [facility] ([facility]) Fev1-%Pred-Pre 71 L [facility] ([facility]) Fev6-Pred 3.18 L [facility] ([facility]) Fev1-LLN 2.00 L [facility] ([facility]) Fev6-Pre 2.14 L [facility] ([facility], ) Fev6-LLN 2.52 L [facility] ([facility]) Fev6-%Pred-Pre 67 L [facility] ([facility]) Kvv6ftu-Fyt 86 % [facility] ([facility]) Cab6nik-%Pred-Pre 109 % [facility] ([facility]) Efw5lpw-Rrho 79 % [facility] ([facility]) Vji4xwo-Iwaf 97 % [facility] ([facility]) Nka1vjz-ZUR 69 % [facility] ([facility]) Hea2mtq-Rqn 100 % [facility] ([facility]) Kgh9ipu-%Pred-Pre 103 % [facility] ([facility]) FEFMax-Pre 5.09 L/E/sec [facility] ([facility]) FEFMax-Pred 6.34 L/E/sec [facility] ([facility]) FEFMax-LLN 4.68 L/E/sec [facility] ([facility]) FEFMax-%Pred-Pre 80 L/E/sec [facility] ([facility]) Bqv8028-Uhfq 2.46 L/E/sec [facility] ([facility]) Sba7169-Zwx 2.31 L/E/sec [facility] ([facility]) Ugh2835-%Pred-Pre 93 L/E/sec [facility] ([facility]) Grd1608-CAE 1.26 L/E/sec [facility] ([facility]) ExpTime-Pre 6.59 sec [facility] ([facility]) Rmj9ntt7-%Pred-Pre 106 % [facility] ([facility]) Avg4qvc1-Mnjz 81 % [facility] ([facility]) Vxo9abz3-Xvl 86 % [facility] ([facility]) Nbt1rvs6-FXP 73 % [facility] ([facility]) ID Date Data Source [id number] 05/24/2020 12:00:00 AM EDT [facility] Name Value Range Interpretation Code Description Data Keira rce(s) Supporting Document(s) 2019-nCoV RNA XXX SAMY+probe-Imp [facility] This lab was ordered by [facility] and reported by [employer] ID Date Data Source [id number] 04/19/2020 07:00:00 PM EDT [facility] ([facility], ) Name Value Range Interpretation Code Description Data Keira rce(s) Supporting Document(s) Fats Neutral Laboratory test result Normal (applies to non -numeric results) [facility] ([facility]) <content>Normal (<60 Droplets/HPF)</cont ent>
<content></content> Fats Total Laboratory test result Normal (applies to non-n umeric results) [facility] ([facility]) <content>Normal (<100 Droplets/HPF)</con tent>
<content></content> ID Date Data Source [id number] 04/19/2020 07:00:00 PM EDT [facility] ([facility]) Name Value Range Interpretation Code Description Data Keira rce(s) Supporting Document(s) Calprotectin [Mass/mass] in Stool 39 ug/g 0-120 Normal (applies to non-numeric results) [facility] ([facility]) <content>Concentration Interpretatio n Follow-Up</content>
<content><16 - 50 ug/g Normal None</content>
<content>>50 -120 ug/g Borderline Re-evaluate in 4-6 weeks</content>
<content>>120 ug/g Abnormal Repeat as clinically</content>
<content>indicated</content>
<content>Performed at: [facility]</content>
<content>[address] [place], [place] [id number]</content>
<content>Mattress Inspector: Caryn Frank MD, Phone: [phone]</content>
<content>Performed at: - [facility]</content>
<content>[address], [place], [place] [id number]</content>
<content>Mattress Inspector: Geovany Shipley MD, Phone: [phone]</content>
<content></content> Elastase.pancreatic [Mass/mass] in Stool 243 Normal (applies to non-numeric results) [facility] ([facility], ) <content>Result Units: ug Elast./g</cont ent>
<content>Severe Pancreatic Insufficiency: <100</content>
<content>Moderate Pancreatic Insufficiency: 100 - 200</content>
<content>Normal: >200</content>
<content></content> ID Date Data Source [id number] 04/19/2020 07:00:00 PM EDT [facility] ([facility]) Name Value Range Interpretation Code Description Data Keira rce(s) Supporting Document(s) Gastrointestinal (GI) Panel Laboratory test result [facility] ([facility]) This Gastrointestinal PCR Panel detects the following [...] Never Smoker completed Never S moker eCW1 ([facility]) Smoking 03/30/2021 12:00:00 AM EDT Never Smoker completed Never S moker eCW1 ([facility]) Alcohol intake 03/22/2021 12:00:00 AM EDT Current non-d jose of alcohol (finding) completed Current non-drinker of alcohol (finding) [facility] Tobacco use and exposure 03/22/2021 12:00:00 AM EDT Never used co mpleted Never used [facility] Smoking 03/22/2021 12:00:00 AM EDT Never smoker completed Never s [facility] Smoking 01/19/2021 12:00:00 AM EDT Never Smoker completed Never S moker eCW1 ([facility]) Smoking 01/19/2021 12:00:00 AM EDT Never Smoker completed Never S moker eCW1 ([facility]) Smoking 01/19/2021 12:00:00 AM EDT Never Smoker completed Never S moker eCW1 ([facility]) Smoking 01/19/2021 12:00:00 AM EDT Never Smoker completed Never S moker eCW1 ([facility]) Smoking 09/20/2020 12:00:00 AM EST Patient has never smoked co mpleted Patient has never smoked [facility] ([facility] [facility] Smoking 06/21/2020 12:00:00 AM EST Non Smoker completed Non Smoke r MEDENT ([facility]) Vital Signs ID Date Data Source UNK Name Value Range Interpretation Code Description Data Source(s) [place] body weight 115 [lb_av] 115 [lb_av] MEDEN T ([facility]) Body mass index (BMI) [Ratio] 44.1 kg/m2 44.1 k g/m2 MEDENT ([facility]) Systolic blood pressure 122 mm[Hg] 122 mm[Hg] M EDENT ([facility]) Diastolic blood pressure 84 mm[Hg] 84 mm[Hg] [facility] ([facility]) Body height 63 [in_i] 63 [in_i] [facility] 5'3" Body weight 249.00 [lb_av] 249.00 [lb_av] MEDEN T ([facility]) Body weight 112.946 kg 112.946 kg [facility] Body surface area Derived from formula 2.12 m2 2.12 m2 [facility] ([facility]) Body weight 242 [lb_av] 242 [lb_av] eCW1 ([facility]) Body weight 109.77 kg 109.77 kg eCW1 ([facility]) Body height 64 [in_i] 64 [in_i] eCW1 ([facility]) Body mass index (BMI) [Ratio] 41.53 kg/m2 41.53 kg/m2 eCW1 ([facility]) Heart rate 73 /min 73 /min eCW1 ([facility]) Respiratory rate 18 /min 18 /min eCW1 ([facility]) Body temperature 97.1 [degF] 97.1 [degF] eCW1 ( [facility]) Systolic blood pressure 124 mm[Hg] 124 mm[Hg] e CW1 ([facility]) Diastolic blood pressure 80 mm[Hg] 80 mm[Hg] eCW1 ([facility]) Systolic blood pressure 130 mm[Hg] 130 mm[Hg] M EDENT ([facility]) Heart rate 58 /min 58 /min [facility] ([facility]) Oxygen saturation in Arterial blood by Pulse oximetry 96 % 96 % [facility] ([facility]) Body height 63 [in_i] 63 [in_i] [facility] ([facility]) 5'3" Body surface area Derived from formula 2.10 m2 2.10 m2 [facility] ([facility]) Body weight 243.00 [lb_av] 243.00 [lb_av] MEDEN T ([facility]) Body mass index (BMI) [Ratio] 43.0 kg/m2 43.0 k g/m2 [facility] ([facility]) Body weight 110.225 kg 110.225 kg [facility] ([facility]) Diastolic blood pressure 68 mm[Hg] 68 mm[Hg] MEDENT ([facility]) [place] body weight 115 [lb_av] 115 [lb_av] MEDEN T ([facility]) Body weight 233.8 [lb_av] 233.8 [lb_av] eCW1 ([facility]) Body height 64 [in_i] 64 [in_i] eCW1 ([facility]) Body mass index (BMI) [Ratio] 40.13 kg/m2 40.13 kg/m2 eCW1 ([facility]) Heart rate 71 /min 71 /min eCW1 ([facility]) Respiratory rate 18 /min 18 /min eCW1 ([facility]) Body temperature 97.8 [degF] 97.8 [degF] eCW1 ( [facility]) Systolic blood pressure 124 mm[Hg] 124 mm[Hg] e CW1 ([facility]) Diastolic blood pressure 80 mm[Hg] 80 mm[Hg] eCW1 ([facility]) Body weight 236.00 [lb_av] 236.00 [lb_av] MEDEN T ([facility]) Body height 63 [in_i] 63 [in_i] MEDENT ([facility]) 5'3" Body surface area Derived from formula 2.07 m2 2.07 m2 [facility] ([facility]) Body mass index (BMI) [Ratio] 41.8 kg/m2 41.8 k g/m2 [facility] ([facility]) [place] body weight 115 [lb_av] 115 [lb_av] MEDEN T ([facility]) Body weight 107.050 kg 107.050 kg [facility] ([facility]) Body mass index (BMI) [Ratio] 41.8 kg/m2 41.8 k g/m2 [facility] ([facility]) [place] body weight 115 [lb_av] 115 [lb_av] MEDEN T ([facility]) Systolic blood pressure 128 mm[Hg] 128 mm[Hg] M EDENT ([facility]) Diastolic blood pressure 76 mm[Hg] 76 mm[Hg] [facility] ([facility]) Body height 63 [in_i] 63 [in_i] [facility] ([facility]) 5'3" Body weight 236.00 [lb_av] 236.00 [lb_av] MEDEN T ([facility]) Body weight 107.050 kg 107.050 kg [facility] ([facility]) Body surface area Derived from formula 2.07 m2 2.07 m2 [facility] ([facility]) Systolic blood pressure 124 mm[Hg] 124 mm[Hg] [facility] ([facility]) Heart rate 70 /min 70 /min [facility] ([facility]) Diastolic blood pressure 84 mm[Hg] 84 mm[Hg] [facility] ([facility]) Body weight 234.00 [lb_av] 234.00 [lb_av] [facility] Body mass index (BMI) [Ratio] 41.4 kg/m2 41.4 k g/m2 [facility] ([facility]) Oxygen saturation in Arterial blood by Pulse oximetry 95 % 95 % [facility] ([facility]) Body temperature 97.3 [degF] 97.3 [degF] [facility] ([facility]) Body height 63 [in_i] 63 [in_i] [facility] ([facility]) 5'3" [place] body weight 115 [lb_av] 115 [lb_av] [facility] Body weight 106.142 kg 106.142 kg [facility] ([facility]) Body surface area Derived from formula 2.07 m2 2.07 m2 [facility] ([facility]) Systolic blood pressure 118 mm[Hg] 118 mm[facility]Hg] [facility] Diastolic blood pressure 84 mm[Hg] 84 mm[Hg] [facility] ([facility]) Body height 63 [in_i] 63 [in_i] [facility] ([facility]) 5'3" Body weight 235.00 [lb_av] 235.00 [lb_av] MEDEN T ([facility]) Body mass index (BMI) [Ratio] 41.6 kg/m2 41.6 k g/m2 [facility] ([facility]) [place] body weight 115 [lb_av] 115 [lb_av] MEDEN T ([facility]) Body weight 106.596 kg 106.596 kg [facility] ([facility]) Body surface area Derived from formula 2.07 m2 2.07 m2 [facility] ([facility]) Heart rate 64 /min 64 /min [facility] ([facility]) Oxygen saturation in Arterial blood by Pulse oximetry 98 % 98 % [facility] ([facility]) Body height 63 [in_i] 63 [in_i] [facility] ([facility]) 5'3" Body weight 231.00 [lb_av] 231.00 [lb_av] MEDEN T ([facility]) Body mass index (BMI) [Ratio] 40.9 kg/m2 40.9 k g/m2 [facility] ([facility]) [place] body weight 115 [lb_av] 115 [lb_av] MEDEN T ([facility]) Systolic blood pressure 120 mm[Hg] 120 mm[Hg] [facility] ([facility]) Diastolic blood pressure 80 mm[Hg] 80 mm[Hg] [facility] ([facility]) Body weight 104.782 kg 104.782 kg [facility] ([facility]) Body surface area Derived from formula 2.06 m2 2.06 m2 [facility] ([facility]) Body weight 229.00 [lb_av] 229.00 [lb_av] MEDEN T ([facility]) Body mass index (BMI) [Ratio] 40.6 kg/m2 40.6 k g/m2 [facility] ([facility]) Systolic blood pressure 124 mm[Hg] 124 mm[facility]Hg] [facility] Diastolic blood pressure 68 mm[Hg] 68 mm[Hg] [facility] ([facility], ) [place] body weight 115 [lb_av] 115 [lb_av] MEDEN T ([facility], ) Body height 63 [in_i] 63 [in_i] [facility] ([facility], ) 5'3" Body weight 103.874 kg 103.874 kg [facility] ([facility]) Patient Treatment Plan of Care Planned Activity Planned Date Details Description Data Source (s) Ubrelvy 100 MG Oral Tablet (Ubrogepant) 03/22/2021 12:00:00 AM [facility] Erenumab-aooe 140 MG/ML Subcutaneous Solution Auto-inj chichi (AIMOVIG) 03/22/2021 12:00:00 AM [facility] Propranolol Hydrochloride 80 MG Oral Tablet 02/19/2021 12:00:00 AM [facility] buspirone hydrochloride 7.5 MG Oral Tablet 02/19/2021 12:00:[address] [facility] 24 HR venlafaxine 225 MG Extended Release Oral Tablet 03/08/2016 12:00:00 AM [facility] Erythromycin 0.005 MG/MG Ophthalmic Ointment 04/18/2015 12:00:00 AM [facility] Ascorbic Acid 500 MG Oral Capsule 04/06/2013 12:00:00 AM [facility] Acetaminophen 250 MG / Aspirin 250 MG / Caffeine 65 MG Oral Tablet [Excedrin] [facility] buspirone hydrochloride 5 MG Oral Tablet [facility] levocetirizine dihydrochloride 5 MG Oral Tablet [facility] Nortriptyline 10 MG Oral Capsule [facility] Ergocalciferol [id number] UNT Oral Capsule [facility] SUMATRIPTAN SUCCINATE PO Ups [facility]
[2021-05-17] MEDS ORDERED: PROP80TA PO (00:26)
[2021-05-17] MEDS ORDERED: ABIL1TAB13 PO (00:26)
[2021-05-17] MEDS ORDERED: PRED20TA PO (00:26)
[2021-05-17] MEDS ORDERED: LEVE10003 PO (00:26)
[2021-05-17] MEDS ORDERED: PROAAER10 INH (00:26)
[2021-05-17] MEDS ORDERED: ZOLO100T PO (00:26)
[2021-05-17] MEDS ORDERED: HOME MED LIST COMPLETE! XX SCH (00:30)
[2021-05-17 01:03] LABS: HEMATOCRIT 47.1 % (36.0-47.0); HEMOGLOBIN 15.3 g/dl (12.0-15.5); MEAN CORPUSCULAR HGB CONC 32.5 g/dl (32.0-36.5); MEAN CORPUSCULAR VOLUME 92.4 fl (80.0-96.0); PLATELET COUNT, AUTOMATED 218 10^3/uL (150-450); WHITE BLOOD COUNT 17.6 10^3/uL (4.0-10.0)
[2021-05-17 01:24] LABS: CALCIUM LEVEL 8.5 MG/DL (8.5-10.1); CREATININE FOR GFR 1.24 MG/DL (0.55-1.30); GLOMERULAR FILTRATION RATE 47.6 (>51); POTASSIUM SERUM 3.8 MEQ/L (3.5-5.1)
[2021-05-17 01:35] LABS: RSV AMPLIFICATION POSITIVE (NEGATIVE)
--- NOTE | 2021-05-17 01:39 | REPVR ---
PROCEDURE INFORMATION: Exam: XR Chest Exam date and time: 05/16/2021 11:39 PM Age: 55 years old Clinical indication: Other: SOB TECHNIQUE: Imaging protocol: XR of the chest. Views: 2 views. COMPARISON: CR Chest, 1 view 05/16/2021 9:50 PM FINDINGS: Lungs: Lungs are diffusely hypoexpanded. No evidence of pulmonary edema. No focal consolidation or parenchymal lung mass. Pleural spaces: No pleural effusion. No pneumothorax. Heart/Mediastinum: Heart and mediastinal contours are normal, given the degree of inflation. Bones/joints: Osseous structures show no concerning abnormality. Soft tissues: No asymmetry of the extrathoracic soft tissues. IMPRESSION: Hypoexpanded lungs, without evidence of active cardiopulmonary disease Electronically signed by: Mansoor Herzog On 05/17/2021 01:38:13 AM
--- NOTE | 2021-05-17 01:48 | HPEPDOC ---
[facility] Medical History & Physical Date of Admission May 17, 2021 Date of Service: May 17, 2021 Attending Physician: TRACY CROCKER MD History and Physical TIME OF SERVICE: 210AM CHIEF COMPLAINT: seizure HISTORY OF PRESENT ILLNESS: has been feeling short of breath and has had a dry cough. She denied having a sore throat or chest pain or tightness. She was seen in the ER on May 13 and diagnosed with bronchitis due to RSV and sent home. Thereafter she stopped taking her seizure medications. She thinks she has been having seizures for about 1 week. She is aware she is having seizures bec ause she finds herself having staring spells. Today she called 911 because she had difficulties walking and couldnt take it anymore. She Per ER intake notes when EMS assessed her, her O2 sats were in the high 80s and she had poor lung sounds. REVIEW OF SYSTEMS: 10-point review of systems negative except as listed in HPI PAST MEDICAL/ SURGICAL HISTORY: Seizure disorder Chronic Asthma (Bronchial provocation test 2018 positive) Migraines Essential HTN JONNY Hypothyroidism OA Anxiety / Depression Stress Urinary incontinence Breast biopsy for cancer Left knee arthroscopy Right ankle ORIF Tubal ligation Cholecystectomy FAMILY HISTORY: Father colon CA / Mother breast CA, asthma, / Grandfather colon CA SOCIAL HISTORY: She doesnt smoke ALLERGIES: Please see below. HOME MEDICATIONS: Please see below. PHYSICAL EXAMINATION: Peak Flow = 0 (poor effort) / Expected Peak Flow 381L/min Vital Signs Date Time Temp Pulse Resp B/P (MAP) Pulse Ox O2 Delivery O2 Flow Rate FiO2 05/16/21 21:46 96.9 88 24 180/87 (118) 93 Nasal Cannula 3.0 GENERAL APPEARANCE: well-nourished and developed/ NAD HEENT: EOMI / MMM&P / poor dentition CARDIOVASCULAR: RRR/NMRG LUNGS: she is not tachypneic / not using accessory muscles and can speak full sentences w/o stopping to take a breath / she has frequent episodes of uncontrollable coughing / and has expiratory wheezing ABDOMEN: contour convex : she has urinated on the bed (she attributes this to the coughing spells) MUSCULOSKELETAL: NCAT / DYLAN x 4 extremities INTEGUMENT: she is not flushed or diaphoretic NEUROLOGICAL: CN 2-12 grossly intact / speech not dysarthric PSYCHIATRIC: A&O / able to understand and follow all commands LABORATORY DATA: Laboratory Tests 05/16/21 22:40 IMAGING: Chest xray 2 view IMPRESSION: Hypoexpanded lungs, without evidence of active cardiopulmonary disease. CT head IMPRESSION: Normal appearing CT scan of the brain. MICROBIOLOGY: Respiratory panel RSV + ASSESSMENT: is a 55 yr old w a hx of Seizures, Asthma, Migraines, HTN, JONNY, Hypothyroidism, Anxiety / Depression, & Stress Urinary incontinence who is admitted for Acute Asthma 2/2 RSV, and seizures. PLAN: 1 Acute Asthma 2/2 RSV -Reason for admission: poor response to therapy in ED Plan: give IV Mag sulfate prior to admission to the medical floor (Mg sulfate has bronchodilator activity possibly due to inhibition of calcium influx into airway smooth muscle cells; it can also help improve lung function in patients with severe asthma exacerbations that are not responding to initial therapy) / c/w supplemental O2 / continuous pulse ox / check VBG /ask RT monitor peak expiratory flow daily & consider discharge when her peak flow >70% of her expected peak flow / Dunebs Q6H, Albuterol with inhaled glucocorticoids / oral Prednisone / will NOT start antibiotics because she has a viral infection / per ROB 2020 guidelines will switch from JORGITO PRN as first step med to budesonide- formoterol (Symbicort) PRN as first step medication for chronic asthma 2 SIRS - The leukocytosis is reactive due to recent steroid use, while the tachypnea is due to RSV Plan: f/u blood cx 3 Seizures -2/2 missing medications and acute illness Plan: bed rest tonight / fall precautions/ seizure precautions/ frequent neuro checks / f/u prolactin, / c/w Keppra / Ativan 2mg IV Q2H PRN for break through seizures 4 Elevated BNP Plan: f/u Echo in the morning to r/o viral cardiomyopathy and or cor pulmonale i/s/o chronic Asthma 5 Migraines Plan: Propranolol & Aimovig monthly 6 Essential HTN Plan: Propranolol 7 JONNY Plan: pulse ox / supplemental O2 8 Hypothyroidism Plan: Levothyroxine 9 Anxiety / Depression Plan: Aripiprazole 10 Obesity -Complicates care Plan: check A1C to screen for DM DVT lovenox Disposition: home after more than 2 midnights stay Home Medications Scheduled Aripiprazole (Abilify) 2 Mg Tablet, 2 MG PO DAILY Budesonide/Formoterol (Symbicort 160-4.5 Mcg Inhaler) 6 Gm Hfa.aer.ad, 2 PUFF INH BID Erenumab-Aooe (Aimovig Autoinjector) 140 Mg/1 Ml Auto.injct, 140 MG SQ QMONTH Levothyroxine Sodium (Levothyroxine Sodium) 50 Mcg Tablet, 50 MCG PO DAILY Prednisone (Prednisone) 20 Mg Tablet, 40 MG PO DAILY STARTED ON 05/14/21 Propranolol HCl (Propranolol HCl) 80 Mg Tablet, 80 MG PO BID Sertraline Hcl (Zoloft) 100 Mg Tablet, 100 MG PO BID levETIRAcetam (levETIRAcetam) 1,000 Mg Tablet, 1,000 MG PO QHS levETIRAcetam (levETIRAcetam) 1,000 Mg Tablet, 500 MG PO DAILY Scheduled PRN Albuterol Sulfate (Proair Hfa) 8.5 Gm Hfa.aer.ad, 2 PUFF INH QID PRN for SHORTNESS OF BREATH Allergies Coded Allergies: Latex, Natural Rubber (Verified Allergy, Intermediate, hives, itching, 04/13/21) TAPE (Verified Allergy, Intermediate, hives, itching, 04/13/21) Antihistamines - Ethanolamine (Verified Allergy, Unknown, LOWERS EFFECTIVENESS OF ALL MEDICATIONS, 04/13/21) A-FIB/CHADSVASC A-FIB History Current/History of A-Fib/PAF?: No Current PO Anticoag Therapy: No TRACY CROCKER MD May 17, 2021 01:47
[2021-05-17 01:54] LABS: HEMOGLOBIN A1c 6.3 %
[2021-05-17] MEDS: IPRATROPIUM 0.5MG/ALBUTEROL 2.5MG INH SOL UD 3ML (DUONEB) NEB SCH ×4 (01:59→20:08)
[2021-05-17] MEDS ORDERED: LORazepam 2 MG/ML VIAL IV PRN (03:35)
[2021-05-17] MEDS ORDERED: SYMB16INH INH (03:45)
[2021-05-17] MEDS: PROPRANOLOL 20 MG TAB PO SCH ×3 (05:55→20:41)
[2021-05-17] MEDS: LEVOTHYROXINE 50MCG TABLET (0.05MG) PO SCH (05:55)
--- NOTE | 2021-05-17 07:44 | ECGEPIP ---
[facility] - ED Test Date: 2021-05-16 Pat Name: CHARY JEROME Department: Room: - Gender: Female Assistant Credit Manager: ANI : 1965 Requested By: HOMERO ONOFRE Order Number: [id number] Reading MD: Kt Roque Measurements Intervals [place] Rate: 86 P: 54 MD: 130 QRS: 36 QRSD: 68 T: 31 QT: 366 QTc: 437 Interpretive Statements Normal sinus rhythm NSTTW ABNORMALITY(S) SIMILAR TO 05/14/21 Electronically Signed on 05-17-2021 7:44:55 EDT by Kt Roque
[2021-05-17] MEDS: predniSONE 20 MG TAB PO SCH (09:12)
[2021-05-17] MEDS: SERTRALINE 100 MG TAB PO SCH ×2 (09:12→20:42)
[2021-05-17] MEDS: levETIRAcetam 250MG TABLET (KEPPRA) PO SCH ×2 (09:12→20:42)
[2021-05-17] MEDS: ARIPiprazole 2 MG TAB PO SCH (09:12)
[2021-05-17] MEDS: ENOXAPARIN 40MG/0.4ML SYRINGE (J1650 PER 10MG) SC SCH (09:15)
[2021-05-17] MEDS: ACETAMINOPHEN TAB 650MG DOSE (2X325MG) PO PRN ×2 (09:18→17:59)
[2021-05-17 11:42] LABS: PROLACTIN 2.3 NG/ML
[2021-05-17] MEDS: ALBUTEROL SULFATE 2.5 MG/0.5 ML INH NEB SOLN NEB PRN (11:59)
[2021-05-17 14:20] VITALS: BP 144/69; O2SAT 93
[2021-05-17 20:35] VITALS: BP 129/69
[2021-05-17 22:00] VITALS: BP 120/68
[2021-05-18] MEDS: IPRATROPIUM 0.5MG/ALBUTEROL 2.5MG INH SOL UD 3ML (DUONEB) NEB SCH ×4 (04:05→20:00)
[2021-05-18] MEDS: LEVOTHYROXINE 50MCG TABLET (0.05MG) PO SCH (05:25)
[2021-05-18 05:28] VITALS: BP 141/75
[2021-05-18] MEDS: ACETAMINOPHEN TAB 650MG DOSE (2X325MG) PO PRN ×2 (05:28→20:27)
[2021-05-18 05:58] LABS: HEMATOCRIT 45.6 % (36.0-47.0); HEMOGLOBIN 14.8 g/dl (12.0-15.5); MEAN CORPUSCULAR HGB CONC 32.5 g/dl (32.0-36.5); MEAN CORPUSCULAR VOLUME 92.3 fl (80.0-96.0); PLATELET COUNT, AUTOMATED 229 10^3/uL (150-450); RED BLOOD COUNT 4.94 10^6/uL (4.00-5.40); WHITE BLOOD COUNT 19.7 10^3/uL (4.0-10.0)
[2021-05-18 06:26] LABS: CREATININE FOR GFR 1.21 MG/DL (0.55-1.30); POTASSIUM SERUM 3.7 MEQ/L (3.5-5.1)
[2021-05-18] MEDS ORDERED: VANCOMYCIN HCL 1,000 MG, VIAL MATE ADAPTER 1 EACH in NS 250 ML IV SCH (07:40)
--- NOTE | 2021-05-18 08:26 | REP ---
INDICATION: leukocytosis COMPARISON: None. TECHNIQUE: Portable AP view of the chest FINDINGS: The mediastinum and cardiac silhouette are stable and within normal limits for portable technique. Chronic elevation to the right hemidiaphragm noted. The lung [place] are clear without acute consolidation, effusion, or pneumothorax. Skeletal structures are intact. IMPRESSION: No focal consolidation or effusion. <Electronically signed by Suresh Carney > 05/18/21 0839
[2021-05-18 09:41] LABS: ERYTHROCYTE SEDIMENTATION RATE 59 mm/hr (0-30)
[2021-05-18] MEDS: ARIPiprazole 2 MG TAB PO SCH (09:54)
[2021-05-18] MEDS: levETIRAcetam 250MG TABLET (KEPPRA) PO SCH ×2 (09:54→20:25)
[2021-05-18] MEDS: ENOXAPARIN 40MG/0.4ML SYRINGE (J1650 PER 10MG) SC SCH (09:54)
[2021-05-18] MEDS: PIPERACILLIN/TAZOBACTAM SOD 4.5 GM in D5W MINI-BAG PLUS 50 ML IV SCH ×3 (09:54→20:25)
[2021-05-18] MEDS: PROPRANOLOL 20 MG TAB PO SCH ×2 (09:55→20:26)
[2021-05-18] MEDS: predniSONE 20 MG TAB PO SCH (09:56)
[2021-05-18] MEDS: SERTRALINE 100 MG TAB PO SCH ×2 (09:57→20:26)
[2021-05-18] MEDS ORDERED: VANCOMYCIN HCL 1,000 MG, VIAL MATE ADAPTER 1 EACH in NS 250 ML IV ONE ×2 (11:00→12:00)
[2021-05-18] MEDS: methylPREDNISolone 125MG 2ML VIAL IV SCH ×2 (15:56→23:35)
[2021-05-18 16:00] VITALS: BP 120/70
[2021-05-18 21:00] VITALS: O2SAT 92
--- NOTE | 2021-05-18 21:04 | IPNPDOC ---
Date Seen The patient was seen on 05/18/21. Progress Note SUBJECTIVE: Patient seen examined at bedside. She is alert oriented. States that she lives alone but her lives in the area. She states that she is longer short of breath no chest pain no palpitations no fevers or chills. She still continues to exhibit significant wheezing even despite albuterol treatments. She denies any subjective fevers or chills has no dysuria or abdominal pain. OBJECTIVE PHYSICAL EXAMINATION: VITAL SIGNS: please see below General: NAD, comfortable HEENT: PERRLA, EOMI, sclerae clear Neck: supple, normal ROM, no JVD Respiratory: Fair inspiratory effort, wheezing in lung bases CVS: RRR, normal S1, S2, no murmurs Abdo: soft, no masses, no hepatosplenomegaly, BS+, no rebound tenderness Extremities: no edema, pulses 2+ MSK: no joint deformities, normal ROM Neuro: no focal neuro deficits, moving all 4 extremities, CN2-12 intact. Strength 5/5 in all 4 extremities. No nystagmus. Psych: calm, cooperative, AAO x 3 LABORATORY DATA, IMAGING STUDIES, MICROBIOLOGY: Please see below. Echocardiogram: Report DVT prophylaxis ordered?: Lovenox ASSESSMENT AND PLAN: 1 Acute Asthma 2/2 RSV 2 SIRS - start empiric vancomycin and zosyn, given elevated procal, ESR, CRP, Tmax 102.1 and rising leukocytosis (known context of steroid use). 3 Seizures -2/2 missing medications and acute illness Plan: bed rest tonight / fall precautions/ seizure precautions/ frequent neuro checks / f/u prolactin, / c/w Keppra / Ativan 2mg IV Q2H PRN for break through seizures 4 Elevated BNP Plan: f/u Echo in the morning to r/o viral cardiomyopathy and or cor pulmonale i/s/o chronic Asthma 5 Migraines Plan: Propranolol & Aimovig monthly 6 Essential HTN Plan: Propranolol 7 JONNY Plan: pulse ox / supplemental O2 8 Hypothyroidism Plan: Levothyroxine 9 Anxiety / Depression Plan: Aripiprazole 10 Obesity -Complicates care Plan: check A1C to screen for DM DVT lovenox Disposition: home after more than 2 midnights stay VS, I&O, 24H, Fishbone Vital Signs/I&O Vital Signs Date Time Temp Pulse Resp B/P (MAP) Pulse Ox O2 Delivery O2 Flow Rate FiO2 05/18/21 20:26 88 121/71 05/18/21 16:00 97.7 18 87 Room Air 05/18/21 09:00 2.0 I&O- Last 24 Hours up to 6 AM 05/18/21 06:00 Intake Total 250 ml Output Total 0 ml Balance 250 ml Laboratory Data 24H LABS Laboratory Tests 2 05/18/21 05:37: Nucleated Red Blood Cells % (auto) 0.0, Erythrocyte Sedimentation Rate 59H, Anion Gap 7L, Glomerular Filtration Rate 49.0L, Calcium Level 9.0 05/18/21 09:06: Lactic Acid Level 1.9, C-Reactive Protein, Quantitative 37.60H, Procalcitonin 0.92 05/18/21 11:32: Urine Color YELLOW, Urine Appearance HAZY, Urine pH 5.0, Urine Specific [place] 1.025, Urine Protein 2+H, Urine Glucose (UA) NEGATIVE, Urine Ketones NEGATIVE, Urine Blood 1+H, Urine Nitrite NEGATIVE, Urine Bilirubin NEGATIVE, Urine Urobilinogen 0.2, Urine Leukocyte Esterase NEGATIVE, Urine WBC (Auto) 2, Urine RBC (Auto) 1, Urine Hyaline Casts (Auto) 3, Urine Bacteria (Auto) NEGATIVE, Urine Squamous Epithelial Cells 1, Urine Mucus (Auto) SMALL, Urine Sperm (Auto) , Methicillin-Resist S.aureus DNA PCR NOT DETECTED CBC/BMP Laboratory Tests 05/18/21 05:37 Microbiology Microbiology 05/17/21 Blood Culture - Preliminary, Resulted No growth after 24 hours . All specim... 05/17/21 Blood Culture - Preliminary, Resulted No growth after 24 hours . All specim... ALEX MCCALL MD May 18, 2021 21:04
[2021-05-18] MEDS ORDERED: ISOVUE-370 76% 100ML VIAL As Ordered ONE (21:18)
[2021-05-18 22:00] VITALS: BP 121/71
--- NOTE | 2021-05-18 22:24 | REPVR ---
PROCEDURE INFORMATION: Exam: CTA Chest With Contrast Exam date and time: 05/18/2021 10:04 PM Age: 55 years old Clinical indication: Shortness of breath; Additional info: R/O pe. Pneumonia? Pneumonitis? TECHNIQUE: Imaging protocol: Computed tomographic angiography of the chest with contrast. 3D rendering (Not supervised by radiologist): MIP and/or 3D reconstructed images were created by the technologist. Radiation optimization: All CT scans at this facility use at least one of these dose optimization techniques: automated exposure control; mA and/or kV adjustment per patient size (includes targeted exams where dose is matched to clinical indication); or iterative reconstruction. Contrast material: ISOVUE 370; Contrast volume: 75 ml; Contrast route: INTRAVENOUS (IV); COMPARISON: CT Chest with contrast 07/02/2017 3:27 PM FINDINGS: Pulmonary arteries: The main pulmonary artery measures 27 mm. No central pulmonary embolism is identified. Aorta: The ascending thoracic aorta measures 29 mm. Lungs: Mild right lower lobe fibro-atelectatic change. Right upper lobe pulmonary infiltrates consistent with pneumonia. Motion artifact in the lungs with image degradation. Pleural spaces: Unremarkable. No pneumothorax. No pleural effusion. Heart: Unremarkable. No cardiomegaly. No pericardial effusion. Lymph nodes: Unremarkable. No enlarged lymph nodes. Liver: The liver attenuation is 15 Hounsfield units and the spleen is 74 Hounsfield units in the arterial phase. Gallbladder and bile ducts: Status post cholecystectomy. Adrenal glands: Right adrenal nodule measuring 12 x 19 x 18 mm with a Hounsfield measurement of 22. Bones/joints: Unremarkable. No acute fracture. Soft tissues: Unremarkable. IMPRESSION: 1. Right upper lobe pulmonary infiltrates consistent with pneumonia. There is mild right lower lobe fibro-atelectatic change. 2. Probable fatty infiltration of the liver. 3. Status post cholecystectomy. 4. Right adrenal nodule measuring 12 x 18 x 19 mm which is increased since 07/02/2017. If the patient has no cancer history, then consider follow-up non-emergent adrenal CT or resection. If the patient has a history of cancer, then consider biopsy or PET/CT. (Reference: Dee) 5. Otherwise negative CTA chest. No central pulmonary embolism is identified. REFERENCES: Dee CATES, et al. Management of Incidental Adrenal Masses: A White Paper of the ACR Incidental Findings Committee. J Am Asa Radiol. 2017;14(8):6552-5552. Electronically signed by: Rigoberto Martínez On 05/18/2021 22:24:03 PM
[2021-05-18] MEDS: VANCOMYCIN HCL 1,000 MG, VIAL MATE ADAPTER 1 EACH in NS 250 ML IV SCH (23:36)
[2021-05-19] MEDS: IPRATROPIUM 0.5MG/ALBUTEROL 2.5MG INH SOL UD 3ML (DUONEB) NEB SCH ×4 (01:48→19:31)
[2021-05-19] MEDS: PIPERACILLIN/TAZOBACTAM SOD 4.5 GM in D5W MINI-BAG PLUS 50 ML IV SCH ×4 (02:25→20:42)
[2021-05-19 06:05] VITALS: BP 114/62
[2021-05-19] MEDS: LEVOTHYROXINE 50MCG TABLET (0.05MG) PO SCH (06:11)
[2021-05-19] MEDS: methylPREDNISolone 125MG 2ML VIAL IV SCH ×3 (06:11→23:03)
[2021-05-19] MEDS: ACETAMINOPHEN TAB 650MG DOSE (2X325MG) PO PRN ×2 (06:14→20:43)
[2021-05-19] MEDS: PROPRANOLOL 20 MG TAB PO SCH ×2 (09:00→20:43)
[2021-05-19] MEDS: ENOXAPARIN 40MG/0.4ML SYRINGE (J1650 PER 10MG) SC SCH (09:12)
[2021-05-19] MEDS: levETIRAcetam 250MG TABLET (KEPPRA) PO SCH ×2 (09:12→20:43)
[2021-05-19] MEDS: SERTRALINE 100 MG TAB PO SCH ×2 (09:12→20:43)
[2021-05-19] MEDS: ARIPiprazole 2 MG TAB PO SCH (09:16)
[2021-05-19 09:20] VITALS: BP 108/55
[2021-05-19 09:22] LABS: ERYTHROCYTE SEDIMENTATION RATE 79 mm/hr (0-30)
[2021-05-19] MEDS: ALBUTEROL SULFATE 2.5 MG/0.5 ML INH NEB SOLN NEB PRN ×2 (09:23→23:23)
[2021-05-19 09:25] LABS: C REACTIVE PROTEIN QUANTITATIV 25.9 MG/DL (0.00-0.30)
[2021-05-19 10:00] VITALS: BP 119/97
[2021-05-19 10:32] LABS: BASO % 0.2 % (0.0-1.0); EOS % 0.1 % (0.0-3.0); HEMATOCRIT 42.5 % (36.0-47.0); HEMOGLOBIN 13.8 g/dl (12.0-15.5); LYMPH # 1.6 10^3/uL (1.5-5.0); LYMPH % 11.8 % (24.0-44.0); MEAN CORPUSCULAR HGB CONC 32.5 g/dl (32.0-36.5); MEAN CORPUSCULAR VOLUME 92.4 fl (80.0-96.0); MONO # 0.4 10^3/uL (0.0-0.8); NEUTROPHILS # 11.2 10^3/uL (1.5-8.5); NEUTROPHILS % 83.6 % (36.0-66.0); PLATELET COUNT, AUTOMATED 239 10^3/uL (150-450); WHITE BLOOD COUNT 13.4 10^3/uL (4.0-10.0)
[2021-05-19] MEDS: VANCOMYCIN HCL 1,000 MG, VIAL MATE ADAPTER 1 EACH in NS 250 ML IV SCH ×2 (10:40→23:04)
[2021-05-19 10:42] LABS: ALBUMIN 2.5 GM/DL (3.2-5.2); BILIRUBIN,TOTAL 0.6 MG/DL (0.2-1.0); CREATININE FOR GFR 1.36 MG/DL (0.55-1.30); GLOMERULAR FILTRATION RATE 42.8 (>51); MAGNESIUM LEVEL 2.7 MG/DL (1.8-2.4); POTASSIUM SERUM 3.6 MEQ/L (3.5-5.1); TOTAL PROTEIN 6.9 GM/DL (6.4-8.2)
[2021-05-19] MEDS: NS 1,000 ML IV SCH ×2 (12:57→20:42)
[2021-05-19 14:00] VITALS: BP 130/70
--- NOTE | 2021-05-19 17:51 | IPNPDOC ---
Date Seen The patient was seen on 05/19/21. Progress Note SUBJECTIVE: Patient seen examined at bedside. She is alert oriented. States that she lives alone but her lives in the area. She states that she is longer short of breath no chest pain no palpitations no fevers or chills. She still continues to exhibit significant wheezing even despite albuterol treatments. She denies any subjective fevers or chills has no dysuria or abdominal pain. OBJECTIVE PHYSICAL EXAMINATION: VITAL SIGNS: please see below General: NAD, comfortable HEENT: PERRLA, EOMI, sclerae clear Neck: supple, normal ROM, no JVD Respiratory: Fair inspiratory effort, wheezing in lung bases CVS: RRR, normal S1, S2, no murmurs Abdo: soft, no masses, no hepatosplenomegaly, BS+, no rebound tenderness Extremities: no edema, pulses 2+ MSK: no joint deformities, normal ROM Neuro: no focal neuro deficits, moving all 4 extremities, CN2-12 intact. Strength 5/5 in all 4 extremities. No nystagmus. Psych: calm, cooperative, AAO x 3 LABORATORY DATA, IMAGING STUDIES, MICROBIOLOGY: Please see below. CTA chest (05/18/21): IMPRESSION: 1. Right upper lobe pulmonary infiltrates consistent with pneumonia. There is mild right lower lobe fibro-atelectatic change. 2. Probable fatty infiltration of the liver. 3. Status post cholecystectomy. 4. Right adrenal nodule measuring 12 x 18 x 19 mm which is increased since 07/02/2017. If the patient has no cancer history, then consider follow-up non-emergent adrenal CT or resection. If the patient has a history of cancer, then consider biopsy or PET/CT. (Reference: [email or web address]) 5. Otherwise negative CTA chest. No central pulmonary embolism is identified. Echocardiogram: Report DVT prophylaxis ordered?: Lovenox ASSESSMENT AND PLAN: # Acute Asthma 2/2 RSV - O2 requirement diminishing - elevated inflammatory markers, ESR, CRP # SIRS likely 2/2 superimposed bacterial pna possible aspiration? - started empiric vancomycin and zosyn, given elevated procal, ESR, CRP, Tmax 102.1 and rising leukocytosis (known context of steroid use) - CT angiogram chest reviewed. RUL infiltrate. - trend procal, ESR, CRP. Legionella and strep pneumo ag. - sputum culture ordered - prelim blood cultures negative. # Seizures - likely 2/2 medication non compliance. D/w her , Gomez (tel: [phone]), states she sometimes forgets to take her keppra - keppra dosage kept the same: keppra 500 mg qam, 1000 mg qhs. - CT head unremarkable - patient follows with neurology in [place]. #MARTI - volume depleted - Cr 1.36 - start NS 125 cc/hr #Elevated BNP - BNP on arrival 1828, repeat 165. - 2D echo report pending - patient appears clinically volume depleted - give gently hydration # Migraines - c/w Propranolol & Aimovig monthly # Essential HTN - c/w Propranolol # JONNY c/w pulse ox / supplemental O2 # Hypothyroidism Plan: Levothyroxine # Anxiety / Depression Plan: Aripiprazole # Obesity -Complicates care - a1c 6.3 #Prediabetes - A1c 6.3, lifestyle modifications discussed - consistent carbohydrate diet DVT lovenox Disposition: home after more than 2 midnights stay VS, I&O, 24H, [facility] Vital Signs/I&O Vital Signs Date Time Temp Pulse Resp B/P (MAP) Pulse Ox O2 Delivery O2 Flow Rate FiO2 05/19/21 14:00 97.6 69 18 130/70 (90) 93 Nasal Cannula 1.0 I&O- Last 24 Hours up to 6 AM 05/19/21 06:00 Intake Total 1710 ml Output Total 900 ml Balance 810 ml Laboratory Data 24H LABS Laboratory Tests 2 05/19/21 08:08: Immature Granulocyte % (Auto) 1.3, Neutrophils (%) (Auto) 83.6H, Lymphocytes (%) (Auto) 11.8L, Monocytes (%) (Auto) 3.0, Eosinophils (%) (Auto) 0.1, Basophils (%) (Auto) 0.2, Neutrophils # (Auto) 11.2H, Lymphocytes # (Auto) 1.6, Monocytes # (Auto) 0.4, Eosinophils # (Auto) 0.0, Basophils # (Auto) 0.0, Nucleated Red Blood Cells % (auto) 0.0, Erythrocyte Sedimentation Rate 79H, Anion Gap 9, Glomerular Filtration Rate 42.8L, Calcium Level 9.0, Magnesium Level 2.7H, Total Bilirubin 0.6, Aspartate Amino Transf (AST/SGOT) 36, Alanine Aminotransferase (ALT/SGPT) 44, Alkaline Phosphatase 132H, C-Reactive Protein, Quantitative 25.90H, FE-Bjs-H-Type Natriuretic Peptide 165H, Total Protein 6.9, Albumin 2.5L, Albumin/Globulin Ratio 0.6L 05/19/21 12:42: CBC/BMP Laboratory Tests 05/19/21 08:08 Microbiology Microbiology 05/17/21 Blood Culture - Preliminary, Resulted No Growth after 48 hours. All Specime... 05/17/21 Blood Culture - Preliminary, Resulted No Growth after 48 hours. All Specime... ALEX MCCALL MD May 19, 2021 17:51
[2021-05-19 21:00] VITALS: O2SAT 92
[2021-05-19 21:51] VITALS: BP 135/77
[2021-05-20] MEDS: IPRATROPIUM 0.5MG/ALBUTEROL 2.5MG INH SOL UD 3ML (DUONEB) NEB SCH ×4 (01:10→20:37)
[2021-05-20] MEDS: PIPERACILLIN/TAZOBACTAM SOD 4.5 GM in D5W MINI-BAG PLUS 50 ML IV SCH ×4 (02:21→20:24)
[2021-05-20 05:34] VITALS: BP 144/88
[2021-05-20] MEDS: methylPREDNISolone 125MG 2ML VIAL IV SCH ×3 (06:33→22:25)
[2021-05-20] MEDS: LEVOTHYROXINE 50MCG TABLET (0.05MG) PO SCH (06:33)
[2021-05-20] MEDS: NS 1,000 ML IV SCH (06:46)
[2021-05-20 07:37] LABS: HEMATOCRIT 40.9 % (36.0-47.0); MEAN CORPUSCULAR HGB CONC 31.8 g/dl (32.0-36.5); MEAN CORPUSCULAR VOLUME 94.2 fl (80.0-96.0); PLATELET COUNT, AUTOMATED 231 10^3/uL (150-450); RED BLOOD COUNT 4.34 10^6/uL (4.00-5.40)
[2021-05-20 08:11] LABS: ALBUMIN 2.2 GM/DL (3.2-5.2); BILIRUBIN,TOTAL 0.5 MG/DL (0.2-1.0); CALCIUM LEVEL 8.3 MG/DL (8.5-10.1); CREATININE FOR GFR 1.1 MG/DL (0.55-1.30); GLOMERULAR FILTRATION RATE 54.7 (>51); MAGNESIUM LEVEL 2.3 MG/DL (1.8-2.4); POTASSIUM SERUM 4.5 MEQ/L (3.5-5.1); TOTAL PROTEIN 6.4 GM/DL (6.4-8.2)
[2021-05-20 08:24] LABS: ATYPICAL LYMPH 2 % (0-5); LYMPHOCYTES 15 % (16-44); METAMYELOCYTES 1 % (0-0); MONOCYTES 3 % (0-5); NEUTROPHILS 75 % (28-66)
[2021-05-20 08:25] LABS: PLATELET ESTIMATE NORMAL (NORMAL)
[2021-05-20] MEDS: SERTRALINE 100 MG TAB PO SCH ×2 (08:30→20:25)
[2021-05-20] MEDS: ENOXAPARIN 40MG/0.4ML SYRINGE (J1650 PER 10MG) SC SCH (08:30)
[2021-05-20] MEDS: ARIPiprazole 2 MG TAB PO SCH (08:30)
[2021-05-20] MEDS: levETIRAcetam 250MG TABLET (KEPPRA) PO SCH ×2 (08:30→20:24)
[2021-05-20] MEDS: PROPRANOLOL 20 MG TAB PO SCH ×2 (08:37→20:25)
--- NOTE | 2021-05-20 10:34 | IPNPDOC ---
Date Seen The patient was seen on 05/20/21. Progress Note SUBJECTIVE: Patient seen examined at bedside. She is alert oriented x3. No acute events overnight. O2 requirement ranging between 1 and 2L/min. Patient continues to c/o of wheezing, but improved after nebulizer treatment. OBJECTIVE PHYSICAL EXAMINATION: VITAL SIGNS: please see below General: NAD, comfortable HEENT: PERRLA, EOMI, sclerae clear Neck: supple, normal ROM, no JVD Respiratory: Fair inspiratory effort, wheezing in lung bases has improved. CVS: RRR, normal S1, S2, no murmurs Abdo: soft, no masses, no hepatosplenomegaly, BS+, no rebound tenderness Extremities: no edema, pulses 2+ MSK: no joint deformities, normal ROM Neuro: no focal neuro deficits, moving all 4 extremities, CN2-12 intact. Strength 5/5 in all 4 extremities. No nystagmus. Psych: calm, cooperative, AAO x 3 LABORATORY DATA, IMAGING STUDIES, MICROBIOLOGY: Please see below. CTA chest (05/18/21): IMPRESSION: 1. Right upper lobe pulmonary infiltrates consistent with pneumonia. There is mild right lower lobe fibro-atelectatic change. 2. Probable fatty infiltration of the liver. 3. Status post cholecystectomy. 4. Right adrenal nodule measuring 12 x 18 x 19 mm which is increased since 07/02/2017. If the patient has no cancer history, then consider follow-up non-emergent adrenal CT or resection. If the patient has a history of cancer, then consider biopsy or PET/CT. (Reference: [facility]) 5. Otherwise negative CTA chest. No central pulmonary embolism is identified. Echocardiogram: Report DVT prophylaxis ordered?: Lovenox ASSESSMENT AND PLAN: # Acute Asthma 2/2 RSV - O2 requirement diminishing - ESR trending up, 59 to 82. CRP trending down 37.6 to 13.7. # SIRS likely 2/2 superimposed bacterial pna possible aspiration? - started empiric vancomycin and zosyn, given elevated procal, ESR, CRP, Tmax 102.1 and rising leukocytosis (known context of steroid use) - CT angiogram chest reviewed. RUL infiltrate. - Legionella and strep pneumo ag. - ESR trending up. CRP has trended down from 37.6 to 13.7 - sputum culture pending. - WBC trended down from 17.6 to 13.0 - prelim blood cultures negative. # Seizures - likely 2/2 medication non compliance. D/w her , Gomez (tel: [phone]), states she sometimes forgets to take her keppra - keppra dosage kept the same: keppra 500 mg qam, 1000 mg qhs. - CT head unremarkable - patient has a negative Kernig and Brudzinski sign. No headache. No neck stiffness. Afebrile for past 48 hours. - patient follows with neurology in [place]. #Adrenal nodule, R: - seen on CT angiogram chest, 12 x 18 x 19 mm, increased from prior study in 2017, but no availalb edimensions - Has hx of suspicioous R breast nodule, excised in [place] - last mammogram in 2019, no abnormal findings - d/w Dr. Biggs of oncology. Recommends to obtain CT abdomen with adrenal protocol. Not to do dexamethasone suppression testing, and suggests that hormonal studies will likely be skewed in setting of acute illness and steroid use. Suggests to f/u with PCP for surveillance. Serum catecholamines, metanephrines and AM cortisol have already been ordered. - patient will require surveillance imaging in 3 months. Needs to f/u with PCP closely. #mucocutaneous lesions: - has hx of HSV. - Start acyclovir 400 mg TID. #MARTI - volume depleted - resolved after administration of IV NS. - Cr 1.10. #Elevated BNP - BNP on arrival 1828, repeat 165. - 2D echo report pending - on exam was volume depleted, developed MARTI - MARTI resolved, stopped IVF. # Migraines - c/w Propranolol & Aimovig monthly # Essential HTN - c/w Propranolol # JONNY - c/w pulse ox / supplemental O2 # Hypothyroidism - c/w Levothyroxine # Anxiety / Depression - c/w Aripiprazole # Obesity -Complicates care - a1c 6.3 #Prediabetes - A1c 6.3, lifestyle modifications discussed - consistent carbohydrate diet DVT lovenox Disposition: home after more than 2 midnights stay VS, I&O, 24H, [facility] Vital Signs/I&O Vital Signs Date Time Temp Pulse Resp B/P (MAP) Pulse Ox O2 Delivery O2 Flow Rate FiO2 05/20/21 08:37 66 150/86 05/20/21 05:34 97.1 18 91 Nasal Cannula 2.0 I&O- Last 24 Hours up to 6 AM 05/20/21 06:00 Intake Total 3435 ml Output Total 1350 ml Balance 2085 ml Laboratory Data 24H LABS Laboratory Tests 2 05/19/21 12:42: 05/20/21 07:08: Neutrophils (%) (Auto) , Nucleated Red Blood Cells % (auto) 0.0, Neutrophils 75H, Band Neutrophils 4, Lymphocytes (Manual) 15L, Monocytes (Manual) 3, Metamyelocytes 1H, Atypical Lymphocytes 2, Platelet Estimate NORMAL, Erythrocyte Sedimentation Rate 82H, Anion Gap 4L, Glomerular Filtration Rate 54.7, Calcium Level 8.3L, Magnesium Level 2.3, Total Bilirubin 0.5, Aspartate Amino Transf (AST/SGOT) 30, Alanine Aminotransferase (ALT/SGPT) 42, Alkaline Phosphatase 207H, C-Reactive Protein, Quantitative 13.70H, Total Protein 6.4, Albumin 2.2L, Albumin/Globulin Ratio 0.5L 05/20/21 09:18: CBC/BMP Laboratory Tests 05/20/21 07:08 Microbiology Microbiology 05/17/21 Blood Culture - Preliminary, Resulted No Growth after 72 hours. All specime... 05/17/21 Blood Culture - Preliminary, Resulted No Growth after 72 hours. All specime... ALEX MCCALL MD May 20, 2021 10:34
[2021-05-20] MEDS: ACYCLOVIR 200 MG CAPSULE PO SCH ×3 (11:00→20:24)
[2021-05-20] MEDS: VANCOMYCIN HCL 1,000 MG, VIAL MATE ADAPTER 1 EACH in NS 250 ML IV SCH ×2 (11:02→22:26)
[2021-05-20] MEDS ORDERED: ISOVUE-370 76% 100ML VIAL As Ordered ONE (11:31)
--- NOTE | 2021-05-20 12:47 | REP ---
INDICATION: ADRENAL PROTOCOL, HAS R ADRENAL MASS. COMPARISON: None TECHNIQUE: Axial contrast-enhanced images from the lung bases to the pubic symphysis using 100 cc Isovue 370 intravenous contrast material. Precontrast and delayed images of the abdomen obtained along with coronal and sagittal reformations. This CT examination was performed using the following dose reduction techniques: Automated exposure control, adjustment of mA and/or kv according to the patient's size, and the use of iterative reconstruction technique. FINDINGS: Liver demonstrates diffuse fatty infiltration without focal hepatic lesion. Spleen, pancreas, left adrenal gland and bilateral kidneys are normal. Right adrenal gland includes 1.8 cm benign adenoma. Prior cholecystectomy noted. The enteric system including stomach, small, and large bowel appears normal. No evidence for obstruction or acute inflammatory process. Normal terminal ileum and appendix are identified in the right lower quadrant. Pelvis demonstrates normal bladder and age-appropriate uterus/adnexa. No ascites. No free air. No intraperitoneal or retroperitoneal adenopathy. Abdominal aorta and vasculature appear normal. Incidental retroaortic left renal vein noted. Musculoskeletal structures are intact and without acute osseous abnormality. IMPRESSION: No acute abdominopelvic pathology appreciated. 1.8 cm benign right adrenal adenoma. Hepatosteatosis. <Electronically signed by Suresh Carney > 05/20/21 [id number]
[2021-05-20 14:00] VITALS: BP 166/92
--- NOTE | 2021-05-20 16:00 | ECHO ---
ECHOCARDIOGRAM DATE OF PROCEDURE: 05/17/2021 Age: 55 Gender: Female Height: 163 cm Weight: 82 kg REFERRING PROVIDER: Nicky Andres M.D. PATIENT LOCATION: Emergency Department, Room 16 REASON FOR THE TESTING: Shortness of breath, respiratory syncytial virus (RSV). MEASUREMENTS: 2D Measurements: IVS 1.0 cm LV 4.3 cm LVPW 1.0 cm LA 3.1 cm Aorta 3.1 cm Doppler Measurements: Peak velocity across the aortic valve 1.2 m/sec Mitral E 0.52 Mitral A 0.8 with a ratio of 0.6 2D COMMENTS: 1. Normal left ventricular size, wall thickness and a normal global left ventricular systolic function. The estimated left ventricular systolic ejection fraction is 55-65%. 2. Normal left atrium. The right atrium and right ventricle were not well visualized, but appeared to be normal in limited views. 3. The atrial septum appeared to be normal without evidence of defect or shunt. 4. Normal aortic root. 5. No pericardial effusion seen. 6. The aortic valve and mitral valve appeared to be normal. The tricuspid valve and the pulmonic valve were not well visualized. 7. The inferior vena cava was not visualized. DOPPLER: No significant valvular abnormalities detected. IMPRESSION: 1. Normal global left ventricular systolic function. There are some features of grade 1 left ventricular diastolic dysfunction manifested by abnormal relaxation. 2. No significant valvular abnormalities detected. 3. The right heart chambers were not well visualized. 4. This study was technically limited due to poor acoustic window.
[2021-05-20] MEDS: ALBUTEROL SULFATE 2.5 MG/0.5 ML INH NEB SOLN NEB PRN (18:27)
[2021-05-20 20:00] VITALS: O2SAT 94
[2021-05-20 22:00] VITALS: BP_SYST 169; BP_SYST 196; BP_DIAS 90
[2021-05-21] MEDS: IPRATROPIUM 0.5MG/ALBUTEROL 2.5MG INH SOL UD 3ML (DUONEB) NEB SCH ×4 (01:47→19:36)
[2021-05-21] MEDS: PIPERACILLIN/TAZOBACTAM SOD 4.5 GM in D5W MINI-BAG PLUS 50 ML IV SCH ×2 (02:55→09:38)
[2021-05-21] MEDS: methylPREDNISolone 125MG 2ML VIAL IV SCH ×3 (05:53→23:11)
[2021-05-21] MEDS: LEVOTHYROXINE 50MCG TABLET (0.05MG) PO SCH (05:53)
[2021-05-21 06:00] VITALS: BP 164/88
[2021-05-21 08:46] LABS: HEMATOCRIT 41.8 % (36.0-47.0); HEMOGLOBIN 13.5 g/dl (12.0-15.5); MEAN CORPUSCULAR HEMOGLOBIN 29.7 pg (27.0-33.0); MEAN CORPUSCULAR HGB CONC 32.3 g/dl (32.0-36.5); MEAN CORPUSCULAR VOLUME 91.9 fl (80.0-96.0); PLATELET COUNT, AUTOMATED 239 10^3/uL (150-450); RED BLOOD COUNT 4.55 10^6/uL (4.00-5.40); WHITE BLOOD COUNT 11.2 10^3/uL (4.0-10.0)
[2021-05-21 09:19] LABS: LYMPHOCYTES 17 % (16-44); METAMYELOCYTES 1 % (0-0); MONOCYTES 2 % (0-5); NEUTROPHILS 79 % (28-66); PLATELET ESTIMATE NORMAL (NORMAL)
[2021-05-21 09:20] LABS: ALBUMIN 2.4 GM/DL (3.2-5.2); BILIRUBIN,TOTAL 0.6 MG/DL (0.2-1.0); C REACTIVE PROTEIN QUANTITATIV 8.82 MG/DL (0.00-0.30); CALCIUM LEVEL 8.9 MG/DL (8.5-10.1); CREATININE FOR GFR 1.06 MG/DL (0.55-1.30); GLOMERULAR FILTRATION RATE 57.1 (>51); MAGNESIUM LEVEL 2.1 MG/DL (1.8-2.4); POTASSIUM SERUM 4.1 MEQ/L (3.5-5.1); TOTAL PROTEIN 6.4 GM/DL (6.4-8.2)
[2021-05-21] MEDS: PROPRANOLOL 20 MG TAB PO SCH ×2 (09:37→21:10)
[2021-05-21] MEDS: ACYCLOVIR 200 MG CAPSULE PO SCH ×3 (09:37→21:09)
[2021-05-21] MEDS: levETIRAcetam 250MG TABLET (KEPPRA) PO SCH ×2 (09:37→21:09)
[2021-05-21] MEDS: SERTRALINE 100 MG TAB PO SCH ×2 (09:37→21:09)
[2021-05-21] MEDS: ARIPiprazole 2 MG TAB PO SCH (09:37)
[2021-05-21] MEDS: ENOXAPARIN 40MG/0.4ML SYRINGE (J1650 PER 10MG) SC SCH (09:38)
[2021-05-21 09:41] LABS: ERYTHROCYTE SEDIMENTATION RATE 57 mm/hr (0-30)
[2021-05-21] MEDS ORDERED: DEXTROSE 50% 50 ML SYRINGE IV PRN (10:55)
[2021-05-21] MEDS ORDERED: GLUCOSE 4GM CHEW TABLET PO PRN (10:55)
[2021-05-21] MEDS ORDERED: GLUCAGON INJ 1MG VIAL SC PRN (10:55)
[2021-05-21] MEDS: VANCOMYCIN HCL 1,000 MG, VIAL MATE ADAPTER 1 EACH in NS 250 ML IV SCH (10:56)
--- NOTE | 2021-05-21 11:08 | IPNPDOC ---
Date Seen The patient was seen on 05/21/21. Progress Note SUBJECTIVE: Patient seen examined at bedside. She is alert oriented x3. No acute events overnight. O2 requirement ranging between 1 and 2L/min. Patient continues to c/o of wheezing, but improved after nebulizer treatment. Patient was resumed on nocturnal CPAP at 10 mmHg, as she is unaware of her home settings. States she had a restul night. Denies CP, palpitations, but c/ wheezing. OBJECTIVE PHYSICAL EXAMINATION: VITAL SIGNS: please see below General: NAD, comfortable HEENT: PERRLA, EOMI, sclerae clear Neck: supple, normal ROM, no JVD Respiratory: Fair inspiratory effort, wheezing in bilateral lung bases. CVS: RRR, normal S1, S2, no murmurs Abdo: soft, no masses, no hepatosplenomegaly, BS+, no rebound tenderness Extremities: no edema, pulses 2+ MSK: no joint deformities, normal ROM Neuro: no focal neuro deficits, moving all 4 extremities, CN2-12 intact. Strength 5/5 in all 4 extremities. No nystagmus. Psych: calm, cooperative, AAO x 3 LABORATORY DATA, IMAGING STUDIES, MICROBIOLOGY: Please see below. CT abdo pelvis w IV contrast (05/20/21): No acute abdominopelvic pathology appreciated. 1.8 cm benign right adrenal adenoma. Hepatosteatosis. CTA chest (05/18/21): IMPRESSION: 1. Right upper lobe pulmonary infiltrates consistent with pneumonia. There is mild right lower lobe fibro-atelectatic change. 2. Probable fatty infiltration of the liver. 3. Status post cholecystectomy. 4. Right adrenal nodule measuring 12 x 18 x 19 mm which is increased since 07/02/2017. If the patient has no cancer history, then consider follow-up non-emergent adrenal CT or resection. If the patient has a history of cancer, then consider biopsy or [facility] 5. Otherwise negative CTA chest. No central pulmonary embolism is identified. Echocardiogram: Report DVT prophylaxis ordered?: Lovenox ASSESSMENT AND PLAN: # Acute Asthma 2/2 RSV - O2 requirement diminishing - ESR and CRP have begun to trend down - patient's oxygenation improved after nocturnal CPAP - slight wheeze persists. - c/w neb treatments. Patient will need to c/w home CPAP. # SIRS likely 2/2 superimposed bacterial pna possible aspiration? - started empiric vancomycin and zosyn, given elevated procal, ESR, CRP, Tmax 102.1 and rising leukocytosis (known context of steroid use) - CT angiogram chest reviewed. RUL infiltrate. - Legionella and strep pneumo ag pending. - ESR and CRP trending down. - WBC trended down from 19.7 to 11.2 - prelim blood cultures negative at 72 hours. - will transition IV abx from vanc and zosyn to augmentin and doxycycline, for an additional 4 days. # Seizures - likely 2/2 medication non compliance. D/w her , Gomez (tel: [phone]), states she sometimes forgets to take her keppra - keppra dosage kept the same: keppra 500 mg qam, 1000 mg qhs. - CT head unremarkable - patient has a negative Kernig and Brudzinski sign. No headache. No neck stiffness. Afebrile for past 48 hours. - patient follows with neurology in [place]. #Adrenal nodule, R: - seen on CT angiogram chest, 12 x 18 x 19 mm, increased from prior study in 2017, but no availalb edimensions - Has hx of suspicioous R breast nodule, excised in [place] - last mammogram in 2019, no abnormal findings - d/w Dr. Biggs of oncology. Recommends to obtain CT abdomen with adrenal protocol. Not to do dexamethasone suppression testing, and suggests that hormonal studies will likely be skewed in setting of acute illness and steroid use. Suggests to f/u with PCP for surveillance. Serum catecholamines, metanephrines and AM cortisol have already been ordered. - patient will require surveillance imaging in 3 months. Needs to f/u with PCP closely. - CT abdo pelvis w adrenal protocol suggests a benign adrenal nodule. To f/u with PCP. #mucocutaneous lesions: - has hx of HSV. - Started acyclovir 400 mg TID (day 2) #MARTI - volume depleted - resolved after administration of IV NS. - Cr 1.10. #Elevated BNP - BNP on arrival 1828, repeat 165. - 2D echo shows normal LVEF. G1DD. - on exam was volume depleted, developed MARTI - MARTI resolved, stopped IVF. # Migraines - c/w Propranolol & Aimovig monthly # Essential HTN - c/w Propranolol # JONNY - c/w pulse ox / supplemental O2 # Hypothyroidism - c/w Levothyroxine # Anxiety / Depression - c/w Aripiprazole # Obesity -Complicates care - a1c 6.3 #Prediabetes - A1c 6.3, lifestyle modifications discussed - consistent carbohydrate diet DVT lovenox Disposition: pending improvement in mobility and respiratory symptoms. Expect DC home in 1-2 days. VS, I&O, 24H, Fishbone Vital Signs/I&O Vital Signs Date Time Temp Pulse Resp B/P (MAP) Pulse Ox O2 Delivery O2 Flow Rate FiO2 05/21/21 09:37 64 160/90 05/21/21 06:00 97.1 18 92 Room Air 05/20/21 22:00 2.0 I&O- Last 24 Hours up to 6 AM 05/21/21 06:00 Intake Total 2210 ml Output Total 1020 ml Balance 1190 ml Laboratory Data 24H LABS Laboratory Tests 2 05/21/21 08:15: Neutrophils (%) (Auto) , Nucleated Red Blood Cells % (auto) 0.0, Neutrophils 79H, Band Neutrophils 1, Lymphocytes (Manual) 17, Monocytes (Manual) 2, Metamyelocytes 1H, Red Blood Cell Morphology NORMAL, Platelet Estimate NORMAL, Erythrocyte Sedimentation Rate 57H, Anion Gap 7L, Glomerular Filtration Rate 57.1, Calcium Level 8.9, Magnesium Level 2.1, Total Bilirubin 0.6, Aspartate Amino Transf (AST/SGOT) 16, Alanine Aminotransferase (ALT/SGPT) 36, Alkaline P hosphatase 198H, C-Reactive Protein, Quantitative 8.82H, Total Protein 6.4, Albumin 2.4L, Albumin/Globulin Ratio 0.6L 05/21/21 10:03: Vancomycin Level Trough 7.8L CBC/BMP Laboratory Tests 05/21/21 08:15 Microbiology Microbiology 05/17/21 Blood Culture - Preliminary, Resulted No Growth after 72 hours. All specime... 05/17/21 Blood Culture - Preliminary, Resulted No Growth after 72 hours. All specime... ALEX MCCALL MD May 21, 2021 11:08
[2021-05-21] MEDS ORDERED: VANCOMYCIN HCL 500 MG in D5W MINI-BAG PLUS 100 ML IV ONE (12:00)
[2021-05-21] MEDS: DOXYCYCLINE HYCLATE 100MG TABLET PO SCH ×2 (12:03→21:09)
[2021-05-21] MEDS: HumaLOG INSULIN (NovoLOG) PER UNIT SC SCH ×2 (12:27→17:35)
[2021-05-21 14:32] VITALS: BP 144/78
[2021-05-21 21:00] VITALS: O2SAT 92
[2021-05-21] MEDS ORDERED: HumaLOG INSULIN (NovoLOG) PER UNIT SC SCH (21:00)
[2021-05-21] MEDS: AUGMENTIN 875 MG TAB PO SCH (21:09)
[2021-05-21] MEDS: ACETAMINOPHEN TAB 650MG DOSE (2X325MG) PO PRN (21:10)
[2021-05-21 22:00] VITALS: BP 149/82
[2021-05-22] MEDS: IPRATROPIUM 0.5MG/ALBUTEROL 2.5MG INH SOL UD 3ML (DUONEB) NEB SCH ×3 (01:23→12:57)
[2021-05-22 06:00] VITALS: BP 156/78
[2021-05-22] MEDS: methylPREDNISolone 125MG 2ML VIAL IV SCH (06:21)
[2021-05-22] MEDS: LEVOTHYROXINE 50MCG TABLET (0.05MG) PO SCH (06:21)
[2021-05-22 06:32] LABS: HEMATOCRIT 40.8 % (36.0-47.0); HEMOGLOBIN 13.3 g/dl (12.0-15.5); MEAN CORPUSCULAR HGB CONC 32.6 g/dl (32.0-36.5); MEAN CORPUSCULAR VOLUME 92.1 fl (80.0-96.0); PLATELET COUNT, AUTOMATED 225 10^3/uL (150-450); RED BLOOD COUNT 4.43 10^6/uL (4.00-5.40); WHITE BLOOD COUNT 12.1 10^3/uL (4.0-10.0)
[2021-05-22 06:58] LABS: LYMPHOCYTES 19 % (16-44); METAMYELOCYTES 2 % (0-0); MONOCYTES 3 % (0-5); NEUTROPHILS 73 % (28-66)
[2021-05-22 06:59] LABS: PLATELET ESTIMATE NORMAL (NORMAL)
[2021-05-22 07:00] LABS: ALBUMIN 2.4 GM/DL (3.2-5.2); ALT/SGPT 36 U/L (12-78); BILIRUBIN,TOTAL 0.6 MG/DL (0.2-1.0); BLOOD UREA NITROGEN 28 MG/DL (7-18); CALCIUM LEVEL 8.4 MG/DL (8.5-10.1); CARBON DIOXIDE LEVEL 30 MEQ/L (21-32); CHLORIDE LEVEL 104 MEQ/L (98-107); CREATININE FOR GFR 0.97 MG/DL (0.55-1.30); GLOMERULAR FILTRATION RATE > 60.0 (>51); GLUCOSE, FASTING 310 MG/DL (70-100); POTASSIUM SERUM 4.4 MEQ/L (3.5-5.1); SODIUM LEVEL 139 MEQ/L (136-145); TOTAL PROTEIN 6.2 GM/DL (6.4-8.2)
[2021-05-22] MEDS: HumaLOG INSULIN (NovoLOG) PER UNIT SC SCH ×2 (08:33→12:39)
[2021-05-22 08:34] VITALS: BP 154/86
[2021-05-22] MEDS: PROPRANOLOL 20 MG TAB PO SCH (08:34)
[2021-05-22] MEDS: AUGMENTIN 875 MG TAB PO SCH (08:34)
[2021-05-22] MEDS: ARIPiprazole 2 MG TAB PO SCH (08:34)
[2021-05-22] MEDS: levETIRAcetam 250MG TABLET (KEPPRA) PO SCH (08:35)
[2021-05-22] MEDS: SERTRALINE 100 MG TAB PO SCH (08:35)
[2021-05-22] MEDS: ENOXAPARIN 40MG/0.4ML SYRINGE (J1650 PER 10MG) SC SCH (08:35)
[2021-05-22] MEDS: DOXYCYCLINE HYCLATE 100MG TABLET PO SCH (08:35)
[2021-05-22] MEDS: ACYCLOVIR 200 MG CAPSULE PO SCH (08:35)
[2021-05-22] MEDS ORDERED: TIOT18INH INH (11:51)
[2021-05-22] MEDS ORDERED: ACYC200C8 PO (11:51)
[2021-05-22] MEDS ORDERED: PRED10TA2 PO (11:51)
[2021-05-22] MEDS ORDERED: AMOX875T2 PO (11:51)
[2021-05-22] MEDS ORDERED: DOXY100T PO (11:51)
[2021-05-22] MEDS ORDERED: ACET1TAB55 PO (11:51)
--- NOTE | 2021-05-22 19:49 | DS.PDOC ---
Discharge Summary General Date of Admission May 17, 2021 at 00:07 Date of Discharge 05/22/21 Discharge Summary PROCEDURES PERFORMED DURING STAY: [None]. ADMITTING DIAGNOSES: Acute Asthma 2/2 RSV SIRS Seizures Elevated BNP Migraines Essential HTN JONNY Hypothyroidism Anxiety / Depression Obesity DISCHARGE DIAGNOSES: Acute Asthma 2/2 RSV SIRS Seizures Elevated BNP Migraines Essential HTN JONNY Hypothyroidism Anxiety / Depression Obesity Right adrenal nodule HSV lesion MARTI Elevated BNP Migraines Essential HTN Hypothyroidism Anxiety / Depression Obesity Prediabetes COMPLICATIONS/CHIEF COMPLAINT: Asthma, Encephalopathy, Rsv. HISTORY OF PRESENT ILLNESS: has been feeling short of breath and has had a dry cough. She denied having a sore throat or chest pain or tightness. She was seen in the ER on May 13 and diagnosed with bronchitis due to RSV and sent home. Thereafter she stopped taking her seizure medications. She thinks she has been having seizures for about 1 week. She is aware she is having seizures because she finds herself having staring spells. Today she called 911 because she had difficulties walking and couldnt take it anymore. She Per ER intake notes when EMS assessed her, her O2 sats were in the high 80s and she had poor lung sounds. HOSPITAL COURSE: During the hospital stay the following issue addressed Patient received inhalers, steroids acute Asthma 2/2 RSV with positive effect. I discontinued propranolol. Patient will need sleep study in order to obtain CPAP. Also patient was diagnosed with SIRS, patient received vancomycin and Zosyn which was changed to Augmentin and doxycycline. Patient developed some seizures due to noncompliance to Keppra, Keppra was restarted. Patient was diagnosed with adrenal nodule: - seen on CT angiogram chest, 12 x 18 x 19 mm, increased from prior study in 2017 - Has hx of suspicioous R breast nodule, excised in [place] - last mammogram in 2019, no abnormal findings - d/w Dr. Biggs of oncology. Recommends to obtain CT abdomen with adrenal protocol. Not to do dexamethasone suppression testing, and suggests that hormonal studies will likely be skewed in setting of acute illness and steroid use. Suggests to f/u with PCP for surveillance. Serum catecholamines, metanephrines and AM cortisol have already been ordered. - patient will require surveillance imaging in 3 months. Needs to f/u with PCP closely. - CT abdo pelvis w adrenal protocol suggests a benign adrenal nodule. To f/u with PCP. Also patient developed mucocutaneous lesion secondary to HSV, patient received treatment with acyclovir. Patient developed MARTI, patient received IV fluid, subsequently resolved DISCHARGE MEDICATIONS: Please see below. ALLERGIES: Please see below. PHYSICAL EXAMINATION ON DISCHARGE: VITAL SIGNS: please see below General: NAD, comfortable HEENT: PERRLA, EOMI, sclerae clear Neck: supple, normal ROM, no JVD Respiratory: Fair inspiratory effort, wheezing in bilateral lung bases. CVS: RRR, normal S1, S2, no murmurs Abdo: soft, no masses, no hepatosplenomegaly, BS+, no rebound tenderness Extremities: no edema, pulses 2+ MSK: no joint deformities, normal ROM Neuro: no focal neuro deficits, moving all 4 extremities, CN2-12 intact. Strength 5/5 in all 4 extremities. No nystagmus. Psych: calm, cooperative, AAO x 3 LABORATORY DATA: Please see below. IMAGING: COMPARISON: None TECHNIQUE: Axial contrast-enhanced images from the lung bases to the pubic symphysis using 100 cc Isovue 370 intravenous contrast material. Precontrast and delayed images of the abdomen obtained along with coronal and sagittal reformations. This CT examination was performed using the following dose reduction techniques: Automated exposure control, adjustment of mA and/or kv according to the patient's size, and the use of iterative reconstruction technique. FINDINGS: Liver demonstrates diffuse fatty infiltration without focal hepatic lesion. Spleen, pancreas, left adrenal gland and bilateral kidneys are normal. Right adrenal gland includes 1.8 cm benign adenoma. Prior cholecystectomy noted. The enteric system including stomach, small, and large bowel appears normal. No evidence for obstruction or acute inflammatory process. Normal terminal ileum and appendix are identified in the right lower quadrant. Pelvis demonstrates normal bladder and age-appropriate uterus/adnexa. No ascites. No free air. No intraperitoneal or retroperitoneal adenopathy. Abdominal aorta and vasculature appear normal. Incidental retroaortic left renal vein noted. Musculoskeletal structures are intact and without acute osseous abnormality. IMPRESSION: No acute abdominopelvic pathology appreciated. 1.8 cm benign right adrenal adenoma. Hepatosteatosis. PROGNOSIS: Fair ACTIVITY: [As tolerated]. DIET: Regular DISPOSITION: 06 Home [facility] Service. ITEMS TO FOLLOWUP ON ON OUTPATIENT: Follow-up with PCP DISCHARGE CONDITION: [Stable]. TIME SPENT ON DISCHARGE: 40minutes. Vital Signs/I&Os Vital Signs Date Time Temp Pulse Resp B/P (MAP) Pulse Ox O2 Delivery O2 Flow Rate FiO2 05/22/21 08:34 70 154/86 05/22/21 06:00 98.5 18 93 Room Air 05/20/21 22:00 2.0 I&O- Last 24 Hours up to 6 AM 05/22/21 06:00 Intake Total 1920 ml Output Total 1300 ml Balance 620 ml Laboratory Data Labs 24H Laboratory Tests 2 05/21/21 19:59: Bedside Glucose (Misc Panel) 274H 05/22/21 06:10: Immature Granulocyte % (Auto) , Neutrophils (%) (Auto) , Nucleated Red Blood Cells % (auto) 0.0, Neutrophils 73H, Band Neutrophils 3, Lymphocytes (Manual) 19, Monocytes (Manual) 3, Metamyelocytes 2H, Red Blood Cell Morphology NORMAL, Platelet Estimate NORMAL, Anion Gap 5L, Glomerular Filtration Rate > 60.0, Calcium Level 8.4L, Magnesium Level 2.0, Total Bilirubin 0.6, Aspartate Amino T ransf (AST/SGOT) 23, Alanine Aminotransferase (ALT/SGPT) 36, Alkaline Phosphatase 265H, Total Protein 6.2L, Albumin 2.4L, Albumin/Globulin Ratio 0.6L 05/22/21 11:36: Bedside Glucose (Misc Panel) 383H CBC/BMP Laboratory Tests 05/22/21 06:10 FSBS Laboratory Tests Test 05/21/21 19:59 05/22/21 11:36 Range/Units Bedside Glucose (Misc Panel) 274 383 70-105 MG/DL Microbiology Microbiology 05/17/21 Blood Culture - Final, Complete NO GROWTH AFTER 5 DAYS 05/17/21 Blood Culture - Final, Complete NO GROWTH AFTER 5 DAYS Discharge Medications Scheduled Acyclovir (Acyclovir) 200 Mg Capsule, 400 MG PO TID Amoxicillin/Potassium Clav (Amox-Clav 875-125 mg Tablet) 1 Each Tablet, 875 MG PO BID Aripiprazole (Abilify) 2 Mg Tablet, 2 MG PO DAILY, (Reported) Budesonide/Formoterol (Symbicort 160-4.5 Mcg Inhaler) 6 Gm Hfa.aer.ad, 2 PUFF INH BID Doxycycline Hyclate (Doxycycline Hyclate) 100 Mg Tablet, 100 MG PO BID Erenumab-Aooe (Aimovig Autoinjector) 140 Mg/1 Ml Auto.injct, 140 MG SQ QMONTH, (Reported) Levothyroxine Sodium (Levothyroxine Sodium) 50 Mcg Tablet, 50 MCG PO DAILY, (Reported) Prednisone (Prednisone) 10 Mg Tablet, 10 MG PO TAPER Take 4 tabs daily x 7 days, then 3 tabs daily x 7 days, then 2 tabs daily x 7 days, then 1 tab daily x 7 days and stop Sertraline Hcl (Zoloft) 100 Mg Tablet, 100 MG PO BID, (Reported) Tiotropium [place] Monohydrate (Spiriva) 18 Mcg Cap.w.dev, 18 MCG INH DAILY levETIRAcetam (levETIRAcetam) 1,000 Mg Tablet, 1,000 MG PO QHS, (Reported) levETIRAcetam (levETIRAcetam) 1,000 Mg Tablet, 500 MG PO DAILY, (Reported) Scheduled PRN Acetaminophen (Acetaminophen) 325 Mg Tablet, 650 MG PO Q4H PRN for MILD PAIN or TEMP > 101 Albuterol Sulfate (Proair Hfa) 8.5 Gm Hfa.aer.ad, 2 PUFF INH QID PRN for SHORTNESS OF BREATH, (Reported) Allergies Coded Allergies: Latex, Natural Rubber (Verified Allergy, Intermediate, hives, itching, 04/13/21) TAPE (Verified Allergy, Intermediate, hives, itching, 04/13/21) Antihistamines - Ethanolamine (Verified Allergy, Unknown, LOWERS EFFECTIVENESS OF ALL MEDICATIONS, 04/13/21) DEBBIE JONES DO May 22, 2021 19:49
[2021-05-23 18:08] LABS: BODY FLUID CULTURE Not indicated. (.); LEGIONELLA ANTIGEN URINE Negative (Negative); ORGANISM ID Not indicated. (.); SPECIMEN SOURCE Urine (.); URINE STREP PNEUMONIAE ANTIGEN Negative (Negative)
[2021-05-24 08:09] LABS: CREATININE RANDOM URINE 49.3 mg/dL (Not Estab.); VANILLYLMANDELIC ACID,URINE 1.2 mg/L (Undefined); VMA CREAT RATIO RANDOM UR 2.4 mg/g Creat (0.0-6.0)
== END 2021-05-22 13:40 | disposition home health service (06) | DRG 202 ==
LOC: M ED 21:15 → M ED INP 05-17 00:07 → ENRESERV 05-17 13:32 → M MS5PR 05-17 14:20
PROVIDERS: ADMIT Internal Medicine; ATTEND Internal Medicine
DX: J45.901 Unspecified asthma with (acute) exacerbation (principal); J18.9 Pneumonia, unspecified organism; N17.9 Acute kidney failure, unspecified; Z68.41 Body mass index [BMI] 40.0-44.9, adult; G40.909 Epilepsy, unspecified, not intractable, without status epilepticus; G43.909 Migraine, unspecified, not intractable, without status migrainosus; I10 Essential (primary) hypertension; G47.33 Obstructive sleep apnea (adult) (pediatric); E03.9 Hypothyroidism, unspecified; M19.90 Unspecified osteoarthritis, unspecified site; F41.9 Anxiety disorder, unspecified; F32.A Depression, unspecified; R32 Unspecified urinary incontinence; Z85.3 Personal history of malignant neoplasm of breast; Z96.652 Presence of left artificial knee joint; Z90.49 Acquired absence of other specified parts of digestive tract; B97.4 Respiratory syncytial virus as the cause of diseases classified elsewhere; E66.9 Obesity, unspecified; Z79.899 Other long term (current) drug therapy; Z20.822 Contact with and (suspected) exposure to COVID-19; Z91.040 Latex allergy status; Z88.8 Allergy status to other drugs, medicaments and biological substances; R73.03 Prediabetes

== ENCOUNTER 2021-05-30 16:49 | Emergency (ER) | payer OTHER, MEDICAID ==
[~2021-05-30] VITALS: Ht 172.7 cm; Wt 104.5 kg
[~2021-05-30 16:49] MED LIST changes: +ABIL1TAB13 PO; +ACET1TAB55 PO; +ACYC200C8 PO; +AMOX875T2 PO; +DOXY100T PO; +PRED10TA2 PO; +PROAAER10 INH; +PROP80TA PO; +SYMB16INH INH; +TIOT18INH INH; +ZOLO100T PO
[2021-05-30] MEDS ORDERED: BUSP1TAB (17:19)
[2021-05-30] MEDS ORDERED: PROP80TA (17:19)
[2021-05-30 17:30] LABS: BASO % 0.1 % (0.0-1.0); HEMATOCRIT 41.6 % (36.0-47.0); HEMOGLOBIN 13.2 g/dl (12.0-15.5); LYMPH # 0.8 10^3/uL (1.5-5.0); LYMPH % 7.3 % (24.0-44.0); MEAN CORPUSCULAR HEMOGLOBIN 29.9 pg (27.0-33.0); MEAN CORPUSCULAR HGB CONC 31.7 g/dl (32.0-36.5); MEAN CORPUSCULAR VOLUME 94.3 fl (80.0-96.0); MONO # 0.2 10^3/uL (0.0-0.8); MONO % 2.1 % (2.0-8.0); NEUTROPHILS % 89.8 % (36.0-66.0); PLATELET COUNT, AUTOMATED 249 10^3/uL (150-450); RED BLOOD COUNT 4.41 10^6/uL (4.00-5.40); WHITE BLOOD COUNT 11.1 10^3/uL (4.0-10.0)
[2021-05-30] MEDS ORDERED: NS 1,000 ML IV ONE (17:40)
[2021-05-30 17:48] LABS: CALCIUM LEVEL 8.5 MG/DL (8.5-10.1); CREATININE FOR GFR 1.21 MG/DL (0.55-1.30); POTASSIUM SERUM 4.3 MEQ/L (3.5-5.1)
[2021-05-30 18:27] LABS: ALBUMIN 2.7 GM/DL (3.2-5.2); BILIRUBIN,DIRECT 0.2 MG/DL (0.0-0.2); BILIRUBIN,TOTAL 0.7 MG/DL (0.2-1.0); THYROID STIMULATING HORMONE 0.874 uIU/ML (0.358-3.740); THYROXINE (T4) 7.9 UG/DL (4.5-12.0); TOTAL PROTEIN 5.9 GM/DL (6.4-8.2)
--- OUTSIDE RECORDS SUMMARY | 2021-05-30 18:42 | CCD ---
Author Author [facility] Organization [facility] Address Unknown Phone Unavailable Care Team Providers Care Racking Machine Operator Name Role Phone Aguila, L Tatiana CASTING INSPECTOR Unavailable Unavailable Aguila, L Tatiana CASTING INSPECTOR Unavailable Unavailable Aguila, L Tatiana CASTING INSPECTOR Unavailable Unavailable Aguila, L Tatiana CASTING INSPECTOR Unavailable Unavailable Aguila, L Tatiana CASTING INSPECTOR Unavailable Unavailable Aguila, L Tatiana CASTING INSPECTOR Unavailable Unavailable Aguila, L Tatiana CASTING INSPECTOR Unavailable Unavailable Aguila, L Tatiana CASTING INSPECTOR Unavailable Unavailable Aguila, L Tatiana CASTING INSPECTOR Unavailable Unavailable Aguila, L Tatiana CASTING INSPECTOR Unavailable Unavailable Aguila, L Tatiana CASTING INSPECTOR Unavailable Unavailable Aguila, L Tatiana CASTING INSPECTOR Unavailable Unavailable Aguila, L Tatiana CASTING INSPECTOR Unavailable Unavailable Aguila, L Tatiana CASTING INSPECTOR Unavailable Unavailable Aguila, L Tatiana CASTING INSPECTOR Unavailable Unavailable Aguila, L Tatiana CASTING INSPECTOR Unavailable Unavailable Aguila, L Tatiana CASTING INSPECTOR Unavailable Unavailable Aguila, L Tatiana CASTING INSPECTOR Unavailable Unavailable Aguila, L Tatiana CASTING INSPECTOR Unavailable Unavailable Aguila, L Tatiana CASTING INSPECTOR Unavailable Unavailable Aguila, L Tatiana CASTING INSPECTOR Unavailable Unavailable Aguila, L Tatiana CASTING INSPECTOR Unavailable Unavailable Aguila, L Tatiana CASTING INSPECTOR Unavailable Unavailable Aguila, L Tatiana CASTING INSPECTOR Unavailable Unavailable Aguila, L Tatiana CASTING INSPECTOR Unavailable Unavailable Charlebois, A Biju RPA C [...] Unavailable Medrea, Alis Unavailable Medrea, Alis Unavailable ALIS MOODY Unavailable Unavailable THUAN PA-C, [id number] A. CHRISTIN PA Unavailable Unava ilable THUAN PA-C, [id number] A. CHRISTIN PA Unavailable Unava ilable THUAN PA-C, [id number] A. CHRISTIN PA Unavailable Unava ilable THUAN PA-C, [id number] A. CHRISTIN PA Unavailable Unava ilable THUAN PA-C, [id number] A. HCRISTIN PA Unavailable Unava ilable THUAN PA-C, [id number] A. CHRISTIN PA Unavailable Unava ilable THUAN PA-C, [id number] A. CHRISTIN PA Unavailable Unava ilable Re-disclosure [...] is protected by Article 27-F of the [facility] Public Health law. If you continue you may have access to information: Regarding HIV / AIDS; Provided by facilities licensed or operated by the [facility] Office of Mental Health; or Provided by the [facility] Office for People With Developmental Disabilities. If such information is present, then the following [facility] mandated warning applies: This information has [...] law may result in a fine or shelter sentence or both. A general authorization for the release of medical or other information is NOT sufficient authorization for further disc losure. Family History Family Member Name Family Member Gender Family Member Status Date o f Status Description Data Source(s) Unknown Male Problem MEDENT ([facility] () Unknown Male Problem MEDENT ([facility]) Encounters Encounter Providers Location Date Indications Data Source(s ) Outpatient Attender: ALIS MEDREAAttender: Alis MedreaRefe rrer: ALIS MEDREA 07/24/2021 12:00:00 AM [facility] Outpatient Attender: ALIS MEDREAAttender: Alis Medrea 06/27/2021 12:00:00 AM [facility] Outpatient Attender: ALIS MEDREAAttender: Alis Medrea 06/22/2021 12:00:00 AM [facility] Outpatient Referrer: ALIS MEDREA 06/05/2021 12:00:00 AM [facility] Unknown [address] [facility] [address] 05/15/2021 12:00:00 AM EDT eCW1 ([facility]) Outpatient Attender: ALIS MEDREAAttender: Alis MedreaRefe rrer: ALIS MEDREA 04/23/2021 12:00:00 AM [facility] Outpatient [address] [facility] [address] 03/30/2021 12:00:00 AM EDT eCW1 ([facility]) Outpatient Attender: Alis GuoaAtpaod er: ALIS LIONREAReferrer: [id number] CHRISTIN LAROSE PA-C [id number] 03/22/2021 12:00:00 AM EDT - 03/22/2021 03:54:21 PM [facility] Outpatient Attender: Tatiana Torres/Maritza/Abner/Dae 03/21/2021 01:00:00 PM EDT MEDENT ([facility]) [place] [address] [facility] [address] 03/21/2021 12:00:00 AM EDT eCW1 ([facility]) [place] [address] [facility] [address] 03/12/2021 12:00:00 AM EDT [facility] [place] [address] [facility] [address] 01/22/2021 12:00:00 AM EDT [facility] [place] [place] [address] [facility] [address] 01/19/2021 12:00:00 AM EDT [facility]CW1 [facility] [place] [address] [facility] [address] 12/28/2020 12:00:00 AM EDT [facility] [place] [address] [facility] [address] 12/28/2020 12:00:00 AM EDT [facility] Outpatient Attender: Biju Shea RPA C Brian/Eden/A ngel/Reindl 11/29/2020 02:30:00 PM EDT MEDENT ([facility]) [place] [address] [facility] [address] 10/24/2020 12:00:00 AM EDT eCW1 ([facility]) Outpatient Attender: Tatiana Sheehan NP Brian/Eden/Abner/Reindl 09/20/2020 12:00:00 PM EST MEDENT ([facility]) Outpatient Attender: Biju Shea RPA C Brian/Eden/A ngel/Reindl 07/06/2020 12:30:00 PM EST MED[facility] ([facility]) Outpatient Attender: Tatiana Sheehan NP Brian/Eden/Abner/Reindl 06/21/2020 02:30:00 PM EST MED[facility] ([facility]) [place] [address] [facility] [address] 06/14/2020 12:00:00 AM EST eCW1 ([facility] [place] [address] [facility] [address] 05/22/2020 12:00:00 AM EDT eCW1 ([facility]) Unknown [address] [facility] [address] 05/18/2020 12:00:00 AM EDT eCW1 ([facility]) Unknown [address] [facility] [address] 05/04/2020 12:00:00 AM EDT eCW1 ([facility]) Outpatient Attender: Biju Torres/Maritza/Moisés balderrama/Dae 04/19/2020 01:00:00 PM EDT MED[facility] ([facility] [place]) Immunizations Vaccine Date Status Description Data Source(s) COVID-19 dose #1 given elsewhere Unspecified 11/09/2020 02:4 8:00 PM EDT completed eCW1 ([facility]) COVID-19 dose #1 given elsewhere Unspecified 11/09/2020 02:4 8:00 PM EDT completed eCW1 ([facility]) COVID-19 dose #1 given elsewhere Unspecified 11/09/2020 02:4 8:00 PM EDT completed eCW1 ([facility]) COVID-19 dose #1 given elsewhere Unspecified 11/09/2020 02:4 8:00 PM EDT completed eCW1 ([facility]) COVID-19 dose #1 given elsewhere Unspecified 11/09/2020 02:4 8:00 PM EDT completed eCW1 ([facility]) COVID-19 dose #1 given elsewhere Unspecified 11/09/2020 02:4 8:00 PM EDT completed eCW1 ([facility]) COVID-19 VACCINE Zena 11/09/2020 12:00:00 AM EDT completed [facility] Vaccine Series Complete: YESThis Data wa s Submitted to [facility] Via [employer]. New in 2011. IIV4 06/07/2020 02:45:00 PM EST completed MEDENT ([facility]) Medications Medication Brand Name Start Date Product Form Dose Route Admi nistrative Instructions Pharmacy Instructions Status Indications Reaction Description Data Source(s) Erenumab-aooe 140 MG/ML Subcutaneous Solution Auto-injector (AIMOVIG) 660002 03/22/2021 12:00:00 AM EDT 140 mg Subcutaneous active Inject 1 mL into the skin every 30 (thirty) days [facility] Ubrelvy 100 MG Oral Tablet (Ubrogepant) 6639-2450-30 03/22/20 12:00:00 AM EDT 100 mg Oral active Take 100 mg by m outh Two times daily as needed [facility] buspirone hydrochloride 7.5 MG Oral Tabl et busPIRone HCl 7.5 MG Oral Tablet (BUSPAR) busPIRone HCl 7.5 MG Oral Tablet (BUSPAR) 02/19/2021 12:00:00 AM EDT active TAKE ONE T ABLET BY MOUTH @8AM and TAKE ONE TABLET BY MOUTH @8PM [facility] Propranolol Hydrochloride 80 MG Oral Tab let Propranolol HCl 80 MG Oral Tablet (INDERAL) Propranolol HCl 80 MG Oral Tablet (INDERAL) 02/19/2021 12:00:00 AM EDT active TAKE ONE TABLET BY MOUTH @8AM and TAKE ONE TABLET BY MOUTH @8PM [facility] Aerochamber Plus Chriss-Vu 06/21/2020 12:00:00 AM EST active MEDENT ([facility], ) POLYETHYLENE GLYCOL 3350 142 MG/ML Oral Solution [Miralax] M iralax 05/19/2020 12:00:00 AM EDT ORAL completed MEDENT ([facility], ) 200 ACTUAT Albuterol 0.09 MG/ACTUAT Metered Dose Inhal er [Ventolin] Ventolin HFA 02/16/2020 12:00:00 AM EDT RESPIRATORY active MEDENT ([facility], ) 24 HR venlafaxine 225 MG Extended Releas e Oral Tablet Venlafaxine HCl 225 MG TB24 Venlafaxine HCl 225 MG TB24 03/08/2016 12:00:00 AM EDT aborted daily. [facility] Erythromycin 0.005 MG/MG Ophthalmic Oint ment erythromycin (ROMYCIN) ophthalmic ointment erythromycin (ROMYCIN) ophthalmic ointment 04/18/2015 12:00: 00 AM EDT Left Eye aborted Place into the left eye Three times daily as needed. [facility] Ascorbic Acid 500 MG Oral Capsule Ascorbic Acid (VITAM IN C) 500 MG CAPS Ascorbic Acid (VITAMIN C) 500 MG CAPS 04/06/2013 12:00:00 AM EDT aborted daily. [facility] Acetaminophen 250 MG / Aspirin 250 MG / Caffeine 65 MG Oral Tablet [Excedrin] Excedrin Migraine 250-250-65 MG Oral Tablet (vmjqkym-joqlerfcsaxdz-fdmablyf) Excedrin Migraine 250-250-65 MG Oral Tablet (hlooblu-jxbuvcumnbpsi-sdgtfdad) 1 {tbl} Oral aborted Take 1 tablet by mouth every 6 (six) hours as needed for Pain [facility] Nortriptyline 10 MG Oral Capsule Nortriptyline HCl 10 MG Oral Capsule (PAMELOR) Nortriptyline HCl 10 MG Oral Capsule (PAMELOR) 10 mg Oral aborted Take 10 mg by mouth nightly [facility] Ergocalciferol 44234 UNT Oral Capsule Er gocalciferol 97244 UNIT Oral Capsule (DRISDOL) Ergocalciferol 38264 UNIT Oral Capsule (DRISDOL) 21780 U Oral aborted Take 50,000 Units by mouth once a week [facility] levocetirizine dihydrochloride 5 MG Oral Tablet Levocetirizine Dihydrochloride 5 MG Oral Tablet (XYZAL) Levocetirizine Dihydrochloride 5 MG Oral Tablet (XYZAL ) 5 mg Oral aborted Take 5 mg by angela th every evening [facility] buspirone hydrochloride 5 MG Oral Tablet busPIRone HCl 5 MG Oral Tablet (BUSPAR) busPIRone HCl 5 MG Oral Tablet (BUSPAR) 5 mg Oral aborted Take 5 mg by mouth Two Times Daily [facility] SUMATRIPTAN SUCCINATE PO 50 mg Oral aborted Take 50 mg by mouth as needed [facility] Insurance Providers Payer name Policy type / Coverage type Policy ID Covered democrat ID Covered democrat's relationship to churchill Policy Churchill Plan Information MEDICARE [id number] [facility] [id number] MEDICARE A [id number] Self [id number] MEDICARE 4 [id number] 1 [id number] Medicare - NGS Medicare Primary [id number] Self 1 [id number] Medicare - [place] Medicare Primary [id number] Self 1 [id number] Medicare - [place] Medicare Primary [id number] Self [id number] Medicare - [place] Medicare Primary [id number] Self 1 [id number] Medicare - [place] Medicare Primary [id number] Self 1 [id number] Medicare - [place] Medicare Primary [id number] Self 1 [id number] Medicare - [place] Medicare Primary [id number] Self 1 [id number] MEDICARE [id number] SP [id number] Medicare Medicare Primary [id number] Self [id number] Self [id number] Self [id number] Self [id number] MEDICAID M [id number] Self [id number] [employer] Medicare Commercial [id number] Self [id number] Unitedhealthcare Medicare Commercial [id number] Self [id number] [facility] [id number] SP [id number] [facility] [id number] SP [id number] HUMANA MEDICARE ADVANTAGE G [id number] Self [id number] MEDICAID M [id number] Self [id number] ANSI-Not a Secondary Insurance [id number] ANSI-Medicare Part B [id number] ANSI-Medicaid [id number] ANSI-Not a Secondary Insurance [id number] ANSI-Medicare Part B [id number] ANSI-Not a Secondary Insurance [id number] ANSI-Medicaid [id number] ANSI-Not a Secondary Insurance [id number] ANSI-Medicare Part B [id number] ANSI-Medicaid [id number] [facility] [place] [facility] [id number] [id number] Self [id number] ANSI-Medicaid [id number] ANSI-Not a Secondary Insurance [id number] ANSI-Medicare Part B [id number] ANSI-Not a Secondary Insurance [id number] ANSI-Medicaid [id number] ANSI-Medicare Part B [id number] ANSI-Not a Secondary Insurance [id number] ANSI-Medicare Part B [id number] ANSI-Medicaid [id number] ANSI-Not a Secondary Insurance [id number] ANSI-Medicaid [id number] ANSI-Medicare Part B [id number] MEDICARE COMPLETE [id number] SP [id number] ANSI-Not a Secondary Insurance [id number] ANSI-Medicare Part B [id number] ANSI-Medicaid [id number] ANSI-Not a Secondary Insurance [id number] ANSI-Medicare Part B [id number] ANSI-Medicaid [id number] Medicaid [place] Medigap Part B [id number] [id number] Self [id number] [id number] SP [id number] MEDICARE COMPLETE [id number] SP [id number] ANSI-Medicaid [id number] ANSI-Medicare Part B [id number] ANSI-Medicaid [id number] ANSI-Medicaid [id number] ANSI-Medicaid [id number] ANSI-Medicare Part B [id number] ANSI-Medicaid [id number] [place] [id number] ANSI-Medicare Part B [id number] ANSI-Medicaid [id number] ANSI-Medicaid [id number] ANSI-Medicare Part B [id number] ANSI-Medicare Part B [id number] ANSI-Medicaid [id number] ANSI-Medicaid [id number] ANSI-Medicaid [id number] ANSI-Medicare Part B [id number] ANSI-Medicare Part B [id number] ANSI-Medicaid [id number] ANSI-Medicaid [id number] ANSI-Medicare Part B [id number] ANSI-Medicare Part B [id number] ANSI-Medicaid [id number] ANSI-Medicare Part B [id number] ANSI-Medicaid [id number] ANSI-Medicare Part B [id number] ANSI-Medicaid [id number] ANSI-Medicaid [id number] ANSI-Medicare Part B [id number] ANSI-Medicare Part B [id number] ANSI-Medicaid [id number] MEDICARE C [id number] C [id number] MEDICAID UNAVAILABLE UNAVAILA BLE MEDICARE [id number] SP [id number] SELFPAY 5 UNAVAILABLE 1 UNAVAILA BLE SELF PAY 5 UNAVAILABLE 1 UNAVAILA BLE ANSI-Medicaid [id number] HUMANA GOLD [id number] SP [id number] HUMANA GOLD [id number] SP [id number] HUMANA HMO [id number] SP [id number] [place] [id number] SP [id number] SELF PAY ONLY SP [id number] MEDICAID [id number] SP [id number] HUMANA GOLD [id number] SP [id number] HUMANA HMO [id number] SP [id number] [facility] HMO [id number] SP [id number] [id number] SP [id number] HUMANA HMO [id number] SP [id number] ANSI-Medicaid [id number] ANSI-Medicare Part B [id number] ANSI-Not a Secondary Insurance [id number] [place] [id number] Self [id number] Medicare Community Plan Commercial [id number] Self [id number] ANSI-Not a Secondary Insurance [id number] ANSI-Medicare Part B [id number] [facility]-Medicaid [id number] [facility]-Medicaid [id number] [facility]-Medicare Part B [id number] Problems, Conditions, and Diagnoses Code Display Name Description Problem Type Effective Dates Data Source(s) G43.019 801017991 Intractable migraine without aura and without status migrainosus Problem 02/11/2021 12:00:00 AM EDT eCW1 ([facility]) E78.2 Mixed hyperlipidemia Mixed hyperlipidemia Problem 01/19/2021 12:00:00 AM EDT eCW1 ([facility]) J45.30 Mild persistent asthma Mild persistent asthma Problem 09/20/2020 12:00:00 AM EST MEDENT ([facility]) J45.40 Uncomplicated moderate persistent asthma Uncomplicated moderate persistent asthma Problem 06/21/2020 12:00:00 AM EST MEDENT ([facility]) G47.33 Obstructive sleep apnea syndrome Obstructive sle ep apnea syndrome Problem 06/21/2020 12:00:00 AM EST MEDENT ([facility]) Surgeries/Procedures Procedure Description Date Indications Data Source(s) Endoscopy Upper GI Biopsy 04/27/2021 12:00:00 AM EDT [facility] ([facility]) Spirometry 03/21/2021 12:00:00 AM EDT M EDENT ([facility]) OFFICE OUTPATIENT VISIT 15 MINUTES 03/21/2021 12:00:00 AM EDT [facility] ([facility]) OFFICE OUTPATIENT VISIT 15 MINUTES 11/29/2020 12:00:00 AM EDT [facility] ([facility]) Spirometry 09/20/2020 [facility] 06/21/2020 12:00:00 AM EST [facility] Results ID Date Data Source [id number] 05/17/2021 12:07:00 AM EDT [facility] Name Value Range Interpretation Code Description Data Keira rce(s) Supporting Document(s) SARS coronavirus 2 RNA [Presence] in Res piratory specimen by SAM[facility] with probe detection NEGATIVE [facility] This lab was ordered by [facility] a nd reported by [facility]. ID Date Data Source [id number] 05/13/2021 11:35:00 PM EDT [facility] Name Value Range Interpretation Code Description Data Keira rce(s) Supporting Document(s) SARS-CoV-2 (COVID 19) NEGATIVE - SARS-CoV-2 (COVID19) [facility] This lab was ordered by [facility] a nd reported by [facility]. ID Date Data Source [id number] 04/27/2021 02:44:00 PM EDT [facility] ([facility]) Name Value Range Interpretation Code Description Data Keira rce(s) Supporting Document(s) Surgical pathology study Laboratory test result [facility] ([facility]) FINAL DIAGNOSIS A-Small bowel, biopsy: Scant bowel mucosa, insufficient for definitive diagnosis. B-Gastric biopsy: Gastric mucosa with mild chronic inflammation and reactive changes. No H.pylori is identified. 05/01/2021 - 110 CLINICAL DIAGNOSIS Diarrhea, positive celiac markers 04/30/2021 - 135 GROSS DIAGNOSIS A - Received in formalin [...] MD 05/01/2021 1105 ID Date Data Source [id number] 04/25/2021 10:45:00 AM EDT [facility] Name Value Range Interpretation Code Description Data Keira rce(s) Supporting Document(s) SARS coronavirus 2 RNA [Presence] in Res piratory specimen by [facility] with probe detection NEGATIVE [facility] This lab was ordered by [facility] a nd reported by [facility]. ID Date Data Source [id number] 03/22/2021 04:10:08 PM EDT [facility] Name Value Range Interpretation Code Description Data Keira rce(s) Supporting Document(s) Progress Note [facility] [id number] [file] XaL1UEs9XZMiRuJdSIXvVwOsTL9FDb1KWjK6NQM2yQDoFp5VXbL0HVlLQbNhQA5OOMw= ID Date Data Source [id number] 03/22/2021 04:08:58 PM EDT [facility] Name Value Range Interpretation Code Description Data Keira rce(s) Supporting Document(s) Progress Note [facility] HCEFXz7xHgVCVhOd48/ALYbkFWUqv3AmGIoeRIk7CPnnZKSdZ6HwYVJ1hU6xZAB0HLuKQaOdMjBeNKJ0 lbm DgCwkCMlRrWDAyYnqWThQhMGulXrbjuHMwIO0CoNK0BAQtZ74rPFSiFWSoV5DrCIF8Exp+Np0PDSKboZ AwSZ9CDjkX3Cezx4p9Wc8+eP5ZEkvpqsmYRdv00DZXX8pqOPiDHl5OxAS/xFYen1iPAviB4p/+qDfLw9 WkjUHp9iRJMhmCubRxHv4aJvgGLf82ZVhfUcgm+e/2 qxdwMlmSH/6Pinwlod7d+lz8IRpf0aHb4XD/Wuz7Dq/G2YKDSHTkYA/NegmoQYacV6Eq1+nRnViFX1+R 6zDdkPcJ+Pe8eXiiyXI+RT//9BMZ/91xizNXY6BUxtqnDq7IY3SAAV9Gi47GX9BZcueRzzKILjxwHU5m xQhKx2BntDG7bAYCRjwl25kegbPSGjBaaHCIiLdhiN c9uAPXETx2paPghT+Mu667e+Jl/NHWgLAfPqwWWI9D20cnAvqQCdaFA2qPfoc66FrsA85ByE5CI+uJUS e1OqqJRGvXUfhszoT3pfe4Kf+ablioEc29eqwihvA7ApfiG0mExz5YyG+DFyol1TO1mfbu0mbfW438qO 7NpwSfY4VRDK0jfEoO+5iDxWa6kryW0YHi6ZL8ZoGa UASF8Qry+SVTRZxdMy4fuBJmHHzzBuBLUw/3CqtMd/AvVTca69rKN/aj9Eqpw5K4pq9HNLfsFsJ4YhkZ jsg8NYeKSvq+c+PoNJE450B5DQxKLv1ObUsSbsLb3Bw7vIYVHruZYAcc9W80n2cHtaZa+rLxFw0hTl2j o0ZK/UpAGyEXJbEpUAsmjSJJjVRA55pYyCcDLEVfp8 CKSzacl+DP5VsIkkKyHn+odoKgBUIiLKVMpSUM33jrbn/Jacquelin/Q5sqMnwzPHSESUXXVvbJhxj3lzgffW3F [file] OkLaOuDoKS1ZYv8GOyD9KYH4lENgEs0NAeEwIgDPTlNdEW3MUUd= ID Date Data Source [id number] 03/22/2021 04:08:23 PM EDT [facility] Name Value Range Interpretation Code Description Data Keira rce(s) Supporting Document(s) Progress Note [facility] RBCIJk8kSsNHNnQm62/VBOcbADGnj5YyOLsnZZn8EUamYPZmY0OuOMP5bK2uOIJ0FZnMPcSpNwHlMMH0 lbm [file] PERSONAL BANKING OFFICER+Lo4YBWOfLFo8G0Y5AUNiGBh4E3VBP0NZQBVwYZqmUOjzDXAkYQx5U9P3LPRrQ8JMD3Dizgbavm9+ TX1ZY15YCUQxRQp5M0K8pUQnC4P1eKdRfXL0GR8BJO0IaAu2bJPpxT9+AJ3VB1NBPeTlGNf3L6T8qNCe B0G1zTzMiRW6NQ3PVF7PjZNmYSOxigWfIy7oU7KNOI sMSiUKERU7AA3BfWMtVD4TrZZWR5SbtMLpDf7iKBiyvMNpcU5iMd3fDKpmAY1INxIBMUeVUXR1ZT2AkA ZkTQ5IaMEYK9TzyIMrSt2mCJaenFMndu1+SR6IAMAyBr4KMh9+YLfbypGjGjcDQfIvTTWky2BnLZm3WR 5OZS4alIqgIDO9Fl7AgJW5aMQqK4hRPJ1CcKJdJ22m cFKeEEKdPo7IKrX0pfXcwJ5JSU31mLOnt9V1VMLoW4hdIQozb44sTXgaRFzWET0dDZPPHFceTCeyUGB5 CjQvvcymHOPhYx0FHaZyQYi5yZ7ohNG5DYB2MvqwfRRiUZyvUrKeZuXjSlZ9mIzlwpy6CJyoNU5eZUpc czptZXRhLyc+TBokUQEgUWKoMbfJELWduF5zouE2pd ToDIeilJSfHm3lo6w6DnriUq8hUm3qWTt5VkZnXxXuFRTzYt0rdY51DMvvuiPfHq5ADyLhHTL4L1FnRa pSREY+MJsiPEqlyIv7fHOdSRYmFl4NYIYlNLRrALMiETClCXUcYMAxYELcJGDjZQPpGIErNEOwRNCmYY AgICAgICAgICAgICAgICAgICAgICAgICAgICAgICAg DJTfRAUbNJKyDBIvAILeBMYnMJHwZPDhOOXrLKBiXG0APJFsUICaZIZjHDUuRNOeKVJyHKIfRIBbTWTn ICAgICAgICAgICAgICAgICAgICAgICAgICAgICAgICAgICAgICAgICAgICAgICAgICAgICAgICAgICAg CSBtMUDeYGImJLJsIX5QXLVoXTNnKCMmMKGuDYXqEL AgICAgICAgICAgICAgICAgICAgICAgICAgICAgICAgICAgICAgICAgICAgICAgICAgICAgICAgICAgIC DvFQHoCPBeXRYzHQKwHVPmVGXgHNZxYP3YOMFpRGJxVYDoVBXpHEFfSCDwPBYzEVDmRCUqJZWuDUTcOS AgICAgICAgICAgICAgICAgICAgICAgICAgICAgICAg ZFEaYRQjLZMyYIOqKBBdUWYbUWXnWLThTURcGUXxKRYpJM0NITZwOUQsOONeKTXuAWKnBEYlUVWaWXHt ICAgICAgICAgICAgICAgICAgICAgICAgICAgICAgICAgICAgICAgICAgICAgICAgICAgICAgICAgICAg MRLiTRQlGBPiLIOpJIXrDM1FWUZxDORkTXNlGRXjWM AgICAgICAgICAgICAgICAgICAgICAgICAgICAgICAgICAgICAgICAgICAgICAgICAgICAgICAgICAgIC TsLZHsTDYhYZPzLDQpQFRqWGFaPSLhTFPmXP5ZOUBpPGWrYMMgIUQrGYDmTFMoCOBhNBWuJYVkFKAjNC AgICAgICAgICAgICAgICAgICAgICAgICAgICAgICAg OZZqHBRuOOTaWORnDHPzVQAjGLIoDAIiJSScBUEoGQGpIMVvHZ8LZXBmBQQgUIKgVAMpWBZmECLmPUAe ICAgICAgICAgICAgICAgICAgICAgICAgICAgICAgICAgICAgICAgICAgICAgICAgICAgICAgICAgICAg YIVlODFyPTWgTFScCFDkXQPxLU8DVUJnWZUsRTSiHN AgICAgICAgICAgICAgICAgICAgICAgICAgICAgICAgICAgICAgICAgICAgICAgICAgICAgICAgICAgIC KpUKSeRDDdQRPcAWTzNGFtMHDeNBZxQNLhIWGnGY2HJGZeZHHtJUMxJRCcLTHoHWDmDSBxGKWbZCXsXW AgICAgICAgICAgICAgICAgICAgICAgICAgICAgICAg NCDzEVFvUBVuOVNoHZWrACFyGMNvVJZtVHLhHCAsRZEmXGObFGCpNW4KXH19hWGmi5H1HTDfHK8vkif/ Ry6IXZfcqqCfqLQxNC2AVrZeLX7pwq2IYvKqWA1ucy3GYMjTIqMeY8F8bHNfKKTbGKDVBiHpH93nHDbt Fw17JSliHFNgLbRgPAw8Fu0CTaUlJ9lfJOTcClJ1FV FdLjV9MQPxWqQ6RBWeHgQsPDUdTHRbYQYqBHKRJVI1CUJqSoAeGcQbSHMaCGccFSFONAFqOSEsVzJgSy ObKUSnVyAbCZHLHHO7AVZdZpQxACTuKQNnZoLgIYDPDZ2ULcXfA2PlpL90WBZ1FDb+Rt6HRX6rn9JbSW u0OAClSP9dhi2CPZbHRbQrH7OrjeN5JRFtPCZoVz5H JTPbBVDrwRE7EeIsSHYUDcDgV9LtaG05LKQWFy3+CFyuvrHoGkwXKkVtOSKeo5TgUOw4WA0TWUHeRAj2 mVOwTZVxD4Qnr7YqOl53RCBhHeivQO6yroKbQNYkheEmEUIHZIEkcIW7CuP3WiOcBrIoZWZ1RoPpAT3z KPlbPG7BMVT0JIsgWZNnVMWoS4qTEzHpQQKbOGYsdJ jySS0WSwOgK3NaspNvuYW0NHSvBWYAYe6+INxjrpAeBvcEHdImFNIpv5YqQSo1TM8GRIQaCDibTG6KHP FjaD8dUGbcWJ1SKdO8MEGzWMGIGnKqX51umPVgQFz7O5AuJkFmUQViAfsuCHNqYCsuGtBuSKUyMvMdTH ogID4+ID4+JMelKA7TOHhwfgDsHCPgYm7AKBZnZYSc GZ2fSRWmUKIhR2Y7lCpvITAUEdQoJ3bggxdvJE8mQYEeT130kXdqvwGgOKNbSBPiXa6IGXGsCZE8FFYe hWRyQGSnCJQZVGktDX0MtWDlYGQ0rN5jWRhsLRDnZMBvB9iHItApcNilNA29pUajodNrfGJbNWn+Pg0K HM2wf9MsSKp4juMqUXpqRXQ9MQzjXJZjKCFwWFVnLY U3JAP4WBHAOmHoDNKeYSEgRKdyYTRmVXEnww6MIWMtRRX1HGShBwRpGQRiTVSrEBabFRIhVETaSZu4KM UiSJGsFB2KBeWfKNTxJGCkCNmxIOQgQXJjyg2IVIIpEWCdXhIcJaNsBPQkKVPvDRngQMEvLFTcZoIvXN UfFPHqMS0TRnTxYAPdWZsqUakwAXZcOSEamo1DKMNl LWNrMkP6FbGaYEBwIJAzSSaqMAOkYQAhLyCmBMNmUKNfAL0UMuUsTTKxKCZ1QndvZSHhPKWint6HKTSd DAHcBdB6FCFeSWPyZONsPZonNALxIXJsEFX9ISOqJTGjLS8EGrBrRNCcNOVzEWOdXZCnCOGaux7WAHZf LRYvVQOtRzSnXQSfVSAjFTigHOGoPNF5RgH9HAOkWR MkKV7JDnJqPJAlYHr3RgDyBTMmERHjib2ERQZdKSDeUUC2IeGpBXYqTQKgXZwrJJOdRZYdAqi8AMReKC LwWF9JZcXpROBhUlK0AidsXEUnVZClve3PBUYlMZOlJio1SHKwCOSqRHRfLGnxFHQvVEY9RhJxFIIkRV IgKU1KYgNpHCTmAtZ5UOodBNEzMLQuvm5GOLLgHMMh ZHZkJvGvVUYpYUTbMNpkKDSrEMD5MON5HPKgNLNfZN3YTwIxUHKkZcP3DCDqMALzQFGrko2OUFYzPVFx KbZvClJeYGFqMRJbXJxoDUVgWLR3BrQ4SGAwKSJpAN1DUkXvRBKmMrT3VbErPAJiBRNykh2YEQDcSMFw Rfa3VjSfMSZdQHQvEPplVFQfBUB6AXK2QIFoNYTpLD 0XNvRmSIWsQME4YlDeLIJaBEJabr3XKWPhJIK7OVWcAhTmIOLoDMDxZXsrKKZaSKBaTKu3MGYtKKTzES 5NIcAjVCCvKPV0CXGnOXUnFJEzyp2HJXMyRLQ7GUz1VbMrHPUbGMZpCJbbHJCcTNPeYFV4UKFiGMBkKC 9TDlDoXPEcHBZvBfiaBXOjCLAfen2ZZUOcRSP3MpWn EpCkRPAfVPCoQWrcQTMjGRL1GcO8QPAdMMIyQM9JItHcXAFiGYRqBfNyPDFcWHIexe5MYGOfDZB4CTH6 OMSlTCWqXJHxCKxeQTClSTP0LMRtNDSkNRUvZY5AOkAoOJPwUUG2WuMiNARuIBFtnn5ZGGRnWHY1KhSv QXStHPBzVNBhLHqyFOGcNXA1JVU4YGLfUMNfLQ1ISu EvEALeYAV9UKShOEDdBYHrpc1CMFEfIRP5MicaRSCcNZVuXWBmHFfeYYZoIIL6BFLdADXhJCHdTP3SGf NpTOUzTGdhKGAoAKUdCOMoxl9EEHCxNBX8VZbdJTGvGKChEMHlPWmxGSNoPIOxVtZ0ILAiOXNjPV1FYe XxPBLeDdYhGqgiASBeNZWwhf8KUTWbNTF5UTG5CKXl QTNeAJGuCXa5uaTogDOqGGl1XO9WF9TykfUuAGYSVr0La415EYNkJJXsSa9JT2npJm3rDOPeAVWCXd4Q ULw4YOX3F5R5OIZqFityAZE3MpR7G1J2M7W4Y4OeYYzpXbo+LLdiUPhuGqm9JPL4NBFmEkxdJDl3QSa4 KQdvUlH1XvGeAB0pUQEWFf2+ULbrsMGfbYlhQHPOLxRlXjA3QEtvDVXXNn0Y ID Date Data Source [id number] 03/22/2021 06:03:39 PM EDT [facility] Name Value Range Interpretation Code Description Data Keira rce(s) Supporting Document(s) Hemoglobin A1c/Hemoglobin.total in Blood by HPLC 6.3 % 4.0-6.0 H [facility] (NOTE)<5.7% Average risk of diabetes (ADA)5.7-6.4% Increased risk of diabetes(ADA)>/= 6.5% Diagnostic for diabetes(ADA) Glucose mean value [Mass/volume] in Blood Estimated fr om glycated hemoglobin 134 mg/dL <126 H [facility] ID Date Data Source [id number] 03/22/2021 05:55:55 PM EDT [facility] Name Value Range Interpretation Code Description Data Keira rce(s) Supporting Document(s) Leukocytes [#/volume] in Blood by Automated count 7.4 10*3/uL 4-10 [facility] Erythrocytes [#/volume] in Blood by Automated count 4.78 10*6/uL 4.1- 5.3 [facility] Hemoglobin [Mass/volume] in Blood 14.3 g/dL 11.5-15.5 [facility] Hematocrit [Volume Fraction] of Blood by Automated count 43.1 % 3 6-45 [facility] Erythrocyte mean corpuscular volume [Entitic volume] by Auto mated count 90.3 fL 80-96 [facility] Erythrocyte mean corpuscular hemoglobin [Entitic mass] by Automated count 29.9 pg 27-33 [facility] Erythrocyte mean corpuscular hemoglobin concentration [Mass/volume] by Automated count 33.1 g/dL 32.0-[facility] Erythrocyte distribution width [Ratio] by Automated count 13.0 % 11.5-14.5 [facility] Platelets [#/volume] in Blood by Automated count 242 10*3/uL 150-400 [facility] Differential cell count method - Blood [facility] Neutrophils/100 leukocytes in Blood by Automated count 55 % [facility] Lymphocytes/100 leukocytes in Blood by Automated count 34 % [facility] Monocytes/100 leukocytes in Blood by Automated count 8 % [facility] Eosinophils/100 leukocytes in Blood by Automated count 2 % [facility] Basophils/100 leukocytes in Blood by Automated count 1 % [facility] Neutrophils [#/volume] in Blood by Automated count 4.05 10*3/uL 1.8-7 .0 [facility] Lymphocytes [#/volume] in Blood by Automated count 2.55 10*3/uL 1.2-4 .0 [facility] Monocytes [#/volume] in Blood by Automated count 0.58 10*3/uL 0-0.8 [facility] Eosinophils [#/volume] in Blood by Automated count 0.17 10*3/uL 0-0.5 [facility] Basophils [#/volume] in Blood by Automated count 0.07 10*3/uL 0-0.2 [facility] Nucleated erythrocytes/100 leukocytes [Ratio] in Blood by Automated count 0 /100{WBCs} 0-0 [facility] ID Date Data Source [id number] 03/22/2021 06:17:10 PM [facility] Name Value Range Interpretation Code Description Data Keira rce(s) Supporting Document(s) Cobalamin (Vitamin B12) [Mass/volume] in Serum or Plasma 526 pg/ml 2 11-946 [facility] ID Date Data Source [id number] 03/22/2021 06:17:10 PM [facility] Name Value Range Interpretation Code Description Data Keira rce(s) Supporting Document(s) Albumin [Mass/volume] in Serum or Plasma by Bromocresol green (BCG) dye binding method 3.9 g/dL 3.5-5.2 [facility] Bilirubin.total [Mass/volume] in Serum or Plasma 0.7 mg/dL <1.2 [facility] Calcium [Mass/volume] in Serum or Plasma 9.4 mg/dL 8.6-10.0 [facility] Chloride [Moles/volume] in Serum or Plasma 100 mmol/L 98-107 [facility] Creatinine [Mass/volume] in Serum or Plasma 0.98 mg/dL 0.50-0.90 H [facility] Glucose [Mass/volume] in Serum or Plasma 120 mg/dL 70-140 [facility] Alkaline phosphatase [Enzymatic activity/volume] in Serum or Plasma 164 U/L 35-104 H [facility] Potassium [Moles/volume] in Serum or Plasma 4.0 mmol/L 3.4-5.1 [facility] Protein [Mass/volume] in Serum or Plasma 7.2 g/dL 6.4-8.3 [facility] Sodium [Moles/volume] in Serum or Plasma 137 mmol/L 136-145 [facility] Aspartate aminotransferase [Enzymatic activity/volume] in Serum or Plasma 14 U/L <32 [facility] Urea nitrogen [Mass/volume] in Serum or Plasma 16 mg/dL 6-20 [facility] Osmolality of Serum or Plasma by calculation 286 mosm/kg 275-300 [facility] Creatinine/Urea nitrogen [Mass Ratio] in Serum or Plasma 17 [facility] Bicarbonate [Moles/volume] in Serum 27 mmol/L 22-29 [facility] Alanine aminotransferase [Enzymatic activity/volume] in Seru m or Plasma 19 U/L <33 [facility] Anion gap 3 in Serum or Plasma 10 mmol/L 8-15 [facility] Glomerular filtration rate/1.73 sq M pre dicted among non-blacks [Volume Rate/Area] in Serum or Plasma by Creatinine-based formula (MDRD) 64 mL/min/1.73m2 >60 [facility] Glomerular filtration rate/1.73 sq M pre dicted among blacks [Volume Rate/Area] in Serum or Plasma by Creatinine-based formula (MDRD) 74 mL/min/1.73m2 >60 [facility] ID Date Data Source [id number] 03/22/2021 06:17:10 PM EDT [facility] Name Value Range Interpretation Code Description Data Keira rce(s) Supporting Document(s) Thyrotropin [Units/volume] in Serum or Plasma 1.860 u[IU]/mL 0.270-4. 200 [facility] ID Date Data Source [id number] 03/21/2021 12:57:00 PM EDT [facility] ([facility], ) Name Value Range Interpretation Code Description Data Keira rce(s) Supporting Document(s) PDFReport Laboratory test result [facility] ([facility], ) FVC-Pred 3.29 L [facility] ([facility]) FVC-Pre 2.01 L [facility] ([facility]) FVC-%Pred-Pre 61 L [facility] ([facility]) FVC-LLN 2.61 L [facility] ([facility]) Fev1-%Pred-Pre 66 L [facility] ([facility]) Fev1-Pre 1.71 L [facility] ([facility]) Fev1-Pred 2.57 L [facility] ([facility]) Fev6-Pred 3.18 L [facility] ([facility]) Fev1-LLN 2.00 L [facility] ([facility]) Fev6-%Pred-Pre 62 L [facility] ([facility]) Fev6-LLN 2.52 L [facility] ([facility]) Fev6-Pre 1.99 L [facility] ([facility]) Obo8ljm-Ycxz 79 % [facility] ([facility]) Fyi4yoo-Xsj 85 % [facility] ([facility]) Iin5ndl-%Pred-Pre 107 % [facility] ([facility]) Aqo5srg-ONG 69 % [facility] ([facility]) Fcu2mee-Rgr 99 % [facility] ([facility]) Fbq4ehp-Omrl 97 % [facility] ([facility]) Lpz0zuq-%Pred-Pre 102 % [facility] ([facility]) FEFMax-Pred 6.34 L/E/sec [facility] ([facility]) FEFMax-Pre 3.50 L/E/sec [facility] ([facility]) FEFMax-LLN 4.68 L/E/sec [facility] ([facility]) FEFMax-%Pred-Pre 55 L/E/sec [facility] ([facility]) Hbe5555-Qdsk 2.46 L/E/sec [facility] ([facility]) Vri7827-Svv 2.25 L/E/sec [facility] ([facility]) Pbi1461-%Pred-Pre 91 L/E/sec [facility] ([facility]) ExpTime-Pre 8.41 sec [facility] ([facility]) Ulw5784-XEU 1.26 L/E/sec [facility] ([facility]) Fpz7ffy0-Ual 86 % [facility] ([facility]) Slb6hba7-%Pred-Pre 105 % [facility] ([facility] [place]) Nnu4fqi4-Ymga 81 % [facility] ([facility]) Wnd9akd9-QXT 73 % [facility] ([facility]) ID Date Data Source [id number] 11/29/2020 03:38:00 PM EDT [facility] ([facility]) Name Value Range Interpretation Code Description Data Keira rce(s) Supporting Document(s) Red Blood Count 4.88 10 4.00-5.40 Normal (applies to non-numeric results) [facility] ([facility], ) White Blood Count 7.8 10 4.0-10.0 Normal (applies to non-numeri c results) [facility], ) Hemoglobin 14.8 g/dL 12.0-15.5 Normal (applies to non-numeric resul ts) [facility] ([facility]) Mean Corpuscular Volume 95.3 fl 80.0-96.0 Normal ( applies to non-numeric results) [facility] ([facility], ) Hematocrit 46.5 % 36.0-47.0 Normal (applies to non-numeric resul ts) [facility] ([facility]) Mean Corpuscular HGB Conc 31.8 g/dL 32.0-36.5 Below low normal [facility] ([facility]) Mean Corpuscular Hemoglobin 30.3 pg 27.0-33.0 Norm al (applies to non-numeric results) [facility] ([facility]) Red Cell Distribution Width 12.5 % 11.5-14.5 Norm al (applies to non-numeric results) [facility] ([facility]) Platelet Count, Automated 245 10 150-450 Normal (applies to non-numeric results) [facility] ([facility], ) Neutrophils % 53.0 % 36.0-66.0 Normal (applies to non-numeric re sults) [facility] ([facility], ) Lymph % 35.0 % 24.0-44.0 Normal (applies to non-numeric resul ts) [facility] ([facility], ) [place] % 7.8 % 2.0-8.0 Normal (applies to non-numeric resul ts) [facility] ([facility]) Eos % 2.7 % 0.0-3.0 Normal (applies to non-numeric resul ts) [facility] Baso % 1.1 % 0.0-1.0 Above high [facility] Immature Granulocyte % 0.4 % 0-3.0 Normal (applies to non-n umeric results) [facility] Nucleated Red Blood Cell % 0.0 % 0-0 Normal (applies to n on-numeric results) [facility] ([facility]) Neutrophils # 4.2 10 1.5-8.5 Normal (applies to non-numeric re sults) [facility] ([facility]) Lymph # 2.7 10 1.5-5.0 Normal (applies to non-numeric resul ts) [facility] ([facility]) [place] # 0.6 10 0.0-0.8 Normal (applies to non-numeric resul ts) [facility] ([facility]) Baso # 0.1 10 0.0-0.2 Normal (applies to non-numeric resul ts) [facility] ([facility]) 12/21/20 (Thr December 21) 08:57 AM BIJU SHEA No significant abnormalities. Eos # 0.2 10 0.0-0.5 Normal (applies to non-numeric resul ts) [facility] ([facility]) ID Date Data Source [id number] 11/29/2020 03:38:00 PM EDT [facility] ([facility]) Name Value Range Interpretation Code Description Data Keira rce(s) Supporting Document(s) Tissue transglutaminase IgA Ab [Units/volume] in Serum 4 U/mL 0-3 Above high normal [facility] ([facility]) Negative 0 - 3 Weak Positive 4 - 10 Positive >10 . Tissue Transglutaminase (tTG) has been identified as the endomysial antigen. Studies have demonstr- ated that endomysial IgA antibodies have over 99% specificity for gluten sensitive enteropathy. Performed at: RN - [facility] [address] [id number] System Admin: Caryn Frank MD, Phone: [phone] ID Date Data Source [id number] 07/07/2020 02:31:00 PM EST [facility] ([facility]) Name Value Range Interpretation Code Description Data Keira rce(s) Supporting Document(s) IgA [Mass/volume] in Serum or Plasma 540.0 mg/dL 70-400 Above hig h normal [facility] ([facility]) Tissue transglutaminase IgA Ab [Units/volume] in Serum 4 U/mL 0-3 Above high normal [facility] ([facility]) Negative 0 - 3 Weak Positive 4 - 10 Positive >10 . Tissue Transglutaminase (tTG) has been identified as the endomysial antigen. Studies have demonstr- ated that endomysial IgA antibodies have over 99% specificity for gluten sensitive enteropathy. Performed at: RN - [facility] [address] [id number] System Admin: Caryn Frank MD, Phone: [phone] ID Date Data Source [id number] 07/07/2020 02:31:00 PM EST [facility] ([facility]) Name Value Range Interpretation Code Description Data Keira rce(s) Supporting Document(s) Free T4 1.20 ng/dL 0.76-1.46 Normal (applies to non-numeric resul ts) [facility] ([facility]) 07/12/20 (FriJul 12) 04:20 PM BIJU MÉNDEZ Thyroid function is normal. Thyroid Stimulating Hormone 2.130 uIU/ML 0.358-3.740 Norm al (applies to non- numeric results) [facility] ([facility]) ID Date Data Source [id number] 06/17/2020 12:00:00 AM EST [facility] Name Value Range Interpretation Code Description Data Keira rce(s) Supporting Document(s) 2019-nCoV RNA XXX SAMY+probe-Imp [facility] This lab was ordered by [facility] and reported by [employer] ID Date Data Source [id number] 06/15/2020 07:38:00 AM EST [facility] ([facility]) Name Value Range Interpretation Code Description Data Keira rce(s) Supporting Document(s) PDFReport Laboratory test result [facility] ([facility]) FVC-Pred 3.29 L [facility] ([facility]) FVC-Pre 2.14 L [facility] ([facility]) FVC-LLN 2.61 L [facility] ([facility]) FVC-%Pred-Pre 64 L [facility] ([facility] [place], ) Fev1-Pred 2.57 L [facility] ([facility]) Fev1-Pre 1.85 L [facility] ([facility]) Fev1-%Pred-Pre 71 L [facility] ([facility]) Fev6-Pred 3.18 L [facility] ([facility], ) Fev1-LLN 2.00 L [facility] ([facility]) Fev6-Pre 2.14 L [facility] ([facility]) Fev6-LLN 2.52 L [facility] ([facility]) Fev6-%Pred-Pre 67 L [facility] ([facility]) Jkl3abr-Vwt 86 % [facility] ([facility]) Hcj1tzu-%Pred-Pre 109 % [facility] ([facility]) Oar5msz-Xlmq 79 % [facility] ([facility]) Lvn6jmb-Kogz 97 % [facility] ([facility]) Tqj3neg-KDZ 69 % [facility] ([facility]) Mbl8wlj-Yie 100 % [facility] ([facility]) Eaz3zqq-%Pred-Pre 103 % [facility] ([facility]) FEFMax-Pre 5.09 L/E/sec [facility] ([facility]) FEFMax-Pred 6.34 L/E/sec [facility] ([facility], ) FEFMax-LLN 4.68 L/E/sec [facility] ([facility]) FEFMax-%Pred-Pre 80 L/E/sec [facility] ([facility]) [id number]-Ecdm 2.46 L/E/sec [facility] ([facility]) Zxf8147-Mco 2.31 L/E/sec [facility] ([facility]) Arm3787-%Pred-Pre 93 L/E/sec [facility] ([facility] [place]) Cfo8981-ISM 1.26 L/E/sec [facility] ([facility]) ExpTime-Pre 6.59 sec [facility] ([facility]) Ubm1nhl5-%Pred-Pre 106 % [facility] ([facility] [place]) Zjl9kbc9-Cdak 81 % [facility] ([facility]) Wyy8fpt5-Nzv 86 % [facility] ([facility]) Won8kto2-TVX 73 % [facility] ([facility]) ID Date Data Source [id number] 05/24/2020 12:00:00 AM EDT [facility] Name Value Range Interpretation Code Description Data Keira rce(s) Supporting Document(s) 2019-nCoV RNA XXX SAMY+probe-Imp [facility] and reported by [employer]. ID Date Data Source [id number] 04/19/2020 07:00:00 PM EDT [facility] ([facility]) Name Value Range Interpretation Code Description Data Keira rce(s) Supporting Document(s) Fats Neutral Laboratory test result Normal (applies to non -numeric results) [facility] ([facility]) <content>Normal (<60 Droplets/HPF)</cont ent>
<content></content> Fats Total Laboratory test result Normal (applies to non-n umeric results) [facility] ([facility]) <content>Normal (<100 Droplets/HPF)</con tent>
<content></content> ID Date Data Source [id number] 04/19/2020 07:00:00 PM EDT [facility] ([facility]) Name Value Range Interpretation Code Description Data Keira rce(s) Supporting Document(s) Calprotectin [Mass/mass] in Stool 39 ug/g 0-120 Normal (applies to non-numeric results) [facility] ([facility]) <content>Concentration Interpretatio n Follow-Up</content>
<content><16 - 50 ug/g Normal None</content>
<content>>50 -120 ug/g Borderline Re-evaluate in 4-6 weeks</content>
<content>>120 ug/g Abnormal Repeat as clinically</content>
<content>indicated</content>
<content>Performed at: - [facility]</content>
<content>[address], [place] [id number]</content>
<content>System Admin: Caryn Frank MD, Phone: [phone]</content>
<content>Performed at: [facility]</content>
<content>[address], [place] [id number]</content>
<content>System Admin: Geovany Shipley MD, Phone: [phone]</content>
<content></content> Elastase.pancreatic [Mass/mass] in Stool 243 Normal (applies to non-numeric results) [facility] ([facility], ) <content>Result Units: ug Elast./g</cont ent>
<content>Severe Pancreatic Insufficiency: <100</content>
<content>Moderate Pancreatic Insufficiency: 100 - 200</content>
<content>Normal: >200</content>
<content></content> ID Date Data Source [id number] 04/19/2020 07:00:00 PM EDT [facility] ([facility]) Name Value Range Interpretation Code Description Data Keira rce(s) Supporting Document(s) Gastrointestinal (GI) Panel Laboratory test result [facility] ([facility]) This Gastrointestinal PCR Panel detects the [...] Never Smoker completed Never S moker eCW1 (Formerly [facility]) Smoking 03/30/2021 12:00:00 AM EDT Never Smoker completed Never S moker eCW1 (Formerly [facility]) Alcohol intake 03/22/2021 12:00:00 AM EDT Current non-d jose of alcohol (finding) completed Current non-drinker of alcohol (finding) [facility] Tobacco use and exposure 03/22/2021 12:00:00 AM EDT Never used co mpleted Never used [facility] Smoking 03/22/2021 12:00:00 AM EDT Never smoker completed Never s [facility] Smoking 01/19/2021 12:00:00 AM EDT Never Smoker completed Never S moker eCW1 (Formerly [facility]) Smoking 01/19/2021 12:00:00 AM EDT Never Smoker completed Never S moker eCW1 ([facility]ly [facility]) Smoking 01/19/2021 12:00:00 AM EDT Never Smoker completed Never S moker eCW1 ([facility]ly [facility]) Smoking 01/19/2021 12:00:00 AM EDT Never Smoker completed Never S moker eCW1 ([facility]ly [facility]) Smoking 09/20/2020 12:00:00 AM EST Patient has never smoked co mpleted Patient has never smoked [facility] ([facility], ) Smoking 06/21/2020 12:00:00 AM EST Non Smoker completed Non Smoke r [facility] ([facility], ) Vital Signs ID Date Data Source UNK Name Value Range Interpretation Code Description Data Source(s) [place] body weight 115 [lb_av] 115 [lb_av] [facility] ([facility], ) Body weight 112.946 kg 112.946 kg [facility] ([facility] Body surface area Derived from formula 2.12 m2 2.12 m2 [facility] ([facility]) Body mass index (BMI) [Ratio] 44.1 kg/m2 44.1 k g/m2 [facility] ([facility]) Systolic blood pressure 122 mm[Hg] 122 mm[Hg] M [facility] ([facility]) Diastolic blood pressure 84 mm[Hg] 84 mm[Hg] [facility] ([facility]) Body height 63 [in_i] 63 [in_i] [facility] ([facility]) 5'3" Body weight 249.00 [lb_av] 249.00 [lb_av] [facility] T ([facility]) Body weight 242 [lb_av] 242 [lb_av] W1 ([facility]) Body weight 109.77 kg 109.77 kg W1 ([facility]) Body height 64 [in_i] 64 [in_i] eCW1 ([facility]) Body mass index (BMI) [Ratio] 41.53 kg/m2 41.53 kg/m2 W1 ([facility]) Heart rate 73 /min 73 /min eCW1 ([facility]) Respiratory rate 18 /min 18 /min W1 ([facility]) Body temperature 97.1 [degF] 97.1 [degF] eCW1 ( [facility]) Systolic blood pressure 124 mm[Hg] 124 mm[Hg] e CW1 ([facility]) Diastolic blood pressure 80 mm[Hg] 80 mm[Hg] eCW1 ([facility]) Systolic blood pressure 130 mm[Hg] 130 mm[Hg] M [facility] ([facility]) Heart rate 58 /min 58 /min [facility] ([facility]) Oxygen saturation in Arterial blood by Pulse oximetry 96 % 96 % [facility] ([facility]) Body height 63 [in_i] 63 [in_i] [facility] ([facility]) 5'3" Body surface area Derived from formula 2.10 m2 2.10 m2 [facility] ([facility]) Diastolic blood pressure 68 mm[Hg] 68 mm[Hg] [facility] ([facility]) Body weight 243.00 [lb_av] 243.00 [lb_av] [facility] ([facility]) Body mass index (BMI) [Ratio] 43.0 kg/m2 43.0 k g/m2 [facility] ([facility]) Body weight 110.225 kg 110.225 kg [facility] ([facility]) [place] body weight 115 [lb_av] 115 [lb_av] [facility] ([facility]) Body weight 233.8 [lb_av] 233.8 [lb_av] W1 ([facility]) Body height 64 [in_i] 64 [in_i] eCW1 ([facility]) Body mass index (BMI) [Ratio] 40.13 kg/m2 40.13 kg/m2 eCW1 ([facility]) Heart rate 71 /min 71 /min eCW1 ([facility]) Respiratory rate 18 /min 18 /min eCW1 ([facility]) Body temperature 97.8 [degF] 97.8 [degF] eCW1 ( [facility]) Systolic blood pressure 124 mm[Hg] 124 mm[Hg] e CW1 ([facility]) Diastolic blood pressure 80 mm[Hg] 80 mm[Hg] eCW1 ([facility]) Body height 63 [in_i] 63 [in_i] [facility] ([facility]) 5'3" Body mass index (BMI) [Ratio] 41.8 kg/m2 41.8 k g/m2 [facility] ([facility]) [place] body weight 115 [lb_av] 115 [lb_av] [facility] ([facility]) Body weight 107.050 kg 107.050 kg [facility] ([facility]) Body surface area Derived from formula 2.07 m2 2.07 m2 [facility] ([facility]) Body weight 236.00 [lb_av] 236.00 [lb_av] [facility] ([facility]) Systolic blood pressure 128 mm[Hg] 128 mm[Hg] [facility] ([facility]) Diastolic blood pressure 76 mm[Hg] 76 mm[Hg] [facility] ([facility]) Body height 63 [in_i] 63 [in_i] [facility] ([facility]) 5'3" Body weight 236.00 [lb_av] 236.00 [lb_av] [facility] ([facility]) Body mass index (BMI) [Ratio] 41.8 kg/m2 41.8 k g/m2 [facility] ([facility]) [place] body weight 115 [lb_av] 115 [lb_av] [facility] ([facility]) Body weight 107.050 kg 107.050 kg [facility] ([facility]) Body surface area Derived from formula 2.07 m2 2.07 m2 [facility] ([facility]) Diastolic blood pressure 84 mm[Hg] 84 mm[Hg] [facility] ([facility]) Heart rate 70 /min 70 /min [facility] ([facility]) Oxygen saturation in Arterial blood by Pulse oximetry 95 % 95 % [facility] ([facility]) Body temperature 97.3 [degF] 97.3 [degF] [facility] ([facility]) Body height 63 [in_i] 63 [in_i] [facility] ([facility]) 5'3" Body mass index (BMI) [Ratio] 41.4 kg/m2 41.4 k g/m2 [facility] ([facility]) [place] body weight 115 [lb_av] 115 [lb_av] [facility] ([facility]) Body weight 106.142 kg 106.142 kg [facility] ([facility]) Body surface area Derived from formula 2.07 m2 2.07 m2 [facility] ([facility]) Systolic blood pressure 124 mm[Hg] 124 mm[facility]Hg] [facility] Body weight 234.00 [lb_av] 234.00 [lb_av] [facility] ([facility]) Systolic blood pressure 118 mm[Hg] 118 mm[Hg] [facility] Diastolic blood pressure 84 mm[Hg] 84 mm[Hg] [facility] ([facility]) Body height 63 [in_i] 63 [in_i] [facility] ([facility]) 5'3" Body weight 235.00 [lb_av] 235.00 [lb_av] [facility] ([facility]) Body mass index (BMI) [Ratio] 41.6 kg/m2 41.6 k g/m2 [facility] ([facility]) [place] body weight 115 [lb_av] 115 [lb_av] [facility] ([facility]) Body weight 106.596 kg 106.596 kg [facility] ([facility]) Body surface area Derived from formula 2.07 m2 2.07 m2 [facility] ([facility]) Heart rate 64 /min 64 /min [facility] ([facility]) Systolic blood pressure 120 mm[Hg] 120 mm[Hg] [facility] Diastolic blood pressure 80 mm[Hg] 80 mm[Hg] [facility] ([facility]) Oxygen saturation in Arterial blood by Pulse oximetry 98 % 98 % [facility] ([facility]) Body height 63 [in_i] 63 [in_i] [facility] ([facility]) 5'3" Body weight 231.00 [lb_av] 231.00 [lb_av] [facility] ([facility]) Body mass index (BMI) [Ratio] 40.9 kg/m2 40.9 k g/m2 [facility] ([facility]) [place] body weight 115 [lb_av] 115 [lb_av] [facility] ([facility]) Body weight 104.782 kg 104.782 kg [facility] ([facility]) Body surface area Derived from formula 2.06 m2 2.06 m2 [facility] ([facility]) Body weight 229.00 [lb_av] 229.00 [lb_av] [facility] Body mass index (BMI) [Ratio] 40.6 kg/m2 40.6 k g/m2 [facility] ([facility]) [place] body weight 115 [lb_av] 115 [lb_av] [facility] Systolic blood pressure 124 mm[Hg] 124 mm[Hg] [facility] ([facility]) Diastolic blood pressure 68 mm[Hg] 68 mm[Hg] [facility] ([facility]) Body height 63 [in_i] 63 [in_i] [facility] ([facility]) 5'3" Body weight 103.874 kg 103.874 kg [facility] ([facility]) Patient Treatment Plan of Care Planned Activity Planned Date Details Description Data Source (s) Ubrelvy 100 MG Oral Tablet (Ubrogepant) 03/22/2021 12:00:00 AM [facility] Erenumab-aooe 140 MG/ML Subcutaneous Solution Auto-inj chichi (AIMOVIG) 03/22/2021 12:00:[address] [facility] Propranolol Hydrochloride 80 MG Oral Tablet 02/19/2021 12:00:00 AM [facility] buspirone hydrochloride 7.5 MG Oral Tablet 02/19/2021 12:00:00 AM E [facility] 24 HR venlafaxine 225 MG Extended Release Oral Tablet 03/08/2016 12:00:[address] [facility] Erythromycin 0.005 MG/MG Ophthalmic Ointment 04/18/2015 12:00:00 AM [facility] Ascorbic Acid 500 MG Oral Capsule 04/06/2013 12:00:00 AM [facility] Acetaminophen 250 MG / Aspirin 250 MG / Caffeine 65 MG Oral Tablet [Excedrin] [facility] buspirone hydrochloride 5 MG Oral Tablet [facility] levocetirizine dihydrochloride 5 MG Oral Tablet [facility] Nortriptyline 10 MG Oral Capsule [facility] Ergocalciferol 31366 UNT Oral Capsule [facility] SUMATRIPTAN SUCCINATE PO [facility]ps [facility]
[2021-05-30 20:30] VITALS: BP 128/63
--- NOTE | 2021-05-31 20:10 | ECGEPIP ---
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
== END 2021-05-30 20:40 | disposition home or self-care (01) ==
LOC: M ED 16:49 → EDBD 16:49 → M ED 20:40
DX: E11.65 Type 2 diabetes mellitus with hyperglycemia (principal); R00.0 Tachycardia, unspecified; I10 Essential (primary) hypertension; J45.909 Unspecified asthma, uncomplicated; E03.9 Hypothyroidism, unspecified; Z79.890 Hormone replacement therapy; Z79.899 Other long term (current) drug therapy

== ENCOUNTER 2021-06-01 16:28 | Emergency (ER) | payer OTHER, MEDICAID ==
[~2021-06-01] VITALS: Ht 160 cm; Wt 109.1 kg
[~2021-06-01 16:28] MED LIST changes: +BUSP1TAB; +PROP80TA
--- OUTSIDE RECORDS SUMMARY | 2021-06-01 16:36 | CCD ---
Author Author [facility] Organization [facility] Address Unknown Phone Unavailable Care Team Providers Care Patrol Deputy Sheriff Name Role Phone Aguila, L Tatiana BUSINESS ANALYTICS INTERN Unavailable Unavailable Aguila, L Tatiana BUSINESS ANALYTICS INTERN Unavailable Unavailable Aguila, L Tatiana BUSINESS ANALYTICS INTERN Unavailable Unavailable Aguila, L Tatiana BUSINESS ANALYTICS INTERN Unavailable Unavailable Aguila, L Tatiana BUSINESS ANALYTICS INTERN Unavailable Unavailable Aguila, L Tatiana BUSINESS ANALYTICS INTERN Unavailable Unavailable Aguila, L Tatiana BUSINESS ANALYTICS INTERN Unavailable Unavailable Aguila, L Tatiana BUSINESS ANALYTICS INTERN Unavailable Unavailable Aguila, L Tatiana BUSINESS ANALYTICS INTERN Unavailable Unavailable Aguila, L Tatiana BUSINESS ANALYTICS INTERN Unavailable Unavailable Aguila, L Tatiana BUSINESS ANALYTICS INTERN Unavailable Unavailable Aguila, L Tatiana BUSINESS ANALYTICS INTERN Unavailable Unavailable Aguila, L Tatiana BUSINESS ANALYTICS INTERN Unavailable Unavailable Aguila, L Tatiana BUSINESS ANALYTICS INTERN Unavailable Unavailable Aguila, L Tatiana BUSINESS ANALYTICS INTERN Unavailable Unavailable Aguila, L Tatiana BUSINESS ANALYTICS INTERN Unavailable Unavailable Aguila, L Tatiana BUSINESS ANALYTICS INTERN Unavailable Unavailable Aguila, L Tatiana BUSINESS ANALYTICS INTERN Unavailable Unavailable Aguila, L Tatiana BUSINESS ANALYTICS INTERN Unavailable Unavailable Aguila, L Tatiana BUSINESS ANALYTICS INTERN Unavailable Unavailable Aguila, L Tatiana BUSINESS ANALYTICS INTERN Unavailable Unavailable Aguila, L Tatiana BUSINESS ANALYTICS INTERN Unavailable Unavailable Aguila, L Tatiana BUSINESS ANALYTICS INTERN Unavailable Unavailable Aguila, L Tatiana BUSINESS ANALYTICS INTERN Unavailable Unavailable Aguila, L Tatiana BUSINESS ANALYTICS INTERN Unavailable Unavailable Charlebois, A Biju RPA C [...] Unavailable ALIS MOODY Unavailable Unavailable THUAN PA-C, [id number] A. CHRISTIN PA Unavailable Unava ilable THUAN PA-C, [id number] A. CHRISTIN PA Unavailable Unava ilable THUAN PA-C, [id number] A. CHRISTIN PA Unavailable Unava ilable THUAN PA-C, [id number] A. CHRISTIN PA Unavailable Unava ilable THUAN PA-C, [id number] A. CHRISTIN PA Unavailable Unava ilable THUAN PA-C, [id number] A. CHRISTIN PA Unavailable Unava ilable THUAN PA-C, [id number] A. CHRISTIN PA Unavailable Unava ilable Re-disclosure [...] is protected by Article 27-F of the [facility] Public Health law. If you continue you may have access to information: Regarding HIV / AIDS; Provided by facilities licensed or operated by the [facility] Office of Mental Health; or Provided by the [facility] Office for People With Developmental Disabilities. If such information is present, then the following [facility] mandated warning applies: This information has been [...] MedreaRefe rrer: ALIS MEDREA 07/24/2021 12:00:00 AM [facility] Outpatient Attender: ALIS MEDREAAttender: Alis Medrea 06/27/2021 12:00:00 AM [facility] Outpatient Attender: ALIS MEDREAAttender: Alis Medrea 06/22/2021 12:00:00 AM [facility] Outpatient Referrer: ALIS MEDREA 06/05/2021 12:00:00 AM [facility] Unknown [address] [facility] [address] [place] [address] 05/15/2021 12:00:00 AM EDT eCW1 ([facility]) Outpatient Attender: ALIS MEDREAAttender: Alis MedreaRefe rrer: ALIS MEDREA 04/23/2021 12:00:00 AM [facility] Outpatient [address] [place] [address] 03/30/2021 12:00:00 AM EDT eCW1 ([facility]) Outpatient Attender: Alis GuoaAtpaod er: ALIS LIONREAReferrer: [id number] CHRISTIN LAROSE PA-C [id number] 03/22/2021 12:00:00 AM EDT - 03/22/2021 03:54:21 PM [facility] Outpatient Attender: Tatiana Torres/Maritza/Abner/Dae 03/21/2021 01:00:00 PM EDT MEDENT ([facility]) Unknown [address] [facility] [place] [place] [address] 03/21/2021 12:00:00 AM EDT eCW1 ([facility]) [place] [address] [facility] [place] [address] 03/12/2021 12:00:00 AM EDT eCW1 ([facility]) [place] [address] [facility] [place] [place] [address] 01/22/2021 12:00:00 AM EDT [facility] [place] [place] [address] [facility] [place] [address] 01/19/2021 12:00:00 AM EDT eCW1 ([facility]) [place] [address] [facility] [place] [address] 12/28/2020 12:00:00 AM EDT [facility]CW1 [facility] [place] [address] [facility] [place] [address] 12/28/2020 12:00:00 AM EDT eCW1 [facility]) Outpatient Attender: Biju Shea RPA C Brian/[place]/A ngel/Reindl 11/29/2020 02:30:00 PM EDT [facility] ([facility]) [place] [address] [facility] [place] [address] 10/24/2020 12:00:00 AM EDT eCW1 ([facility]) Outpatient Attender: Tatiana Sheehan NP Brian/[place]/Abner/Reindl 09/20/2020 12:00:00 PM EST [facility] ([facility]) Outpatient Attender: Biju Shea RPA C Brian/[place]/A ngel/Reindl 07/06/2020 12:30:00 PM EST [facility] ([facility]) Outpatient Attender: Tatiana Sheehan NP Brian/[place]/Abner/Reindl 06/21/2020 02:30:00 PM EST [facility] ([facility]) [place] [address] [facility] [place] [address] 06/14/2020 12:00:00 AM EST eCW1 ([facility] Unknown [address] [facility] [place] [address] 05/22/2020 12:00:00 AM EDT eCW1 ([facility]) Unknown [address] [facility] [place] [address] 05/18/2020 12:00:00 AM EDT eCW1 ([facility]) Unknown [address] [facility] [place] [address] 05/04/2020 12:00:00 AM EDT eCW1 ([facility]) Outpatient Attender: Biju Torres/Maritza/Moisés balderrama/Dae 04/19/2020 01:00:00 PM EDT MEDENT ([facility] [place]) Immunizations Vaccine Date Status Description Data Source(s) COVID-19 dose #1 given elsewhere Unspecified 11/09/2020 02:4 8:00 PM EDT completed eCW1 ([facility]) COVID-19 dose #1 given elsewhere Unspecified 11/09/2020 02:4 8:00 PM EDT completed eCW1 ([facility]) COVID-19 dose #1 given elsewhere Unspecified 11/09/2020 02:4 8:00 PM EDT completed eCW1 ([facility]) COVID-19 dose #1 given elsewhere Unspecified 11/09/2020 02:4 8:00 PM EDT completed eCW1 ([facility]) COVID-19 dose #1 given elsewhere Unspecified 11/09/2020 02:4 8:00 PM EDT completed eCW1 ([facility]) COVID-19 dose #1 given elsewhere Unspecified 11/09/2020 02:4 8:00 PM EDT completed eCW1 ([facility]) COVID-19 VACCINE Zena 11/09/2020 12:00:00 AM EDT completed NYSIIS Vaccine Series Complete: YESThis Data wa s Submitted to [facility] Via [employer]. New in 2011. IIV4 06/07/2020 02:45:00 PM EST completed MEDENT ([facility]) Medications Medication Brand Name Start Date Product Form Dose Route Admi nistrative Instructions Pharmacy Instructions Status Indications Reaction Description Data Source(s) Erenumab-aooe 140 MG/ML Subcutaneous Solution Auto-injector (AIMOVIG) 980830 03/22/2021 12:00:00 AM EDT 140 mg Subcutaneous active Inject 1 mL into the skin every 30 (thirty) days [facility] Ubrelvy 100 MG Oral Tablet (Ubrogepant) 4440-7837-89 03/22/20 12:00:00 AM EDT 100 mg Oral active Take 100 mg by m outh Two times daily as needed [facility] buspirone hydrochloride 7.5 MG Oral Tabl et busPIRone HCl 7.5 MG Oral Tablet (BUSPAR) busPIRone HCl 7.5 MG Oral Tablet (BUSPAR) 02/19/2021 12:00:00 AM EDT active TAKE ONE T ABLET BY MOUTH @8AM and TAKE ONE TABLET BY MOUTH @8PM [facility] Propranolol Hydrochloride 80 MG Oral Tab let Propranolol HCl 80 MG Oral Tablet (INDERAL) Propranolol HCl 80 MG Oral Tablet (INDERAL) 02/19/2021 12:00:00 AM EDT active TAKE ONE TABLET BY MOUTH @8AM and TAKE ONE TABLET BY MOUTH @8PM [facility] Aerochamber Plus Chriss-Vu 06/21/2020 12:00:00 AM EST active MEDENT ([facility] ) POLYETHYLENE GLYCOL 3350 142 MG/ML Oral Solution [Miralax] M iralax 05/19/2020 12:00:00 AM EDT ORAL completed MEDENT ([facility] ) 200 ACTUAT Albuterol 0.09 MG/ACTUAT Metered Dose Inhal er [Ventolin] Ventolin HFA 02/16/2020 12:00:00 AM EDT RESPIRATORY active MEDENT ([facility] ) 24 HR venlafaxine 225 MG Extended Releas e Oral Tablet Venlafaxine HCl 225 MG TB24 Venlafaxine HCl 225 MG TB24 03/08/2016 12:00:00 AM EDT aborted daily. [facility] Erythromycin 0.005 MG/MG Ophthalmic Oint ment erythromycin (ROMYCIN) ophthalmic ointment erythromycin (ROMYCIN) ophthalmic ointment 04/18/2015 12:00: 00 AM EDT Left Eye aborted Place into the left eye Three times daily as needed. [facility] Ascorbic Acid 500 MG Oral Capsule Ascorbic Acid (VITAM IN C) 500 MG CAPS Ascorbic Acid (VITAMIN C) 500 MG CAPS 04/06/2013 12:00:00 AM EDT aborted daily. [facility] Acetaminophen 250 MG / Aspirin 250 MG / Caffeine 65 MG Oral Tablet [Excedrin] Excedrin Migraine 250-250-65 MG Oral Tablet (jlpcpfo-bpfqyoskmfqqy-axijruxl) Excedrin Migraine 250-250-65 MG Oral Tablet (hyxworo-ngaqzvrfpqabw-trkomuab) 1 {tbl} Oral aborted Take 1 tablet by mouth every 6 (six) hours as needed for Pain [facility] Nortriptyline 10 MG Oral Capsule Nortriptyline HCl 10 MG Oral Capsule (PAMELOR) Nortriptyline HCl 10 MG Oral Capsule (PAMELOR) 10 mg Oral aborted Take 10 mg by mouth nightly [facility] Ergocalciferol 20259 UNT Oral Capsule Er gocalciferol 59125 UNIT Oral Capsule (DRISDOL) Ergocalciferol 08220 UNIT Oral Capsule (DRISDOL) 65639 U Oral aborted Take 50,000 Units by mouth once a week [facility] levocetirizine dihydrochloride 5 MG Oral Tablet Levocetirizine Dihydrochloride 5 MG Oral Tablet (XYZAL) Levocetirizine Dihydrochloride 5 MG Oral Tablet (XYZAL ) 5 mg Oral aborted Take 5 mg by angela th every evening [facility] buspirone hydrochloride 5 MG Oral Tablet busPIRone HCl 5 MG Oral Tablet (BUSPAR) busPIRone HCl 5 MG Oral Tablet (BUSPAR) 5 mg Oral aborted Take 5 mg by mouth Two Times Daily [facility] SUMATRIPTAN SUCCINATE PO 50 mg Oral aborted Take 50 mg by mouth as needed [facility] Insurance Providers Payer name Policy type / Coverage type Policy ID Covered constitution party ID Covered constitution party's relationship to churchill Policy Churchill Plan Information MEDICARE [id number] [facility] [id number] MEDICARE A [id number] Self [id number] MEDICARE 4 [id number] Medicare - [place] Medicare Primary [id number] Self 1 [id number] Medicare - [place] Medicare Primary [id number] Self [id number] Medicare - [place] Medicare Primary [id number] Self [id number] Medicare - [place] Medicare Primary [id number] Self [id number] Medicare - [place] Medicare Primary [id number] Self 1 [id number] Medicare - [place] Medicare Primary [id number] Self 1 [id number] Medicare - [place] Medicare Primary [id number] Self 1 [id number] MEDICARE [id number] SP [id number] Medicare Medicare Primary [id number] Self [id number] Self [id number] Self [id number] Self [id number] MEDICAID M [id number] Self [id number] [employer] Medicare Commercial [id number] Self [id number] United[employer] Medicare Commercial [id number] Self [id number] [facility] [id number] SP [id number] [facility] [id number] SP [id number] HU[employer]NA MEDICARE ADVANTAGE G [id number] Self [id number] MEDICAID M [id number] Self [id number] ANSI-Not a Secondary Insurance [id number] ANSI-Medicare Part B [id number] ANSI-Medicaid [id number] ANSI-Not a Secondary Insurance [id number] ANSI-Medicare Part B [id number] ANSI-Not a Secondary Insurance [id number] ANSI-Medicaid [id number] ANSI-Not a Secondary Insurance [id number] ANSI-Medicare Part B [id number] ANSI-Medicaid [id number] [facility] [place] [facility] [id number] [id number] Self [id number] ANSI-Medicaid [id number] ANSI-Not a Secondary Insurance [id number] ANSI-Medicare Part B [id number] ANSI-Not a Secondary Insurance [id number] ANSI-Medicaid [id number] ANSI-Medicare Part B [id number] ANSI-Not a Secondary Insurance [id number] ANSI-Medicare Part B [id number] ANSI-Medicaid [id number] ANSI-Not a Secondary Insurance [id number] ANSI-Medicaid [id number] ANSI-Medicare Part B [id number] MEDICARE COMPLETE [id number] SP [id number] ANSI-Not a Secondary Insurance [id number] ANSI-Medicare Part B [id number] ANSI-Medicaid [id number] ANSI-Not a Secondary Insurance [id number] ANSI-Medicare Part B [id number] ANSI-Medicaid [id number] Medicaid [place] Medigap Part B [id number] [id number] Self [id number] [facility] [id number] SP [id number] MEDICARE COMPLETE [id number] SP [id number] ANSI-Medicaid [id number] ANSI-Medicare Part B [id number] ANSI-Medicaid [id number] ANSI-Medicaid [id number] ANSI-Medicaid [id number] ANSI-Medicare Part B [id number] ANSI-Medicaid [id number] [place] [id number] ANSI-Medicare Part B [id number] ANSI-Medicaid [id number] ANSI-Medicaid [id number] ANSI-Medicare Part B [id number] ANSI-Medicare Part B [id number] ANSI-Medicaid [id number] ANSI-Medicaid [id number] ANSI-Medicaid [id number] ANSI-Medicare Part B [id number] ANSI-Medicare Part B [id number] ANSI-Medicaid [id number] ANSI-Medicaid [id number] ANSI-Medicare Part B [id number] ANSI-Medicare Part B [id number] ANSI-Medicaid [id number] ANSI-Medicare Part B [id number] ANSI-Medicaid [id number] ANSI-Medicare Part B [id number] ANSI-Medicaid [id number] ANSI-Medicaid [id number] ANSI-Medicare Part B [id number] ANSI-Medicare Part B [id number] ANSI-Medicaid [id number] MEDICARE C [id number] C [id number] MEDICAID UNAVAILABLE UNAVAILA BLE MEDICARE [id number] SP [id number] SELFPAY 5 UNAVAILABLE 1 UNAVAILA BLE SELF PAY 5 UNAVAILABLE 1 UNAVAILA BLE ANSI-Medicaid [id number] HUMANA GOLD [id number] SP [id number] HUMANA GOLD [id number] SP [id number] HUMANA HMO [id number] SP [id number] [place] [id number] SP [id number] SELF PAY ONLY SP [id number] MEDICAID [id number] SP [id number] HUMANA GOLD [id number] SP [id number] HUMANA HMO [id number] SP [id number] [facility] HMO [id number] SP [id number] [facility] [id number] SP [id number] HUMANA HMO [id number] SP [id number] ANSI-Medicaid [id number] ANSI-Medicare Part B [id number] ANSI-Not a Secondary Insurance [id number] [place] Part [place] [id number] Self [id number] Medicare Community Plan Commercial [id number] Self [id number] ANSI-Not a Secondary Insurance [id number] ANSI-Medicare Part B [id number] [facility]-Medicaid [id number] [facility]-Medicaid [id number] [facility]-Medicare Part B [id number] Problems, Conditions, and Diagnoses Code Display Name Description Problem Type Effective Dates Data Source(s) G43.019 [id number] Intractable migraine without aura and without status migrainosus Problem 02/11/2021 12:00:00 AM EDT eCW1 ([facility]) E78.2 Mixed hyperlipidemia Mixed hyperlipidemia Problem 01/19/2021 12:00:00 AM EDT eCW1 ([facility]) J45.30 Mild persistent asthma Mild persistent asthma Problem 09/20/2020 12:00:00 AM EST MEDENT ([facility]) J45.40 Uncomplicated moderate persistent asthma Uncomplicated moderate persistent asthma Problem 06/21/2020 12:00:00 AM EST [facility] ([facility]) G47.33 Obstructive sleep apnea syndrome Obstructive sle ep apnea syndrome Problem 06/21/2020 12:00:00 AM EST [facility] ([facility]) Surgeries/Procedures Procedure Description Date Indications Data Source(s) Endoscopy Upper GI Biopsy 04/27/2021 12:00:00 AM EDT [facility] ([facility]) Spirometry 03/21/2021 12:00:00 AM EDT M EDENT ([facility]) OFFICE OUTPATIENT VISIT 15 MINUTES 03/21/2021 12:00:00 AM EDT [facility] ([facility]) OFFICE OUTPATIENT VISIT 15 MINUTES 11/29/2020 12:00:00 AM EDT [facility] ([facility]) Spirometry 09/20/2020 [facility]rom[facility] 06/21/2020 12:00:00 AM EST [facility] Results ID Date Data Source [id number] 05/17/2021 12:07:00 AM EDT [facility] Name Value Range Interpretation Code Description Data Keira rce(s) Supporting Document(s) SARS coronavirus 2 RNA [Presence] in Res piratory specimen by SAMY with probe detection NEGATIVE [facility] This lab was ordered by [facility] a nd reported by [facility]. ID Date Data Source [id number] 05/13/2021 11:35:00 PM EDT [facility] Name Value Range Interpretation Code Description Data Keira rce(s) Supporting Document(s) SARS-CoV-2 (COVID 19) NEGATIVE - SARS-CoV-2 (COVID19) [facility] This lab was ordered by [facility] a nd reported by [facility]. ID Date Data Source [id number] 04/27/2021 02:44:00 PM EDT [facility] ([facility]) Name Value Range Interpretation Code Description Data Keira rce(s) Supporting Document(s) Surgical pathology study Laboratory test result [facility] ([facility]) FINAL DIAGNOSIS A-Small bowel, biopsy: [...] MD 05/01/2021 1105 ID Date Data Source [id number] 04/25/2021 10:45:00 AM EDT [facility] Name Value Range Interpretation Code Description Data Keira rce(s) Supporting Document(s) SARS coronavirus 2 RNA [Presence] in Res piratory specimen by SAMY with probe detection NEGATIVE [facility] This lab was ordered by [facility] a nd reported by [facility]. ID Date Data Source [id number] 03/22/2021 04:10:08 PM EDT [facility] Name Value Range Interpretation Code Description Data Keira rce(s) Supporting Document(s) Progress Note [facility] XEZDZl8qDuEWFeQq97/ETHciAVViq3WpVDegJMw9PKymUHLhS9SdWZX5cJ8kJRM9LGlNEiEzKpUqHVI0 lbm [file] ZbN2DLo9RNQwZmNaARLqNrRzEU5YMb0IHrC7JPA2pFAqYs3ZGwT1FKdKFbZcLO3BEUc= ID Date Data Source [id number] 03/22/2021 04:08:58 PM EDT [facility] Name Value Range Interpretation Code Description Data Keira rce(s) Supporting Document(s) Progress Note [facility] EFCKVe9xAcLFUiTh04/UXBggKSTnr8ZnKCxyRQl7TJnaCGAnB7JkKKL7wQ4iFYU7BPtUOqNzIrRaIWL5 lbm LvRynAHzZiXRTqPuvLKyCuXLdgHyifaNFcRB5LtAB8XQWxE24oAVOiYKLpH6UhLSE0Qau+Jz3LNYImcE PfZG6CHsbD8Jgzs4d3Fw7+xG7IGawrbfhIDxz40RLTM5eyLYdNXn4PzFP/jNVdc4zTEetK2p/+qDfLw9 UuhEZh4nTBYjqBeyCoTg5oNwtXOi10DZuzRhma+e/2 qxdwMlmSH/9Nfdbyis6t+iu6YCke3yNv7QF/Wuz7Dq/R7ZFUEDIsIB/VeybhCJtiY8Xq3+nRnViFX1+R 6zDdkPcJ+Oy6mKsgxSR+RT//9BMZ/37rakZRO3DBbwemGp0RY5MOHD9Ni57RU6TKbxpMllLKDtwrMD5a gTlXz9ZcqSQ9tBJWZnqn33ugiiEXApKxfADImOlrmW w8xZMFNAw0ybSpwS+Pd801y+Jl/YTZyPVcNqxQXM7A02zgUeuHQiiAF9sXjrw89JpzO66JvO3QS+uJUS i9BohQQFpJNhynudK3drv0Tc+pdzlbVy04dsvjvgB9PefoH3iUxt7GeK+ZPobb4ZZ5enjc5uwrS722gB 9PshUyV7QDQO6vpOdN+1iMeMi3naxE9EGf2JH8UrGx ZGGR0Sot+XYYZOdbFk9sbGNxOCagQqNPGf/3CqtMd/DqLAyn08jNV/zx6Hwuv1M2wa7VZRxhBxF5BuoH hnb1ZNyFHmr+c+CvZYW913M9XGrKIb0HtAxYafXp2Hu7oKAZBzvMGWbo9J03p1mSqeWz+sFeBs1qOa2i o0ZK/IoYCiMGXbZyNEcuyGNUrXGI82bQlLyYFLJbs7 CKSzacl+OF4YhTdcAlPm+freLjBFZbAQPMoOVB97cpzg/Jacquelin/X5kkZvohXNVBVDAHZmqKjcr8studoV2O [file] PpZdCaMnIY0KWj2TWeE2NTD6tCTwOr4FOdVaWiGSLoHiSY3PFTy= ID Date Data Source [id number] 03/22/2021 04:08:23 PM EDT [facility] Name Value Range Interpretation Code Description Data Keira rce(s) Supporting Document(s) Progress Note [facility] RMCOGu8sIoNVKdJj55/FPQcbESAgb0YsJIytERe0NNrmCPMpR0MhESY2oT2dFXF0AIqUUqClMkIqMSQ7 lbm [file] SENIOR WINDOWS ENGINEER+Zg2DNYXdLCx1D7N9IDApDLp9A2VOO6YWUVGfRRejAZnnOLQiGAr3M0G6ZCWjU3TVR6Yyqtigbq9+ MZ4UY96ZLPAiTFo5E4R9xZImE3T5wRfYbEY4US8GVX7RgZw1gRRtzJ6+WY4CB6KJViSjKNt4F4H6fSRg L8Y5hEgOoLU3ND4KEY7OdCLrAPMhbrOwDa2jU1MXUL bDXsRDBAF6YW3ZnEFiHT4GdNAGH2SeuQJjUo3qDLgjrXToeF8aSs1gWJbkRH0ECsAURPhMORK5UF0YrY SiPH2QsVSFB2OcaQXjPw6rPNnmuNQzhi1+SH1AABHlSo2GNx0+XMeszoBwZpuIRkZgAYLzn1DkOVb2QQ 5QSQ9taSqjPKX9Eb7TbDI5gJKrA1eFLO1KeCTrZ96p qMWvJDBcAb6QWsU7evOlbK9YGC53eMRbd4B5JUKvQ4raEPruh80lZTwcVAeLTQ2kSOJBFCtrAXbrFEH3 OzFpuknnADWgVf7TVwNvVYj3yB9lqEM2XYF2IrucgUTcQTnwKcAbVkSpFbQ6jGaqumu1PLngJI7tEJuf czptZXRhLyc+CQcvOCKlHBCqYcpHFXPswP9szfN8yv MlBMydaGQeHx9ah6v8EfuwGw1gOq7qAXt0PzAtVkNoYTSrEe8trR89HLfcvwXiRs9FSoMrBYQ8T7JyXt pSREY+IDbzBSzquCs0hXZaUIIdIq2SAZRrQRNrNZNfIXDxYSRxXUEbWUMfDVPeVGXrUDMtGXCuPZGvYU AgICAgICAgICAgICAgICAgICAgICAgICAgICAgICAg DCLvIKPtKBTzGPRfNRWiKJDkHQCyDFPeCNVuCPOsDF4EEEJuFFUyRTWyRACfKTYfFEItBCSkAVVkKKOo ICAgICAgICAgICAgICAgICAgICAgICAgICAgICAgICAgICAgICAgICAgICAgICAgICAgICAgICAgICAg VGKuAUXaUPNvNUAfKF7JWRPaODTtDRGzVTFzIFEiVA AgICAgICAgICAgICAgICAgICAgICAgICAgICAgICAgICAgICAgICAgICAgICAgICAgICAgICAgICAgIC KxHCJdCLWbXXKhIQUxWFLaRHPgQKLrBV6RCUXjGOOmCFHzCILaDMEyXECfMGJgTYNqUSMpXKGdCXNjHU AgICAgICAgICAgICAgICAgICAgICAgICAgICAgICAg PYYvANYlZXXwFAEmLHWnXHShSPNdTWJsOEJqXGMvOAYiEN2OSMVvQVHnDOCgOOZtXYWqLYTdIXRsDCYb ICAgICAgICAgICAgICAgICAgICAgICAgICAgICAgICAgICAgICAgICAgICAgICAgICAgICAgICAgICAg MUUePAByMJPjGOXgTNYdMP6QQOFbGZVrDRWxEZBcAY AgICAgICAgICAgICAgICAgICAgICAgICAgICAgICAgICAgICAgICAgICAgICAgICAgICAgICAgICAgIC VjTDNnCCQjWXHrLNTbMPAoGIKfNFDsTFVvFR3MWXExRYMxCPSwRPKuJRXpLKLpRVXzZMHvIBQsBKMxJM AgICAgICAgICAgICAgICAgICAgICAgICAgICAgICAg OHUsHORjHBDwQKPfGCRqUWEaYSPbFRYdCFUhQJBnHILwAWIgUF9VPTHcMKYlOXGrQXEpGKViVAKvKFSd ICAgICAgICAgICAgICAgICAgICAgICAgICAgICAgICAgICAgICAgICAgICAgICAgICAgICAgICAgICAg AESkSHTtNZFmZZQbYOZnJKVbKL2XMTOvWUSeUKAbBB AgICAgICAgICAgICAgICAgICAgICAgICAgICAgICAgICAgICAgICAgICAgICAgICAgICAgICAgICAgIC VvOCCtARWcNQZkCIHgBLWeFIQqYCXlADAoAEVyLD3BLQOtJGNmGJVoLHRpCASwJILjANWmUBShOOBlZD AgICAgICAgICAgICAgICAgICAgICAgICAgICAgICAg FCMtTLLuDVGmRNXaPHCcKBJeOQZoXELbRXAnAFQwZSChOKGzLHWaFD7MTL56vBNvp3G4VWKqVR3tehz/ Vh9POExfnmFtjUTaTI4AZcVtDJ3zaf6NCqDrIO7zfl2ZSLnRLbDiR8N1pYDwYBSwPIMTSgSaC03yYZlc Su99UVnaZVKnXlBiTQf6Mf8UPtZiS8voOMQsKlI1RF FnWbX9PTNgVsZ1RLHpUnSpTQUbPJTsNCGvWEMYICH8TMErLsWeTjPtCWAzLNrpGVGHQKCiXILwYtAbPb JnOOOvAkNsLMEGGFZ3ARXcZpNxNWKvZIFyTbRoGFXXRF3UOyOqZ9XyiN73RDU8RUb+Vq2EYK5io0ZhVO d1HUQwIQ8gzq7VQDqQAgHxL0XaxvH1DQAaIDLzDz1V FVPaMJAukBP8UgTeOAYZEtPaX3CcjN81YDJQNx8+PYkhabDpFdlRFhKuNPFby8PdSMq7GR6JCPGeCMf5 rJMqTPXbW3Nyu3XkPe86WPGnArzcLA7yrwXsTTCqicZhWWDLTPWzpXA7TbJ8PrTbHbQfOGR4KuOmEO2f RTxyPU1SPBR7GVvjJXCzDFYpF4iRUdJtWDQeADYrlK fcXA3JNfUkE8UfneJxgKY1KOSlRZWYEg7+JXvuxpMkOrpLEdEuLVGpn2JzCCm3MU9SGPLsJOgjQM4IDP WtwI8aYEisEJ4DBxP9XMQgCYDXXmUmU88nkQLvTPc4L1LiCbGnKCFlEfmdQCPhCEiiRbRrUIAxAkSvCM ogID4+ID4+OQfrNH8IOOivwtAdTCHsBv9UVWGaWLHj BY0jVXZyFLEkK2C1yMsiFWRXQaPuU4brdfhrFE2cNZUxJ338bKrkvlQgWDKqWVUkWu0FMKVoRYA1ZCFs pTOaWZUnPRQNPNrzXR1BhNOnPZI4qQ0kUHpdLSKcMAHpI8uHUhLeyKvhBM72tPwejoGjfMErESo+Pg0K WH3dj6ElDUl4usZdXZykRLV8MYogPLYgVCSdPSBdEF S4JQK8MOOUOdAhGQWmLHJcDPdfTZIhWHHjjm1RCRGyOTG7TDJuZoDwBTTrCYJkCXqpVAUtLTVfXSa3PC JaLZHoTM9HMtWkVCCpPODyTTdqQJKzGYLaqa7NRJYwCNSrRsYqDrBvYHDiTSBoVUsuHBYnOUOoCaGrKF XsRERnQQ0ADdHlFIElQJvlYjbqJZPaJIUbnm8YOZUf ADAlVmZ7SpXqLURwYPKsHFeaIZSuQDVlGhKyRWIqXMSgIY5IUeHjEEZkIKL8YbjiVNClKSUsqb6TODAn ILItLvI7YKJyIHAgBLVoUKnrCDVsWXCrPDB4QDWgEUFwIT2TGtMcYNGiCWKuGHVrWMGtFSJwue7RCUDp VXClFOVlNqUlFVEcEJDjKKsxKIVfDSQ8AmG8VPOsVY EyUB5COcRiFHLfPYt0RvLcOTZaAUPycv7RINGgHGDxUOO2YjIxCKIaBFZhITovNERjIJNtNpn9XFWlMW EzDZ1HKkOkFKHaAkM4UesnUOCgOBCcta5AJHAyYXUtFoc5JGRsSDUkAQUuYSmuLKKcXTY1DaRtCOPyVC AwWC6UVjQkIFMzWxL0GNmmMRQzYYKezw4LJVErCOOv KSHzJyOsNGJdWBNkGKfaZTLyQDU3XYT1EJUtCNEaXJ9KJeCiAGRpUzR7NLIgWYToAKKrtp6KEJEeICMm GrGaPgNhLTInEJAdJCvbNMOcHMP0TrJ6RYOuJJTnBS6YAwGqGSNlQeP2AaHiSSVnTUJhxy3UAQZsJBLp Top5UgLfLRJiHKHoTHixTKKzKRW5UZN9ZVZmBOPfXO 2ERlWzCLHvKDJ4SvOqBUXqRJQeyp5AHHZbGGY7SUXoSzCiQKHuYPWzEZxqDLYgENKxKLv8TWXwVQOdMT 3PBwBbZFKzMRN8IYWmBXNrNRHqfa8XWDFaSDB0KMh9KcRgNDHpJEAhDFfpXCDcBSPhBWM6IRGmKSHwLC 4JEfJaSKHfZIEiRnyjNEWcVZSqfp7JGKRfMSY8WtLu MlDeCYFsEBOkDJwmURKnQYF9LsL9RFFdMAQtLH9WZyBcMTIbEOPoZbSmSYKxPBWalp0KJISoXNE2KJH3 QHFtPUSoNDBvDWgoRPMmNSG9GRVrJLVvQFLxZN3OHvEcEDIcKXP5QbWmFWObDEJaqi1VALYoUKK0PqIm JWVjDEGkBTDiNRcxFRQeTEI7RKA3DKOcIXMxCK8OOz ZaLEWcGOF5FHVcHWNhUKYxdv3IAEVkVQX2HfwmJTRwYNMrLFPpOCffTIZpQZR8TLEpFWEyXVWqPX1PZk RlKFSyLHojARJkWCWoHADsli0TTMVgUZH2HFhtHXTaEIMnVGTcBKkxTTTwOWVrAiX3KTDmUEMtCE3AIb RoOQBuSaFxTaquHPRhKNUoaj2UBODiWWX2RGG8MRDu GKVgKINpNMq3udKguIIdTQc7OT1BO9JthhIuSRUBWb9Ne317IJAiOLQzUi4JA6clLv8vNZBmKVNAMj9L UYq4XAD4S4V0IGBmQjbpREE6FsQ6V8I6G8Z4U7OkNLhoDph+AAifWTeqFos8IFU2EDKiJftjAAi2TVc5 BOvxGwR0DuSoWC4gWYHORa7+PWcjdBWsyIpuWQBOZxJgImC4AKykZXSJXq1U ID Date Data Source [id number] 03/22/2021 06:03:39 PM EDT [facility] Name Value Range Interpretation Code Description Data Keira rce(s) Supporting Document(s) Hemoglobin A1c/Hemoglobin.total in Blood by HPLC 6.3 % 4.0-6.0 H [facility] (NOTE)<5.7% Average risk of diabetes (ADA)5.7-6.4% Increased risk of diabetes(ADA)>/= 6.5% Diagnostic for diabetes(ADA) Glucose mean value [Mass/volume] in Blood Estimated fr om glycated hemoglobin 134 mg/dL <126 [facility] ID Date Data Source [id number] 03/22/2021 05:55:55 PM EDT [facility] Name Value Range Interpretation Code Description Data Keira rce(s) Supporting Document(s) Leukocytes [#/volume] in Blood by Automated count 7.4 10*3/uL 4-10 [facility] Erythrocytes [#/volume] in Blood by Automated count 4.78 10*6/uL 4.1- 5.3 [facility] Hemoglobin [Mass/volume] in Blood 14.3 g/dL 11.5-15.5 [facility] Hematocrit [Volume Fraction] of Blood by Automated count 43.1 % 3 6-45 [facility] Erythrocyte mean corpuscular volume [Entitic volume] by Auto mated count 90.3 fL 80-96 [facility] Erythrocyte mean corpuscular hemoglobin [Entitic mass] by Automated count 29.9 pg 27-33 [facility] Erythrocyte mean corpuscular hemoglobin concentration [Mass/volume] by Automated count 33.1 g/dL 32.0-36.0 [facility] Erythrocyte distribution width [Ratio] by Automated count 13.0 % 11.5-14.5 [facility] Platelets [#/volume] in Blood by Automated count 242 10*3/uL 150-400 [facility] Differential cell count method - Blood [facility] Neutrophils/100 leukocytes in Blood by Automated count 55 % [facility] Lymphocytes/100 leukocytes in Blood by Automated count 34 % [facility] Monocytes/100 leukocytes in Blood by Automated count 8 % [facility] Eosinophils/100 leukocytes in Blood by Automated count 2 % [facility] Basophils/100 leukocytes in Blood by Automated count 1 % [facility] Neutrophils [#/volume] in Blood by Automated count 4.05 10*3/uL 1.8-7 .0 [facility] Lymphocytes [#/volume] in Blood by Automated count 2.55 10*3/uL 1.2-4 .0 [facility] Monocytes [#/volume] in Blood by Automated count 0.58 10*3/uL 0-0.8 [facility] Eosinophils [#/volume] in Blood by Automated count 0.17 10*3/uL 0-0.5 [facility] Basophils [#/volume] in Blood by Automated count 0.07 10*3/uL 0-0.2 [facility] Nucleated erythrocytes/100 leukocytes [Ratio] in Blood by Automated count 0 /100{WBCs} 0-0 [facility] ID Date Data Source [id number] 03/22/2021 06:17:10 PM [facility] Name Value Range Interpretation Code Description Data Keira rce(s) Supporting Document(s) Cobalamin (Vitamin B12) [Mass/volume] in Serum or Plasma 526 pg/ml 2 11-946 [facility] ID Date Data Source [id number] 03/22/2021 06:17:10 PM [facility] Name Value Range Interpretation Code Description Data Keira rce(s) Supporting Document(s) Albumin [Mass/volume] in Serum or Plasma by Bromocresol green (BCG) dye binding method 3.9 g/dL 3.5-5.2 [facility] Bilirubin.total [Mass/volume] in Serum or Plasma 0.7 mg/dL <1.2 [facility] Calcium [Mass/volume] in Serum or Plasma 9.4 mg/dL 8.6-10.0 [facility] Chloride [Moles/volume] in Serum or Plasma 100 mmol/L 98-107 [facility] Creatinine [Mass/volume] in Serum or Plasma 0.98 mg/dL 0.50-0.90 [facility] Glucose [Mass/volume] in Serum or Plasma 120 mg/dL 70-140 [facility] Alkaline phosphatase [Enzymatic activity/volume] in Serum or Plasma 164 U/L 35-104 [facility] Potassium [Moles/volume] in Serum or Plasma 4.0 mmol/L 3.4-5.1 [facility] Protein [Mass/volume] in Serum or Plasma 7.2 g/dL 6.4-8.3 [facility] Sodium [Moles/volume] in Serum or Plasma 137 mmol/L 136-145 [facility] Aspartate aminotransferase [Enzymatic activity/volume] in Serum or Plasma 14 U/L <32 [facility] Urea nitrogen [Mass/volume] in Serum or Plasma 16 mg/dL 6-20 [facility] Osmolality of Serum or Plasma by calculation 286 mosm/kg 275-300 [facility] Creatinine/Urea nitrogen [Mass Ratio] in Serum or Plasma 17 [facility] Bicarbonate [Moles/volume] in Serum 27 mmol/L 22-29 [facility] Alanine aminotransferase [Enzymatic activity/volume] in Seru m or Plasma 19 U/L <33 [facility] Anion gap 3 in Serum or Plasma 10 mmol/L 8-15 [facility] Glomerular filtration rate/1.73 sq M pre dicted among non-blacks [Volume Rate/Area] in Serum or Plasma by Creatinine-based formula (MDRD) 64 mL/min/1.73m2 >60 [facility] Glomerular filtration rate/1.73 sq M pre dicted among blacks [Volume Rate/Area] in Serum or Plasma by Creatinine-based formula (MDRD) 74 mL/min/1.73m2 >60 [facility] ID Date Data Source [id number] 03/22/2021 06:17:10 PM EDT [facility] Name Value Range Interpretation Code Description Data Keira rce(s) Supporting Document(s) Thyrotropin [Units/volume] in Serum or Plasma 1.860 u[IU]/mL 0.270-4. 200 [facility] ID Date Data Source [id number] 03/21/2021 12:57:00 PM EDT [facility] ([facility], ) Name Value Range Interpretation Code Description Data Keira rce(s) Supporting Document(s) PDFReport Laboratory test result [facility] ([facility], ) FVC-Pred 3.29 L [facility] ([facility]) FVC-Pre 2.01 L [facility] ([facility]) FVC-%Pred-Pre 61 L [facility] ([facility]) FVC-LLN 2.61 L [facility] ([facility]) Fev1-%Pred-Pre 66 L [facility] ([facility]) Fev1-Pre 1.71 L [facility] ([facility]) Fev1-Pred 2.57 L [facility] ([facility]) Fev6-Pred 3.18 L [facility] ([facility]) Fev1-LLN 2.00 L [facility] ([facility]) Fev6-%Pred-Pre 62 L [facility] ([facility]) Fev6-LLN 2.52 L [facility] ([facility]) Fev6-Pre 1.99 L [facility] ([facility]) Yej8kbf-Opsx 79 % [facility] ([facility]) Jwo0lyf-Gad 85 % [facility] ([facility]) Cml0nyw-%Pred-Pre 107 % [facility] ([facility]) Sqs6ito-KPJ 69 % [facility] ([facility]) Gpy9amn-Ufd 99 % [facility] ([facility]) Arx8jug-Lccx 97 % [facility] ([facility]) Lri2ofh-%Pred-Pre 102 % [facility] ([facility]) FEFMax-Pred 6.34 L/E/sec [facility] ([facility]) FEFMax-Pre 3.50 L/E/sec [facility] ([facility]) FEFMax-LLN 4.68 L/E/sec [facility] ([facility]) FEFMax-%Pred-Pre 55 L/E/sec [facility] ([facility]) Vzl0978-Fadk 2.46 L/E/sec [facility] ([facility]) Isl6899-Rpc 2.25 L/E/sec [facility] ([facility]) Ozl5636-%Pred-Pre 91 L/E/sec [facility] ([facility]) ExpTime-Pre 8.41 sec [facility] ([facility]) Pgg8800-HTX 1.26 L/E/sec [facility] ([facility]) Evz1fun0-Kqi 86 % [facility] ([facility]) Igm6xcf9-%Pred-Pre 105 % [facility] ([facility]) Jan2bvy0-Rfck 81 % [facility] ([facility]) Lzm9ylr3-JDT 73 % [facility] ([facility]) ID Date Data Source [id number] 11/29/2020 03:38:00 PM EDT [facility] ([facility]) Name Value Range Interpretation Code Description Data Keira rce(s) Supporting Document(s) Red Blood Count 4.88 10 4.00-5.40 Normal (applies to non-numeric results) [facility] ([facility], ) White Blood Count 7.8 10 4.0-10.0 Normal (applies to non-numeri c results) [facility] ) Hemoglobin 14.8 g/dL 12.0-15.5 Normal (applies to non-numeric resul ts) [facility] ([facility]) Mean Corpuscular Volume 95.3 fl 80.0-96.0 Normal ( applies to non-numeric results) [facility] ([facility], ) Hematocrit 46.5 % 36.0-47.0 Normal (applies to non-numeric resul ts) [facility] ([facility]) Mean Corpuscular HGB Conc 31.8 g/dL 32.0-36.5 Below low normal [facility] ([facility]) Mean Corpuscular Hemoglobin 30.3 pg 27.0-33.0 Norm al (applies to non-numeric results) [facility] ([facility]) Red Cell Distribution Width 12.5 % 11.5-14.5 Norm al (applies to non-numeric results) [facility] ([facility]) Platelet Count, Automated 245 10 150-450 Normal (applies to non-numeric results) [facility] ([facility], ) Neutrophils % 53.0 % 36.0-66.0 Normal (applies to non-numeric re sults) [facility] ([facility], ) Lymph % 35.0 % 24.0-44.0 Normal (applies to non-numeric resul ts) [facility] ([facility], ) Garvin % 7.8 % 2.0-8.0 Normal (applies to non-numeric resul ts) [facility] ([facility]) Eos % 2.7 % 0.0-3.0 Normal (applies to non-numeric resul ts) [facility] Baso % 1.1 % 0.0-1.0 Above high normal [facility] ([facility]) Immature Granulocyte % 0.4 % 0-3.0 Normal (applies to non-n umeric results) [facility] Nucleated Red Blood Cell % 0.0 % 0-0 Normal (applies to n on-numeric results) [facility] ([facility]) Neutrophils # 4.2 10 1.5-8.5 Normal (applies to non-numeric re sults) [facility] ([facility]) Lymph # 2.7 10 1.5-5.0 Normal (applies to non-numeric resul ts) [facility] ([facility]) Garvin # 0.6 10 0.0-0.8 Normal (applies to non-numeric resul ts) [facility] ([facility]) Baso # 0.1 10 0.0-0.2 Normal (applies to non-numeric resul ts) [facility] ([facility]) 12/21/20 (Thr December 21) 08:57 AM BIJU SHEA No significant abnormalities. Eos # 0.2 10 0.0-0.5 Normal (applies to non-numeric resul ts) [facility] ([facility]) ID Date Data Source [id number] 11/29/2020 03:38:00 PM EDT [facility] ([facility]) Name Value Range Interpretation Code Description Data Keira rce(s) Supporting Document(s) Tissue transglutaminase IgA Ab [Units/volume] in Serum 4 U/mL 0-3 Above high normal [facility] ([facility]) Negative 0 - 3 Weak Positive 4 - 10 Positive >10 . Tissue Transglutaminase (tTG) has been identified as the endomysial antigen. Studies have demonstr- ated that endomysial IgA antibodies have over 99% specificity for gluten sensitive enteropathy. Performed at: RN - [facility] [address] [id number] [employer] Developer: Caryn Frank MD, Phone: [phone] ID Date Data Source [id number] 07/07/2020 02:31:00 PM EST [facility]) Name Value Range Interpretation Code Description Data Keira rce(s) Supporting Document(s) IgA [Mass/volume] in Serum or Plasma 540.0 mg/dL 70-400 Above hig h normal [facility] ([facility]) Tissue transglutaminase IgA Ab [Units/volume] in Serum 4 U/mL 0-3 Above high normal [facility] ([facility]) Negative 0 - 3 Weak Positive 4 - 10 Positive >10 . Tissue Transglutaminase (tTG) has been identified as the endomysial antigen. Studies have demonstr- ated that endomysial IgA antibodies have over 99% specificity for gluten sensitive enteropathy. Performed at: RN - [facility] [address] [id number] [employer] Developer: Caryn Frank MD, Phone: [phone] ID Date Data Source [id number] 07/07/2020 02:31:00 PM EST [facility] ([facility]) Name Value Range Interpretation Code Description Data Keira rce(s) Supporting Document(s) Free T4 1.20 ng/dL 0.76-1.46 Normal (applies to non-numeric resul ts) [facility] ([facility]) 07/12/20 (FriJul 12) 04:20 PM BIJU MÉNDEZ Thyroid function is normal. Thyroid Stimulating Hormone 2.130 uIU/ML 0.358-3.740 Norm al (applies to non- numeric results) [facility] ([facility]) ID Date Data Source [id number] 06/17/2020 12:00:00 AM EST [facility] Name Value Range Interpretation Code Description Data Keira rce(s) Supporting Document(s) 2019-nCoV RNA XXX SAMY+probe-Imp [facility] This lab was ordered by [facility] and reported by [employer] [facility] ID Date Data Source [id number] 06/15/2020 07:38:00 AM EST [facility] ([facility]) Name Value Range Interpretation Code Description Data Keira rce(s) Supporting Document(s) PDFReport Laboratory test result [facility] ([facility]) FVC-Pred 3.29 L [facility] ([facility]) FVC-Pre 2.14 L [facility] ([facility]) FVC-LLN 2.61 L [facility] ([facility]) FVC-%Pred-Pre 64 L [facility] ([facility], ) Fev1-Pred 2.57 L [facility] ([facility]) Fev1-Pre 1.85 L [facility] ([facility]) Fev1-%Pred-Pre 71 L [facility] ([facility]) Fev6-Pred 3.18 L [facility] ([facility], ) Fev1-LLN 2.00 L [facility] ([facility]) Fev6-Pre 2.14 L [facility] ([facility]) Fev6-LLN 2.52 L [facility] ([facility]) Fev6-%Pred-Pre 67 L [facility] ([facility]) Hzp5nhh-Wuk 86 % [facility] ([facility]) Ubj6gzf-%Pred-Pre 109 % [facility] ([facility]) Ldr2nkv-Ksiu 79 % [facility] ([facility]) Nls1tlp-Xjnf 97 % [facility] ([facility]) Tdc0aku-QMA 69 % [facility] ([facility]) Spi8gto-Blu 100 % [facility] ([facility]) Kkc1hrj-%Pred-Pre 103 % [facility] ([facility]) FEFMax-Pre 5.09 L/E/sec [facility] ([facility]) FEFMax-Pred 6.34 L/E/sec [facility] ([facility], ) FEFMax-LLN 4.68 L/E/sec [facility] ([facility]) FEFMax-%Pred-Pre 80 L/E/sec [facility] ([facility]) [id number]-[id number] 2.46 L/E/sec [facility] ([facility]) Crf9956-Win 2.31 L/E/sec [facility] ([facility]) Apb1823-%Pred-Pre 93 L/E/sec [facility] ([facility]) Xzv8569-RFJ 1.26 L/E/sec [facility] ([facility]) ExpTime-Pre 6.59 sec [facility] ([facility]) Pbc8nmz3-%Pred-Pre 106 % [facility] ([facility]) Nsu5byh1-Hwhu 81 % [facility] ([facility]) Sfk8obu8-Bpd 86 % [facility] ([facility]) Pdg1umc1-USW 73 % [facility] ([facility]) ID Date Data Source [id number] 05/24/2020 12:00:00 AM EDT [facility] Name Value Range Interpretation Code Description Data Keira rce(s) Supporting Document(s) 2019-nCoV RNA XXX SAMY+probe-Imp [facility] This lab [facility] and reported by [employer]. ID Date Data Source [id number] 04/19/2020 07:00:00 PM EDT [facility] ([facility]) Name Value Range Interpretation Code Description Data Keira rce(s) Supporting Document(s) Fats Neutral Laboratory test result Normal (applies to non -numeric results) [facility] ([facility]) <content>Normal (<60 Droplets/HPF)</cont ent>
<content></content> Fats Total Laboratory test result Normal (applies to non-n umeric results) [facility] ([facility]) <content>Normal (<100 Droplets/HPF)</con tent>
<content></content> ID Date Data Source [id number] 04/19/2020 07:00:00 PM EDT [facility] ([facility]) Name Value Range Interpretation Code Description Data Keira rce(s) Supporting Document(s) Calprotectin [Mass/mass] in Stool 39 ug/g 0-120 Normal (applies to non-numeric results) [facility] ([facility]) <content>Concentration Interpretatio n Follow-Up</content>
<content><16 - 50 ug/g Normal None</content>
<content>>50 -120 ug/g Borderline Re-evaluate in 4-6 weeks</content>
<content>>120 ug/g Abnormal Repeat as clinically</content>
<content>indicated</content>
<content>Performed at: - [facility]</content>
<content>[address], [place] [id number]</content>
<content>[employer] Developer: Caryn Frank MD, Phone: [phone]</content>
<content>Performed at: [facility]</content>
<content>[address], [place] [id number]</content>
<content>[employer] Developer: Geovany Shipley MD, Phone: [phone]</content>
<content></content> Elastase.pancreatic [Mass/mass] in Stool 243 Normal (applies to non-numeric results) [facility] ([facility], ) <content>Result Units: ug Elast./g</cont ent>
<content>Severe Pancreatic Insufficiency: <100</content>
<content>Moderate Pancreatic Insufficiency: 100 - 200</content>
<content>Normal: >200</content>
<content></content> ID Date Data Source [id number] 04/19/2020 07:00:00 PM EDT [facility] ([facility]) Name Value Range Interpretation Code Description Data Keira rce(s) Supporting Document(s) Gastrointestinal (GI) Panel Laboratory test result [facility] ([facility]) This Gastrointestinal PCR Panel detects the [...] Smoker completed Never S moker eCW1 ([facility]ly [facility]) Smoking 03/30/2021 12:00:00 AM EDT Never Smoker completed Never S moker eCW1 ([facility]) Alcohol intake 03/22/2021 12:00:00 AM EDT Current non-d jose of alcohol (finding) completed Current non-drinker of alcohol (finding) [facility] Tobacco use and exposure 03/22/2021 12:00:00 AM EDT Never used co mpleted Never used [facility] Smoking 03/22/2021 12:00:00 AM EDT Never smoker completed Never s [facility] Smoking 01/19/2021 12:00:00 AM EDT Never Smoker completed Never S moker eCW1 (Formerly [facility]) Smoking 01/19/2021 12:00:00 AM EDT Never Smoker completed Never S moker eCW1 (Formerly [facility]) Smoking 01/19/2021 12:00:00 AM EDT Never Smoker completed Never S moker eCW1 (Formerly [facility]) Smoking 01/19/2021 12:00:00 AM EDT Never Smoker completed Never S moker eCW1 (Formerly [facility]) Smoking 09/20/2020 12:00:00 AM EST Patient has never smoked co mpleted Patient has never smoked MEDENT ([facility], ) Smoking 06/21/2020 12:00:00 AM EST Non Smoker completed Non Smoke r MEDENT ([facility], ) Vital Signs ID Date Data Source UNK Name Value Range Interpretation Code Description Data Source(s) [place] body weight 115 [lb_av] 115 [lb_av] MEDEN T ([facility], ) Body weight 112.946 kg 112.946 kg [facility] ([facility]) Body surface area Derived from formula 2.12 m2 2.12 m2 [facility] ([facility]) Body mass index (BMI) [Ratio] 44.1 kg/m2 44.1 k g/m2 [facility] ([facility]) Systolic blood pressure 122 mm[Hg] 122 mm[Hg] M EDENT ([facility]) Diastolic blood pressure 84 mm[Hg] 84 mm[Hg] [facility] Body height 63 [in_i] 63 [in_i] [facility] ([facility]) 5'3" Body weight 249.00 [lb_av] 249.00 [lb_av] MEDEN T ([facility]) Body weight 242 [lb_av] 242 [lb_av] W1 ([facility] Body weight 109.77 kg 109.77 kg W1 ([facility]) Body height 64 [in_i] 64 [in_i] eCW1 ([facility]) Body mass index (BMI) [Ratio] 41.53 kg/m2 41.53 kg/m2 W1 ([facility]) Heart rate 73 /min 73 /min eCW1 ([facility]) Respiratory rate 18 /min 18 /min W1 ([facility]) Body temperature 97.1 [degF] 97.1 [degF] eCW1 ( [facility]) Systolic blood pressure 124 mm[Hg] 124 mm[Hg] e CW1 ([facility]) Diastolic blood pressure 80 mm[Hg] 80 mm[Hg] eCW1 ([facility]) Systolic blood pressure 130 mm[Hg] 130 mm[Hg] M EDENT ([facility]) Heart rate 58 /min 58 /min [facility] ([facility]) Oxygen saturation in Arterial blood by Pulse oximetry 96 % 96 % [facility] ([facility]) Body height 63 [in_i] 63 [in_i] [facility] ([facility]) 5'3" Body surface area Derived from formula 2.10 m2 2.10 m2 [facility] ([facility]) Diastolic blood pressure 68 mm[Hg] 68 mm[Hg] [facility] ([facility]) Body weight 243.00 [lb_av] 243.00 [lb_av] MEDEN T ([facility]) Body mass index (BMI) [Ratio] 43.0 kg/m2 43.0 k g/m2 [facility] ([facility]) Body weight 110.225 kg 110.225 kg [facility] ([facility]) [place] body weight 115 [lb_av] 115 [lb_av] MEDEN T ([facility]) Body weight 233.8 [lb_av] 233.8 [lb_av] W1 ([facility]) Body height 64 [in_i] 64 [in_i] eCW1 ([facility]) Body mass index (BMI) [Ratio] 40.13 kg/m2 40.13 kg/m2 eCW1 ([facility]) Heart rate 71 /min 71 /min eCW1 ([facility]) Respiratory rate 18 /min 18 /min eCW1 ([facility]) Body temperature 97.8 [degF] 97.8 [degF] eCW1 ( [facility]) Systolic blood pressure 124 mm[Hg] 124 mm[Hg] e CW1 ([facility]) Diastolic blood pressure 80 mm[Hg] 80 mm[Hg] eCW1 ([facility]) Body weight 236.00 [lb_av] 236.00 [lb_av] MEDEN T ([facility]) Body height 63 [in_i] 63 [in_i] [facility] ([facility]) 5'3" Body mass index (BMI) [Ratio] 41.8 kg/m2 41.8 k g/m2 [facility] ([facility]) [place] body weight 115 [lb_av] 115 [lb_av] MEDEN T ([facility]) Body weight 107.050 kg 107.050 kg [facility] ([facility]) Body surface area Derived from formula 2.07 m2 2.07 m2 [facility] ([facility]) Systolic blood pressure 128 mm[Hg] 128 mm[Hg] M EDENT ([facility]) Diastolic blood pressure 76 mm[Hg] 76 mm[Hg] [facility] ([facility]) Body height 63 [in_i] 63 [in_i] [facility] ([facility]) 5'3" Body weight 236.00 [lb_av] 236.00 [lb_av] MEDEN T ([facility]) Body mass index (BMI) [Ratio] 41.8 kg/m2 41.8 k g/m2 [facility] ([facility]) [place] body weight 115 [lb_av] 115 [lb_av] MEDEN T ([facility]) Body weight 107.050 kg 107.050 kg [facility] ([facility]) Body surface area Derived from formula 2.07 m2 2.07 m2 [facility] ([facility]) Systolic blood pressure 124 mm[Hg] 124 mm[Hg] [facility] Diastolic blood pressure 84 mm[Hg] 84 mm[Hg] [facility] ([facility]) Heart rate 70 /min 70 /min [facility] ([facility]) Oxygen saturation in Arterial blood by Pulse oximetry 95 % 95 % [facility] ([facility]) Body temperature 97.3 [degF] 97.3 [degF] [facility] ([facility]) Body height 63 [in_i] 63 [in_i] [facility] ([facility]) 5'3" Body weight 234.00 [lb_av] 234.00 [lb_av] MEDEN T ([facility]) Body mass index (BMI) [Ratio] 41.4 kg/m2 41.4 k g/m2 [facility] ([facility]) [place] body weight 115 [lb_av] 115 [lb_av] MED[facility] T ([facility]) Body weight 106.142 kg 106.142 kg [facility] ([facility]) Body surface area Derived from formula 2.07 m2 2.07 m2 [facility] ([facility]) Systolic blood pressure 118 mm[Hg] 118 mm[Hg] M EDENT ([facility]) Diastolic blood pressure 84 mm[Hg] 84 mm[Hg] [facility] ([facility]) Body height 63 [in_i] 63 [in_i] [facility] ([facility]) 5'3" Body weight 235.00 [lb_av] 235.00 [lb_av] MED[facility] T ([facility]) Body mass index (BMI) [Ratio] 41.6 kg/m2 41.6 k g/m2 [facility] ([facility]) [place] body weight 115 [lb_av] 115 [lb_av] MED[facility] T ([facility]) Body weight 106.596 kg 106.596 kg [facility] ([facility]) Body surface area Derived from formula 2.07 m2 2.07 m2 [facility] ([facility]) Systolic blood pressure 120 mm[Hg] 120 mm[Hg] [facility] Diastolic blood pressure 80 mm[Hg] 80 mm[Hg] [facility] ([facility]) Heart rate 64 /min 64 /min [facility] ([facility]) Oxygen saturation in Arterial blood by Pulse oximetry 98 % 98 % [facility] ([facility]) Body height 63 [in_i] 63 [in_i] [facility] ([facility]) 5'3" Body weight 231.00 [lb_av] 231.00 [lb_av] MED[facility] T ([facility]) Body mass index (BMI) [Ratio] 40.9 kg/m2 40.9 k g/m2 [facility] ([facility]) [place] body weight 115 [lb_av] 115 [lb_av] [facility] T ([facility]) Body weight 104.782 kg 104.782 kg [facility] ([facility]) Body surface area Derived from formula 2.06 m2 2.06 m2 [facility] ([facility]) Body weight 229.00 [lb_av] 229.00 [lb_av] [facility] ([facility]) Body mass index (BMI) [Ratio] 40.6 kg/m2 40.6 k g/m2 [facility] ([facility]) Systolic blood pressure 124 mm[Hg] 124 mm[Hg] M [facility] ([facility]) Diastolic blood pressure 68 mm[Hg] 68 mm[Hg] [facility] ([facility]) [place] body weight 115 [lb_av] 115 [lb_av] [facility] ([facility]) Body height 63 [in_i] 63 [in_i] [facility] ([facility]) 5'3" Body weight 103.874 kg 103.874 kg [facility] ([facility]) Patient Treatment Plan of Care Planned Activity Planned Date Details Description Data Source (s) Ubrelvy 100 MG Oral Tablet (Ubrogepant) 03/22/2021 12:00:00 AM [facility] Erenumab-aooe 140 MG/ML Subcutaneous Solution Auto-inj chichi (AIMOVIG) 03/22/2021 12:00:00 AM [facility] Propranolol Hydrochloride 80 MG Oral Tablet 02/19/2021 12:00:00 AM [facility] buspirone hydrochloride 7.5 MG Oral Tablet 02/19/2021 12:00:00 AM E [facility] 24 HR venlafaxine 225 MG Extended Release Oral Tablet 03/08/2016 12:00:00 AM [facility] Erythromycin 0.005 MG/MG Ophthalmic Ointment 04/18/2015 12:00:00 AM [facility] Ascorbic Acid 500 MG Oral Capsule 04/06/2013 12:00:00 AM [facility] Acetaminophen 250 MG / Aspirin 250 MG / Caffeine 65 MG Oral Tablet [Excedrin] [facility] buspirone hydrochloride 5 MG Oral Tablet [facility] levocetirizine dihydrochloride 5 MG Oral Tablet [facility] Nortriptyline 10 MG Oral Capsule [facility] Ergocalciferol 16549 UNT Oral Capsule [facility] SUMATRIPTAN SUCCINATE PO Ups [facility]
[2021-06-01 17:15] VITALS: BP 163/84
--- OUTSIDE RECORDS SUMMARY | 2021-06-01 18:19 | CCD ---
Author Author [facility] Organization [facility] Address Unknown Phone Unavailable Care Team Providers Care Night Time Babysitter Name Role Phone Aguila, L Tatiana SHAKE OUT WORKER Unavailable Unavailable Aguila, L Tatiana SHAKE OUT WORKER Unavailable Unavailable Aguila, L Tatiana SHAKE OUT WORKER Unavailable Unavailable Aguila, L Tatiana SHAKE OUT WORKER Unavailable Unavailable Aguila, L Tatiana SHAKE OUT WORKER Unavailable Unavailable Aguila, L Tatiana SHAKE OUT WORKER Unavailable Unavailable Aguila, L Tatiana SHAKE OUT WORKER Unavailable Unavailable Aguila, L Tatiana SHAKE OUT WORKER Unavailable Unavailable Aguila, L Tatiana SHAKE OUT WORKER Unavailable Unavailable Aguila, L Tatiana SHAKE OUT WORKER Unavailable Unavailable Aguila, L Tatiana SHAKE OUT WORKER Unavailable Unavailable Aguila, L Tatiana SHAKE OUT WORKER Unavailable Unavailable Aguila, L Tatiana SHAKE OUT WORKER Unavailable Unavailable Aguila, L Tatiana SHAKE OUT WORKER Unavailable Unavailable Aguila, L Tatiana SHAKE OUT WORKER Unavailable Unavailable Aguila, L Tatiana SHAKE OUT WORKER Unavailable Unavailable Aguila, L Tatiana SHAKE OUT WORKER Unavailable Unavailable Aguila, L Tatiana SHAKE OUT WORKER Unavailable Unavailable Aguila, L Tatiana SHAKE OUT WORKER Unavailable Unavailable Aguila, L Tatiana SHAKE OUT WORKER Unavailable Unavailable Aguila, L Tatiana SHAKE OUT WORKER Unavailable Unavailable Aguila, L Tatiana SHAKE OUT WORKER Unavailable Unavailable Aguila, L Tatiana SHAKE OUT WORKER Unavailable Unavailable Aguila, L Tatiana SHAKE OUT WORKER Unavailable Unavailable Aguila, L Tatiana SHAKE OUT WORKER Unavailable Unavailable Charlebois, A Biju RPA C [...] Unavailable ALIS MOODY Unavailable Unavailable THUAN PA-C, [id number] A. CHRISTIN PA Unavailable Unava ilable THUAN PA-C, [id number] A. CHRISTIN PA Unavailable Unava ilable THUAN PA-C, [id number] A. CHRISTIN PA Unavailable Unava ilable THUAN PA-C, [id number] A. CHRISTIN PA Unavailable Unava ilable THUAN PA-C, [id number] A. CHRISTIN PA Unavailable Unava ilable THUAN PA-C, [id number] A. CHRISTIN PA Unavailable Unava ilable THUAN PA-C, [id number] A. CHRISTIN PA Unavailable Unava ilable Re-disclosure [...] is protected by Article 27-F of the [facility] Public Health law. If you continue you may have access to information: Regarding HIV / AIDS; Provided by facilities licensed or operated by the [facility] Office of Mental Health; or Provided by the [facility] Office for People With Developmental Disabilities. If such information is present, then the following [facility] mandated warning applies: This information has been [...] law may result in a fine or care home sentence or both. A general authorization for [...] MedreaRefe rrer: ALIS MEDREA 07/24/2021 12:00:00 AM [facility] Outpatient Attender: ALIS MEDREAAttender: Alis Medrea 06/27/2021 12:00:00 AM [facility] Outpatient Attender: ALIS MEDREAAttender: Alis Medrea 06/22/2021 12:00:00 AM [facility] Outpatient Referrer: ALIS MEDREA 06/05/2021 12:00:00 AM [facility] [place] [address] [address] 05/15/2021 12:00:00 AM EDT eCW1 ([facility]) Outpatient Attender: ALIS MEDREAAttender: Ails MedreaRefe rrer: ALIS MEDREA 04/23/2021 12:00:00 AM [facility] Outpatient [address] [address] 03/30/2021 12:00:00 AM EDT eCW1 ([facility]) Outpatient Attender: Alis GuoaAtpaod er: ALIS LIONREAReferrer: [id number] CHRISTIN LAROSE PA-C [id number] 03/22/2021 12:00:00 AM EDT - 03/22/2021 03:54:21 PM [facility] Outpatient Attender: Tatiana Torres/Maritza/Abner/Dae 03/21/2021 01:00:00 PM EDT MEDENT ([facility]) [place] [address] [address] 03/21/2021 12:00:00 AM EDT eCW1 ([facility]) [place] [address] [address] 03/12/2021 12:00:00 AM EDT [facility]CW1 ([facility]) [place] [address] [address] 01/22/2021 12:00:00 AM EDT [facility] [place] [address] [address] 01/19/2021 12:00:00 AM EDT eCW1 ([facility]) [place] [address] [address] 12/28/2020 12:00:00 AM EDT [facility]CW1 [facility]) [place] [address] [address] 12/28/2020 12:00:00 AM EDT eCW1 ([facility]) Outpatient Attender: Biju Shea RPA C Brian/[place]/A ngel/Reindl 11/29/2020 02:30:00 PM EDT MED[facility] ([facility]) [place] [address] [address] 10/24/2020 12:00:00 AM EDT eCW1 [facility]) Outpatient Attender: Tatiana Sheehan NP Brian/[place]/Abner/Reindl 09/20/2020 12:00:00 PM EST MEDENT ([facility]) Outpatient Attender: Biju Shea RPA C Brian/[place]/A ngel/Reindl 07/06/2020 12:30:00 PM EST MEDENT ([facility]) Outpatient Attender: Tatiana Sheehan NP Brian/[place]/Abner/Reindl 06/21/2020 02:30:00 PM EST [facility] ([facility]) [place] [address] [address] 06/14/2020 12:00:00 AM EST [facility]) [place] [address] [address] 05/22/2020 12:00:00 AM EDT eCW1 ([facility]) [place] [address] [address] 05/18/2020 12:00:00 AM EDT eCW1 ([facility]) [place] [address] [address] 05/04/2020 12:00:00 AM EDT eCW1 ([facility]) Outpatient Attender: Biju Torres/Maritza/Moisés balderrama/Dae 04/19/2020 01:00:00 PM EDT MED[facility] ([facility]) Immunizations Vaccine Date Status Description Data Source(s) COVID-19 dose #1 given elsewhere Unspecified 11/09/2020 02:4 8:00 PM EDT completed eCW1 ([facility]) COVID-19 dose #1 given elsewhere Unspecified 11/09/2020 02:4 8:00 PM EDT completed eCW1 ([facility]) COVID-19 dose #1 given elsewhere Unspecified 11/09/2020 02:4 8:00 PM EDT completed eCW1 ([facility]) COVID-19 dose #1 given elsewhere Unspecified 11/09/2020 02:4 8:00 PM EDT completed eCW1 ([facility]) COVID-19 dose #1 given elsewhere Unspecified 11/09/2020 02:4 8:00 PM EDT completed eCW1 ([facility]) COVID-19 dose #1 given elsewhere Unspecified 11/09/2020 02:4 8:00 PM EDT completed eCW1 ([facility]) COVID-19 VACCINE Zena 11/09/2020 12:00:00 AM EDT completed [facility] Vaccine Series Complete: YESThis Data wa s Submitted to [facility] Via [employer] New in 2011. IIV4 06/07/2020 02:45:00 PM EST completed MEDENT ([facility]) Medications Medication Brand Name Start Date Product Form Dose Route Admi nistrative Instructions Pharmacy Instructions Status Indications Reaction Description Data Source(s) Erenumab-aooe 140 MG/ML Subcutaneous Solution Auto-injector (AIMOVIG) [id number] 03/22/2021 12:00:00 AM EDT 140 mg Subcutaneous active Inject 1 mL into the skin every 30 (thirty) days [facility] Ubrelvy 100 MG Oral Tablet (Ubrogepant) 0795-1553-17 03/22/20 12:00:00 AM EDT 100 mg Oral active Take 100 mg by m outh Two times daily as needed [facility] buspirone hydrochloride 7.5 MG Oral Tabl et busPIRone HCl 7.5 MG Oral Tablet (BUSPAR) busPIRone HCl 7.5 MG Oral Tablet (BUSPAR) 02/19/2021 12:00:00 AM EDT active TAKE ONE T ABLET BY MOUTH @8AM and TAKE ONE TABLET BY MOUTH @8PM [facility] Propranolol Hydrochloride 80 MG Oral Tab let Propranolol HCl 80 MG Oral Tablet (INDERAL) Propranolol HCl 80 MG Oral Tablet (INDERAL) 02/19/2021 12:00:00 AM EDT active TAKE ONE TABLET BY MOUTH @8AM and TAKE ONE TABLET BY MOUTH @8PM [facility] Aerochamber Plus Chriss-Vu 06/21/2020 12:00:00 AM EST active MEDENT ([facility] ) POLYETHYLENE GLYCOL 3350 142 MG/ML Oral Solution [Miralax] M iralax 05/19/2020 12:00:00 AM EDT ORAL completed MEDENT ([facility] ) 200 ACTUAT Albuterol 0.09 MG/ACTUAT Metered Dose Inhal er [Ventolin] Ventolin HFA 02/16/2020 12:00:00 AM EDT RESPIRATORY active MEDENT ([facility] ) 24 HR venlafaxine 225 MG Extended Releas e Oral Tablet Venlafaxine HCl 225 MG TB24 Venlafaxine HCl 225 MG TB24 03/08/2016 12:00:00 AM EDT aborted daily. [facility] Erythromycin 0.005 MG/MG Ophthalmic Oint ment erythromycin (ROMYCIN) ophthalmic ointment erythromycin (ROMYCIN) ophthalmic ointment 04/18/2015 12:00: 00 AM EDT Left Eye aborted Place into the left eye Three times daily as needed. [facility] Ascorbic Acid 500 MG Oral Capsule Ascorbic Acid (VITAM IN C) 500 MG CAPS Ascorbic Acid (VITAMIN C) 500 MG CAPS 04/06/2013 12:00:00 AM EDT aborted daily. [facility] Acetaminophen 250 MG / Aspirin 250 MG / Caffeine 65 MG Oral Tablet [Excedrin] Excedrin Migraine 250-250-65 MG Oral Tablet (ccbpjhw-owfvdanejyqso-cahbelfo) Excedrin Migraine 250-250-65 MG Oral Tablet (jtzqghq-xfltrnvpyrfss-kfcvyfaa) 1 {tbl} Oral aborted Take 1 tablet by mouth every 6 (six) hours as needed for Pain [facility] Nortriptyline 10 MG Oral Capsule Nortriptyline HCl 10 MG Oral Capsule (PAMELOR) Nortriptyline HCl 10 MG Oral Capsule (PAMELOR) 10 mg Oral aborted Take 10 mg by mouth nightly [facility] Ergocalciferol 01222 UNT Oral Capsule Er gocalciferol 38243 UNIT Oral Capsule (DRISDOL) Ergocalciferol 24120 UNIT Oral Capsule (DRISDOL) 88024 U Oral aborted Take 50,000 Units by mouth once a week [facility] levocetirizine dihydrochloride 5 MG Oral Tablet Levocetirizine Dihydrochloride 5 MG Oral Tablet (XYZAL) Levocetirizine Dihydrochloride 5 MG Oral Tablet (XYZAL ) 5 mg Oral aborted Take 5 mg by angela th every evening [facility] buspirone hydrochloride 5 MG Oral Tablet busPIRone HCl 5 MG Oral Tablet (BUSPAR) busPIRone HCl 5 MG Oral Tablet (BUSPAR) 5 mg Oral aborted Take 5 mg by mouth Two Times Daily [facility] SUMATRIPTAN SUCCINATE PO 50 mg Oral aborted Take 50 mg by mouth as needed [facility] Insurance Providers Payer name Policy type / Coverage type Policy ID Covered libertarian ID Covered libertarian's relationship to churchill Policy Churchill Plan Information MEDICARE [id number] [facility] [id number] MEDICARE A [id number] Self [id number] MEDICARE 4 [id number] 1 [id number] Medicare - NGS Medicare Primary [id number] Self 1 [id number] Medicare - NGS Medicare Primary [id number] Self 1 [id number] Medicare - NGS Medicare Primary [id number] Self [id number] Medicare - NGS Medicare Primary [id number] Self [id number] Medicare - NGS Medicare Primary [id number] Self 1 [id number] Medicare - NGS Medicare Primary [id number] Self 1 [id number] Medicare - NGS Medicare Primary [id number] Self 1 [id number] MEDICARE [id number] SP [id number] Medicare Medicare Primary [id number] Self [id number] Self [id number] Self [id number] Self [id number] MEDICAID M [id number] Self [id number] [employer] Medicare Commercial [id number] Self [id number] Unitedhealthcare Medicare Commercial [id number] Self [id number] [facility] [id number] SP [id number] [facility] [id number] SP [id number] [employer] MEDICARE ADVANTAGE G [id number] Self [id number] MEDICAID M [id number] Self [id number] ANSI-Not a Secondary Insurance [id number] ANSI-Medicare Part B [id number] ANSI-Medicaid [id number] ANSI-Not a Secondary Insurance [id number] ANSI-Medicare Part B [id number] ANSI-Not a Secondary Insurance [id number] ANSI-Medicaid [id number] ANSI-Not a Secondary Insurance [id number] ANSI-Medicare Part B [id number] ANSI-Medicaid [id number] [facility] [place] [facility] [id number] [id number] Self [id number] ANSI-Medicaid [id number] ANSI-Not a Secondary Insurance [id number] ANSI-Medicare Part B [id number] ANSI-Not a Secondary Insurance [id number] ANSI-Medicaid [id number] ANSI-Medicare Part B [id number] ANSI-Not a Secondary Insurance [id number] ANSI-Medicare Part B [id number] ANSI-Medicaid [id number] ANSI-Not a Secondary Insurance [id number] ANSI-Medicaid [id number] ANSI-Medicare Part B [id number] MEDICARE COMPLETE [id number] SP [id number] ANSI-Not a Secondary Insurance [id number] ANSI-Medicare Part B [id number] ANSI-Medicaid [id number] ANSI-Not a Secondary Insurance [id number] ANSI-Medicare Part B [id number] ANSI-Medicaid [id number] Medicaid [place] Medigap Part B [id number] 68796.0 Self [id number] [facility] [id number] SP [id number] MEDICARE COMPLETE [id number] SP [id number] ANSI-Medicaid [id number] ANSI-Medicare Part B [id number] ANSI-Medicaid [id number] ANSI-Medicaid [id number] ANSI-Medicaid [id number] ANSI-Medicare Part B [id number] ANSI-Medicaid [id number] [place] MED[place] [id number] ANSI-Medicare Part B [id number] ANSI-Medicaid [id number] ANSI-Medicaid [id number] ANSI-Medicare Part B [id number] ANSI-Medicare Part B [id number] ANSI-Medicaid [id number] ANSI-Medicaid [id number] ANSI-Medicaid [id number] ANSI-Medicare Part B [id number] ANSI-Medicare Part B [id number] ANSI-Medicaid [id number] ANSI-Medicaid [id number] ANSI-Medicare Part B [id number] ANSI-Medicare Part B [id number] ANSI-Medicaid [id number] ANSI-Medicare Part B [id number] ANSI-Medicaid [id number] ANSI-Medicare Part B [id number] ANSI-Medicaid [id number] ANSI-Medicaid [id number] ANSI-Medicare Part B [id number] ANSI-Medicare Part B [id number] ANSI-Medicaid [id number] MEDICARE C [id number] C [id number] MEDICAID UNAVAILABLE UNAVAILA BLE MEDICARE [id number] SP [id number] SELFPAY 5 UNAVAILABLE 1 UNAVAILA BLE SELF PAY 5 UNAVAILABLE 1 UNAVAILA BLE ANSI-Medicaid [id number] HUMANA GOLD [id number] SP [id number] HUMANA GOLD [id number] SP [id number] HUMANA HMO [id number] SP [id number] [place] [id number] SP [id number] SELF PAY ONLY SP [id number] MEDICAID [id number] SP [id number] HU[employer]NA GOLD [id number] SP [id number] HUMANA HMO [id number] SP [id number] [facility] HMO [id number] SP [id number] [facility] [id number] SP [id number] HUMANA HMO [id number] SP [id number] ANSI-Medicaid [id number] ANSI-Medicare Part B [id number] ANSI-Not a Secondary Insurance [id number] Medicaid [place] Part [place] [id number] Self [id number] Medicare Community Plan Commercial [id number] Self [id number] ANSI-Not a Secondary Insurance [id number] ANSI-Medicare Part B [id number] [facility]-Medicaid [id number] [facility]-Medicaid [id number] [facility]-Medicare Part B [id number] Problems, Conditions, and Diagnoses Code Display Name Description Problem Type Effective Dates Data Source(s) G43.019 [id number] Intractable migraine without aura and without status migrainosus Problem 02/11/2021 12:00:00 AM EDT eCW1 ([facility]) E78.2 Mixed hyperlipidemia Mixed hyperlipidemia Problem 01/19/2021 12:00:00 AM EDT eCW1 ([facility]) J45.30 Mild persistent asthma Mild persistent asthma Problem 09/20/2020 12:00:00 AM EST MEDENT ([facility]) J45.40 Uncomplicated moderate persistent asthma Uncomplicated moderate persistent asthma Problem 06/21/2020 12:00:00 AM EST [facility]ENT ([facility]) G47.33 Obstructive sleep apnea syndrome Obstructive sle ep apnea syndrome Problem 06/21/2020 12:00:00 AM EST [facility] ([facility]) Surgeries/Procedures Procedure Description Date Indications Data Source(s) Endoscopy Upper GI Biopsy 04/27/2021 12:00:00 AM EDT [facility] ([facility]) Spirometry 03/21/2021 12:00:00 AM EDT M EDENT ([facility]) OFFICE OUTPATIENT VISIT 15 MINUTES 03/21/2021 12:00:00 AM EDT [facility] ([facility]) OFFICE OUTPATIENT VISIT 15 MINUTES 11/29/2020 12:00:00 AM EDT [facility] ([facility]) Spirometry 09/20/2020 12:00[facility]pirom[facility] 06/21/2020 12:00:00 AM [facility] Results ID Date Data Source [id number] 05/17/2021 12:07:00 AM EDT [facility] Name Value Range Interpretation Code Description Data Keira rce(s) Supporting Document(s) SARS coronavirus 2 RNA [Presence] in Res piratory specimen by SAMY with probe detection NEGATIVE [facility] This lab was ordered by [facility] a nd reported by [facility]. ID Date Data Source [id number] 05/13/2021 11:35:00 PM EDT [facility] Name Value Range Interpretation Code Description Data Keira rce(s) Supporting Document(s) SARS-CoV-2 (COVID 19) NEGATIVE - SARS-CoV-2 (COVID19) [facility] This lab was ordered by [facility] a nd reported by [facility]. ID Date Data Source [id number] 04/27/2021 02:44:00 PM EDT [facility] ([facility]) Name Value Range Interpretation Code Description Data Keira rce(s) Supporting Document(s) Surgical pathology study Laboratory test result [facility] ([facility]) FINAL DIAGNOSIS A-Small bowel, biopsy: Scant bowel [...] MD 05/01/2021 1105 ID Date Data Source [id number] 04/25/2021 10:45:00 AM EDT [facility] Name Value Range Interpretation Code Description Data Keira rce(s) Supporting Document(s) SARS coronavirus 2 RNA [Presence] in Res piratory specimen by SAMY with probe detection NEGATIVE [facility] This lab was ordered by [facility] a nd reported by [facility]. ID Date Data Source [id number] 03/22/2021 04:10:08 PM EDT [facility] Name Value Range Interpretation Code Description Data Keira rce(s) Supporting Document(s) Progress Note [facility] BEMUAx3gIpDNRiRg59/QOJlaTEVyy5UwACuvYGk9ZFlfHJMrN4KdHCI4qI3iICB9BBjREvPdCeSiKSO4 lbm [file] MnL4NBu6NNPjGiBhOAGaXkWbCP0XOi1TBfX7AQE1uXXbKc6RVoJ9ISgGVmPpXT5JNNg= ID Date Data Source [id number] 03/22/2021 04:08:58 PM EDT [facility] Name Value Range Interpretation Code Description Data Keira rce(s) Supporting Document(s) Progress Note [facility] LMMERr2fIiTGZqJc17/RIJbqKKSyw9NtXUgdPSz7JGehUXJkG2WuZYJ7lE0dWAQ1CDuJFqBsWkJsMUO1 lbm MuYzbIFySzXMCcAbfPEpAyWVdbLvmppWMmGL2FqTA7JVXsG50kTDEcBOKwS7YnELK3Ern+Gj4PMCMsbJ SvSR8GFxzQ6Ujnw9v8Eq8+uC8SIildyjwLEux89JVVL0hgRMgWJc3QtTU/nIKie6oGIzkM1j/+qDfLw9 PeeEVy2yFHKebGmlSmVl0aVpnBIv86OMruJjgb+e/2 qxdwMlmSH/7Zyoxomw0j+cl8XRyb5iDq2VH/Wuz7Dq/X2BKOBMSgZO/AsogeACtnM8Un3+nRnViFX1+R 6zDdkPcJ+Vt0eRqukGR+RT//9BMZ/47escNZB7WKkgbaBy2NV0SWWV3Cr80QE1IWymqTbbOYAwtsIZ2u bZaLs7HwwEN0aVOCIeoc77rnstANIpYcoSVXpOydtT b7lFUQWIo2ygLkcR+Xj691x+Jl/FVQvAHkGtgUEK1V70lcNpvEYpgSK2mPigs63CicT50AzW9HV+uJUS o1NcoVDTnCIrqosvD1loq3Ox+iamjrOz95yxldusK5ArsaE5zXlh8NkJ+DRkfc7JM5sxbm8jrjW966wR 9HfxVjC4YSVG4egRgZ+1cPwNg2txeF5YAb0KB7MsSz SEPZ8Pkv+ZRSZOteLi0tbSNmFFyiJsEVHn/3CqtMd/FiAXsl43gFZ/wx1Hfqu1I3tp7BMGnzWqW6NsqF pro2SHbBIyu+c+XgZVX343O9QYnPYk1ScWrUykKx4Jl7yPCDMmsNRMze1Y60v5vCmySs+kErHw9aWp4u o0ZK/OtLWnYUBhKlSVnerQZTzIZN57yMmBzCILVjs3 CKSzacl+AK0JaEozKgCl+fveJtDMMdQGLJqLAL30zzav/Jacquelin/S7yzDwpbFYZUSQCUJnaLqtr1jplgnI0O [file] PnLzNhYiCG1YZo3HOfT3KCS2dKBdRu7MRtDfBoQGYlYtHZ4PRFe= ID Date Data Source [id number] 03/22/2021 04:08:23 PM EDT [facility] Name Value Range Interpretation Code Description Data Keira rce(s) Supporting Document(s) Progress Note [facility] ISXVLm6lLmCHVnJb52/RXXneQYTfl9NdMExfYRn9PAhxZXErF7TnABP9gP8aKBC2QNvHLuZfJsKtJNU2 lbm [file] FLOOR HAND+Di8CVLIcWGn3W7N4EVWyAZc9O4POH0WHTRUhCVyiJYspTUVdLQj2R0B6FYPdF0PIS0Aoqejjhm3+ MI6FS60IYYEjJXo9I3D7hZIsC5V1pJiKdYK5NZ5WKO5WpNl0xHLvmG9+JE5JQ1GJPvToBKd7W9T6iECs W7R7hVrIoAV9KJ1WRG1ClTFgFGVjvdAvRv9mC9OCRY xDLyHEVWJ4FA7WyQKuRX6CqGVIY5CtcWBtRi8lCVyqgUXcwR8hFw9uTSgjNZ3TAqOOXYnKVWL3HM9WzG BfQI4YoXPEK1FviOIoCx7hEPfgtQOpbx5+DT3DLXWpGz4KLi8+FNcylcQwOvvLVcCgPUIlj0WcMKj0XD 6AKV3cpYxoSBO5Mi3ZxFT2qIAhA7kDRI2AbVWgL91b kHHdUHWcPp9XHeB6xpGedY3HSI68gTHdk1M1RBNvH3lnIPjnw67hZNcsJUdGIW3aLHMJBUolUCvnIXC9 BzIxrvvxWDRnJc7YDhBnAAx8pP4kbIF9SHA9SiugqKWeDYlsXpHbEoAzViG3eDywlzq9IJxrVQ1rQRdd czptZXRhLyc+KZwyPZZlHZWoEzdDZRPpcA3kxhX1fb VwHVknsAJmOg3bo9u7YmyrOv6qFe3wEQk4SmHgJnIgDSQtUt9dnJ78ZKnwudCzDm4YKxQzTZR0X6VoEd pSREY+WIjsIDcqzYm0aESaUSRdWp9EHEEnPVMxZYJmZFMzNNBwTJLjNJDgAGGfYPNoFDOxSTMnCZZzJE AgICAgICAgICAgICAgICAgICAgICAgICAgICAgICAg VLUzUENwWVCgSYYcNELrEBGpGLSsNJKkPJOzOUHxTL6YYOGqBZVvPKIqVEJwFLZkRBXcDPRgOLGiSWOc ICAgICAgICAgICAgICAgICAgICAgICAgICAgICAgICAgICAgICAgICAgICAgICAgICAgICAgICAgICAg TLJtJLRcRDGrUNFcSY7OKVAlZPOxFIEtABDrCXTxCW AgICAgICAgICAgICAgICAgICAgICAgICAgICAgICAgICAgICAgICAgICAgICAgICAgICAgICAgICAgIC QaJUBfYMKlRGOwEXAdGGDkIMGcTDHdNW2YWEKfQWWqUQZnVFZkMIQvLMDaSFMwPPMxQWBoRYUuQHCnUW AgICAgICAgICAgICAgICAgICAgICAgICAgICAgICAg RGPmSTYaPNSeZQBfOKPrLDWwWGQxXZDdFCBeFHJiLMYiLV3HTMCqSNDlGEWcBUGeYKFwQBNuOCTbJDQz ICAgICAgICAgICAgICAgICAgICAgICAgICAgICAgICAgICAgICAgICAgICAgICAgICAgICAgICAgICAg HIHsWANqXFTpLIJoDLMrKZ6DYHYwOPGeRFLbIBQyVU AgICAgICAgICAgICAgICAgICAgICAgICAgICAgICAgICAgICAgICAgICAgICAgICAgICAgICAgICAgIC QxINOjIHHfLKXeTNUkFMRmOSJaLPEnBVSyPT7VUVDhPAGhDXThXZEiXGQfVCAqQUOaPJIwHPNtCPRzWF AgICAgICAgICAgICAgICAgICAgICAgICAgICAgICAg PHCzDCQwRCNwOOUyMYBqUVEoARAnDKEqNQTaQXMcYEMrXSUdTV8ATNXzQRSqVMMlIABaLFCgNTAaRYNk ICAgICAgICAgICAgICAgICAgICAgICAgICAgICAgICAgICAgICAgICAgICAgICAgICAgICAgICAgICAg UQJsTMOsRYPnSXYzPLAxSIAjGZ8FOHInPTSgRRZqHF AgICAgICAgICAgICAgICAgICAgICAgICAgICAgICAgICAgICAgICAgICAgICAgICAgICAgICAgICAgIC MwSUPvTWHzLTDkTYPyTPFhZSHiEBZcPDEkKLJpVL3JUOYeFOTcQRRpISRnUMUyOQItWPJmHICzEOInUS AgICAgICAgICAgICAgICAgICAgICAgICAgICAgICAg OOQeTESiCDPvRYQrFDVqQJVtROWoULNzDYFjUECvWIJqVMMpALDzHB3TCX94rPFkg2V0XKUhUW9wupm/ Ks2MJCdatlVpqNFeUW3LAmOvJY2qgk7VApXxFZ7ipf6CAYuZZuBnU6Y9xXOeKRXwJXAIQoChU72kABct Qg70ERpmIHEePySySXe3Kz0PSvQnM5leLHOhHtQ1PT AgGpT5QCAbVoF4BFUpMfCdJVDaWQUnJZUrECDHVDA4FKCjToLyAyMeCDGcBXgbYREIFYPuCRYdSeWsDh WfUUCxRtSaPSUKCAK5ISBuOaIhETGwYHBbCgWcYGMROV2YOpDzM2KhgC83SFQ1TQx+Iu1MON4zy3MeVD r3DMOlDS6akk2HYQlTDoBvV7TrkuP1QXGnLTKiBr0X GUYvUQNlnCU2YiUyREIYTtElM4KlgY96EJDKJz2+ZSelfjBvQrvSDfOkMGFyp0BaMHx0MI6PTNYwCVe6 iAGjPUWgA6Ppz0AbCj35NKMgOhtuEP2mtwNoKYXcwjWiFAVVPYMupGS4PhR9PrLaCaLiXVW9IuBoZP3u QGjzTJ0TYWY0VRukIBHtLCPmN8pRPhNaFMJsGUNfqE tlWX2YScFvG9MhndAjeQA5ESSaULBKXb5+YZpuxaGsZktQGxKtKYKxm7KsTTy4FG7GQCTmMJwmDQ4AYG LxsE5wCUcwNS4COsJ6FWZhSBCCBlKvU65pmVEjKOg7T7DiMiQvOJTdMcwuTHSeUYnsNfKxBKDbKxNjYO ogID4+ID4+WVirTJ9HKUswoeUpLDWoRm8RCGExIYKy VI7bJYUwIOXgM4T2wZdxSGAUKxDuI2hjhnboQC5xGBCuU201rTbhjeWgUURzJYEkLc8YVDUrPYS7HHIx nPEaQNMmLWFPYRtsUA4NuICmUUH2iE8cHTxvOMLbMPQmE7mHTgZofEvvUD90iNixzbMwjXVdPPf+Pg0K FA1hd5OdXEf3grEeUQvzRPC1DXugGEGzGRObDLYtDJ C4EVL5UDGCWjXySJQaSIPlKTslXWMmDDEzqb1BIDAvIGM8DIDyTlZmNUCfGDXkUJfoDVTcWMOrTYi2NK AaMKOnOY9COdPbRIUePSKiZBexFGQpHDValp8FJNGhPOIgSuAxXgMmRQUoDHVcEHxyFIFsBLHgMgVxCN YdDDVcTG2WNjYuPVEtHNgaHytpTPEfGRLboi3RWKMh IUBuJpX4JvEtXZSeMZUgWEzkPYGpZOMmJoLhSKAcKHKcWQ8DPuAvLJReVTB1ImxoRPJfTVYgis8MDOGo OYHyAyL5KPLvSFDbJKYlUIyvMVXhFWRwUDH8ULXeREGqGQ2TScJhMMLsAYYuWIWxVFBwVGXuzs7LZWYx WSVgCYWdAcOdCUZqXCHkWCosQZVzGVF3HgX6LKYiDJ AnTZ2ELaRkPDGxKQj7ZlAhOLPyITGjqt8CAURsGVStQFU6VjNdGWGjCDSmVZkcIJQhAZYsNkj3PUEnKW XiLM3JCvSfVJNqKkO0JhbzYXXlNVDioj4MGAUcFLCqSvb4WFMqGBZcLFEhNTahQCRiFMF9QlGvLBVqCP AaOE4IPhLzUWTnSlK8ARofJYLyAEMjnl7DVVLrOPYo WXEpUuPtHVQzJCQzFImmMFWkHEW3GGU7IMYoUWJpWF0KLzEdNOVoGuD6BWInLNAkLIVzdy9NJGMyVYCk NxBwTtOlAJVrXZJjDSmmTMQoDOC5HiY9YYRdKMHvTD9CNoGqDBTqDoH0NpGbUJSjTPCdxw3TBNIoHZLa Wen2OiFdVNAzMSBtHOlmRDDbZFF8YUK2LLZjYQPtNL 4ORpBuWFQwLTC3XwPwSQTxTGDami3OLMHqGDY7NWUbLmLcOYQrQZIoLFuhRDZfYMZwBBn6PTHxOSSmLM 2UGiJxWYMjLST8EHWzQHCqWXKhdz6IZOHxDXW5BXk5UgFdQALbHUVyPLdaIVQiYOKzPOX5GVDwBBAoGI 5KGdYjIDLrZYLsKrzxZWIkVUJzol4RRXUnAPI0IoYn XbAxUICoNZNbSDnvPDDdYOX7OyZ8LGGxWTJtLH0XVnJdVJCwTKQcEkSkFSMrJSKcgk8NJXPfQAP0RLB6 SQFfWSFtUWIhJJxeRLQdZFL3KNJcMWYlHUTmQV3LJxPiXYCoGBU4AbXePVPpGPJbvo9IYOVeMBO3ScWl XFObJJCzKNBjWTkbINHsEGM3GCG6NYXqSNFwIP7RVl OiAICgESD4RFEjKIWoTNQoyb0HZRRiORQ1QvllPRLtMZTkZKHwUOwjENWnHOV6PJOgRFPlPKEvBG9BOz EqSJQsWPclZHKwBXAfTDAjfw5UDCBnSMS4SQioXFIeBUClZFGePUbcQUXeBOGmMpW9LDUtDVRaYG7FOy GpWXIrUvSdGvwzLOGyMOGakf9IPUDgSRV9IQX0DBEp BFRdDXPiWRp2vtKcuCNwXCo9SP2IC1OryxDtDWRNVl0Vi123IUOmGUUwNa8CE8ouHi4qAXQpBWJQQs7P CIe9ZMO4X9C5OIZbPebcRJT2EaV1N1I2U3J5X1AcGLrwRvr+QAtvWHtgHwi9OPU6EURkVoswOTm6SQx8 SSxuSiK3PdNgCO8iYUXDSj9+GRvlqIEgqKzrYKGFYxIbLuC0GPbuVPLKIl9Z ID Date Data Source [id number] 03/22/2021 06:03:39 PM EDT [facility] Name Value Range Interpretation Code Description Data Keira rce(s) Supporting Document(s) Hemoglobin A1c/Hemoglobin.total in Blood by HPLC 6.3 % 4.0-6.[address] [facility] (NOTE)<5.7% Average risk of diabetes (ADA)5.7-6.4% Increased risk of diabetes(ADA)>/= 6.5% Diagnostic for diabetes(ADA) Glucose mean value [Mass/volume] in Blood Estimated fr om glycated hemoglobin 134 mg/dL <[address] [facility] ID Date Data Source [id number] 03/22/2021 05:55:[address] [facility] Name Value Range Interpretation Code Description Data Keira rce(s) Supporting Document(s) Leukocytes [#/volume] in Blood by Automated count 7.4 10*3/uL 4-10 [facility] Erythrocytes [#/volume] in Blood by Automated count 4.78 10*6/uL 4.1- 5.3 [facility] Hemoglobin [Mass/volume] in Blood 14.3 g/dL 11.5-15.5 [facility] Hematocrit [Volume Fraction] of Blood by Automated count 43.1 % 3 6-45 [facility] Erythrocyte mean corpuscular volume [Entitic volume] by Auto mated count 90.3 fL 80-96 [facility] Erythrocyte mean corpuscular hemoglobin [Entitic mass] by Automated count 29.9 pg 27-33 [facility] Erythrocyte mean corpuscular hemoglobin concentration [Mass/volume] by Automated count 33.1 g/dL 32.0-36.0 [facility] distribution width [Ratio] by Automated count 13.0 % 11.5-14.5 [facility] Platelets [#/volume] in Blood by Automated count 242 10*3/uL 150-400 [facility] Differential cell count method - Blood [facility] Neutrophils/100 leukocytes in Blood by Automated count 55 % [facility] Lymphocytes/100 leukocytes in Blood by Automated count 34 % [facility] Monocytes/100 leukocytes in Blood by Automated count 8 % [facility] Eosinophils/100 leukocytes in Blood by Automated count 2 % [facility] Basophils/100 leukocytes in Blood by Automated count 1 % [facility] Neutrophils [#/volume] in Blood by Automated count 4.05 10*3/uL 1.8-[address] [facility] Lymphocytes [#/volume] in Blood by Automated count 2.55 10*3/uL 1.2-[address] [facility] Monocytes [#/volume] in Blood by Automated count 0.58 10*3/uL 0-0.8 [facility] Eosinophils [#/volume] in Blood by Automated count 0.17 10*3/uL 0-0.5 [facility] Basophils [#/volume] in Blood by Automated count 0.07 10*3/uL 0-0.2 [facility] Nucleated erythrocytes/100 leukocytes [Ratio] in Blood by Automated count 0 /100{WBCs} 0-0 [facility] ID Date Data Source [id number] 03/22/2021 06:17:10 PM [facility] Name Value Range Interpretation Code Description Data Keira rce(s) Supporting Document(s) Cobalamin (Vitamin B12) [Mass/volume] in Serum or Plasma 526 pg/ml 2 11-946 [facility] ID Date Data Source [id number] 03/22/2021 06:17:10 PM [facility] Name Value Range Interpretation Code Description Data Keira rce(s) Supporting Document(s) Albumin [Mass/volume] in Serum or Plasma by Bromocresol green (BCG) dye binding method 3.9 g/dL 3.5-5.2 [facility] Bilirubin.total [Mass/volume] in Serum or Plasma 0.7 mg/dL <1.2 [facility] Calcium [Mass/volume] in Serum or Plasma 9.4 mg/dL 8.6-10.0 [facility] Chloride [Moles/volume] in Serum or Plasma 100 mmol/L 98-107 [facility] Creatinine [Mass/volume] in Serum or Plasma 0.98 mg/dL 0.50-0.[address] [facility] Glucose [Mass/volume] in Serum or Plasma 120 mg/dL 70-140 [facility] Alkaline phosphatase [Enzymatic activity/volume] in Serum or Plasma 164 U/L 35-[address] [facility] Potassium [Moles/volume] in Serum or Plasma 4.0 mmol/L 3.4-5.1 [facility] Protein [Mass/volume] in Serum or Plasma 7.2 g/dL 6.4-8.3 [facility] Sodium [Moles/volume] in Serum or Plasma 137 mmol/L 136-145 [facility] Aspartate aminotransferase [Enzymatic activity/volume] in Serum or Plasma 14 U/L <32 [facility] Urea nitrogen [Mass/volume] in Serum or Plasma 16 mg/dL 6-20 [facility] Osmolality of Serum or Plasma by calculation 286 mosm/kg 275-300 [facility] Creatinine/Urea nitrogen [Mass Ratio] in Serum or Plasma 17 [facility] Bicarbonate [Moles/volume] in Serum 27 mmol/L 22-29 [facility] Alanine aminotransferase [Enzymatic activity/volume] in Seru m or Plasma 19 U/L <33 [facility] Anion gap 3 in Serum or Plasma 10 mmol/L 8-15 [facility] Glomerular filtration rate/1.73 sq M pre dicted among non-blacks [Volume Rate/Area] in Serum or Plasma by Creatinine-based formula (MDRD) 64 mL/min/1.73m2 >60 [facility] Glomerular filtration rate/1.73 sq M pre dicted among blacks [Volume Rate/Area] in Serum or Plasma by Creatinine-based formula (MDRD) 74 mL/min/1.73m2 >60 [facility] ID Date Data Source [id number] 03/22/2021 06:17:10 PM EDT [facility] Name Value Range Interpretation Code Description Data Keira rce(s) Supporting Document(s) Thyrotropin [Units/volume] in Serum or Plasma 1.860 u[IU]/mL 0.270-4. 200 [facility] ID Date Data Source [id number] 03/21/2021 12:57:00 PM EDT [facility] ([facility] ) Name Value Range Interpretation Code Description Data Keira rce(s) Supporting Document(s) PDFReport Laboratory test result [facility] ([facility], ) FVC-Pred 3.29 L [facility] ([facility]) FVC-Pre 2.01 L [facility] ([facility]) FVC-%Pred-Pre 61 L [facility] ([facility]) FVC-LLN 2.61 L [facility] ([facility]) Fev1-%Pred-Pre 66 L [facility] ([facility]) Fev1-Pre 1.71 L [facility] ([facility]) Fev1-Pred 2.57 L [facility] ([facility]) Fev6-Pred 3.18 L [facility] ([facility]) Fev1-LLN 2.00 L [facility] ([facility]) Fev6-%Pred-Pre 62 L [facility] ([facility]) Fev6-LLN 2.52 L [facility] ([facility]) Fev6-Pre 1.99 L [facility] ([facility]) Pdq0die-Mgjd 79 % [facility] ([facility]) Khj5rbd-Zgq 85 % [facility] ([facility]) Cku1cwr-%Pred-Pre 107 % [facility] ([facility]) Iod3esz-LZK 69 % [facility] ([facility]) Zqd0trq-Tkx 99 % [facility] ([facility]) Yno8zif-Pnsm 97 % [facility] ([facility]) Yza4usi-%Pred-Pre 102 % [facility] ([facility]) FEFMax-Pred 6.34 L/E/sec [facility] ([facility]) FEFMax-Pre 3.50 L/E/sec [facility] ([facility]) FEFMax-LLN 4.68 L/E/sec [facility] ([facility]) FEFMax-%Pred-Pre 55 L/E/sec [facility] ([facility]) Raw1149-Tefg 2.46 L/E/sec [facility] ([facility]) Tdl4711-Wiy 2.25 L/E/sec [facility] ([facility]) Qtj9819-%Pred-Pre 91 L/E/sec [facility] ([facility]) ExpTime-Pre 8.41 sec [facility] ([facility]) Znn2653-LBG 1.26 L/E/sec [facility] ([facility]) Npc0mqc8-Wxh 86 % [facility] ([facility]) Zhd9mkj1-%Pred-Pre 105 % [facility] ([facility]) Puw5jbp6-Dwco 81 % [facility] ([facility]) Cui1dfk2-NDW 73 % [facility] ([facility]) ID Date Data Source [id number] 11/29/2020 03:38:00 PM EDT [facility] ([facility]) Name Value Range Interpretation Code Description Data Keira rce(s) Supporting Document(s) Red Blood Count 4.88 10 4.00-5.40 Normal (applies to non-numeric results) [facility] ([facility], ) White Blood Count 7.8 10 4.0-10.0 Normal (applies to non-numeri c results) [facility] ) Hemoglobin 14.8 g/dL 12.0-15.5 Normal (applies to non-numeric resul ts) [facility] ([facility]) Mean Corpuscular Volume 95.3 fl 80.0-96.0 Normal ( applies to non-numeric results) [facility], ) Hematocrit 46.5 % 36.0-47.0 Normal (applies to non-numeric resul ts) [facility] ([facility]) Mean Corpuscular HGB Conc 31.8 g/dL 32.0-36.5 Below low normal [facility] ([facility]) Mean Corpuscular Hemoglobin 30.3 pg 27.0-33.0 Norm al (applies to non-numeric results) [facility] ([facility]) Red Cell Distribution Width 12.5 % 11.5-14.5 Norm al (applies to non-numeric results) [facility] ([facility]) Platelet Count, Automated 245 10 150-450 Normal (applies to non-numeric results) [facility] ([facility], ) Neutrophils % 53.0 % 36.0-66.0 Normal (applies to non-numeric re sults) [facility], ) Lymph % 35.0 % 24.0-44.0 Normal (applies to non-numeric resul ts) [facility] ([facility], ) [place] % 7.8 % 2.0-8.0 Normal (applies to non-numeric resul ts) [facility] ([facility]) Eos % 2.7 % 0.0-3.0 Normal (applies to non-numeric resul ts) [facility] Baso % 1.1 % 0.0-1.0 Above high normal [facility] Immature Granulocyte % 0.4 % 0-3.0 Normal (applies to non-n umeric results) [facility] Nucleated Red Blood Cell % 0.0 % 0-0 Normal (applies to n on-numeric results) [facility] ([facility]) Neutrophils # 4.2 10 1.5-8.5 Normal (applies to non-numeric re sults) [facility] ([facility]) Lymph # 2.7 10 1.5-5.0 Normal (applies to non-numeric resul ts) [facility]) C[place]shaw # 0.6 10 0.0-0.8 Normal (applies to non-numeric resul ts) [facility] ([facility]) Baso # 0.1 10 0.0-0.2 Normal (applies to non-numeric resul ts) [facility] ([facility]) 12/21/20 (Thr December 21) 08:57 AM BIJU SHEA No significant abnormalities. Eos # 0.2 10 0.0-0.5 Normal (applies to non-numeric resul ts) [facility] ([facility]) ID Date Data Source [id number] 11/29/2020 03:38:00 PM EDT [facility] ([facility]) Name Value Range Interpretation Code Description Data Keira rce(s) Supporting Document(s) Tissue transglutaminase IgA Ab [Units/volume] in Serum 4 U/mL 0-3 Above high normal [facility] ([facility]) Negative 0 - 3 Weak Positive 4 - 10 Positive >10 . Tissue Transglutaminase (tTG) has been identified as the endomysial antigen. Studies have demonstr- ated that endomysial IgA antibodies have over 99% specificity for gluten sensitive enteropathy. Performed at: RN - [facility] [address] [id number] Litigation Associate: Caryn Frank MD, Phone: [phone] ID Date Data Source [id number] 07/07/2020 02:31:00 PM EST [facility] Name Value Range Interpretation Code Description Data Keira rce(s) Supporting Document(s) IgA [Mass/volume] in Serum or Plasma 540.0 mg/dL 70-400 Above hig h normal [facility] ([facility]) Tissue transglutaminase IgA Ab [Units/volume] in Serum 4 U/mL 0-3 Above high normal [facility]) Negative 0 - 3 Weak Positive 4 - 10 Positive >10 . Tissue Transglutaminase (tTG) has been identified as the endomysial antigen. Studies have demonstr- ated that endomysial IgA antibodies have over 99% specificity for gluten sensitive enteropathy. Performed at: RN - [facility] [address] [id number] Litigation Associate: Caryn Frank MD, Phone: [phone] ID Date Data Source [id number] 07/07/2020 02:31:00 PM EST [facility] ([facility]) Name Value Range Interpretation Code Description Data Keira rce(s) Supporting Document(s) Free T4 1.20 ng/dL 0.76-1.46 Normal (applies to non-numeric resul ts) [facility]) 07/12/20 (FriJul 12) 04:20 PM BIJU MÉNDEZ Thyroid function is normal. Thyroid Stimulating Hormone 2.130 uIU/ML 0.358-3.740 Norm al (applies to non- numeric results) [facility]) ID Date Data Source [id number] 06/17/2020 12:00:00 AM EST [facility] Name Value Range Interpretation Code Description Data Keira rce(s) Supporting Document(s) 2019-nCoV RNA XXX SAMY+probe-Imp [facility] This lab was ordered by [facility] and reported by [employer] ID Date Data Source [id number] 06/15/2020 07:38:00 AM EST [facility] Name Value Range Interpretation Code Description Data Keira rce(s) Supporting Document(s) PDFReport Laboratory test result [facility] ([facility]) FVC-Pred 3.29 L [facility] ([facility]) FVC-Pre 2.14 L [facility] ([facility]) FVC-LLN 2.61 L [facility] ([facility]) FVC-%Pred-Pre 64 L [facility], ) Fev1-Pred 2.57 L [facility] ([facility]) Fev1-Pre 1.85 L [facility] ([facility]) Fev1-%Pred-Pre 71 L [facility] ([facility]) Fev6-Pred 3.18 L [facility] ([facility], ) Fev1-LLN 2.00 L [facility] ([facility]) Fev6-Pre 2.14 L [facility] ([facility]) Fev6-LLN 2.52 L [facility] ([facility]) Fev6-%Pred-Pre 67 L [facility] ([facility]) Ege9uet-Kfh 86 % [facility] ([facility]) Ntu1ume-%Pred-Pre 109 % [facility] ([facility]) Cwe8xud-Spzl 79 % [facility] ([facility]) Ckq8kde-Udrj 97 % [facility] ([facility]) Fay2fxv-WMJ 69 % [facility] ([facility]) Iex7wgy-Xgy 100 % [facility] ([facility]) Yvn0imt-%Pred-Pre 103 % [facility] ([facility]) FEFMax-Pre 5.09 L/E/sec [facility] ([facility]) FEFMax-Pred 6.34 L/E/sec [facility] ([facility], ) FEFMax-LLN 4.68 L/E/sec [facility] ([facility]) FEFMax-%Pred-Pre 80 L/E/sec [facility] ([facility]) Ywz8847-Aywt 2.46 L/E/sec [facility] ([facility]) Nup7715-Tuj 2.31 L/E/sec [facility] ([facility]) Yqj4038-%Pred-Pre 93 L/E/sec [facility] ([facility]) Wcr2890-JHJ 1.26 L/E/sec [facility] ([facility]) ExpTime-Pre 6.59 sec MEDENT ([facility]) Ozv8ndp9-%Pred-Pre 106 % MED[facility] ([facility]) Trl0bji3-Ikft 81 % MED[facility] ([facility]) Rhe5wsd3-Bpj 86 % MED[facility] ([facility]) Kqq1agt7-AWT 73 % [facility] ([facility]) ID Date Data Source [id number] 05/24/2020 12:00:00 AM EDT [facility] Name Value Range Interpretation Code Description Data Keira rce(s) Supporting Document(s) 2019-nCoV RNA XXX SAMY+probe-Imp [facility] This lab was ordered by [facility] and reported by [employer]. ID Date Data Source [id number] 04/19/2020 07:00:00 PM EDT [facility] Name Value Range Interpretation Code Description Data Keira rce(s) Supporting Document(s) Fats Neutral Laboratory test result Normal (applies to non -numeric results) [facility]) <content>Normal (<60 Droplets/HPF)</cont ent>
<content></content> Fats Total Laboratory test result Normal (applies to non-n umeric results) [facility] ([facility]) <content>Normal (<100 Droplets/HPF)</con tent>
<content></content> ID Date Data Source [id number] 04/19/2020 07:00:00 PM EDT [facility] Name Value Range Interpretation Code Description Data Keira rce(s) Supporting Document(s) Calprotectin [Mass/mass] in Stool 39 ug/g 0-120 Normal (applies to non-numeric results) [facility] ([facility]) <content>Concentration Interpretatio n Follow-Up</content>
<content><16 - 50 ug/g Normal None</content>
<content>>50 -120 ug/g Borderline Re-evaluate in 4-6 weeks</content>
<content>>120 ug/g Abnormal Repeat as clinically</content>
<content>indicated</content>
<content>Performed at: - [facility]</content>
<content>[address], [place] [id number]</content>
<content>Litigation Associate: Caryn Frank MD, Phone: [phone]</content>
<content>Performed at: [facility]content>
<content>[address], [place] [id number]</content>
<content>Litigation Associate: Geovany Shipley MD, Phone: [phone]</content>
<content></content> Elastase.pancreatic [Mass/mass] in Stool 243 Normal (applies to non-numeric results) [facility] ) <content>Result Units: ug Elast./g</cont ent>
<content>Severe Pancreatic Insufficiency: <100</content>
<content>Moderate Pancreatic Insufficiency: 100 - 200</content>
<content>Normal: >200</content>
<content></content> ID Date Data Source [id number] 04/19/2020 07:00:00 PM EDT [facility] Name Value Range Interpretation Code Description Data Keira rce(s) Supporting Document(s) Gastrointestinal (GI) Panel Laboratory test result [facility] ([facility]) This Gastrointestinal PCR Panel detects the following [...] Never Smoker completed Never S moker eCW1 ([facility]) Smoking 03/30/2021 12:00:00 AM EDT Never Smoker completed Never S moker eCW1 ([facility]) Alcohol intake 03/22/2021 12:00:00 AM EDT Current non-d jose of alcohol (finding) completed Current non-drinker of alcohol (finding) [facility] Tobacco use and exposure 03/22/2021 12:00:00 AM EDT Never used co mpleted Never used [facility] Smoking 03/22/2021 12:00:00 AM EDT Never smoker completed Never s [facility] Smoking 01/19/2021 12:00:00 AM EDT Never Smoker completed Never S moker eCW1 ([facility]) Smoking 01/19/2021 12:00:00 AM EDT Never Smoker completed Never S moker eCW1 ([facility]) Smoking 01/19/2021 12:00:00 AM EDT Never Smoker completed Never S moker eCW1 ([facility]) Smoking 01/19/2021 12:00:00 AM EDT Never Smoker completed Never S moker eCW1 ([facility]) Smoking 09/20/2020 12:00:00 AM EST Patient has never smoked co mpleted Patient has never smoked MEDENT ([facility], ) Smoking 06/21/2020 12:00:00 AM EST Non Smoker completed Non Smoke r MEDENT ([facility], ) Vital Signs ID Date Data Source UNK Name Value Range Interpretation Code Description Data Source(s) Alta body weight 115 [lb_av] 115 [lb_av] MEDEN T ([facility], ) Body weight 112.946 kg 112.946 kg [facility] ([facility]) Body surface area Derived from formula 2.12 m2 2.12 m2 [facility] ([facility]) Body mass index (BMI) [Ratio] 44.1 kg/m2 44.1 k g/m2 [facility] ([facility]) Systolic blood pressure 122 mm[Hg] 122 mm[Hg] M EDENT ([facility]) Diastolic blood pressure 84 mm[Hg] 84 mm[Hg] [facility] Body height 63 [in_i] 63 [in_i] [facility] ([facility]) 5'3" Body weight 249.00 [lb_av] 249.00 [lb_av] MEDEN T ([facility]) Body weight 242 [lb_av] 242 [lb_av] W1 ([facility]) Body weight 109.77 kg 109.77 kg W1 ([facility]) Body height 64 [in_i] 64 [in_i] eCW1 ([facility]) Body mass index (BMI) [Ratio] 41.53 kg/m2 41.53 kg/m2 W1 ([facility]) Heart rate 73 /min 73 /min eCW1 ([facility]) Respiratory rate 18 /min 18 /min W1 ([facility]) Body temperature 97.1 [degF] 97.1 [degF] eCW1 ( [facility]) Systolic blood pressure 124 mm[Hg] 124 mm[Hg] e CW1 ([facility]) Diastolic blood pressure 80 mm[Hg] 80 mm[Hg] eCW1 ([facility]) Systolic blood pressure 130 mm[Hg] 130 mm[Hg] M EDENT ([facility]) Heart rate 58 /min 58 /min [facility] ([facility]) Oxygen saturation in Arterial blood by Pulse oximetry 96 % 96 % [facility] ([facility]) Body height 63 [in_i] 63 [in_i] [facility] ([facility]) 5'3" Body surface area Derived from formula 2.10 m2 2.10 m2 MEDENT ([facility]) Diastolic blood pressure 68 mm[Hg] 68 mm[Hg] MEDENT ([facility]) Body weight 243.00 [lb_av] 243.00 [lb_av] MEDEN T ([facility]) Body mass index (BMI) [Ratio] 43.0 kg/m2 43.0 k g/m2 MED[facility] ([facility]) Body weight 110.225 kg 110.225 kg MEDENT ([facility]) Alta body weight 115 [lb_av] 115 [lb_av] MEDEN T ([facility]) Body weight 233.8 [lb_av] 233.8 [lb_av] W1 ([facility]) Body height 64 [in_i] 64 [in_i] eCW1 ([facility]) Body mass index (BMI) [Ratio] 40.13 kg/m2 40.13 kg/m2 eCW1 ([facility]) Heart rate 71 /min 71 /min eCW1 ([facility]) Respiratory rate 18 /min 18 /min eCW1 ([facility]) Body temperature 97.8 [degF] 97.8 [degF] eCW1 ( [facility]) Systolic blood pressure 124 mm[Hg] 124 mm[Hg] e CW1 ([facility]) Diastolic blood pressure 80 mm[Hg] 80 mm[Hg] eCW1 ([facility]) Body weight 236.00 [lb_av] 236.00 [lb_av] MEDEN T ([facility]) Body mass index (BMI) [Ratio] 41.8 kg/m2 41.8 k g/m2 [facility] [place]ta body weight 115 [lb_av] 115 [lb_av] MEDEN T ([facility]) Body weight 107.050 kg 107.050 kg MEDENT ([facility]) Body height 63 [in_i] 63 [in_i] MEDENT ([facility]) 5'3" Body surface area Derived from formula 2.07 m2 2.07 m2 [facility] ([facility]) Systolic blood pressure 128 mm[Hg] 128 mm[Hg] [facility] Diastolic blood pressure 76 mm[Hg] 76 mm[Hg] [facility] ([facility]) Body height 63 [in_i] 63 [in_i] [facility] ([facility]) 5'3" Body weight 236.00 [lb_av] 236.00 [lb_av] MEDEN T ([facility]) Body mass index (BMI) [Ratio] 41.8 kg/m2 41.8 k g/m2 [facility] ([facility]) [place] body weight 115 [lb_av] 115 [lb_av] MEDEN T ([facility]) Body weight 107.050 kg 107.050 kg [facility] ([facility]) Body surface area Derived from formula 2.07 m2 2.07 m2 [facility] ([facility]) Heart rate 70 /min 70 /min [facility] ([facility]) Body weight 234.00 [lb_av] 234.00 [lb_av] MEDEN T ([facility]) Body mass index (BMI) [Ratio] 41.4 kg/m2 41.4 k g/m2 [facility] ([facility]) [place] body weight 115 [lb_av] 115 [lb_av] MEDEN T ([facility]) Body weight 106.142 kg 106.142 kg [facility] ([facility]) Body surface area Derived from formula 2.07 m2 2.07 m2 [facility] ([facility]) Systolic blood pressure 124 mm[Hg] 124 mm[Hg] [facility] Diastolic blood pressure 84 mm[Hg] 84 mm[Hg] [facility] ([facility]) Oxygen saturation in Arterial blood by Pulse oximetry 95 % 95 % [facility] ([facility]) Body temperature 97.3 [degF] 97.3 [degF] [facility] ([facility]) Body height 63 [in_i] 63 [in_i] [facility] ([facility]) 5'3" Systolic blood pressure 118 mm[Hg] 118 mm[Hg] M EDENT ([facility]) Diastolic blood pressure 84 mm[Hg] 84 mm[Hg] [facility] ([facility]) Body height 63 [in_i] 63 [in_i] [facility] ([facility]) 5'3" Body weight 235.00 [lb_av] 235.00 [lb_av] MEDEN T ([facility]) Body mass index (BMI) [Ratio] 41.6 kg/m2 41.6 k g/m2 [facility] ([facility]) [place] body weight 115 [lb_av] 115 [lb_av] MEDEN T ([facility]) Body weight 106.596 kg 106.596 kg [facility] ([facility]) Body surface area Derived from formula 2.07 m2 2.07 m2 [facility] ([facility]) Systolic blood pressure 120 mm[Hg] 120 mm[Hg] [facility] Diastolic blood pressure 80 mm[Hg] 80 mm[Hg] [facility] ([facility]) Heart rate 64 /min 64 /min [facility] ([facility]) Oxygen saturation in Arterial blood by Pulse oximetry 98 % 98 % [facility] ([facility]) Body height 63 [in_i] 63 [in_i] [facility] ([facility]) 5'3" Body weight 231.00 [lb_av] 231.00 [lb_av] MEDEN T ([facility]) Body mass index (BMI) [Ratio] 40.9 kg/m2 40.9 k g/m2 [facility] ([facility]) [place] body weight 115 [lb_av] 115 [lb_av] MEDEN T ([facility]) Body weight 104.782 kg 104.782 kg [facility] ([facility]) Body surface area Derived from formula 2.06 m2 2.06 m2 [facility] ([facility]) Body weight 229.00 [lb_av] 229.00 [lb_av] [facility] Body mass index (BMI) [Ratio] 40.6 kg/m2 40.6 k g/m2 [facility] ([facility]) [place] body weight 115 [lb_av] 115 [lb_av] [facility] Systolic blood pressure 124 mm[Hg] 124 mm[Hg] M [facility] ([facility]) Diastolic blood pressure 68 mm[Hg] 68 mm[Hg] [facility] ([facility]) Body height 63 [in_i] 63 [in_i] [facility] ([facility]) 5'3" Body weight 103.874 kg 103.874 kg [facility] ([facility]) Patient Treatment Plan of Care Planned Activity Planned Date Details Description Data Source (s) Ubrelvy 100 MG Oral Tablet (Ubrogepant) 03/22/2021 12:00:00 AM [facility] Erenumab-aooe 140 MG/ML Subcutaneous Solution Auto-inj chichi (AIMOVIG) 03/22/2021 12:00:00 AM [facility] Propranolol Hydrochloride 80 MG Oral Tablet 02/19/2021 12:00:00 AM [facility] buspirone hydrochloride 7.5 MG Oral Tablet 02/19/2021 12:00:00 AM [facility] 24 HR venlafaxine 225 MG Extended Release Oral Tablet 03/08/2016 12:00:00 AM [facility] Erythromycin 0.005 MG/MG Ophthalmic Ointment 04/18/2015 12:00:00 AM [facility] Ascorbic Acid 500 MG Oral Capsule 04/06/2013 12:00:00 AM [facility] Acetaminophen 250 MG / Aspirin 250 MG / Caffeine 65 MG Oral Tablet [Excedrin] [facility] buspirone hydrochloride [address] [facility] levocetirizine dihydrochloride [address] [facility] Nortriptyline [address] [facility] Ergocalciferol [address] [facility] SUMATRIPTAN SUCCINATE PO Ups [facility]
--- NOTE | 2021-06-02 18:34 | ECGEPIP ---
[facility] Test Date: 2021-06-01 Pat Name: CHARY JEROME Department: Room: - Gender: Female Manager City: [place] : 1965 Requested By: Marbin Steward Order Number: [id number] Reading MD: Catarino Olson Measurements Intervals [place] Rate: 104 P: 64 OK: 136 QRS: 55 QRSD: 68 T: 49 QT: 334 QTc: 439 Interpretive Statements Sinus tachycardia Compared to prior tracings(3) in the system No remarkable changes but faster heart rate Electronically Signed on 06-02-2021 18:33:40 EDT by Catarino Olson
== END 2021-06-01 19:49 | disposition home or self-care (01) ==
LOC: M ED 16:28
DX: E11.65 Type 2 diabetes mellitus with hyperglycemia (principal); F45.0 Somatization disorder; F41.9 Anxiety disorder, unspecified; R00.0 Tachycardia, unspecified; I10 Essential (primary) hypertension; E78.5 Hyperlipidemia, unspecified; E66.9 Obesity, unspecified; J45.909 Unspecified asthma, uncomplicated; R56.9 Unspecified convulsions; Z88.8 Allergy status to other drugs, medicaments and biological substances; Z91.040 Latex allergy status; Z91.048 Other nonmedicinal substance allergy status; Z79.899 Other long term (current) drug therapy

== ENCOUNTER → 2021-06-07 | Outpatient (CLI) | payer OTHER, MEDICAID ==
[2021-06-07 17:57] LABS: HEMATOCRIT 44.8 % (36.0-47.0); HEMOGLOBIN 14.2 g/dl (12.0-15.5); MEAN CORPUSCULAR HEMOGLOBIN 30.5 pg (27.0-33.0); MEAN CORPUSCULAR HGB CONC 31.7 g/dl (32.0-36.5); MEAN CORPUSCULAR VOLUME 96.3 fl (80.0-96.0); PLATELET COUNT, AUTOMATED 165 10^3/uL (150-450); RED BLOOD COUNT 4.65 10^6/uL (4.00-5.40); WHITE BLOOD COUNT 9.1 10^3/uL (4.0-10.0)
[2021-06-07 18:11] LABS: ALBUMIN 3.3 GM/DL (3.2-5.2); BILIRUBIN,TOTAL 0.8 MG/DL (0.2-1.0); CALCIUM LEVEL 9.4 MG/DL (8.5-10.1); CHOLESTEROL RISK RATIO 2.613 (<5); CREATININE FOR GFR 1.1 MG/DL (0.55-1.30); GLOMERULAR FILTRATION RATE 54.7 (>51); POTASSIUM SERUM 4.3 MEQ/L (3.5-5.1); TOTAL PROTEIN 6.7 GM/DL (6.4-8.2)
[2021-06-07 18:14] LABS: HEMOGLOBIN A1c 7.3 %
[2021-06-07 18:21] LABS: TOTAL 25(OH) VITAMIN D 19.5 NG/ML (30.0-100.0)
== END ==
LOC: M PLALAB 15:07
PROVIDERS: ATTEND Physician Assistant Medical
DX: R56.9 Unspecified convulsions (principal); E78.2 Mixed hyperlipidemia; R73.01 Impaired fasting glucose; E55.9 Vitamin D deficiency, unspecified; G47.33 Obstructive sleep apnea (adult) (pediatric)
CPT/HCPCS: 36415; 80053; 80061; 80180; 82306; 83036; 85027; G0463

== ENCOUNTER → 2021-07-17 | Outpatient (CLI) | payer OTHER, MEDICAID ==
--- NOTE | 2021-07-18 09:14 | EEG ---
ELECTROENCEPHALOGRAM DATE: 07/17/2021 REFERRING PHYSICIAN: EVETTE AMARO DIAGNOSIS: Seizure. EEG#: [id number] HISTORY: The patient is a 56-year-old woman with a history of seizures. She is currently taking Keppra, Abilify, buspirone, propranolol, sertraline, levothyroxine. TECHNICAL DESCRIPTION: This digital electroencephalogram (EEG) was recorded by 21 scalp, ear, and two electrocardiogram (EKG) electrodes and was reviewed in bipolar and referential montages following reformatting in 10-20 international electrode placement system. INTERPRETATION: The patient was noted to be in awake and drowsy states during this EEG. Resting and awake background rhythm consisted of 6-7 Hz theta activity measuring 15-40 microvolts in amplitude which was symmetric bilaterally. Stage I and II sleep were reviewed and were symmetric bilaterally. Hyperventilation was not performed. Photic stimulation remained unremarkable. EKG revealed normal sinus rhythm. No focal, lateralizing, or epileptiform abnormalities were seen. No relevant clinical activity was noted. CONCLUSION: This EEG in awake, drowsy states, stage I and II sleep is abnormal due to presence of mild generalized slowing consistent with mild nonspecific diffuse cerebral dysfunction suggesting an encephalopathy due to multiple potential causes. No clear epileptiform abnormalities were seen. Clinical correlation is recommended.
== END ==
LOC: M SLEEP 07:50
PROVIDERS: ATTEND Physician Assistant Medical
DX: R56.9 Unspecified convulsions (principal)

== ENCOUNTER 2021-11-10 16:32 | Inpatient (IN) | payer MEDICAID, OTHER ==
[~2021-11-10] VITALS: Ht 162.6 cm; Wt 104.4 kg
[~2021-11-10 16:32] MED LIST changes: -BUSP1TAB; +BUSP1TAB PO; -PROP80TA
[2021-11-10 18:29] LABS: BASO # 0.1 10^3/uL (0.0-0.2); BASO % 0.8 % (0.0-1.0); EOS # 0.2 10^3/uL (0.0-0.5); EOS % 2.8 % (0.0-3.0); HEMATOCRIT 40.9 % (36.0-47.0); HEMOGLOBIN 13.8 g/dl (12.0-15.5); LYMPH # 2.3 10^3/uL (1.5-5.0); LYMPH % 27.6 % (24.0-44.0); MEAN CORPUSCULAR HEMOGLOBIN 30.4 pg (27.0-33.0); MEAN CORPUSCULAR HGB CONC 33.7 g/dl (32.0-36.5); MEAN CORPUSCULAR VOLUME 90.1 fl (80.0-96.0); MONO # 0.5 10^3/uL (0.0-0.8); MONO % 5.8 % (2.0-8.0); NEUTROPHILS # 5.2 10^3/uL (1.5-8.5); NEUTROPHILS % 62.6 % (36.0-66.0); PLATELET COUNT, AUTOMATED 239 10^3/uL (150-450); RED BLOOD COUNT 4.54 10^6/uL (4.00-5.40); WHITE BLOOD COUNT 8.3 10^3/uL (4.0-10.0)
[2021-11-10 18:43] LABS: INR 0.9; PROTHROMBIN TIME 12.6 SECONDS (12.7-14.5)
[2021-11-10 18:44] LABS: BLOOD UREA NITROGEN 20 MG/DL (7-18); CALCIUM LEVEL 9.2 MG/DL (8.5-10.1); CARBON DIOXIDE LEVEL 23 MEQ/L (21-32); CHLORIDE LEVEL 109 MEQ/L (98-107); CREATININE FOR GFR 0.94 MG/DL (0.55-1.30); GLOMERULAR FILTRATION RATE > 60.0 (>51); GLUCOSE, FASTING 116 MG/DL (70-100); POTASSIUM SERUM 4.3 MEQ/L (3.5-5.1); SODIUM LEVEL 140 MEQ/L (136-145)
[2021-11-10 18:49] LABS: CK-MB VALUE MASS < 1.0 NG/ML (<3.6); CPK CREATINE PHOSPHOKINASE 96 U/L (26-192); MB/CK RELATIVE INDEX 1.04 (< OR =4)
[2021-11-10] MEDS ORDERED: MECLIZINE 25 MG TABLET PO ONE (19:05)
[2021-11-10] MEDS ORDERED: ASPIRIN 325 MG TAB PO ONE (19:15)
[2021-11-10 19:17] LABS: RSV AMPLIFICATION NEGATIVE (NEGATIVE)
[2021-11-10] MEDS ORDERED: METF500T13 PO (19:40)
[2021-11-10] MEDS ORDERED: HOME MED LIST COMPLETE! XX SCH (19:45)
[2021-11-10] MEDS ORDERED: LORazepam 2 MG/ML VIAL IV ONE (20:00)
[2021-11-10] MEDS ORDERED: ACETAMINOPHEN TAB 650MG DOSE (2X325MG) PO PRN (20:15)
[2021-11-10] MEDS ORDERED: GLUCOSE 4GM CHEW TABLET PO PRN (20:15)
[2021-11-10] MEDS ORDERED: ALBUTEROL 90 MCG/ACT 8GM HFA INHALER INH PRN (20:15)
[2021-11-10] MEDS ORDERED: GLUCAGON INJ 1MG VIAL SC PRN (20:15)
[2021-11-10] MEDS ORDERED: DEXTROSE 50% 50 ML SYRINGE IV PRN (20:15)
[2021-11-10] MEDS ORDERED: METAL LOCK LOOP XX ONE (20:17)
[2021-11-10] MEDS: HumaLOG INSULIN (NovoLOG) PER UNIT SC SCH (21:00)
[2021-11-10] MEDS: SERTRALINE 100 MG TAB PO SCH (22:24)
[2021-11-10] MEDS: busPIRone 5 MG TAB PO SCH (22:24)
[2021-11-10] MEDS: levETIRAcetam 250MG TABLET (KEPPRA) PO SCH (22:25)
[2021-11-10] MEDS: PROPRANOLOL 20 MG TAB PO SCH (22:26)
[2021-11-11 00:25] VITALS: BP 131/80
[2021-11-11 06:00] VITALS: BP 135/79
[2021-11-11] MEDS: LEVOTHYROXINE 50MCG TABLET (0.05MG) PO SCH (06:21)
[2021-11-11 06:44] LABS: HEMATOCRIT 42.8 % (36.0-47.0); HEMOGLOBIN 13.9 g/dl (12.0-15.5); MEAN CORPUSCULAR HEMOGLOBIN 29.8 pg (27.0-33.0); MEAN CORPUSCULAR HGB CONC 32.5 g/dl (32.0-36.5); MEAN CORPUSCULAR VOLUME 91.8 fl (80.0-96.0); PLATELET COUNT, AUTOMATED 233 10^3/uL (150-450); RED BLOOD COUNT 4.66 10^6/uL (4.00-5.40); WHITE BLOOD COUNT 7.8 10^3/uL (4.0-10.0)
[2021-11-11 07:06] LABS: BLOOD UREA NITROGEN 23 MG/DL (7-18); CALCIUM LEVEL 9.2 MG/DL (8.5-10.1); CARBON DIOXIDE LEVEL 26 MEQ/L (21-32); CHLORIDE LEVEL 109 MEQ/L (98-107); CREATININE FOR GFR 1.01 MG/DL (0.55-1.30); GLOMERULAR FILTRATION RATE > 60.0 (>51); GLUCOSE, FASTING 125 MG/DL (70-100); POTASSIUM SERUM 3.6 MEQ/L (3.5-5.1); SODIUM LEVEL 142 MEQ/L (136-145)
[2021-11-11] MEDS: HumaLOG INSULIN (NovoLOG) PER UNIT SC SCH ×4 (08:54→21:00)
[2021-11-11] MEDS: busPIRone 5 MG TAB PO SCH ×2 (08:55→21:44)
[2021-11-11] MEDS: levETIRAcetam 250MG TABLET (KEPPRA) PO SCH ×2 (08:55→21:44)
[2021-11-11] MEDS: SERTRALINE 100 MG TAB PO SCH ×2 (08:55→21:44)
[2021-11-11] MEDS: PROPRANOLOL 20 MG TAB PO SCH ×2 (08:57→21:44)
[2021-11-11 14:00] VITALS: BP 140/77
[2021-11-12 00:49] VITALS: BP 140/59
[2021-11-12] MEDS: LEVOTHYROXINE 50MCG TABLET (0.05MG) PO SCH (05:17)
[2021-11-12 06:25] VITALS: BP 144/77
[2021-11-12 06:51] LABS: HEMATOCRIT 39.9 % (36.0-47.0); HEMOGLOBIN 13.2 g/dl (12.0-15.5); MEAN CORPUSCULAR HEMOGLOBIN 30.3 pg (27.0-33.0); MEAN CORPUSCULAR HGB CONC 33.1 g/dl (32.0-36.5); MEAN CORPUSCULAR VOLUME 91.5 fl (80.0-96.0); PLATELET COUNT, AUTOMATED 208 10^3/uL (150-450); RED BLOOD COUNT 4.36 10^6/uL (4.00-5.40)
[2021-11-12 07:18] LABS: BLOOD UREA NITROGEN 20 MG/DL (7-18); CALCIUM LEVEL 8.7 MG/DL (8.5-10.1); CARBON DIOXIDE LEVEL 27 MEQ/L (21-32); CHLORIDE LEVEL 109 MEQ/L (98-107); CREATININE FOR GFR 1.01 MG/DL (0.55-1.30); GLOMERULAR FILTRATION RATE > 60.0 (>51); GLUCOSE, FASTING 124 MG/DL (70-100); POTASSIUM SERUM 3.9 MEQ/L (3.5-5.1); SODIUM LEVEL 141 MEQ/L (136-145)
[2021-11-12] MEDS: HumaLOG INSULIN (NovoLOG) PER UNIT SC SCH ×5 (07:30→21:00)
[2021-11-12] MEDS: PROPRANOLOL 20 MG TAB PO SCH ×2 (08:29→21:27)
[2021-11-12] MEDS: busPIRone 5 MG TAB PO SCH ×2 (08:29→21:27)
[2021-11-12] MEDS: SERTRALINE 100 MG TAB PO SCH ×2 (08:29→21:27)
[2021-11-12] MEDS: levETIRAcetam 250MG TABLET (KEPPRA) PO SCH ×2 (08:30→21:27)
[2021-11-12 14:00] VITALS: BP 137/72
[2021-11-12 21:40] VITALS: BP 137/72
[2021-11-13] MEDS: LEVOTHYROXINE 50MCG TABLET (0.05MG) PO SCH (05:16)
[2021-11-13 06:00] VITALS: BP 130/73
[2021-11-13 08:10] VITALS: BP 130/73
[2021-11-13] MEDS: levETIRAcetam 250MG TABLET (KEPPRA) PO SCH (08:10)
[2021-11-13] MEDS: PROPRANOLOL 20 MG TAB PO SCH (08:10)
[2021-11-13] MEDS: busPIRone 5 MG TAB PO SCH (08:10)
[2021-11-13] MEDS: SERTRALINE 100 MG TAB PO SCH (08:10)
[2021-11-13 08:13] LABS: HEMATOCRIT 40.5 % (36.0-47.0); HEMOGLOBIN 13.2 g/dl (12.0-15.5); MEAN CORPUSCULAR HEMOGLOBIN 30.2 pg (27.0-33.0); MEAN CORPUSCULAR HGB CONC 32.6 g/dl (32.0-36.5); MEAN CORPUSCULAR VOLUME 92.7 fl (80.0-96.0); PLATELET COUNT, AUTOMATED 207 10^3/uL (150-450); RED BLOOD COUNT 4.37 10^6/uL (4.00-5.40); WHITE BLOOD COUNT 7.1 10^3/uL (4.0-10.0)
[2021-11-13 08:39] LABS: BLOOD UREA NITROGEN 16 MG/DL (7-18); CALCIUM LEVEL 8.8 MG/DL (8.5-10.1); CARBON DIOXIDE LEVEL 27 MEQ/L (21-32); CHLORIDE LEVEL 111 MEQ/L (98-107); CREATININE FOR GFR 0.85 MG/DL (0.55-1.30); GLOMERULAR FILTRATION RATE > 60.0 (>51); GLUCOSE, FASTING 112 MG/DL (70-100); SODIUM LEVEL 144 MEQ/L (136-145)
[2021-11-13] MEDS: HumaLOG INSULIN (NovoLOG) PER UNIT SC SCH ×3 (08:45→12:24)
[2021-11-13 10:00] VITALS: BP_SYST 120; BP_SYST 121; BP_SYST 127; BP_DIAS 72; BP_DIAS 73
[2021-11-13] MEDS ORDERED: SELF1KIT MC ×2 (11:00→15:29)
[2021-11-13 15:00] VITALS: BP 141/69
== END 2021-11-13 17:20 | disposition home health service (06) | DRG 149 ==
LOC: M ED 16:32 → M ED INP 20:05 → ENRESERV 23:56 → M MS5PR 11-11 00:25
PROVIDERS: ADMIT Internal Medicine; ATTEND General Practice
DX: H81.399 Other peripheral vertigo, unspecified ear (principal); F41.8 Other specified anxiety disorders; E03.9 Hypothyroidism, unspecified; E11.9 Type 2 diabetes mellitus without complications; J45.909 Unspecified asthma, uncomplicated; G40.909 Epilepsy, unspecified, not intractable, without status epilepticus; Z79.899 Other long term (current) drug therapy; Z91.040 Latex allergy status; Z88.8 Allergy status to other drugs, medicaments and biological substances; F32.A Depression, unspecified

== ENCOUNTER → 2022-01-15 | Outpatient (CLI) | payer OTHER, MEDICAID ==
[~2022-01-15] MED LIST changes: +METF500T13 PO; +SELF1KIT MC
== END ==
LOC: M PLALAB 15:16
PROVIDERS: ATTEND Physician Assistant Medical
DX: R56.9 Unspecified convulsions (principal)

== ENCOUNTER 2022-02-03 01:47 | Emergency (ER) | payer OTHER, MEDICAID ==
[~2022-02-03] VITALS: Ht 162.6 cm; Wt 134.1 kg
[2022-02-03 06:54] VITALS: BP 141/69
[2022-02-03 07:40] LABS: BASO # 0.1 10^3/uL (0.0-0.2); BASO % 1.2 % (0.0-1.0); EOS # 0.4 10^3/uL (0.0-0.5); EOS % 4.6 % (0.0-3.0); HEMATOCRIT 45.6 % (36.0-47.0); HEMOGLOBIN 14.8 g/dl (12.0-15.5); LYMPH # 3.2 10^3/uL (1.5-5.0); LYMPH % 41.1 % (24.0-44.0); MEAN CORPUSCULAR HEMOGLOBIN 30.6 pg (27.0-33.0); MEAN CORPUSCULAR HGB CONC 32.5 g/dl (32.0-36.5); MEAN CORPUSCULAR VOLUME 94.4 fl (80.0-96.0); MONO # 0.5 10^3/uL (0.0-0.8); MONO % 6.3 % (2.0-8.0); NEUTROPHILS # 3.6 10^3/uL (1.5-8.5); NEUTROPHILS % 46.5 % (36.0-66.0); PLATELET COUNT, AUTOMATED 243 10^3/uL (150-450); RED BLOOD COUNT 4.83 10^6/uL (4.00-5.40); WHITE BLOOD COUNT 7.8 10^3/uL (4.0-10.0)
[2022-02-03 08:05] LABS: ALBUMIN 3.5 GM/DL (3.2-5.2); ALT/SGPT 29 U/L (12-78); BILIRUBIN,DIRECT 0.2 MG/DL (0.0-0.2); BILIRUBIN,TOTAL 0.5 MG/DL (0.2-1.0); BLOOD UREA NITROGEN 16 MG/DL (7-18); CALCIUM LEVEL 9.2 MG/DL (8.5-10.1); CARBON DIOXIDE LEVEL 22 MEQ/L (21-32); CHLORIDE LEVEL 112 MEQ/L (98-107); GLOMERULAR FILTRATION RATE > 60.0 (>51); GLUCOSE, FASTING 125 MG/DL (70-100); POTASSIUM SERUM 4.4 MEQ/L (3.5-5.1); SODIUM LEVEL 143 MEQ/L (136-145); TOTAL PROTEIN 7.2 GM/DL (6.4-8.2)
[2022-02-03] MEDS ORDERED: predniSONE 20 MG TAB PO ONE (08:10)
[2022-02-03] MEDS ORDERED: PRED20TA PO (10:18)
[2022-02-03 10:31] LABS: RSV AMPLIFICATION NEGATIVE (NEGATIVE)
== END 2022-02-03 11:27 | disposition home or self-care (01) ==
LOC: M ED 01:47
DX: J45.909 Unspecified asthma, uncomplicated (principal); R00.1 Bradycardia, unspecified; G47.33 Obstructive sleep apnea (adult) (pediatric); Z79.51 Long term (current) use of inhaled steroids; Z91.040 Latex allergy status; Z91.048 Other nonmedicinal substance allergy status; Z88.9 Allergy status to unspecified drugs, medicaments and biological substances
CPT/HCPCS: 36415; 71046; 80048; 80076; 80180; 85025; 85379; 87631; 93005; 99284; J7512

== ENCOUNTER → 2022-03-08 | Outpatient (REF) | payer OTHER ==
[~2022-03-08] MED LIST changes: +CIPR-249 PO
[2022-03-08 19:27] LABS: GC DNA AMPLIFICATION NEGATIVE (NEGATIVE)
== END ==
LOC: M SFHCWAGY 17:01
PROVIDERS: ATTEND Advanced Practice Midwife
DX: Z01.419 Encounter for gynecological examination (general) (routine) without abnormal findings (principal); R30.0 Dysuria; L53.9 Erythematous condition, unspecified; N95.8 Other specified menopausal and perimenopausal disorders; Z11.3 Encounter for screening for infections with a predominantly sexual mode of transmission

== ENCOUNTER → 2022-03-08 | Outpatient (CLI) | payer MEDICAID, OTHER | LOC: M WHC 14:04 | PROVIDERS: ATTEND Advanced Practice Midwife | DX: Z12.31 Encounter for screening mammogram for malignant neoplasm of breast (principal); Z78.0 Asymptomatic menopausal state; Z80.0 Family history of malignant neoplasm of digestive organs; Z80.3 Family history of malignant neoplasm of breast ==

== ENCOUNTER → 2022-08-21 | Outpatient (CLI) | payer OTHER | LOC: M LABSMTC 09:24 | PROVIDERS: ATTEND Psychiatry & Neurology Neurology | DX: Z20.822 Contact with and (suspected) exposure to COVID-19 (principal) ==

== ENCOUNTER → 2022-09-25 | Outpatient (CLI) | payer OTHER | LOC: M LABSMTC 11:13 | PROVIDERS: ATTEND Nurse Practitioner Family | DX: Z20.822 Contact with and (suspected) exposure to COVID-19 (principal) ==

== ENCOUNTER → 2023-02-24 | Outpatient (CLI) | payer OTHER, MEDICAID | LOC: M PLAIMG 12:49 | PROVIDERS: ATTEND Physician Assistant Medical | DX: M85.88 Other specified disorders of bone density and structure, other site (principal); M47.817 Spondylosis without myelopathy or radiculopathy, lumbosacral region; M54.41 Lumbago with sciatica, right side ==

== ENCOUNTER → 2023-04-01 | Outpatient (CLI) | payer OTHER, MEDICAID | LOC: M PLAIMG 13:47 | PROVIDERS: ATTEND Physician Assistant Medical | DX: M54.41 Lumbago with sciatica, right side (principal) ==

== ENCOUNTER 2023-06-23 10:40 | Day surgery (SDC) | payer MEDICAID, OTHER ==
[~2023-06-23] VITALS: Ht 160 cm; Wt 107.0 kg
[~2023-06-23 10:40] MED LIST changes: -CELE1CAP7 PO; +CELE1CAP99 PO; +NS 1,000 ML IV ONE; +SYMB16INH
[2023-06-23 12:31] VITALS: TEMP 97.8
[2023-06-23 12:50] VITALS: BP 107/61; O2SAT 95
== END 2023-06-23 13:29 | disposition home or self-care (01) ==
LOC: M OPP 10:40
PROVIDERS: ATTEND Internal Medicine Gastroenterology
DX: K52.9 Noninfective gastroenteritis and colitis, unspecified (principal); D12.3 Benign neoplasm of transverse colon; K90.0 Celiac disease; K64.4 Residual hemorrhoidal skin tags; K21.00 Gastro-esophageal reflux disease with esophagitis, without bleeding; K29.70 Gastritis, unspecified, without bleeding; K64.8 Other hemorrhoids

== ENCOUNTER → 2023-08-06 | Outpatient (CLI) | payer OTHER ==
[~2023-08-06] MED LIST changes: -NS 1,000 ML IV ONE
== END ==
LOC: M RAD 09:48
PROVIDERS: ATTEND Physician Assistant Medical
DX: K76.0 Fatty (change of) liver, not elsewhere classified (principal); R94.5 Abnormal results of liver function studies

== ENCOUNTER → 2023-09-08 | Outpatient (CLI) | payer OTHER, MEDICAID ==
[2023-09-08 18:49] LABS: BASO # 0.1 10^3/uL (0.0-0.2); BASO % 1.4 % (0.0-1.0); EOS # 0.2 10^3/uL (0.0-0.5); EOS % 2.7 % (0.0-3.0); HEMATOCRIT 45.4 % (36.0-47.0); HEMOGLOBIN 14.6 g/dl (12.0-15.5); LYMPH # 2.6 10^3/uL (1.5-5.0); LYMPH % 34.8 % (24.0-44.0); MEAN CORPUSCULAR HEMOGLOBIN 30.4 pg (27.0-33.0); MEAN CORPUSCULAR HGB CONC 32.2 g/dl (32.0-36.5); MEAN CORPUSCULAR VOLUME 94.6 fl (80.0-96.0); MONO # 0.5 10^3/uL (0.0-0.8); MONO % 6.5 % (2.0-8.0); NEUTROPHILS % 54.5 % (36.0-66.0); PLATELET COUNT, AUTOMATED 283 10^3/uL (150-450); WHITE BLOOD COUNT 7.4 10^3/uL (4.0-10.0)
[2023-09-08 19:18] LABS: ALBUMIN 3.7 G/DL (3.2-5.2); ALKALINE PHOSPHATASE 132 U/L (46-116); ALT/SGPT 22 U/L (7.0-40); AST/SGOT 14 U/L (<34); BILIRUBIN,TOTAL 1.1 MG/DL (0.3-1.2); BLOOD UREA NITROGEN 18 MG/DL (9-23); CALCIUM LEVEL 9.3 MG/DL (8.5-10.1); CARBON DIOXIDE LEVEL 31 MMOL/L (20-31); CHLORIDE LEVEL 108 MMOL/L (98-107); CREATININE FOR GFR 0.94 MG/DL (0.55-1.30); GLOMERULAR FILTRATION RATE > 60.0 (>51); GLUCOSE, FASTING 108 MG/DL (60-100); POTASSIUM SERUM 4.4 MMOL/L (3.5-5.1); SODIUM LEVEL 142 MMOL/L (136-145); TOTAL PROTEIN 6.8 G/DL (5.7-8.2)
[2023-09-08 19:19] LABS: PTH INTACT 83.4 PG/ML (18.5-88.0)
[2023-09-08 19:20] LABS: HEMOGLOBIN A1c 5.8 % (4.0-6.0)
[2023-09-08 19:20] LABS: TOTAL 25(OH) VITAMIN D 28.6 NG/ML (20.0-100.0); VITAMIN B12 LEVEL 444 PG/ML (211-911)
== END ==
LOC: M PLALAB 15:00
PROVIDERS: ATTEND Physician Assistant Medical
DX: R53.82 Chronic fatigue, unspecified (principal); E11.9 Type 2 diabetes mellitus without complications; E55.9 Vitamin D deficiency, unspecified; E78.2 Mixed hyperlipidemia; K29.70 Gastritis, unspecified, without bleeding

== ENCOUNTER 2024-01-22 11:48 | Outpatient (RCR) | payer MEDICAID, OTHER | END 2024-02-01 | LOC: M PT 11:48 | PROVIDERS: ATTEND Physician Assistant Medical | DX: M54.42 Lumbago with sciatica, left side (principal); M54.41 Lumbago with sciatica, right side ==

== ENCOUNTER 2024-02-18 12:50 | Outpatient (RCR) | payer OTHER | END 2024-03-03 | LOC: M PT 12:50 | PROVIDERS: ATTEND Physician Assistant Medical | DX: M54.42 Lumbago with sciatica, left side (principal); M54.41 Lumbago with sciatica, right side ==

== ENCOUNTER 2024-03-30 11:55 | Outpatient (RCR) | payer OTHER | END 2024-04-03 | LOC: M PT 11:55 | PROVIDERS: ATTEND Physician Assistant Medical | DX: M54.42 Lumbago with sciatica, left side (principal); M54.41 Lumbago with sciatica, right side ==

== ENCOUNTER → 2024-04-12 | Outpatient (REF) | payer OTHER, MEDICARE ==
[2024-04-12 17:31] LABS: CREATININE, URINE 62.8 MG/DL; MALB URINE SIEMENS < 3.0 MG/L; MAU/CREAT RATIO 4.7 MCG/MG (0.0-30.0)
[2024-04-12 17:38] LABS: HEMATOCRIT 43.4 % (36.0-47.0); MEAN CORPUSCULAR HEMOGLOBIN 30.3 pg (27.0-33.0); MEAN CORPUSCULAR HGB CONC 32.3 g/dl (32.0-36.5); MEAN CORPUSCULAR VOLUME 93.9 fl (80.0-96.0); PLATELET COUNT, AUTOMATED 247 10^3/uL (150-450); RED BLOOD COUNT 4.62 10^6/uL (4.00-5.40); WHITE BLOOD COUNT 7.5 10^3/uL (4.0-10.0)
[2024-04-12 18:01] LABS: ALBUMIN 3.7 G/DL (3.2-5.2); ALKALINE PHOSPHATASE 178 U/L (46-116); ALT/SGPT 15 U/L (7.0-40); AST/SGOT 9 U/L (<34); BILIRUBIN,TOTAL 0.5 MG/DL (0.3-1.2); BLOOD UREA NITROGEN 42 MG/DL (9-23); CALCIUM LEVEL 9.5 MG/DL (8.5-10.1); CARBON DIOXIDE LEVEL 29 MMOL/L (20-31); CHLORIDE LEVEL 107 MMOL/L (98-107); CHOLESTEROL LEVEL 183 MG/DL (<200); CHOLESTEROL RISK RATIO 4.52 (<5); GLOMERULAR FILTRATION RATE > 60.0 (>51); GLUCOSE, FASTING 99 MG/DL (60-100); HDL CHOLESTEROL 40.4 MG/DL (>40); LDL CHOLESTEROL 112.4 MG/DL (<100); NON-HDL-C 142.6 MG/DL; POTASSIUM SERUM 4.5 MMOL/L (3.5-5.1); SODIUM LEVEL 140 MMOL/L (136-145); THYROID STIMULATING HORMONE 3.328 uIU/ML (0.55-4.78); TOTAL PROTEIN 6.8 G/DL (5.7-8.2); TRIGLYCERIDES LEVEL 151 MG/DL (<150)
[2024-04-12 18:34] LABS: HEMOGLOBIN A1c 5.2 % (4.0-6.0)
== END ==
LOC: M LAB REF 16:10
PROVIDERS: ATTEND Physician Assistant
DX: E11.9 Type 2 diabetes mellitus without complications (principal)

== ENCOUNTER 2024-04-29 12:15 | Outpatient (RCR) | payer OTHER | END 2024-05-03 | LOC: M PT 12:15 | PROVIDERS: ATTEND Physician Assistant Medical | DX: R26.89 Other abnormalities of gait and mobility (principal) ==

== ENCOUNTER → 2024-06-03 | Outpatient (RCR) | payer OTHER, MEDICAID | LOC: M PT 05-04 11:53 | PROVIDERS: ATTEND Physician Assistant Medical | DX: R26.89 Other abnormalities of gait and mobility (principal) ==

== ENCOUNTER 2024-06-17 10:45 | Outpatient (RCR) | payer OTHER, MEDICAID | END 2024-07-03 | LOC: M PT 10:45 | PROVIDERS: ATTEND Physician Assistant Medical | DX: R29.6 Repeated falls (principal); M54.42 Lumbago with sciatica, left side; R29.898 Other symptoms and signs involving the musculoskeletal system; M54.41 Lumbago with sciatica, right side ==

== ENCOUNTER → 2024-07-09 | Outpatient (CLI) | payer OTHER, MEDICAID ==
[2024-07-09 16:55] LABS: HEMOGLOBIN A1c 5.1 % (4.0-6.0)
[2024-07-09 17:08] LABS: ALBUMIN 3.4 G/DL (3.2-5.2); ALKALINE PHOSPHATASE 154 U/L (35-104); ALT/SGPT 12 U/L (7.0-40); AST/SGOT 10 U/L (<34); BILIRUBIN,TOTAL 0.7 MG/DL (0.3-1.2); BLOOD UREA NITROGEN 26 MG/DL (9-23); CALCIUM LEVEL 9.4 MG/DL (8.3-10.6); CARBON DIOXIDE LEVEL 31 MMOL/L (20-31); CHLORIDE LEVEL 106 MMOL/L (98-107); CHOLESTEROL LEVEL 133 MG/DL (<200); CHOLESTEROL RISK RATIO 3.06 (<5); GLOMERULAR FILTRATION RATE > 60.0 (>45); GLUCOSE, FASTING 123 MG/DL (74-106); HDL CHOLESTEROL 43.4 MG/DL (>40); LDL CHOLESTEROL 73.2 MG/DL (<100); NON-HDL-C 89.6 MG/DL; POTASSIUM SERUM 4.2 MMOL/L (3.5-5.1); SODIUM LEVEL 144 MMOL/L (136-145); TOTAL PROTEIN 6.8 G/DL (5.7-8.2); TRIGLYCERIDES LEVEL 82 MG/DL (<150)
== END ==
LOC: M WUC 11:30
PROVIDERS: ATTEND Physician Assistant
DX: E11.9 Type 2 diabetes mellitus without complications (principal); E78.5 Hyperlipidemia, unspecified

== ENCOUNTER → 2024-10-08 | Outpatient (CLI) | payer MEDICARE | LOC: M LAB 11:34 | PROVIDERS: ATTEND Psychiatry & Neurology Neurology | DX: R56.9 Unspecified convulsions (principal) ==

== ENCOUNTER → 2025-03-03 | Outpatient (CLI) | payer MEDICARE | LOC: M WHC 09:31 | PROVIDERS: ATTEND Advanced Practice Midwife | DX: Z12.31 Encounter for screening mammogram for malignant neoplasm of breast (principal); R92.313 Mammographic fatty tissue density, bilateral breasts ==

== ENCOUNTER → 2025-03-03 | Outpatient (REF) | payer MEDICARE, MEDICAID ==
[2025-03-05 15:20] LABS: HPV APTIMA Detected (Not Detected)
== END ==
LOC: M SFHCWAGY 13:05
PROVIDERS: ATTEND Advanced Practice Midwife
DX: Z12.4 Encounter for screening for malignant neoplasm of cervix (principal); Z12.31 Encounter for screening mammogram for malignant neoplasm of breast
CPT/HCPCS: 77063; 77067; 87624; G0123

== ENCOUNTER 2025-03-24 12:04 | Outpatient (RCR) | payer MEDICARE, MEDICAID ==
[~2025-03-24 12:04] MED LIST changes: +ACYC200C10 PO; -ACYC200C8 PO
== END 2025-04-03 ==
LOC: M PT 12:04
PROVIDERS: ATTEND Nurse Practitioner Family
DX: M25.551 Pain in right hip (principal)

== ENCOUNTER → 2025-04-01 | Outpatient (REF) | payer MEDICARE, MEDICAID | LOC: M SFHCWAGY 17:18 | PROVIDERS: ATTEND Advanced Practice Midwife | DX: R87.810 Cervical high risk human papillomavirus (HPV) DNA test positive (principal); R87.612 Low grade squamous intraepithelial lesion on cytologic smear of cervix (LGSIL) ==

== ENCOUNTER 2025-04-26 14:10 | Outpatient (RCR) | payer MEDICARE, MEDICAID | END 2025-05-03 | LOC: M PT 14:10 | PROVIDERS: ATTEND Nurse Practitioner Family | DX: M25.551 Pain in right hip (principal) ==

== ENCOUNTER → 2025-04-27 | Outpatient (REF) | payer MEDICARE, MEDICAID ==
[2025-05-02 14:36] LABS: BASO # 0.1 10^3/uL (0.0-0.2); BASO % 1.0 % (0.0-1.0); EOS # 0.2 10^3/uL (0.0-0.5); EOS % 3.0 % (0.0-3.0); LYMPH # 2.0 10^3/uL (1.5-5.0); LYMPH % 28.0 % (24.0-44.0); MONO # 0.6 10^3/uL (0.0-0.8); MONO % 7.7 % (2.0-8.0); NEUTROPHILS # 4.3 10^3/uL (1.5-8.5); NEUTROPHILS % 59.1 % (36.0-66.0); PLATELET COUNT, AUTOMATED 210 10^3/uL (150-450)
[2025-05-02 14:37] LABS: CARBON DIOXIDE LEVEL 26 MMOL/L (20-31); CHLORIDE LEVEL 108 MMOL/L (98-107); CREATININE FOR GFR 0.69 MG/DL (0.55-1.30); GLOMERULAR FILTRATION RATE > 90.0 (>45); POTASSIUM SERUM 4.1 MMOL/L (3.5-5.1); SODIUM LEVEL 142 MMOL/L (136-145)
[2025-05-02 14:38] LABS: ALT/SGPT 20 U/L (7.0-40); AST/SGOT 14 U/L (<34); CALCIUM LEVEL 9.0 MG/DL (8.3-10.6); CHOLESTEROL LEVEL 129 MG/DL (<200); CHOLESTEROL RISK RATIO 2.63 (<5); LDL CHOLESTEROL 60.0 MG/DL (<100); NON-HDL-C 80.0 MG/DL; TRIGLYCERIDES LEVEL 100 MG/DL (<150)
[2025-05-02 14:39] LABS: TOTAL 25(OH) VITAMIN D 27.4 NG/ML (20.0-100.0)
== END ==
LOC: M LAB REF 12:13
PROVIDERS: ATTEND Nurse Practitioner Family
DX: E11.9 Type 2 diabetes mellitus without complications (principal); E78.5 Hyperlipidemia, unspecified; E06.9 Thyroiditis, unspecified; E55.9 Vitamin D deficiency, unspecified

== ENCOUNTER 2025-05-04 12:47 | Outpatient (RCR) | payer MEDICARE, MEDICAID | END 2025-06-03 | LOC: M PT 12:47 | PROVIDERS: ATTEND Nurse Practitioner Family | DX: M25.551 Pain in right hip (principal) ==

== ENCOUNTER → 2025-05-23 | Outpatient (CLI) | payer MEDICARE, MEDICAID | LOC: M LAB 14:34 | PROVIDERS: ATTEND Psychiatry & Neurology Neurology | DX: R56.9 Unspecified convulsions (principal) ==

== ENCOUNTER → 2025-05-27 | Outpatient (CLI) | payer MEDICARE, MEDICAID | LOC: M RAD 08:48 | PROVIDERS: ATTEND Nurse Practitioner Family | DX: E04.2 Nontoxic multinodular goiter (principal) ==

== ENCOUNTER 2025-06-29 12:10 | Outpatient (RCR) | payer MEDICARE, MEDICAID | END 2025-07-03 | LOC: M PT 12:10 | PROVIDERS: ATTEND Physician Assistant | DX: M70.61 Trochanteric bursitis, right hip (principal); M70.62 Trochanteric bursitis, left hip ==

== ENCOUNTER 2025-07-21 12:39 | Outpatient (RCR) | payer MEDICARE, MEDICAID | END 2025-08-03 | LOC: M PT 12:39 | PROVIDERS: ATTEND Physician Assistant | DX: M70.61 Trochanteric bursitis, right hip (principal); M70.62 Trochanteric bursitis, left hip ==